=== PATIENT | female | born 1935 | race Caucasian/White ===

== ENCOUNTER 2019-09-01 11:21 | Outpatient (CLI) | payer MEDICARE, SELFPAY ==
--- NOTE | ~2019-09-01 | XR_ITS ---
EXAMINATION: XR toe 3rd LT min 2V INDICATION: Left third toe pain TECHNIQUE: Three views of the left third toe are obtained. COMPARISON: 06/16/2008 FINDINGS: There is no fracture, dislocation, or subluxation. 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 The soft tissues are unremarkable. IMPRESSION: 1. No acute osseous abnormality. Reviewed, dictated and finalized at location A.
[2019-09-01 12:54] LABS: Erythrocyte Sedimentation Rate 8 mm/hr (0-20)
[2019-09-01 18:46] LABS: Rheumatoid Factor < 8.6 IU/ML (<12)
== END 2019-09-01 11:22 | disposition home or self-care (01) ==
PROVIDERS: PCP Internal Medicine; Visit Provider Physician Assistant
DX: M79.675 Pain in left toe(s) (principal)
CPT/HCPCS: 36415; 73660; 85652; 86430

== ENCOUNTER 2019-10-28 10:50 | Emergency (ER) | payer MEDICARE, SELFPAY ==
[2019-10-28 11:04] VITALS: BP 143/91; PULSE 85; RESP 18; TEMP 36.1; O2SAT 100
--- NOTE | 2019-10-28 12:07 | ED.SKABFB ---
HPI - Skin/Abscess/Foreign Bdy General Chief complaint: Skin/Abscess/Foreign Body Stated complaint: pos spider bite Time Seen by Provider: 10/28/19 12:07 Source: patient and RN notes reviewed Mode of arrival: ambulatory Limitations: no limitations History of Present Illness HPI narrative: 84-year-old female who presents to [facility] care with complaints of red rash to the posterior calf region of her right leg for one week. Patient states she thinks she possibly got an insect bite of some kind and has developed this rash. Patient denies any fever, chills,or sweats, negative Anthony's sign noted. Patient states she has applied Benadryl cream, Neosporin and other [id number] ointments with no improvement in rash. MD complaint: rash and insect bite/sting Onset (ago): week(s) (1) Tetanus up to date: yes Location: RLE Severity: mild Severity scale (1-10): 3 Quality: burning and aching Pain Consistency: intermittent Relieving factors: none Exacerbating factors: none Context: other (possible insect bite) Associated symptoms: denies other symptoms and other (rash right calf) Treatments prior to arrival: OTC topical medication Related Data Home Medications Medication Instructions Recorded Confirmed Bacillus coagulans 10 billion cell 1 cell PO DAILY 06/20/19 10/28/19 capsule,delayed release cdxgv-k-japvbllyaybur 150 unit 2 tablet PO .before eating tablet 06/20/19 10/28/19 tablet aspirin 81 mg tablet,delayed 81 mg PO DAILY 06/20/19 10/28/19 release atorvastatin 10 mg tablet 10 mg PO DAILY 06/20/19 10/28/19 fexofenadine 180 mg tablet 180 mg PO DAILY 06/20/19 10/28/19 lisinopril 10 mg tablet 10 mg PO DAILY 06/20/19 10/28/19 lysine 500 mg tablet 500 mg PO DAILY 06/20/19 10/28/19 magnesium 250 mg tablet 250 mg PO DAILY 06/20/19 10/28/19 omeprazole 20 mg capsule,delayed 20 mg PO DAILY 06/20/19 10/28/19 release valacyclovir 500 mg tablet 2,000 mg PO Q12H tablet 06/20/19 10/28/19 Allergies Allergy/AdvReac Type Severity Reaction Status Date / Time Penicillins Allergy Severe RASH Verified 07/17/20 11:01 Sulfa (Sulfonamide Allergy Severe HIVES AND Verified 10/28/19 11:01 Antibiotics) SWELLING adhesive tape Allergy Intermediate skin tears Verified 10/28/19 11:01 Review of Systems Review of Systems: Narrative: CONSTITUTIONAL: Denies fever, chills, or sweats. EYES: Denies visual changes, redness, or discharge. ENT: Denies rhinorrhea, congestion, sore throat, or otalgia. CARDIOVASCULAR: Denies chest pain, palpitations, or edema. RESPIRATORY: Denies cough or dyspnea. GASTROINTESTINAL: Denies abdominal pain, nausea, vomiting, or diarrhea. GENITOURINARY: Denies dysuria or hematuria. SKIN: Positive rash to anterior calf of right leg denies itching states some burning to skin area at times, possible small lesion in rash that could be a bite. MUSCULOSKELETAL: Denies back pain, joint pain, or myalgia. NEUROLOGIC: Denies headache, numbness, or weakness. PSYCHIATRIC: Denies anxiety or depression. All systems reviewed & are unremarkable except as noted in HPI and below PMFSH Past Medical History Medical History (Updated 10/30/19 @ 16:00 by Jillian Tim NP) Cataract (lens) fragments in eye following cataract surgery, bilateral Chronic back pain Hyperlipidemia Hypertension Vaginal prolapse Surgical History Surgical History H/O bilateral oophorectomy H/O right breast biopsy H/O thyroidectomy History of appendectomy History of left knee replacement History of right knee joint replacement Social History Social History Smoking status: Never smoker Second hand tobacco smoke exposure: No Alcohol intake: never Substance use: never Comments At time of signature, agree with nursing past medical, surgical, social history. There is no relevant family history pertinent to the presenting complaint Exam Narra
== END 2019-10-28 12:25 | disposition home or self-care (01) ==
PROVIDERS: Emergency Provider Registered Nurse; PCP Physician Assistant
DX: S80.861A Insect bite (nonvenomous), right lower leg, initial encounter (principal); W57.XXXA Bitten or stung by nonvenomous insect and other nonvenomous arthropods, initial encounter; L25.9 Unspecified contact dermatitis, unspecified cause; Z96.653 Presence of artificial knee joint, bilateral; E78.5 Hyperlipidemia, unspecified; I10 Essential (primary) hypertension
CPT/HCPCS: 99213; G0463

== ENCOUNTER 2020-01-30 13:45 | Outpatient (CLI) | payer MEDICARE, SELFPAY ==
--- NOTE | ~2020-01-30 | CT_ITS ---
EXAMINATION: CT abdomen pelvis w con DATE: 01/30/2020 14:29 INDICATION: Unspecified abdominal pain. TECHNIQUE: Computed tomography (CT) of the abdomen and pelvis was performed with 100 mL Omnipaque 350 intravenous contrast. Automated exposure control and iterative reconstruction technique were employe d. The dose-length product was 775.26 mGy-cm. COMPARISON: CT abdomen and pelvis 05/03/12 FINDINGS: The visualized portions of the lung bases demonstrate mild atelectasis. A calcified right l yaima nodule is consistent with old granulomatous disease. No pleural effusion. Cardiomegaly is noted. No pericardial effusion. The liver, gallbladder, spleen, pancreas, and adrenal glands are normal. The re is cortical thinning of the kidneys. There are no dilated loops of bowel. The appendix is not visu alized. There are no pathologically enlarged lymph nodes. There is no free intraperitoneal fluid. The re is a left inguinal hernia containing fat. There is lumbar levoscoliosis and severe spondylosis. Th ere is severe thoracic spondylosis. IMPRESSION: 1. Left inguinal hernia containing fat. Reviewed, dictated and finalized at location A.
[2020-01-30 14:19] LABS: Estimated Glomerular Filt Rate 47
== END 2020-01-30 13:46 | disposition home or self-care (01) ==
PROVIDERS: PCP Physician Assistant; Visit Provider Physician Assistant
DX: K40.90 Unilateral inguinal hernia, without obstruction or gangrene, not specified as recurrent (principal)
CPT/HCPCS: 74177; Q9967

== ENCOUNTER → 2020-02-14 14:47 | Outpatient (CLI) | payer MEDICARE, SELFPAY ==
--- NOTE | ~2020-02-14 | XR_ITS ---
EXAMINATION: XR thoracic spine 3V DATE: 02/14/2020 15:14 INDICATION: Pain in thoracic spine. TECHNIQUE: 3 views of thoracic spine were obtained. COMPARISON: Thoracic spine radiographs 05/08/2015 FINDINGS: There is kyphosis of thoracic spine. There is 11 degrees levoscoliosis of cervicothoracic s pine and 23 degrees dextroscoliosis of thoracolumbar spine. There is chronic anterior wedging of T7 a nd T9 vertebral bodies. There is decreased disc height at multiple levels, severe at T9-T10 and T11-T 12. IMPRESSION: 1. Severe thoracic spondylosis. 2. Scoliosis and kyphosis. Reviewed, dictated and finalized at location A. 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
--- NOTE | ~2020-02-14 | XR_ITS ---
EXAMINATION: XR lumbar spine min 4V DATE: 02/14/2020 15:14 INDICATION: Low back pain. TECHNIQUE: 5 views of lumbar spine including flexion and extension views were obtained. COMPARISON: Lumbar spine radiographs 05/08/2015, CT abdomen and pelvis 01/30/2020 FINDINGS: There is 21 degrees dextroscoliosis of thoracolumbar spine. There is 2 mm anterolisthesis o f L3 on L4 and L4 on L5. Vertebral body heights are normal. There is severely decreased disc height f rom L1-L2 through L5-S1. There is no abnormal motion with flexion or extension. There is multilevel f acet joint osteoarthritis, severe at some levels. IMPRESSION: 1. Severe lumbar spondylosis. 2. Thoracolumbar dextroscoliosis. Reviewed, dictated and finalized at location A. 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
== END ==
PROVIDERS: PCP Physician Assistant; Visit Provider Nurse Practitioner Family
DX: M47.894 Other spondylosis, thoracic region (principal); M47.896 Other spondylosis, lumbar region
CPT/HCPCS: 72072; 72110

== ENCOUNTER → 2020-06-09 10:29 | Outpatient (CLI) | payer MEDICARE, SELFPAY ==
--- NOTE | ~2020-06-09 | MR_ITS ---
EXAMINATION: MR lumbar spine wo con DATE: 06/09/2020 12:10 INDICATION: Low back pain. TECHNIQUE: Magnetic resonance imaging (MRI) of the lumbar spine was performed without intravenous con trast. Sequences included sagittal T2-weighted FSE, sagittal T2-weighted FS FSE, sagittal T1-weighted FSE, and axial T2-weighted FSE. COMPARISON: Lumbar spine MRI 07/04/2016 FINDINGS: There is 18 degrees levoscoliosis of lumbar spine. There is 3 mm anterolisthesis of L4 on L 5. Vertebral body heights are normal. There is severely decreased disc height from L1-L2 through L4-L 5 and moderately decreased disc height at L5-S1 with endplate remodeling. The distal spinal cord sign al intensity is normal. The conus medullaris is at L1. The following disc levels are specifically dis cussed: L1-L2: The disc is bulging. There is severe right and moderate left facet joint osteoarthritis. There is mild right and moderate left neural foraminal stenosis. There is mild central canal stenosis. L2-L3: The disc is bulging. There is severe bilateral facet joint osteoarthritis. There is mild bilat eral neural foraminal stenosis. There is mild central canal stenosis. L3-L4: The disc is bulging. There is severe bilateral facet joint osteoarthritis. There is mild bilat eral neural foraminal stenosis. There is mild central canal stenosis. L4-L5: The disc is bulging and has an annular fissure. There is severe bilateral facet joint osteoart hritis. There is mild bilateral neural foraminal stenosis. There is mild central canal stenosis. L5-S1: The disc is bulging and has an annular fissure. There is severe bilateral facet joint osteoart hritis. There is mild bilateral neural foraminal stenosis. There is mild central canal stenosis. IMPRESSION: 1. Severe lumbar spondylosis, slightly worsened from 07/04/16. 2. Lumbar levoscoliosis. Reviewed, dictated and finalized at location A. MAN
--- NOTE | ~2020-06-09 | MR_ITS ---
EXAMINATION: MR thoracic spine wo con DATE: 06/09/2020 11:57 INDICATION: Thoracic spine pain. TECHNIQUE: Magnetic resonance imaging (MRI) of the thoracic spine was performed without intravenous c ontrast. Sagittal localizer T1-weighted FSE of the cervical spine was obtained. Thoracic spine sequen ramana included sagittal T2-weighted FSE, sagittal T1-weighted FSE, sagittal T2-weighted FS FSE, and axi al T2-weighted FSE. COMPARISON: Thoracic spine radiographs 02/14/2020 FINDINGS: There is kyphosis of the thoracic spine. Vertebral body heights are normal. There is interb nicole fusion from T7 to T9. There is severely decreased disc height at T9-T10 and T11-T12 and mildly de creased disc height at T10-T11. There is multilevel mild facet joint osteoarthritis. On the right, th ere is mild neural foraminal stenosis at T9-T10. On the left, there is mild neural foraminal stenosis at T1-T2 and T9-T10 and moderate neural foraminal stenosis at T11-T12. At T7-T8, there is a central extrusion with mild central canal stenosis and ventral indentation of the spinal cord. The discs are bulging at T9-T10, T10-T11, and T11-T12 with mild central canal stenosis. The spinal cord signal inte nsity is normal. IMPRESSION: 1. Severe thoracic spondylosis. Reviewed, dictated and finalized at location A. DER TIER
== END ==
PROVIDERS: PCP Physician Assistant; Visit Provider Nurse Practitioner Family
DX: M47.894 Other spondylosis, thoracic region (principal); M47.896 Other spondylosis, lumbar region
CPT/HCPCS: 72146; 72148

== ENCOUNTER 2020-06-28 08:15 | Outpatient (CLI) | payer MEDICARE, SELFPAY ==
[2020-06-28 09:01] LABS: Hematocrit 43.2 % (37.0-47.0); Hemoglobin 14.3 g/dL (12.0-15.0); Mean Corpuscular HGB Conc 33.1 g/dl (32-36); Mean Corpuscular Hemoglobin 31.5 pg (26-34); Mean Corpuscular Volume 95.2 fl (80-100); Mean Platelet Volume 9.5 fl (7.4-10.4); Platelet Count Result 231 k/mm3 (150-375); Red Blood Count 4.54 M/mm3 (4.2-5.4); White Blood Count 6.4 K/mm3 (4.5-10.0)
[2020-06-28 09:07] LABS: Alanine Aminotransferase 21 U/L (4-35); Albumin Level 4.1 g/dL (3.5-5.1); Alkaline Phosphatase 94 U/L (38-126); Anion Gap 6 mmol/L (8-16); Aspartate Amino Transferase 27 U/L (14-36); Bilirubin,Total 0.7 mg/dL (0.2-1.3); Blood Urea Nitrogen 24 mg/dL (7-17); Calcium 9.5 mg/dL (8.4-10.2); Carbon Dioxide 30 mmol/L (22-30); Chloride 106 mmol/L (98-107); Cholesterol 186 mg/dL (0-200); Estimated Glomerular Filt Rate 47; Glucose 100 mg/dL (65-105); HDL Direct 54 mg/dL; Potassium 4.6 mmol/L (3.4-5.0); Sodium 142 mmol/L (137-145); Triglycerides 133 mg/dL (<150)
[2020-06-28 09:18] LABS: LDL Cholesterol Direct 95 mg/dL
[2020-06-28 09:37] LABS: Thyroid Stimulating Hormone 0.968 uIU/mL (0.465-4.680)
[2020-06-28 10:15] LABS: Folic Acid > 20.0 ng/mL (2.76->20); Vitamin B12 > 1000.0 pg/mL (239-931)
== END 2020-06-28 08:16 | disposition home or self-care (01) ==
PROVIDERS: PCP Internal Medicine; Visit Provider Physician Assistant
DX: R53.83 Other fatigue (principal); I10 Essential (primary) hypertension; E78.5 Hyperlipidemia, unspecified
CPT/HCPCS: 36415; 80053; 80061; 82607; 82746; 84443; 85027

== ENCOUNTER 2020-10-16 11:16 | Outpatient (CLI) | payer MEDICARE, SELFPAY ==
--- NOTE | ~2020-10-16 | XR_ITS ---
XR ankle RT min 3V DATE: 10/16/2020 11:42 INDICATION: Right ankle and foot pain TECHNIQUE: 4 views COMPARISON: None FINDINGS: There is plantar and posterior calcaneal enthesopathy. Diffuse osteopenia. No fracture or dislocation of the ankle or disruption of the ankle mortise. No periosteal reaction or bone destruction. IMPRESSION: Calcaneal enthesopathy Reviewed, dictated and finalized at location A. IMPRESSION: Calcaneal enthesopathy
--- NOTE | ~2020-10-16 | XR_ITS ---
XR foot RT min 3V DATE: 10/16/2020 11:42 INDICATION: Right ankle and right foot pain TECHNIQUE: 4 views of right foot COMPARISON: None FINDINGS: Moderate plantar and mild posterior calcaneal enthesopathy. Diffuse osteopenia. An approximately 10 mm benign cystic lesion of the tarsal navicular bone. No fracture, dislocation, periosteal reaction or bone destruction is noted otherwise. IMPRESSION: 10 mm benign cyst of the tarsal navicular bone Diffuse osteopenia Plantar and posterior calcaneal enthesopathy Reviewed, dictated and finalized at location A.
== END 2020-10-16 11:17 | disposition home or self-care (01) ==
PROVIDERS: PCP Internal Medicine; Visit Provider Physician Assistant
DX: M85.871 Other specified disorders of bone density and structure, right ankle and foot (principal); M77.31 Calcaneal spur, right foot
CPT/HCPCS: 73610; 73630

== ENCOUNTER 2020-12-01 10:02 | Emergency (ER) | payer MEDICARE, SELFPAY ==
--- NOTE | 2020-12-01 10:09 | ED.GENADULT ---
HPI - General Adult General Chief complaint: Skin/Abscess/Foreign Body Stated complaint: breast redness Time Seen by Provider: 12/01/20 10:19 Source: patient and RN notes reviewed Mode of arrival: ambulatory Limitations: no limitations History of Present Illness HPI narrative: 85-year-old female presents with concern for redness, warmth, tenderness on her right breast for approximately 2 days. Reports for the past week she was dealing with a yeast rash under the same breast. Reports the rash is resolving however she now has the redness, warmth, tenderness. She denies any nipple discharge, lumps, skin dimpling. She denies intervention for the area. She denies fever, body aches, malaise. MD complaint: Breast redness Related Data Home Medications Medication Instructions Recorded Confirmed aspirin 81 mg tablet,delayed 81 mg PO DAILY 06/20/19 12/01/20 release fexofenadine 180 mg tablet 180 mg PO DAILY 06/20/19 12/01/20 lysine 500 mg tablet 500 mg PO DAILY 06/20/19 12/01/20 magnesium 250 mg tablet 250 mg PO DAILY 06/20/19 12/01/20 valacyclovir 500 mg tablet 2,000 mg PO Q12H tablet 06/20/19 12/01/20 acetaminophen 650 mg PO DAILY PRN 12/01/20 12/01/20 hydrocodone-acetaminophen 1 tablet PO BID PRN 12/01/20 12/01/20 ropinirole 2.5 mg PO QHS 12/01/20 12/01/20 Allergies Allergy/AdvReac Type Severity Reaction Status Date / Time Penicillins Allergy Severe RASH Verified 12/01/20 10:34 Sulfa (Sulfonamide Allergy Severe HIVES AND Verified 12/01/20 10:34 Antibiotics) SWELLING adhesive tape Allergy Intermediate skin tears Verified 12/01/20 10:34 Review of Systems Review of Systems: CONSTITUTIONAL: Denies malaise, chills, sweats, or fever. CARDIOVASCULAR: Denies chest pain, palpitations, or edema. RESPIRATORY: Denies cough or dyspnea. SKIN: Area of redness, warmth, firmness, tenderness to the right breast MUSCULOSKELETAL: Denies myalgia. All systems reviewed & are unremarkable except as noted in HPI and below PMFSH Past Medical History Medical History Cataract (lens) fragments in eye following cataract surgery, bilateral Chronic back pain Hyperlipidemia Hypertension Vaginal prolapse Surgical History Surgical History H/O bilateral oophorectomy H/O right breast biopsy H/O thyroidectomy History of appendectomy History of left knee replacement History of right knee joint replacement Social History Social History Smoking status: Never smoker Second hand tobacco smoke exposure: No Alcohol intake: never Substance use: never Comments At time of signature, agree with nursing past medical, surgical, social and family history. There is no relevant family history pertinent to the presenting complaint Exam Narrative: GENERAL: Well-appearing, well-nourished, and in no acute distress. HEAD: Normocephalic, atraumatic. EYES: PERRLA, conjunctivae clear ENT: Mucous membranes moist. NECK: Supple. No lymphadenopathy CHEST: Clear to auscultation. No respiratory distress. HEART: Regular rate and rhythm. SKIN: Warm, dry. 8 cm x 5 cm area of erythema, induration, warmth, tenderness noted to the right breast slightly involving the nipple at approximately 3:00 in relation to the nipple. No nipple discharge noted, no skin dimpling, no palpable masses NEURO: Alert and oriented x3. PSYCH: Normal mood and affect Course Course Emergency Course: Discussed with patient following up with primary care provider after antibiotic course for reevaluation due to the location of the breast redness and induration. Patient is aware of diagnosis, understands and agrees to treatment plan. Anticipatory guidance given. Patient agrees to follow-up as directed and is aware of reasons to seek care at the emergency department. Portions of this record may have been created with voice rec
[2020-12-01 10:14] VITALS: BP 150/78; PULSE 85; RESP 18; TEMP 36.7; O2SAT 99
== END 2020-12-01 10:54 | disposition home or self-care (01) ==
PROVIDERS: Emergency Provider Nurse Practitioner; PCP Internal Medicine
DX: N61.0 Mastitis without abscess (principal); E78.5 Hyperlipidemia, unspecified; I10 Essential (primary) hypertension; Z96.652 Presence of left artificial knee joint; Z96.651 Presence of right artificial knee joint; Z98.42 Cataract extraction status, left eye; Z98.41 Cataract extraction status, right eye
CPT/HCPCS: 99211; G0463

== ENCOUNTER 2021-01-02 01:59 | Observation (INO) | payer MEDICARE, SELFPAY ==
[2021-01-02] VITALS (20 sets, daily range): BP systolic 123–150; BP diastolic 66–81; PULSE 63–81; RESP 13–18; TEMP 36.4–36.9; O2SAT 93–100; BMI 36.5
--- NOTE | ~2021-01-02 | XR_ITS ---
EXAMINATION: XR ankle LT 2V DATE: 01/02/2021 02:37 INDICATION: Left ankle injury. TECHNIQUE: 3 views of left ankle were obtained. COMPARISON: Left foot radiographs 06/16/2008 FINDINGS: There is a comminuted fracture of distal fibula. The main distal fracture fragment demonstr ates shortening, lateral and posterior angulation, and lateral displacement. There is a fracture of p osterior malleolus with step-off at the articular surface. There is a comminuted predominantly obliqu e fracture of medial malleolus. The main distal fracture fragment demonstrates lateral and posterior displacement and angulation. The talar dome is intact. There is posterior and lateral dislocation of talus with respect to tibial plafond. There are enthesophytes at the posterior and plantar aspects of calcaneal tuberosity. Ankle soft tissue swelling is noted. IMPRESSION: 1. Trimalleolar ankle fracture dislocation. Reviewed, dictated and finalized at location A.
--- NOTE | ~2021-01-02 | XR_ITS ---
EXAMINATION: XR ankle LT 2V DATE: 01/02/2021 04:30 INDICATION: Left ankle fracture status post reduction. TECHNIQUE: 3 views of left ankle were obtained. COMPARISON: Left ankle radiographs at 2:27 AM FINDINGS: There is a comminuted fracture of distal fibular diaphysis. The main distal fracture fragme nt demonstrates one cortical width lateral displacement and 3 mm posterior displacement. There is a c omminuted fracture of medial malleolus. The main distal fracture fragment demonstrates near-anatomic alignment. There is a fracture of posterior malleolus with 2 mm step-off at the articular surface. Th ere are loose bodies in the anterior ankle joint. There are enthesophytes at the posterior and planta r aspects of calcaneal tuberosity. Ankle soft tissue swelling is noted. IMPRESSION: 1. Trimalleolar ankle fracture with improvement in alignment status post reduction. 2. Ankle joint loose bodies. Reviewed, dictated and finalized at location A. IMPRESSION: 1. Trimalleolar ankle fracture with improvement in alignment status post reduct ion. 2. Ankle joint loose bodies.
--- NOTE | ~2021-01-02 | XR_ITS ---
EXAMINATION: XR surgery orthopedic DATE: 01/02/2021 15:57 INDICATION: ORIF left ankle fracture TECHNIQUE: 3 fluoroscopic images of the left ankle were obtained during procedure performed by Dr. Tony valdes. Radiologist was not present for the imaging or procedure. The amount of fluoroscopy time used during this procedure was 1.0 minutes. COMPARISON: Radiographs dated 01/02/2021 FINDINGS: Interval open reduction internal fixation of the trimalleolar fracture of the left ankle. The medial malleolar fractures fixed with a pair of cannulated lag screws. There is a single anterior to posteri ana directed cannulated lag screw fixing the posterior malleolar fracture. There is a retrograde int ramedullary cirilo with distal interlocking screws fixing the distal fibular fracture. Also extending th rough the cirilo are a pair of tightrope type syndesmotic fixation wires with fixation buttons along the tibial and fibular sides of the x-rays margins. There is an additional small unfixed mildly displace d fracture fragment along the anterior margin of the tibial plafond. Alignment is now near-anatomic w ith a congruent ankle mortise. Prominent soft tissue swelling about the ankle particularly over the m edial malleolus. IMPRESSION: 1. Near-anatomic alignment post internal fixation of a trimalleolar fracture at the left ankle as det piyush above. Reviewed, dictated and finalized at location A. IMPRESSION: 1. Near-anatomic alignment post internal fixation of a trimalleolar fracture at the left ankle as detailed above.
[2021-01-02] MEDS: HYDROcodone/acetaminophen (*CRX) 5-325 MG TABLET 1 TAB PO (02:28)
--- NOTE | 2021-01-02 02:36 | ED.LOWEXIN ---
HPI - Extremity Injury (Lower) General Chief Complaint: Extremity Injury, Lower Stated Complaint: fall/ ankle pain/ nausea Time Seen by Provider: 01/02/21 02:22 Source: patient Mode of arrival: ambulatory Limitations: no limitations History of Present Illness HPI Narrative: Patient is an 85-year-old female complaining of left ankle pain after she tripped and fell while going the bathroom prior to arrival. Patient states that she was feeling sleepy and groggy and that is why she fell. Patient denies any head, neck, chest, back, abdomen, pelvis or any other extremity pain/injury. Patient denies any loss of consciousness. Place: home Severity scale (1-10): 10 Related Data Home Medications Medication Instructions Recorded Confirmed aspirin 81 mg tablet,delayed 81 mg PO DAILY 06/20/19 12/01/20 release fexofenadine 180 mg tablet 180 mg PO DAILY 06/20/19 12/01/20 lysine 500 mg tablet 500 mg PO DAILY 06/20/19 12/01/20 magnesium 250 mg tablet 250 mg PO DAILY 06/20/19 12/01/20 valacyclovir 500 mg tablet 2,000 mg PO Q12H tablet 06/20/19 12/01/20 acetaminophen 650 mg PO DAILY PRN 12/01/20 12/01/20 hydrocodone-acetaminophen 1 tablet PO BID PRN 12/01/20 12/01/20 ropinirole 2.5 mg PO QHS 12/01/20 12/01/20 Allergies Allergy/AdvReac Type Severity Reaction Status Date / Time Penicillins Allergy Severe RASH Verified 01/02/21 02:19 Sulfa (Sulfonamide Allergy Severe HIVES AND Verified 01/02/21 02:19 Antibiotics) SWELLING adhesive tape Allergy Intermediate skin tears Verified 01/02/21 02:19 Review of Systems Review of Systems: All systems reviewed & are unremarkable except as noted in HPI and below Constitutional: Constitutional: Denies body ache(s), Denies chills, Denies excessive sweating, Denies fatigue, Denies fever(s), Denies headache(s), Denies lethargy, Denies malaise, Denies weakness and Denies weight loss Eyes: Eyes: Denies blurry vision, Denies change in vision and Denies loss of vision ENT: Denies dizziness, Denies ear discharge, Denies headache(s), Denies lip swelling, Denies epistaxis, Denies nasal congestion, Denies neck pain, Denies throat swelling and Denies tongue swelling Cardiovascular: Cardiovascular: Denies chest pain, Denies chest pain at rest, Denies chest pain with activity, Denies diaphoresis, Denies rapid heart rate, Denies edema, Denies irregular heart rhythm, Denies lightheadedness, Denies palpitations, Denies dyspnea and Denies dyspnea on exertion Respiratory: Respiratory: Denies chest congestion, Denies cough, Denies hemoptysis, Denies dyspnea and Denies dyspnea on exertion Gastrointestinal: Gastrointestinal: Denies abdominal pain, Denies melena, Denies hematochezia, Denies diarrhea, Denies nausea, Denies vomiting and Denies hematemesis Musculoskeletal: Musculoskeletal: Denies neck pain and Denies numbness Neurologic: Denies Abnormal speech present, Denies abnormal gait, Denies confusion, Denies dizziness, Denies headache(s), Denies focal weakness, Denies loss of vision, Denies numbness, Denies Other visual disturbances, Denies Sensory deficit (Neuro) and Denies weakness Psychiatric: Psychiatric: Denies confusion, Denies depression, Denies auditory hallucinations, Denies homicidal ideation and Denies suicidal ideation Endocrine: Endocrine: Denies cold intolerance, Denies excessive sweating, Denies fatigue, Denies heat intolerance and Denies palpitations Hematologic/Lymphatic: Hematologic/Lymphatic: Denies easy bleeding and Denies easy bruising Allergic/Immunologic: Allergic/Immunologic: Denies lip swelling, Denies throat swelling and Denies tongue swelling PMFSH Past Medical History Medical History Cataract (lens) fragments in eye following cataract surgery, bilateral Chronic back pain Hyperlipidemia Hypertension Vaginal prolapse Surgical History Surgical History H/O bilateral oophorectomy
[2021-01-02] MEDS: HYDROmorphone HCL INJ (*CRX) 1 MG/ML SYR 0.5 MG IV PUSH ×2 (03:17→10:42)
[2021-01-02] MEDS: ONDANSETRON INJ 4 MG/2 ML VIAL IV PUSH (03:18)
--- NOTE | 2021-01-02 04:30 | ECG_ITS ---
Measurements Intervals [place] Rate: 59 P: 65 NH: 176 QRS: -42 QRSD: 98 T: -17 QT: 477 QTc: 476 Interpretive Statements SINUS BRADYCARDIA LEFT AXIS DEVIATION LOW QRS VOLTAGE IN PRECORDIAL LEADS VOLTAGE CRITERIA FOR LVH POOR R WAVE PROGRESSION, ANTERIOR LEADS BORDERLINE T WAVE ABNORMALITY- ANT/INF LEADS BASELINE ARTIFACT- V3-V4, V6 BORDERLINE ECG Electronically Signed On 01-02-2021 6:49:44 CDT by Mynor Cota D.O.
[2021-01-02 04:55] LABS: Basophils Absolute Auto 0.1 K/mm3 (0.0-0.1); Eosinophils Absolute Auto 0.2 K/mm3 (0-0.3); Eosinophils Percent Auto 1.6 % (0-4.4); Hematocrit 39.8 % (37.0-47.0); Hemoglobin 13.1 g/dL (12.0-15.0); Immature Granulocyte Absolute 0.05 K/mm3 (0.00-0.031); Immature Granulocyte Percent A 0.5 % (0-0.5); Lymphocytes Percent Auto 13.5 % (18.3-44.2); Mean Corpuscular HGB Conc 32.9 g/dl (32-36); Mean Corpuscular Hemoglobin 32.1 pg (26-34); Mean Corpuscular Volume 97.5 fl (80-100); Mean Platelet Volume 9.2 fl (7.4-10.4); Monocytes Absolute Auto 0.7 K/mm3 (0.1-0.6); Monocytes Percent Auto 7.2 % (2.6-8.5); Neutrophils Absolute Auto 7.3 K/mm3 (1.3-6.7); Neutrophils Percent Auto 76.2 % (45.5-73.1); Platelet Count Result 197 k/mm3 (150-375); Red Blood Count 4.08 M/mm3 (4.2-5.4); Red Cell Distribution Width 13.4 % (11.5-14.5); White Blood Count 9.6 K/mm3 (4.5-10.0)
[2021-01-02 05:04] LABS: Prothrombin Time 12.9 Seconds (11.1-14.7)
[2021-01-02 05:06] LABS: Anion Gap 7 mmol/L (8-16); Blood Urea Nitrogen 22 mg/dL (7-17); Calcium 8.9 mg/dL (8.4-10.2); Carbon Dioxide 26 mmol/L (22-30); Chloride 106 mmol/L (98-107); Estimated CRCL calculation 43 ml/min; Estimated Glomerular Filt Rate 53; Glucose 119 mg/dL (65-110); Potassium 4.4 mmol/L (3.4-5.0); Sodium 139 mmol/L (137-145)
--- NOTE | 2021-01-02 06:19 | PC.NURSE ---
faxed and tubed [facility] to [facility] at 0600. called 3 times to notify someone and no answer.
--- NOTE | 2021-01-02 07:30 | PM.CNOR ---
Assessment and Plan Assessment and plan (1) Closed trimalleolar fracture: Qualifiers: Encounter type: initial encounter Laterality: left Qualified Code(s): S82.852A - Displaced trimalleolar fracture of left lower leg, initial encounter for closed fracture Code(s): S82.853A - Displaced trimalleolar fracture of unspecified lower leg, initial encounter for closed fracture Status: Acute Assessment and Plan: 85-year-old woman lives at home, independent ambulator. Left ankle trimalleolar fracture. Discussed nonoperative and operative treatment options with the patient. Risks and benefits of each as well as alternatives were reviewed. All of the patient's questions were answered. The risks of surgery reviewed including but not limited to: Neurovascular damage, wound complication, infection, blood clot, pulmonary embolus, stroke, myocardial infarction, and anesthetic risks up to and including . Continued pain and possible dysfunction were explained. Specific risks of the procedure including later recurrence of deformity. No guarantees were offered. If hardware used, discussed risk of failure/ breakage and possible need for removal. If complications occur, the patient understands the need for further treatment, possible further surgery. Patient verbalizes understanding and wishes to proceed. PLAN: Open reduction internal fixation left ankle fracture History of Present Illness HPI Consult date: 01/02/21 Requesting physician: Gagan Pathak MD Chief complaint: Trimalleolar fracture Narrative: 85-year-old woman who got up in the middle and night to use the restroom and fell injuring the left ankle. Fracture dislocation of the ankle. Ambulance transfer to the emergency room. Closed reduction performed in patient admitted. Denies numbness or tingling. States that she has had previous ankle sprains. Lives at home with her . Independent ambulator with use of a cane. Review of Systems Review of Systems: All systems reviewed & are unremarkable except as noted in HPI and below Constitutional: Constitutional: Denies body ache(s), Denies chills, Denies excessive sweating, Denies fatigue, Denies fever(s), Denies headache(s), Denies lethargy, Denies malaise, Denies weakness and Denies weight loss Eyes: Eyes: Denies blurry vision, Denies change in vision and Denies loss of vision ENT: Denies dizziness, Denies ear discharge, Denies headache(s), Denies lip swelling, Denies epistaxis, Denies nasal congestion, Denies neck pain, Denies throat swelling and Denies tongue swelling Cardiovascular: Cardiovascular: Denies chest pain, Denies chest pain at rest, Denies chest pain with activity, Denies diaphoresis, Denies rapid heart rate, Denies edema, Denies irregular heart rhythm, Denies lightheadedness, Denies palpitations, Denies dyspnea and Denies dyspnea on exertion Respiratory: Respiratory: Denies chest congestion, Denies cough, Denies hemoptysis, Denies dyspnea and Denies dyspnea on exertion Gastrointestinal: Gastrointestinal: Denies abdominal pain, Denies melena, Denies hematochezia, Denies diarrhea, Denies nausea, Denies vomiting and Denies hematemesis Musculoskeletal: Musculoskeletal: Denies neck pain and Denies numbness Neurologic: Denies Abnormal speech present, Denies abnormal gait, Denies confusion, Denies dizziness, Denies headache(s), Denies focal weakness, Denies loss of vision, Denies numbness, Denies Other visual disturbances, Denies Sensory deficit (Neuro) and Denies weakness Psychiatric: Psychiatric: Denies confusion, Denies depression, Denies auditory hallucinations, Denies homicidal ideation and Denies suicidal ideation Endocrine: Endocrine: Denies cold intolerance, Denies excessive sweating, Denies fatigue, Denies heat intolerance and Denies palpitations Hematologic/Lymphatic: Hematologic/Lymphatic: Denies easy bleeding and Denies easy bruising Allergic/Immunologic: Allergic/Immunologic: Denies
--- NOTE | 2021-01-02 08:08 | ADMGEN ---
This patient, Beryl Houston, was admitted to [address] [place] [address] Room 305-01 at 0700. Patient/family oriented to hospital policies and general routines including ID bracelet, bed and alarms, visiting hours, pain management, procedures, bathroom and other care routines, personal items, smoking policy, room service/diet, and visiting hours. Information on how to activate the Rapid Response Team has been discussed. Patient/Family are encouraged to report perceived risks to care and to ask questions if they do not understand what they are told or what they should do.
--- NOTE | 2021-01-02 12:39 | PM.CNOR ---
History of Present Illness HPI Consult date: 01/02/21 Chief complaint: Trimalleolar fracture [facility] Past Medical History Medical History Cataract (lens) fragments in eye following cataract surgery, bilateral Chronic back pain Hyperlipidemia Hypertension Vaginal prolapse Surgical History Surgical History H/O bilateral oophorectomy H/O right breast biopsy H/O thyroidectomy History of appendectomy History of left knee replacement History of right knee joint replacement Family History Family History (Updated 01/02/21 @ 08:34 by Lyubov Robertson RN) Father Acute myocardial infarction Other Unknown family medical history Social History Social History Smoking status: Never smoker Second hand tobacco smoke exposure: No Alcohol intake: never Substance use: never Spiritual care concerns: No Meds Home Medications and Allergies Home Medications Medication Instructions Recorded Confirmed Type aspirin 81 mg tablet,delayed 81 mg PO DAILY 06/20/19 01/02/21 History release fexofenadine 180 mg tablet 180 mg PO DAILY 06/20/19 01/02/21 History lysine 500 mg tablet 500 mg PO DAILY 06/20/19 01/02/21 History magnesium 250 mg tablet 250 mg PO DAILY 06/20/19 01/02/21 History oxybutynin chloride 15 mg 15 mg PO DAILY #90 tablet 05/13/20 01/02/21 Rx tablet,extended release 24 hr gabapentin 100 mg capsule 200 mg PO QHS #180 cap 06/25/20 01/02/21 Rx lisinopril 10 mg tablet 10 mg PO DAILY #90 tablet 07/02/20 01/02/21 Rx atorvastatin 10 mg tablet See Rx Instructions .ROUTE 10/16/20 01/02/21 Rx .COMPLEX #45 tablet duloxetine 60 mg capsule,delayed 60 mg PO DAILY #90 cap 10/19/20 01/02/21 Rx release omeprazole 20 mg capsule,delayed 20 mg PO DAILY #90 cap 11/13/20 01/02/21 Rx release nabumetone 750 mg tablet 750 mg PO BID #180 tablet 11/28/20 01/02/21 Rx acetaminophen 650 mg PO DAILY PRN 12/01/20 01/02/21 History hydrocodone-acetaminophen 1 tablet PO BID PRN 12/01/20 01/02/21 History ropinirole 2.5 mg PO QHS 12/01/20 01/02/21 History Allergies Allergy/AdvReac Type Severity Reaction Status Date / Time Penicillins Allergy Severe RASH Verified 01/02/21 02:19 Sulfa (Sulfonamide Allergy Severe HIVES AND Verified 01/02/21 02:19 Antibiotics) SWELLING adhesive tape Allergy Intermediate skin tears Verified 01/02/21 02:19 Vital Signs Vital Signs - 24 hr 01/02/21 01:57 01/02/21 03:28 01/02/21 05:12 Temperature 97.5 F L Pulse Rate 65 64 63 Respiratory Rate 17 13 14 Blood Pressure 146/72 H 134/67 128/73 Pulse Oximetry 95 93 97 01/02/21 08:00 01/02/21 10:35 Temperature Pulse Rate Respiratory Rate Blood Pressure Pulse Oximetry 95 94 Results Labs Result Diagrams: 01/02/21 04:46 01/02/21 04:46 Labs: Abnormal lab results 01/02/21 01/02/21 Range/Units 04:46 04:46 RBC 4.08 L (4.2-5.4) M/mm3 Neut % (Auto) 76.2 H (45.5-73.1) % Lymph % (Auto) 13.5 L (18.3-44.2) % [place] # (Auto) 0.7 H (0.1-0.6) K/mm3 Abs Immat Gran (auto) 0.05 H (0.00-0.031) K/mm3 Absolute Neuts (auto) 7.3 H (1.3-6.7) K/mm3 Anion Gap 7 L (8-16) mmol/L BUN 22 H (7-17) mg/dL Estimated GFR 53 L (59 - ) Glucose 119 H (65-110) mg/dL H & H 01/02/21 Range/Units 04:46 Hgb 13.1 (12.0-15.0) g/dL Hct 39.8 (37.0-47.0) % Coagulation 01/02/21 Range/Units 04:46 INR 1.0 All other labs normal.
--- NOTE | 2021-01-02 13:50 | WPDANESEPP ---
Anes - Eval Pre Procedure Procedure: Operation Date: 01/02/21 14:30 Proposed Procedures p Open Reduction Internal Fixation Left Ankle - Alvarado Gutierrez MD Date/Time: 01/02/21 13:50 Pre Op Diagnosis: Trimalleolar fracture Patient Data Age: 85 Gender: F Height: 1.65 m Weight: 99.5 kg Last Vital Signs Temp 36.4 C L 01/02/21 01:57 Pulse 63 01/02/21 05:12 Resp 14 01/02/21 05:12 BP 128/73 01/02/21 05:12 Pulse Ox 94 01/02/21 10:35 Allergies Allergy/AdvReac Type Severity Reaction Status Date / Time Penicillins Allergy Severe RASH Verified 01/02/21 02:19 Sulfa (Sulfonamide Allergy Severe HIVES AND Verified 01/02/21 02:19 Antibiotics) SWELLING adhesive tape Allergy Intermediate skin tears Verified 01/02/21 02:19 Home Medications Medication Instructions Recorded Confirmed Type aspirin 81 mg tablet,delayed 81 mg PO DAILY 06/20/19 01/02/21 History release fexofenadine 180 mg tablet 180 mg PO DAILY 06/20/19 01/02/21 History lysine 500 mg tablet 500 mg PO DAILY 06/20/19 01/02/21 History magnesium 250 mg tablet 250 mg PO DAILY 06/20/19 01/02/21 History oxybutynin chloride 15 mg 15 mg PO DAILY #90 tablet 05/13/20 01/02/21 Rx tablet,extended release 24 hr gabapentin 100 mg capsule 200 mg PO QHS #180 cap 06/25/20 01/02/21 Rx lisinopril 10 mg tablet 10 mg PO DAILY #90 tablet 07/02/20 01/02/21 Rx atorvastatin 10 mg tablet See Rx Instructions .ROUTE 10/16/20 01/02/21 Rx .COMPLEX #45 tablet duloxetine 60 mg capsule,delayed 60 mg PO DAILY #90 cap 10/19/20 01/02/21 Rx release omeprazole 20 mg capsule,delayed 20 mg PO DAILY #90 cap 11/13/20 01/02/21 Rx release nabumetone 750 mg tablet 750 mg PO BID #180 tablet 11/28/20 01/02/21 Rx acetaminophen 650 mg PO DAILY PRN 12/01/20 01/02/21 History hydrocodone-acetaminophen 1 tablet PO BID PRN 12/01/20 01/02/21 History ropinirole 2.5 mg PO QHS 12/01/20 01/02/21 History Laboratory Tests 01/02/21 01/02/21 01/02/21 04:46 04:46 04:46 WBC 9.6 K/mm3 K/mm3 (4.5-10.0) RBC 4.08 M/mm3 L M/mm3 (4.2-5.4) Hgb 13.1 g/dL g/dL (12.0-15.0) Hct 39.8 % % (37.0-47.0) MCV 97.5 fl fl (80-100) MCH 32.1 pg pg (26-34) MCHC 32.9 g/dl g/dl (32-36) RDW 13.4 % % (11.5-14.5) Plt Count 197 k/mm3 k/mm3 (150-375) MPV 9.2 fl fl (7.4-10.4) Immature Gran % (Auto) 0.5 % % (0-0.5) Neut % (Auto) 76.2 % H % (45.5-73.1) Lymph % (Auto) 13.5 % L % (18.3-44.2) [place] % (Auto) 7.2 % % (2.6-8.5) Eos % (Auto) 1.6 % % (0-4.4) Baso % (Auto) 1.0 % % (0.2-1.2) Lymph # (Auto) 1.30 K/mm3 K/mm3 (0.9-3.2) [place] # (Auto) 0.7 K/mm3 H K/mm3 (0.1-0.6) Eos # (Auto) 0.2 K/mm3 K/mm3 (0-0.3) Baso # (Auto) 0.1 K/mm3 K/mm3 (0.0-0.1) Abs Immat Gran (auto) 0.05 K/mm3 H K/mm3 (0.00-0.031) Absolute Neuts (auto) 7.3 K/mm3 H K/mm3 (1.3-6.7) Absolute Nucleated RBC 0.0 K/mm3 K/mm3 (0.0-0.012) Nucleated RBC % 0.0 % % (0.0-0.2) PT 12.9 Seconds Seconds (11.1-14.7) INR 1.0 APTT 24.0 SECONDS SECONDS (22.3-36.8) Sodium 139 mmol/L mmol/L (137-145) Potassium 4.4 mmol/L mmol/L (3.4-5.0) Chloride 106 mmol/L mmol/L (98-107) Carbon Dioxide 26 mmol/L mmol/L (22-30) Anion Gap 7 mmol/L L mmol/L (8-16) BUN 22 mg/dL H mg/dL (7-17) Creatinine 1.00 mg/dL mg/dL (0.7-1.0) Estim Creat Clear Calc 43 ml/min ml/min Estimated GFR 53 L (59 - ) Glucose 119 mg/dL H mg/dL (65-110) Calcium 8.9 mg/dL mg/dL (8.4-10.2) Patient hx anesthesia problems: none Family hx anesthesia problems: none [facility] Past Medical History Medical History Cataract (l
--- NOTE | 2021-01-02 13:54 | WPDANESEPPF ---
Anes - Initial Pre Proc Eval Procedure: Operation Date: 01/02/21 14:30 Proposed Procedures p Open Reduction Internal Fixation Left Ankle - Alvarado Xochitl Gutierrez MD Date/Time: 01/02/21 13:54 Surgeon: Hiwot Viramontes DO Pre Op Diagnosis: Trimalleolar fracture Patient Data Age: 85 Gender: F Height: 1.65 m Weight: 99.5 kg Last Vital Signs Temp 36.4 C L 01/02/21 01:57 Pulse 63 01/02/21 05:12 Resp 14 01/02/21 05:12 BP 128/73 01/02/21 05:12 Pulse Ox 94 01/02/21 10:35 Allergies Allergy/AdvReac Type Severity Reaction Status Date / Time Penicillins Allergy Severe RASH Verified 01/02/21 02:19 Sulfa (Sulfonamide Allergy Severe HIVES AND Verified 01/02/21 02:19 Antibiotics) SWELLING adhesive tape Allergy Intermediate skin tears Verified 01/02/21 02:19 Home Medications Medication Instructions Recorded Confirmed Type aspirin 81 mg tablet,delayed 81 mg PO DAILY 06/20/19 01/02/21 History release fexofenadine 180 mg tablet 180 mg PO DAILY 06/20/19 01/02/21 History lysine 500 mg tablet 500 mg PO DAILY 06/20/19 01/02/21 History magnesium 250 mg tablet 250 mg PO DAILY 06/20/19 01/02/21 History oxybutynin chloride 15 mg 15 mg PO DAILY #90 tablet 05/13/20 01/02/21 Rx tablet,extended release 24 hr gabapentin 100 mg capsule 200 mg PO QHS #180 cap 06/25/20 01/02/21 Rx lisinopril 10 mg tablet 10 mg PO DAILY #90 tablet 07/02/20 01/02/21 Rx atorvastatin 10 mg tablet See Rx Instructions .ROUTE 10/16/20 01/02/21 Rx .COMPLEX #45 tablet duloxetine 60 mg capsule,delayed 60 mg PO DAILY #90 cap 10/19/20 01/02/21 Rx release omeprazole 20 mg capsule,delayed 20 mg PO DAILY #90 cap 11/13/20 01/02/21 Rx release nabumetone 750 mg tablet 750 mg PO BID #180 tablet 11/28/20 01/02/21 Rx acetaminophen 650 mg PO DAILY PRN 12/01/20 01/02/21 History hydrocodone-acetaminophen 1 tablet PO BID PRN 12/01/20 01/02/21 History ropinirole 2.5 mg PO QHS 12/01/20 01/02/21 History Laboratory Tests 01/02/21 01/02/21 01/02/21 04:46 04:46 04:46 WBC 9.6 K/mm3 K/mm3 (4.5-10.0) RBC 4.08 M/mm3 L M/mm3 (4.2-5.4) Hgb 13.1 g/dL g/dL (12.0-15.0) Hct 39.8 % % (37.0-47.0) MCV 97.5 fl fl (80-100) MCH 32.1 pg pg (26-34) MCHC 32.9 g/dl g/dl (32-36) RDW 13.4 % % (11.5-14.5) Plt Count 197 k/mm3 k/mm3 (150-375) MPV 9.2 fl fl (7.4-10.4) Immature Gran % (Auto) 0.5 % % (0-0.5) Neut % (Auto) 76.2 % H % (45.5-73.1) Lymph % (Auto) 13.5 % L % (18.3-44.2) [place] % (Auto) 7.2 % % (2.6-8.5) Eos % (Auto) 1.6 % % (0-4.4) Baso % (Auto) 1.0 % % (0.2-1.2) Lymph # (Auto) 1.30 K/mm3 K/mm3 (0.9-3.2) [place] # (Auto) 0.7 K/mm3 H K/mm3 (0.1-0.6) Eos # (Auto) 0.2 K/mm3 K/mm3 (0-0.3) Baso # (Auto) 0.1 K/mm3 K/mm3 (0.0-0.1) Abs Immat Gran (auto) 0.05 K/mm3 H K/mm3 (0.00-0.031) Absolute Neuts (auto) 7.3 K/mm3 H K/mm3 (1.3-6.7) Absolute Nucleated RBC 0.0 K/mm3 K/mm3 (0.0-0.012) Nucleated RBC % 0.0 % % (0.0-0.2) PT 12.9 Seconds Seconds (11.1-14.7) INR 1.0 APTT 24.0 SECONDS SECONDS (22.3-36.8) Sodium 139 mmol/L mmol/L (137-145) Potassium 4.4 mmol/L mmol/L (3.4-5.0) Chloride 106 mmol/L mmol/L (98-107) Carbon Dioxide 26 mmol/L mmol/L (22-30) Anion Gap 7 mmol/L L mmol/L (8-16) BUN 22 mg/dL H mg/dL (7-17) Creatinine 1.00 mg/dL mg/dL (0.7-1.0) Estim Creat Clear Calc 43 ml/min ml/min Estimated GFR 53 L (59 - ) Glucose 119 mg/dL H mg/dL (65-110) Calcium 8.9 mg/dL mg/dL (8.4-10.2) Patient hx anesthesia problems: none Family hx anesthesia problems: none [facility] Past Medical History Medical History (Reviewed 01/02/21 @ 13:55 by
[2021-01-02] MEDS: LACTATED RINGERS 1,000 ML 30 ML IV CONT ×2 (14:06→16:00)
--- NOTE | 2021-01-02 14:17 | WPDHPUPDATE1 ---
History and Physical Update Update Date/Time: 01/02/21 14:17 History and Physical has been reviewed, including an updated exam of the patient. There are NO changes in the patient's condition. Risks, benefits, and alternatives have been discussed and questions answered. Patient agrees to proceed with procedure.
[2021-01-02] MEDS: ceFAZolin 2 GM/D5W 50 ML 2 GM/50 ML BAG IVPB (14:25)
[2021-01-02] MEDS: BUPIVACAINE/EPINEPHRINE 0.25% 50 ML VIAL 30 ML INFILTRATE (15:04)
--- NOTE | 2021-01-02 15:04 | PM.IMHP ---
H&P: HPI History of Present Illness Date/Time: 01/02/21 15:04 Chief Complaint: Fall Narrative: Pleasant 85 year old lady fell in her bathroom last night ? accidental fall, sustained left ankle Fracture, Fracture dislocation of the ankle. Pt had closed reduction in ED, pt seen by orthopedics today pt will go for Open reduction internal fixation left ankle fracture. Pt has history of HTN and HLD usually in good healthy. NO other compliants of chest pain, SOB or other injuries. Review of Systems Review of Systems: All systems reviewed & are unremarkable except as noted in HPI and below PMFSH Past Medical History Medical History (Updated 01/02/21 @ 15:10 by Sabi Cheng MD) Cataract (lens) fragments in eye following cataract surgery, bilateral Chronic back pain Hyperlipidemia Hypertension Vaginal prolapse Surgical History Surgical History H/O bilateral oophorectomy H/O right breast biopsy H/O thyroidectomy History of appendectomy History of left knee replacement History of right knee joint replacement Family History Family History Father Acute myocardial infarction Other Unknown family medical history Social History Social History Smoking status: Never smoker Second hand tobacco smoke exposure: No Alcohol intake: never Substance use: never Spiritual care concerns: No Meds Home Medications and Allergies Home Medications Medication Instructions Recorded Confirmed Type aspirin 81 mg tablet,delayed 81 mg PO DAILY 06/20/19 01/02/21 History release fexofenadine 180 mg tablet 180 mg PO DAILY 06/20/19 01/02/21 History lysine 500 mg tablet 500 mg PO DAILY 06/20/19 01/02/21 History magnesium 250 mg tablet 250 mg PO DAILY 06/20/19 01/02/21 History oxybutynin chloride 15 mg 15 mg PO DAILY #90 tablet 05/13/20 01/02/21 Rx tablet,extended release 24 hr gabapentin 100 mg capsule 200 mg PO QHS #180 cap 06/25/20 01/02/21 Rx lisinopril 10 mg tablet 10 mg PO DAILY #90 tablet 07/02/20 01/02/21 Rx atorvastatin 10 mg tablet See Rx Instructions .ROUTE 10/16/20 01/02/21 Rx .COMPLEX #45 tablet duloxetine 60 mg capsule,delayed 60 mg PO DAILY #90 cap 10/19/20 01/02/21 Rx release omeprazole 20 mg capsule,delayed 20 mg PO DAILY #90 cap 11/13/20 01/02/21 Rx release nabumetone 750 mg tablet 750 mg PO BID #180 tablet 11/28/20 01/02/21 Rx acetaminophen 650 mg PO DAILY PRN 12/01/20 01/02/21 History hydrocodone-acetaminophen 1 tablet PO BID PRN 12/01/20 01/02/21 History ropinirole 2.5 mg PO QHS 12/01/20 01/02/21 History Allergies Allergy/AdvReac Type Severity Reaction Status Date / Time Penicillins Allergy Severe RASH Verified 01/02/21 02:19 Sulfa (Sulfonamide Allergy Severe HIVES AND Verified 01/02/21 02:19 Antibiotics) SWELLING adhesive tape Allergy Intermediate skin tears Verified 01/02/21 02:19 Vital Signs Vital Signs - 24 hr 01/02/21 01:57 01/02/21 03:28 01/02/21 05:12 Temperature 36.4 C L Pulse Rate 65 64 63 Respiratory Rate 17 13 14 Blood Pressure 146/72 H 134/67 128/73 Pulse Oximetry 95 93 97 01/02/21 08:00 01/02/21 10:35 01/02/21 13:59 Temperature 36.4 C L Pulse Rate 68 Respiratory Rate 16 Blood Pressure 149/66 H Pulse Oximetry 95 94 98 Exam Const: General: well developed Nutritional Appearance: well nourished HENMT: Head: normocephalic Eyes: General: appearance normal, both eyes and all related structures Pupils: Equal, round and reactive pupils present Neck: Neck: supple Chest: Chest palpation & inspection: normal inspection of the chest Resp: Effort & Inspection: normal respiratory effort Auscultation: clear to auscultation bilaterally Cardio: Jugular venous distension: no JVD Rhythm: regular rhythm Heart sounds: S1 normal heart sound present and S2 normal heart soun
--- NOTE | 2021-01-02 16:27 | P.OP_ITS ---
Procedure Note - Detailed Date of Procedure 01/02/21 Pre-op Diagnosis Trimalleolar fracture , dislocation with syndesmosis disruption Post-op Diagnosis same Procedure Performed open reduction internal fixation left ankle trimalleolar fracture including posterior malleolus fixation, open reduction internal fixation left distal tibia fibular syndesmosis disruption Surgeon Alvarado Gutierrez MD [employer] 1st home health assistant Anesthesia general Indications 85-year-old woman fell and sustained a left ankle fracture dislocation. Initially treated in the emergency room by emergency room staff. Now presents to the operating room for operative treatment. Description of Procedure What was done: Patient identified in the preoperative holding. Informed consent given. Operative extremity marked. Patient received intravenous antibiotics. Patient brought to the operating room where underwent general anesthetic by anesthesia team. Positioned supine on operating room table. Time-out performed confirming the patient, site of the surgery and the plan. left foot and ankle prepped and draped usual sterile surgical fashion using a ChloraPrep skin solution. Image intensification was brought in and reduction 2 of the ankle mortise was verified. Fibula was addressed 1st. Longitudinal incision made with 15 blade knife over the distal fibula. Hemostasis controlled electrocautery. Using fluoroscopy to guide placement a guide pin was placed in the distal fibula into the intramedullary canal across the fracture site. Intramedullary reaming was then performed. Guide pin was removed and the intramedullary nail was placed. Depth was verified with image intensification and the proximal locking device was deployed. Distal fixation with 2.7 mm screws through the distal locking guide performed. Longitudinal incision made with 15 blade knife over the medial malleolus. Hemostasis controlled electrocautery. Medial malleolus fracture reduced and provisionally pinned. Image intensification confirmed alignment. 4.0 mm cannulated screw x2 placed from distal to proximal at the medial malleolus. Good fixation noted. Syndesmosis fixation then achieved. Longitudinal incision over the posterolateral aspect of the fibula. Hemostasis controlled electrocautery. Drill placed through the fibula into the tibia and verified with image intensification. Arthrex tight rope fixation system placed with good tensioning with the ankle in neutral dorsiflexion. A 2nd tight rope placed in similar fashion with a drill from the fibula into the tibia verified by image intensification. Tight rope placed and tightened with ankle mortise in neutral dorsiflexion with good tensioning noted. Image intensification then used to confirm reduction of the posterior malleolus. Guide pin placed from anterior to posterior at the distal tibia under fluoroscopic guidance. This was then drilled and a 4.0 mm partially threaded cannulated screw placed over this with good compression noted. Wounds then thoroughly irrigated antibiotic solution and closed with 4 0 nylon interrupted suture. Sterile dressing applied. The patient was then woken from anesthesia, extubated and taken to the recovery room in stable condition. All sponge, needle, in strument counts were correct at the end of the case. Implants Arthrex fibular lock 3.8 mm distal fibular nail with 2.7 mm locking screws, Arthrex syndesmosis tight rope x2, 4.0 mm cannulated screw x3 Estimated Blood Loss 10 Tourniquet Time 0 Drains No Packing No Pathology none sent Complications None Condition stable Disposition PACU
[2021-01-02] MEDS: fentaNYL CITRATE INJ (*CRX) 100 MCG/2 ML VIAL 25 MCG IV PUSH ×6 (16:36→17:12)
[2021-01-02] MEDS: DOCUSATE SODIUM 100 MG CAPSULE PO (18:34)
[2021-01-02] MEDS: GABAPENTIN 100 MG CAPSULE 200 MG PO (20:14)
[2021-01-02] MEDS: KCL 20 MEQ/D5/0.45% SOD CHL 1,000 ML 80 ML IV CONT (20:24)
[2021-01-02] MEDS: ACETAMINOPHEN 325 MG TABLET 650 MG PO (22:33)
[2021-01-03] VITALS (7 sets, daily range): BP systolic 95–138; BP diastolic 37–74; PULSE 62–75; RESP 12–18; TEMP 36.4–37.1; O2SAT 93–95
[2021-01-03] MEDS: HYDROcodone/acetaminophen (*CRX) 5-325 MG TABLET 1 TAB PO ×4 (01:13→20:39)
[2021-01-03 07:05] LABS: Basophils Absolute Auto 0.1 K/mm3 (0.0-0.1); Basophils Percent Auto 0.7 % (0.2-1.2); Eosinophils Absolute Auto 0.1 K/mm3 (0-0.3); Eosinophils Percent Auto 0.5 % (0-4.4); Hematocrit 38.1 % (37.0-47.0); Hemoglobin 12.2 g/dL (12.0-15.0); Immature Granulocyte Absolute 0.02 K/mm3 (0.00-0.031); Immature Granulocyte Percent A 0.2 % (0-0.5); Lymphocytes Absolute Auto 1.37 K/mm3 (0.9-3.2); Lymphocytes Percent Auto 14.2 % (18.3-44.2); Mean Corpuscular Hemoglobin 31.9 pg (26-34); Mean Corpuscular Volume 99.7 fl (80-100); Mean Platelet Volume 9.5 fl (7.4-10.4); Monocytes Absolute Auto 0.8 K/mm3 (0.1-0.6); Neutrophils Absolute Auto 7.4 K/mm3 (1.3-6.7); Neutrophils Percent Auto 76.4 % (45.5-73.1); Platelet Count Result 194 k/mm3 (150-375); Red Blood Count 3.82 M/mm3 (4.2-5.4); Red Cell Distribution Width 13.3 % (11.5-14.5); White Blood Count 9.6 K/mm3 (4.5-10.0)
--- NOTE | 2021-01-03 07:24 | WPDANESPN ---
Anes - Prog Note Post-Op Date/Time: 01/03/21 07:24 Cardiovascular status: normal Respiratory status: normal Airway patency: baseline Mental status: baseline Post-Op hydration status: normal Vital Signs: Last Vital Signs Temp 97.5 F L 01/03/21 03:10 Pulse 62 01/03/21 03:10 Resp 18 01/03/21 03:10 BP 95/37 L 01/03/21 03:10 Pulse Ox 95 01/03/21 03:10 Pain Score (VAS): 04/22 I/O: Intake & Output 01/02/21 01/02/21 01/03/21 15:59 23:59 07:59 Intake Total 50 340 50 Output Total 250 Balance 50 340 -200 Laboratory Tests 01/03/21 06:48 01/03/21 01/03/21 06:48 06:48 WBC 9.6 RBC 3.82 L Hgb 12.2 Hct 38.1 MCV 99.7 MCH 31.9 MCHC 32.0 RDW 13.3 Plt Count 194 MPV 9.5 Immature Gran % (Auto) 0.2 Neut % (Auto) 76.4 H Lymph % (Auto) 14.2 L [place] % (Auto) 8.0 Eos % (Auto) 0.5 Baso % (Auto) 0.7 Lymph # (Auto) 1.37 [place] # (Auto) 0.8 H Eos # (Auto) 0.1 Baso # (Auto) 0.1 Abs Immat Gran (auto) 0.02 Absolute Neuts (auto) 7.4 H Absolute Nucleated RBC 0.0 Nucleated RBC % 0.0 Sodium Pending Potassium Pending Chloride Pending Carbon Dioxide Pending Anion Gap Pending BUN Pending Creatinine Pending Estim Creat Clear Calc Pending Estimated GFR Pending Glucose Pending Calcium Pending Post-procedural complaints: none Patient Feedback: Patient satisfied with anesthetic care.
[2021-01-03 07:28] LABS: Anion Gap 6 mmol/L (8-16); Blood Urea Nitrogen 18 mg/dL (7-17); Calcium 8.4 mg/dL (8.4-10.2); Carbon Dioxide 26 mmol/L (22-30); Chloride 105 mmol/L (98-107); Estimated CRCL calculation 48 ml/min; Estimated Glomerular Filt Rate 60; Glucose 103 mg/dL (65-110); Potassium 4.5 mmol/L (3.4-5.0); Sodium 137 mmol/L (137-145)
[2021-01-03] MEDS: DULoxetine HCL 60 MG CAPSULE.DR PO (09:05)
[2021-01-03] MEDS: ATORVASTATIN 10 MG TABLET BY MOUTH (09:05)
[2021-01-03] MEDS: LORATADINE 10 MG TABLET PO (09:06)
[2021-01-03] MEDS: MAGNESIUM OXIDE 200 MG TABLET PO (09:06)
[2021-01-03] MEDS: PANTOPRAZOLE 40 MG TABLET PO (09:06)
[2021-01-03] MEDS: lisinopriL 10 MG TABLET PO (09:06)
[2021-01-03] MEDS: DOCUSATE SODIUM 100 MG CAPSULE PO ×2 (09:07→18:43)
[2021-01-03] MEDS: ASPIRIN 325 MG ENTERIC TABLET 650 MG PO (09:07)
--- NOTE | 2021-01-03 09:28 | PM.PNORT ---
Progress Note: A&P Assessment and Plan (1) Closed trimalleolar fracture: Qualifiers: Encounter type: initial encounter Laterality: left Qualified Code(s): S82.852A - Displaced trimalleolar fracture of left lower leg, initial encounter for closed fracture Code(s): S82.853A - Displaced trimalleolar fracture of unspecified lower leg, initial encounter for closed fracture Status: Acute Assessment and Plan: POD #1: Open reduction internal fixation left ankle trimalleolar fracture including posterior malleolus fixation, open reduction internal fixation left distal tibia fibular syndesmosis disruption PT/OT. NWB LLE. RN instructed to obtain walker for transfer assistance. IV leaking, new IV to be place, RN aware. Pain control. Ice over cast. Elevate on pillows LLE. Monitor NV status. DVT prophylaxis. Bowel Regimen. Dispo: Acute Rehab vs SNF due to NWB of the LLE and Fall Risks Subjective Subjective Date/Time Seen: 01/03/21 09:28 Post Op day: 1 Interval history: POD #1: Open reduction internal fixation left ankle trimalleolar fracture including posterior malleolus fixation, open reduction internal fixation left distal tibia fibular syndesmosis disruption Pain well controlled. Difficulty with leaking IV. Difficulty with NWB with transfers to [facility]. No assistive device at bedside. Review of Systems Constitutional: Constitutional: Reports no additional constitutional complaints, Denies fatigue and Denies fever(s) Cardiovascular: Cardiovascular: Reports no additional cardiovascular complaints Respiratory: Respiratory: Reports no additional respiratory complaints Gastrointestinal: Gastrointestinal: Denies diarrhea, Denies nausea and Denies vomiting Genitourinary: Genitourinary: Reports no additional female genitourinary complaints Musculoskeletal: Musculoskeletal: Reports as per HPI Exam Const: General: comfortable and no acute distress Resp: Effort & Inspection: normal respiratory effort Cardio: Rate: regular rate Rhythm: regular rhythm GI: Inspection: non-distended GI Palp: Yes Soft to palpation, No Tenderness to palpation present (GI) and No Guarding due to palpation present (GI) : External Female Exam: normal external appearance Skin: Other: Unable to assess LLE skin Neuro: Cognition (Neuro): normal cognition Extrem: Left lower extremity: knee (No effusion), lower leg (Cast in place ), ankle (Cast in place. ) and foot (Unable to palpate pedal pulses. Moves toes. Sensation intact. ) Details: normal capillary refill Psych: Mental Status: mental status grossly normal Thought content: Yes Normal thought content present Objective Data Vital Signs Vital Signs: Vital Signs - 24 hr 01/02/21 10:35 01/02/21 13:59 01/02/21 16:00 Temperature 36.4 C L 36.9 C Pulse Rate 68 78 Respiratory Rate 16 16 Blood Pressure 149/66 H 137/73 Pulse Oximetry 94 98 100 01/02/21 16:05 01/02/21 16:15 01/02/21 16:30 Temperature Pulse Rate 81 76 71 Respiratory Rate 16 14 14 Blood Pressure 131/79 138/74 128/78 Pulse Oximetry 100 100 97 01/02/21 16:40 01/02/21 16:45 01/02/21 16:50 Temperature Pulse Rate 74 70 71 Respiratory Rate 14 14 16 Blood Pressure 141/73 H 144/76 H 144/81 H Pulse Oximetry 95 97 97 01/02/21 17:00 01/02/21 17:15 01/02/21 17:30 Temperature 36.6 C Pulse Rate 65 75 70 Respiratory Rate 15 14 16 Blood Pressure 148/73 H 123/74 133/78 Pulse Oximetry 97 97 96 01/02/21 17:45 01/02/21 18:15 01/02/21 19:15 Temperature 36.6 C 36.6 C 36.8 C Pulse Rate 64 73 65 Respiratory Rate 16 16 16 Blood Pressure 133/80 150/79 H 134/75 Pulse Oximetry 97 95 96 01/02/21 22:16 01/03/21 03:10 01/03/21 08:52 Temperature 36.8 C 36.4 C L 37.0 C Pulse Rate 67 62 75 Respiratory Rate 18 18 14 Blood Pressure 132/68 95/37 L 138/74 Pulse Oximetry 100 95 95 Intake/Output Intake/Output: Intake & Output 12/31/20 01/01/21 01/02/21 01/03/21 23:59 23:59 23
--- NOTE | 2021-01-03 11:47 | PM.IMPN ---
Progress Note: A&P Assessment and Plan (1) Closed trimalleolar fracture: Qualifiers: Encounter type: initial encounter Laterality: left Qualified Code(s): S82.852A - Displaced trimalleolar fracture of left lower leg, initial encounter for closed fracture Code(s): S82.853A - Displaced trimalleolar fracture of unspecified lower leg, initial encounter for closed fracture Status: Acute Assessment and Plan: Left ankle pain after a fall. No other areas of concern. No LOC or head trauma. Ankle xray showing left trimalleolar ankle fracture dislocation. She underwent ORIF left ankle trimalleolar fracture on 01/02. She appears to have tolerated the procedure well. Her pain reasonably well controlled. PT/OT ordered. Appreciate ortho input (2) Hypertension: Qualifiers: Hypertension type: essential hypertension Qualified Code(s): I10 - Essential (primary) hypertension Code(s): I10 - Essential (primary) hypertension Status: Chronic Assessment and Plan: Patient's blood pressure was reviewed on 01/03 Blood pressure remains well controlled except 95/37 early this morning. Measurement error? Will continue current medications with Lisinopril for now. Stop IV fluids when eating normally. (3) Hyperlipidemia: Qualifiers: Hyperlipidemia type: unspecified Qualified Code(s): E78.5 - Hyperlipidemia, unspecified Code(s): E78.5 - Hyperlipidemia, unspecified Status: Chronic Assessment and Plan: Chronic and stable. LFTs normal in June. Continue Lipitor. (4) Restless leg syndrome: Code(s): G25.81 - Restless legs syndrome Status: Acute Assessment and Plan: Chronic and stable. Continue Roperinole. (5) DVT prophylaxis: Code(s): Z29.9 - Encounter for prophylactic measures, unspecified Status: Acute Assessment and Plan: DVT prophylaxis per ortho. Subjective Date/time seen: 01/03/21 11:47 Interval history: 85yo female with RLS, HTN and HLD here for ankle pain after a fall and found to have a left ankle fracture s/p ORIF on 01/02/21. Assuming care. Chart reviewed. Pain well controlled. No CP or SOB. Eating okay. Exam Narrative: AF 98.6 138/74 75 14 95% ra Gen - NARD Chest - CTA bilaterally, nml RR CV - RRR S1/S2 Abd - Soft, NT/ND, Positive BS Ext - No right pedal edema. Left LE in cast and is not tight Neuro - able to wiggle toes and normal sensatin to the left toes Psych - Nml mood and affect Skin - Warm and dry Objective Data Vital Signs Vital Signs: Vital Signs - 24 hr 01/02/21 13:59 01/02/21 16:00 01/02/21 16:05 Temperature 97.5 F L 98.4 F Pulse Rate 68 78 81 Respiratory Rate 16 16 16 Blood Pressure 149/66 H 137/73 131/79 Pulse Oximetry 98 100 100 01/02/21 16:15 01/02/21 16:30 01/02/21 16:40 Temperature Pulse Rate 76 71 74 Respiratory Rate 14 14 14 Blood Pressure 138/74 128/78 141/73 H Pulse Oximetry 100 97 95 01/02/21 16:45 01/02/21 16:50 01/02/21 17:00 Temperature Pulse Rate 70 71 65 Respiratory Rate 14 16 15 Blood Pressure 144/76 H 144/81 H 148/73 H Pulse Oximetry 97 97 97 01/02/21 17:15 01/02/21 17:30 01/02/21 17:45 Temperature 97.8 F 97.9 F Pulse Rate 75 70 64 Respiratory Rate 14 16 16 Blood Pressure 123/74 133/78 133/80 Pulse Oximetry 97 96 97 01/02/21 18:15 01/02/21 19:15 01/02/21 22:16 Temperature 97.9 F 98.2 F 98.2 F Pulse Rate 73 65 67 Respiratory Rate 16 16 18 Blood Pressure 150/79 H 134/75 132/68 Pulse Oximetry 95 96 100 01/03/21 03:10 01/03/21 08:52 Temperature 97.5 F L 98.6 F Pulse Rate 62 75 Respiratory Rate 18 14 Blood Pressure 95/37 L 138/74 Pulse Oximetry 95 95 Intake/Output Intake/Output: Intake & Output 12/31/20 01/01/21 01/02/21 01/03/21 23:59 23:59 23:59 23:59 Intake Total 390 650 Output Total 250 Balance 390 400 Meds/Results Medications: Active Medications Generic Name Dose Route
[2021-01-03] MEDS: GABAPENTIN 100 MG CAPSULE 200 MG PO (20:39)
[2021-01-03] MEDS: rOPINIRole HCL 1 MG TABLET 2 MG PO (20:39)
[2021-01-04 06:34] VITALS: BP 156/68; PULSE 69; RESP 18; TEMP 35.9; O2SAT 93
[2021-01-04] MEDS: LORATADINE 10 MG TABLET PO (09:32)
[2021-01-04] MEDS: ASPIRIN 325 MG ENTERIC TABLET 650 MG PO (09:32)
[2021-01-04] MEDS: MAGNESIUM OXIDE 200 MG TABLET PO (09:32)
[2021-01-04] MEDS: lisinopriL 10 MG TABLET PO (09:32)
[2021-01-04] MEDS: PANTOPRAZOLE 40 MG TABLET PO (09:33)
[2021-01-04] MEDS: DOCUSATE SODIUM 100 MG CAPSULE PO (09:33)
[2021-01-04] MEDS: DULoxetine HCL 60 MG CAPSULE.DR PO (09:33)
--- NOTE | 2021-01-04 09:51 | PM.PNORT ---
Progress Note: A&P Assessment and Plan (1) Closed trimalleolar fracture: Qualifiers: Encounter type: initial encounter Laterality: left Qualified Code(s): S82.852A - Displaced trimalleolar fracture of left lower leg, initial encounter for closed fracture Code(s): S82.853A - Displaced trimalleolar fracture of unspecified lower leg, initial encounter for closed fracture Status: Acute Assessment and Plan: POD #2: Open reduction internal fixation left ankle trimalleolar fracture including posterior malleolus fixation, open reduction internal fixation left distal tibia fibular syndesmosis disruption PT/OT. NWB LLE. Walker at bedside. Improvement in transfers/mobility. Pain control. Ice over cast. Elevate on pillows LLE. Offload heel. Monitor NV status. DVT prophylaxis. Bowel Regimen. Dispo: Acute Rehab vs SNF due to NWB of the LLE and Fall Risks Subjective Subjective Date/Time Seen: 01/04/21 09:51 Post Op day: 2 Interval history: POD #2: Open reduction internal fixation left ankle trimalleolar fracture including posterior malleolus fixation, open reduction internal fixation left distal tibia fibular syndesmosis disruption Pain well controlled. Improvement in mobility. OOB to chair this AM. Tolerating NWB of the LLE now with walker. Review of Systems Constitutional: Constitutional: Reports no additional constitutional complaints, Denies fatigue and Denies fever(s) Cardiovascular: Cardiovascular: Reports no additional cardiovascular complaints Respiratory: Respiratory: Reports no additional respiratory complaints Gastrointestinal: Gastrointestinal: Denies diarrhea, Denies nausea and Denies vomiting Genitourinary: Genitourinary: Reports no additional female genitourinary complaints Musculoskeletal: Musculoskeletal: Reports as per HPI Exam Const: General: comfortable and no acute distress Resp: Effort & Inspection: normal respiratory effort Cardio: Rate: regular rate Rhythm: regular rhythm GI: Inspection: non-distended GI Palp: Yes Soft to palpation, No Tenderness to palpation present (GI) and No Guarding due to palpation present (GI) : External Female Exam: normal external appearance Skin: Other: Unable to assess LLE skin Neuro: Cognition (Neuro): normal cognition Extrem: Left lower extremity: knee (No effusion), lower leg (Cast in place ), ankle (Cast in place. ) and foot (Unable to palpate pedal pulses. Moves toes. Sensation intact. ) Details: normal capillary refill Psych: Mental Status: mental status grossly normal Thought content: Yes Normal thought content present Objective Data Vital Signs Vital Signs: Vital Signs - 24 hr 01/03/21 12:03 01/03/21 16:28 01/03/21 19:10 Temperature 36.6 C 36.7 C 37.1 C Pulse Rate 67 69 74 Respiratory Rate 12 14 18 Blood Pressure 119/63 125/69 117/59 L Pulse Oximetry 93 94 94 01/03/21 20:00 01/04/21 06:34 Temperature 35.9 C L Pulse Rate 69 Respiratory Rate 14 18 Blood Pressure 156/68 H Pulse Oximetry 94 93 Intake/Output Intake/Output: Intake & Output 01/01/21 01/02/21 01/03/21 01/04/21 23:59 23:59 23:59 23:59 Intake Total 390 2040 790 Output Total 250 600 Balance 390 1790 190 Meds/Results Medications: Active Medications Generic Name Dose Route Start Last Admin Trade Name Freq PRN Reason Stop Dose Admin Acetaminophen 650 mg 01/02/21 17:25 01/02/21 22:33 Acetaminophen 325 Mg Tablet PO 650 mg Q6H PRN Administration Pain 1-3 Hydrocodone Bitart/Acetaminophen 1 tab 01/02/21 17:25 01/03/21 20:39 Hydrocodone/Acetaminophen (*Crx) 5-325 Mg Tablet PO 1 tab Q3H PRN Administration Pain 4-6 Aspirin 650 mg 01/03/21 09:00 01/04/21 09:32 Aspirin 325 Mg Enteric Tablet PO 650 mg DAILY CITLALI Administration Atorvastatin Calcium 10 mg 01/03/21 09:00 01/03/21 09:05 Atorvastatin 10 Mg Tablet BY MOUTH 10 mg Q48H CITLALI Administration Docusate Sodium 100 mg
--- NOTE | 2021-01-04 12:39 | PM.IMPN ---
Progress Note: A&P Assessment and Plan (1) Closed trimalleolar fracture: Qualifiers: Encounter type: initial encounter Laterality: left Qualified Code(s): S82.852A - Displaced trimalleolar fracture of left lower leg, initial encounter for closed fracture Code(s): S82.853A - Displaced trimalleolar fracture of unspecified lower leg, initial encounter for closed fracture Status: Acute Assessment and Plan: Left ankle pain after a fall. No other areas of concern. No LOC or head trauma. Ankle xray showing left trimalleolar ankle fracture dislocation. She underwent ORIF left ankle trimalleolar fracture on 01/02. She appears to have tolerated the procedure well. Her pain reasonably well controlled. Continue PT/OT. Appreciate ortho input. Placement being arranged (2) Hypertension: Qualifiers: Hypertension type: essential hypertension Qualified Code(s): I10 - Essential (primary) hypertension Code(s): I10 - Essential (primary) hypertension Status: Chronic Assessment and Plan: Patient's blood pressure was reviewed on 01/04 Blood pressure remains well controlled. Will continue current medications with Lisinopril for now. (3) Hyperlipidemia: Qualifiers: Hyperlipidemia type: unspecified Qualified Code(s): E78.5 - Hyperlipidemia, unspecified Code(s): E78.5 - Hyperlipidemia, unspecified Status: Chronic Assessment and Plan: Chronic and stable. LFTs normal in June. Continue Lipitor. (4) Restless leg syndrome: Code(s): G25.81 - Restless legs syndrome Status: Acute Assessment and Plan: Chronic and stable. Continue Roperinole. (5) DVT prophylaxis: Code(s): Z29.9 - Encounter for prophylactic measures, unspecified Status: Acute Assessment and Plan: DVT prophylaxis per ortho. Subjective Date/time seen: 01/04/21 12:39 Interval history: 85yo female with RLS, HTN and HLD here for ankle pain after a fall and found to have a left ankle fracture s/p ORIF on 01/02/21. Pain controlled. No CP or SOB. Eating well. No n/v. Slept well - RLS issue was controlled last night. Exam Narrative: AF 96.7 156/68 69 18 93% ra Gen - NARD sittin gup in chair Chest - CTA bilaterally, nml RR CV - RRR S1/S2 Abd - Soft, NT/ND, Positive BS Ext - No right pedal edema. Left LE in cast and tighter but still with room Neuro - able to wiggle toes and normal sensation to the left toes Psych - Nml mood and affect Skin - Warm and dry Objective Data Vital Signs Vital Signs: Vital Signs - 24 hr 01/03/21 16:28 01/03/21 19:10 01/03/21 20:00 Temperature 98.1 F 98.8 F Pulse Rate 69 74 Respiratory Rate 14 18 14 Blood Pressure 125/69 117/59 L Pulse Oximetry 94 94 94 01/04/21 06:34 Temperature 96.7 F L Pulse Rate 69 Respiratory Rate 18 Blood Pressure 156/68 H Pulse Oximetry 93 Intake/Output Intake/Output: Intake & Output 01/01/21 01/02/21 01/03/21 01/04/21 23:59 23:59 23:59 23:59 Intake Total 390 2040 1030 Output Total 250 600 Balance 390 1790 430 Meds/Results Medications: Active Medications Generic Name Dose Route Start Last Admin Trade Name Freq PRN Reason Stop Dose Admin Acetaminophen 650 mg 01/02/21 17:25 01/02/21 22:33 Acetaminophen 325 Mg Tablet PO 650 mg Q6H PRN Administration Pain 1-3 Hydrocodone Bitart/Acetaminophen 1 tab 01/02/21 17:25 01/03/21 20:39 Hydrocodone/Acetaminophen (*Crx) 5-325 Mg Tablet PO 1 tab Q3H PRN Administration Pain 4-6 Aspirin 650 mg 01/03/21 09:00 01/04/21 09:32 Aspirin 325 Mg Enteric Tablet PO 650 mg DAILY CITLALI Administration Atorvastatin Calcium 10 mg 01/03/21 09:00 01/03/21 09:05 Atorvastatin 10 Mg Tablet BY MOUTH 10 mg Q48H CITLALI Administration Docusate Sodium 100 mg 01/02/21 17:25 01/04/21 09:33 Docusate Sodium 100 Mg Capsule PO 100 mg BID CITLALI Administration Duloxetine HCl
--- NOTE | 2021-01-04 13:07 | PM.DS ---
DS: Admitting Diagnosis Discharge Date 01/04/21 Admitting Diagnosis Ankle pain after a fall DS: Discharge Diagnosis Discharge Diagnosis (1) Closed trimalleolar fracture: Qualifiers: Encounter type: initial encounter Laterality: left Qualified Code(s): S82.852A - Displaced trimalleolar fracture of left lower leg, initial encounter for closed fracture Code(s): S82.853A - Displaced trimalleolar fracture of unspecified lower leg, initial encounter for closed fracture Status: Acute Assessment and Plan: Left ankle pain after a fall. No other areas of concern. No LOC or head trauma. Ankle xray showing left trimalleolar ankle fracture dislocation. She underwent ORIF left ankle trimalleolar fracture on 01/02. She tolerated the procedure well. Her pain remained well controlled. She was evaluated by PT/OT. Appreciate ortho input. (2) Hypertension: Qualifiers: Hypertension type: essential hypertension Qualified Code(s): I10 - Essential (primary) hypertension Code(s): I10 - Essential (primary) hypertension Status: Chronic Assessment and Plan: Patient's blood pressure was monitored closely and it remained well controlled. We continued current home medications with Lisinopril. (3) Hyperlipidemia: Qualifiers: Hyperlipidemia type: unspecified Qualified Code(s): E78.5 - Hyperlipidemia, unspecified Code(s): E78.5 - Hyperlipidemia, unspecified Status: Chronic Assessment and Plan: Chronic and stable. LFTs normal in June. We continued Lipitor. (4) Restless leg syndrome: Code(s): G25.81 - Restless legs syndrome Status: Acute Assessment and Plan: Chronic and stable. We continued Roperinole. DS: Summary Hospital Course Reason for hospitalization: 85yo female with RLS, HTN and HLD here for ankle pain after a fall and found to have a left ankle fracture s/p ORIF on 01/02/21. Please see H&P for details Hospital Course: Please see above for details of hospital course Status at Discharge Cognitive/behavioral status at discharge: stable Time Spent with Patient Time attestation: Total time spent providing and/or coordinating discharge services: 35 minutes Time spent: Greater than 30 minutes Exam Narrative: AF 96.7 156/68 69 18 93% ra Gen - NARD sittin gup in chair Chest - CTA bilaterally, nml RR CV - RRR S1/S2 Abd - Soft, NT/ND, Positive BS Ext - No right pedal edema. Left LE in cast and tighter but still with room Neuro - able to wiggle toes and normal sensation to the left toes Psych - Nml mood and affect Skin - Warm and dry Discharge Plan Discharge Attending physician on discharge: Pablo Muir Consulting providers: Alvarado Gutierrez Discharging Clinician: Pablo Muir Anticipated Discharge Date/Time: 01/04/21 13:10 Patient Disposition: SNF Activity: no shower, no driving and follow weight bearing status Diet: regular Wound Care Instructions: follow printed instructions Discharge Instructions: Orthopedic Recommendations Dr. Alvarado Gutierrez [phone] No weight bearing of the left lower extremity. Keep Cast Clean/Dry. Elevate on pillows. Offload heel. Ice through cast. Pain meds as needed. Stool softener with narcotics. Follow up appt indicated below. Contact our office at [phone] for question or concerns. Stand Alone Forms: General Discharge Information Follow-up/Referrals: Alvarado Gutierrez MD [Physician] - 3 Weeks Quang Fox DO [Primary Care Provider] - Call for Appointment Discharge Medications: New hydrocodone-acetaminophen 5-325 mg Tablet 1 tablet PO Q4-6H PRN (Reason: pain) Qty: 56 RF: 0 aspirin 325 mg Tablet,Delayed Release (Dr/Ec) 650 mg PO DAILY 28 Days Qty: 56 RF: 0 docusate sodium 100 mg Capsule 100 mg PO BID 30 Days Qty: 60 RF: 0 Continued acetaminophen 650 mg Tablet 650 mg PO GRETCHEN
[2021-01-04] MEDS: HYDROcodone/acetaminophen (*CRX) 5-325 MG TABLET 1 TAB PO (14:23)
[2021-01-04 14:38] VITALS: BP 147/71; PULSE 61; RESP 14; TEMP 36.8; O2SAT 94
[2021-01-04 15:13] LABS: EDCOVIDSCREEN Negative (Negative)
== END 2021-01-04 15:40 ==
LOC: ANHED 04:35 → ANH3MEDSUR 07:31
PROVIDERS: Orthopaedic Surgery; Admitting Provider Internal Medicine; Emergency Provider Emergency Medicine; PCP Internal Medicine; Visit Provider Internal Medicine
PROC: (CPT 27823; principal; 2021-01-02 14:30)
DX: S82.852A Displaced trimalleolar fracture of left lower leg, initial encounter for closed fracture (principal); S93.432A Sprain of tibiofibular ligament of left ankle, initial encounter; W18.30XA Fall on same level, unspecified, initial encounter; E78.5 Hyperlipidemia, unspecified; I10 Essential (primary) hypertension; G25.81 Restless legs syndrome; Z96.653 Presence of artificial knee joint, bilateral; Z20.822 Contact with and (suspected) exposure to COVID-19
CPT/HCPCS: 27823; 27829; 27818; 36415; 73600; 80048; 85025; 85610; 85730; 87426; 93005; 96374; 96375; 96376; 97110; 97116; 97161; 97165; 97530; 97535; 99285; A9270; C1713; C1769; C9803; G0378; J0690; J1170; J2405; J3010; J3480; J7120

== ENCOUNTER 2021-07-12 10:45 | Outpatient (CLI) | payer MEDICARE, SELFPAY ==
[2021-07-12 11:21] LABS: Add Urine Microscopic? YES; Appearance Urine Cloudy (Clear); Bilirubin Urine Negative (Negative); Blood Urine Negative (Negative); Color Urine Yellow (Yellow); Glucose Urine UA Negative (Negative); Ketones Urine Negative (Negative); Leukocyte Esterase Ur 3+ LEU/UL (NEGATIVE); Mucus Urine Rare /lpf; Nitrate Urine Positive (Negative); Protein Urine Negative (Negative); Specific Grav Ur 1.008 (1.001-1.035); Squamous Epithelial Cell Urine Rare /hpf (Few); Urobilinogen Urine Negative mg/dL (<2.0); WBC Urine >75 /hpf (0-3)
== END 2021-07-12 10:46 | disposition home or self-care (01) ==
LOC: ANHLAB 10:48
PROVIDERS: PCP Physician Assistant; Visit Provider Physician Assistant
DX: R30.0 Dysuria (principal)
CPT/HCPCS: 81001; 87077; 87086; 87186

== ENCOUNTER 2021-07-25 10:27 | Outpatient (CLI) | payer MEDICARE, SELFPAY ==
[2021-07-25 11:44] LABS: Appearance Urine Clear (Clear); Bilirubin Urine Negative (Negative); Blood Urine Negative (Negative); Glucose Urine UA Negative (Negative); Ketones Urine Negative (Negative); Leukocyte Esterase Ur 2+ LEU/UL (NEGATIVE); Nitrate Urine Negative (Negative); Protein Urine Negative (Negative); Urobilinogen Urine 0.2 mg/dL (<2.0)
[2021-07-25 11:47] LABS: Add Urine Microscopic? YES; Color Urine Light Yellow (Yellow)
[2021-07-25 11:51] LABS: Bacteria Urine Trace /hpf; WBC Urine 31-50 /hpf (0-3)
== END 2021-07-25 10:28 | disposition home or self-care (01) ==
LOC: ANHLAB 10:31
PROVIDERS: PCP Physician Assistant; Visit Provider Physician Assistant
DX: R30.0 Dysuria (principal)
CPT/HCPCS: 77080; 81001; 87077; 87086; 87186

== ENCOUNTER 2021-07-25 13:30 | Outpatient (CLI) | payer MEDICARE, SELFPAY ==
--- NOTE | ~2021-07-25 | DEXA_ITS ---
Bone Density Report Name: HELEN ANTONIO Age: 86 Sex: Female Ethnicity: White Date of : 1935 Indication: postmenopausal; screening for osteoporosis; height loss; prior fracture; hysterectomy; Referring Provider: JONI KIMBALL Study: Bone densitometry was performed. Exam Date: July 25, 2021 Accession number: [id number] Bone Density: Region BMD T-score Z-score Classification AP Spine(L1, L3, L4) 0.849 -1.9 1.0 Osteopenia Femoral Neck (Left) 0.572 -2.5 0.0 Osteoporosis Total Hip (Left) 0.734 -1.7 0.6 Osteopenia Femoral Neck (Right) 0.582 -2.4 0.1 Osteopenia Total Hip (Right) 0.692 -2.0 0.3 Osteopenia Total Hip Mean 0.713 -1.9 0.5 Osteopenia World Health Organization criteria for BMD impression classify patients as: Normal (T-score at or above -1.0), Osteopenia (T-score between -1.0 and -2.5), or Osteoporosis (T-score at or below -2.5). 10-year Fracture Risk: FRAX not reported because: Some T-score for Spine Total or Hip Total or Femoral Neck at or below -2.5 Clinical Information Provided by Patient: Has had a low trauma fracture Has used the following medications: Vitamin D, Calcium Has the following medical conditions: Hysterectomy Patient maximum height was 66 Menopause Age: 41 No regular weight bearing exercise Drinks caffeinated beverages Onset of menses at age 13 Number of children 2 Impression: The patient has established osteoporosis, based on the Left Femoral Neck T-score and the existence of a prior fracture. The patient has risk factors, including: previous fracture. Discussion: HIGH RISK OF FRACTURE. BONE DENSITY IS UNDESIRABLY LOW AT ONE OR MORE SKELETAL SITES, CONSISTENT WITH POSTMENOPAUSAL OSTEOPOROSIS. This patient's lowest T-score, in a patient who has previously fractured, meets the World Health Organization's (WHO) criteria for severe osteoporosis. In untreated patients, the risk of osteoporotic fracture increases approximately two-fold for each 1.0 SD decrease in T-score. Low bone density is not the only risk factor for fracture; also consider factors such as patient's age, frailty or poor health, risk of falling, risk of injury, previous osteoporotic fracture, family history of osteoporosis, cigarette smoking, low body weight, etc. Not everyone with low bone mineral density has osteoporosis; osteomalacia and other metabolic bone disorders should also be considered. Patients who have osteoporosis should be evaluated for specific diseases and conditions (secondary causes) that may cause or contribute to bone loss. The [place] [employer]ocrin[employer] (AACE) and National Osteoporosis Foundation (NOF) recommend pharmacologic intervention for all postmenopausal women whose T-score is in this range. The patient should follow a healthful lifestyle (good nu
== END 2021-07-25 13:31 | disposition home or self-care (01) ==
LOC: ANHIMG 13:32
PROVIDERS: PCP Physician Assistant; Visit Provider Physician Assistant
DX: Z78.0 Asymptomatic menopausal state (principal); M85.88 Other specified disorders of bone density and structure, other site; M81.0 Age-related osteoporosis without current pathological fracture; M85.852 Other specified disorders of bone density and structure, left thigh; M85.851 Other specified disorders of bone density and structure, right thigh
CPT/HCPCS: 77080

== ENCOUNTER 2022-01-02 07:16 | Outpatient (CLI) | payer MEDICARE, SELFPAY ==
[2022-01-02 07:31] LABS: Hematocrit 48.4 % (37.0-47.0); Hemoglobin 15.5 g/dL (12.0-15.0); Mean Corpuscular Hemoglobin 30.8 pg (26-34); Mean Platelet Volume 9.3 fl (7.4-10.4); Platelet Count Result 201 k/mm3 (150-375); Red Blood Count 5.04 M/mm3 (4.2-5.4); Red Cell Distribution Width 13.9 % (11.5-14.5)
[2022-01-02 07:44] LABS: Alanine Aminotransferase 26 U/L (6-35); Alkaline Phosphatase 87 U/L (38-126); Anion Gap 7 mmol/L (8-16); Aspartate Amino Transferase 25 U/L (14-36); Blood Urea Nitrogen 24 mg/dL (7-17); Calcium 8.9 mg/dL (8.4-10.2); Carbon Dioxide 25 mmol/L (22-30); Chloride 106 mmol/L (98-107); Cholesterol 169 mg/dL (0-200); Estimated Glomerular Filt Rate 60; Glucose 102 mg/dL (65-110); HDL Direct 54 mg/dL; Potassium 4.4 mmol/L (3.4-5.0); Sodium 138 mmol/L (137-145); Triglycerides 130 mg/dL (<150)
[2022-01-02 07:58] LABS: LDL Cholesterol Direct 86 mg/dL
[2022-01-02 08:17] LABS: Thyroid Stimulating Hormone 0.062 uIU/mL (0.465-4.680)
[2022-01-02 09:15] LABS: Folic Acid > 20.0 ng/mL (2.76->20); Vitamin B12 > 1000.0 pg/mL (239-931)
== END 2022-01-02 07:17 | disposition home or self-care (01) ==
LOC: ANHLAB 07:19
PROVIDERS: PCP Physician Assistant; Visit Provider Physician Assistant
DX: R53.83 Other fatigue (principal); E78.5 Hyperlipidemia, unspecified
CPT/HCPCS: 36415; 80053; 80061; 82607; 82746; 84443; 85027

== ENCOUNTER 2022-05-15 06:50 | Outpatient (CLI) | payer MEDICARE, SELFPAY ==
[2022-05-15 08:31] LABS: Free T4 Free Thyroxine 0.91 ng/mL (0.78-2.19)
[2022-05-15 08:40] LABS: Thyroid Stimulating Hormone 0.967 uIU/mL (0.465-4.680)
[2022-05-19 17:45] LABS: Triiodothyronine T3 Free 2.9 pg/mL (2.3-4.2)
[2022-05-20 16:00] LABS: Thyroid Stimulating Immunoglob <89 % baseline (<140)
== END 2022-05-15 06:51 | disposition home or self-care (01) ==
LOC: ANHLAB 06:52
PROVIDERS: PCP Physician Assistant; Visit Provider Internal Medicine Endocrinology, Diabetes & Metabolism
DX: E04.9 Nontoxic goiter, unspecified (principal); C73 Malignant neoplasm of thyroid gland
CPT/HCPCS: 36415; 84439; 84443; 84445; 84481

== ENCOUNTER 2022-06-19 10:27 | Outpatient (CLI) | payer MEDICARE, SELFPAY ==
--- NOTE | ~2022-06-19 | US_ITS ---
EXAMINATION: US thyroid DATE: 06/19/2022 11:24 INDICATION: Acquired absence of left thyroid lobe. TECHNIQUE: Multiple ultrasound images of the thyroid were obtained. COMPARISON: None. FINDINGS: The right thyroid lobe measures 4.9 x 2.8 x 3.7 cm. The left thyroid lobe is absent. In the right thy roid lobe, there is a 2.6 cm predominantly solid, isoechoic, wider than tall nodule with ill-defined margin without echogenic foci (TI-RADS TR3). In the right thyroid lobe, there is a 2.6 cm predominant ly solid, isoechoic, wider than tall nodule with ill-defined margin without echogenic foci (TR3). The thyroid demonstrates heterogeneous echogenicity and increased vascularity. IMPRESSION: 1. 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 2. Thyroid nodules. Given the patient's age and surgical history, biopsy may not be needed. Reviewed, dictated and finalized at location A. NE ADVERTISING DIRECTOR IMPRESSION: 1. 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 2. Thyroid nodules. Given the patient's age and surgical history, biopsy may no t be needed.
== END 2022-06-19 10:28 | disposition home or self-care (01) ==
PROVIDERS: PCP Physician Assistant; Visit Provider Internal Medicine Endocrinology, Diabetes & Metabolism
DX: Z90.09 Acquired absence of other part of head and neck (principal); Z85.850 Personal history of malignant neoplasm of thyroid; E04.2 Nontoxic multinodular goiter
CPT/HCPCS: 76536

== ENCOUNTER → 2022-10-01 14:38 | Outpatient (CLI) | payer MEDICARE, SELFPAY ==
--- NOTE | ~2022-10-01 | XR_ITS ---
XR lumbar spine 2-3V 10/01/2022 15:04 Indication: Lumbar spondylosis. Low back pain. Procedure: 3 views lumbar spine Comparison: 02/24/2020 Findings: There is disc narrowing at all lumbar levels. There is dextroscoliosis of the thoracolumbar spine centered at T12. There is multilevel facet hypertrophy. No significant spondylolisthesis. No a cute fracture or traumatic malalignment. Impression: 1: Severe lumbar spondylosis with dextroscoliosis centered at the thoracolumbar junction. Reviewed, dictated and finalized at location L. Impression: 1: Severe lumbar spondylosis with dextroscoliosis centered at the thoracolumbar junction.
--- NOTE | ~2022-10-01 | XR_ITS ---
EXAM: XR thoracic spine 2V DATE: 10/01/2022 15:04 HISTORY: Pain in thoracic spine no injury . COMPARISON: None available. FINDINGS: Severe osteopenia. The upper thoracic spine is not included in the [id number] in the lat eral view. Moderate thoracolumbar scoliosis Exaggerated kyphosis Vertebral body alignment intact. Sta ble mild anterior wedge deformity of a mid/lower thoracic vertebral body, possibly T9. Moderate multi level disc space narrowing and marginal osteophytosis. No traumatic malalignment or fracture. Senesce nt changes in the lungs. Aortic unfolding, atherosclerosis, and ectasia. IMPRESSION: Severe osteopenia. Scoliosis and kyphosis. Stable mild wedge compression fracture at T9. Moderate multilevel degenerative disc disease. Reviewed, dictated and finalized at location [facility]. IMPRESSION: Severe osteopenia. Scoliosis and kyphosis. Stable mild wedge compre ssion fracture at T9. Moderate multilevel degenerative disc disease.
== END ==
PROVIDERS: PCP Physician Assistant; Visit Provider Nurse Practitioner Family
DX: M47.816 Spondylosis without myelopathy or radiculopathy, lumbar region (principal); M85.88 Other specified disorders of bone density and structure, other site; M41.9 Scoliosis, unspecified; M51.34 Other intervertebral disc degeneration, thoracic region; S22.070A Wedge compression fracture of T9-T10 vertebra, initial encounter for closed fracture; X58.XXXA Exposure to other specified factors, initial encounter
CPT/HCPCS: 72070; 72100

== ENCOUNTER → 2022-12-19 11:10 | Outpatient (CLI) | payer MEDICARE, SELFPAY ==
--- NOTE | ~2022-12-19 | MR_ITS ---
MRI of the cervical spine Clinical History: Radiculopathy Technique: Axial T2-weighted and gradient images, and sagittal T1-weighted, T2-weighted, and STIR nahed ges were acquired. Findings: There is no fracture or subluxation of the cervical spine. Vertebral bodies maintain normal height and alignment. There are reactive marrow signal changes due to degenerative disc disease. At C2-C3, there is no disc bulge or herniation. No spinal canal stenosis, cord compression, or neural foraminal narrowing. At C3-C4, there is minimal disc bulge. There is left-sided facet arthropathy. No central canal stenos is, cord compression, or definite neural foraminal narrowing. At C4-C5, there is advanced degenerative disc narrowing. There is minimal disc bulge. No central oswald l stenosis or cord compression. There is left neural foraminal narrowing. Right neural foramen preser taylor. At C5-C6, there is advanced degenerative disc narrowing, with minimal disc bulge. Possible minimal ca nal stenosis without germaine cord compression. There is bilateral neural foraminal narrowing. There is bilateral facet arthropathy. At C6-C7, there is moderate degenerative disc narrowing. There is minimal disc bulge. No central oswald l stenosis or cord compression. Probable minimal left neural foraminal narrowing. No abnormal signal seen in the spinal cord. Paravertebral soft tissues are unremarkable. Impression: Mild degenerative spondylosis, as above. Reviewed, dictated and finalized at [facility]. Impression: Mild degenerative spondylosis, as above.
== END ==
PROVIDERS: PCP Physician Assistant; Visit Provider Nurse Practitioner Family
DX: M47.22 Other spondylosis with radiculopathy, cervical region (principal)
CPT/HCPCS: 72141

== ENCOUNTER 2023-01-09 08:31 | Outpatient (CLI) | payer MEDICARE, SELFPAY ==
[2023-01-09 09:23] LABS: Basophils Absolute Auto 0.1 K/mm3 (0.0-0.1); Basophils Percent Auto 1.2 % (0.2-1.2); Eosinophils Absolute Auto 0.3 K/mm3 (0-0.3); Eosinophils Percent Auto 4.5 % (0-4.4); Hematocrit 48.4 % (37.0-47.0); Hemoglobin 15.6 g/dL (12.0-15.0); Immature Granulocyte Absolute 0.02 K/mm3 (0.00-0.031); Immature Granulocyte Percent A 0.3 % (0-0.5); Lymphocytes Absolute Auto 1.76 K/mm3 (0.9-3.2); Lymphocytes Percent Auto 25.4 % (18.3-44.2); Mean Corpuscular HGB Conc 32.2 g/dl (32-36); Mean Corpuscular Hemoglobin 30.6 pg (26-34); Mean Corpuscular Volume 95.1 fl (80-100); Mean Platelet Volume 9.3 fl (7.4-10.4); Monocytes Absolute Auto 0.5 K/mm3 (0.1-0.6); Monocytes Percent Auto 7.8 % (2.6-8.5); Neutrophils Absolute Auto 4.2 K/mm3 (1.3-6.7); Neutrophils Percent Auto 60.8 % (45.5-73.1); Platelet Count Result 241 k/mm3 (150-375); Red Blood Count 5.09 M/mm3 (4.2-5.4); White Blood Count 6.9 K/mm3 (4.5-10.0)
[2023-01-09 09:39] LABS: Alanine Aminotransferase 26 U/L (6-35); Albumin Level 4.4 g/dL (3.5-5.1); Alkaline Phosphatase 141 U/L (38-126); Anion Gap 6 mmol/L (8-16); Aspartate Amino Transferase 28 U/L (14-36); Blood Urea Nitrogen 29 mg/dL (7-17); Calcium 9.5 mg/dL (8.4-10.2); Carbon Dioxide 27 mmol/L (22-30); Chloride 105 mmol/L (98-107); Cholesterol 184 mg/dL (0-200); Estimated Glomerular Filt Rate 53; Glucose 99 mg/dL (65-110); HDL Direct 63 mg/dL; Sodium 138 mmol/L (137-145); Triglycerides 100 mg/dL (<150)
[2023-01-09 09:49] LABS: LDL Cholesterol Direct 90 mg/dL
[2023-01-09 10:02] LABS: Free T4 Free Thyroxine 0.91 ng/mL (0.78-2.19)
[2023-01-09 10:08] LABS: Thyroid Stimulating Hormone 0.618 uIU/mL (0.465-4.680)
[2023-01-09 10:45] LABS: Folic Acid > 20.0 ng/mL (2.76->20); Vitamin B12 > 1000.0 pg/mL (239-931)
[2023-01-17 08:00] LABS: Triiodothyronine T3 Free 3.1 pg/mL (2.3-4.2)
== END 2023-01-09 08:32 | disposition home or self-care (01) ==
PROVIDERS: Internal Medicine Endocrinology, Diabetes & Metabolism; PCP Physician Assistant; Visit Provider Physician Assistant
DX: R53.83 Other fatigue (principal); E78.5 Hyperlipidemia, unspecified; C73 Malignant neoplasm of thyroid gland; E04.1 Nontoxic single thyroid nodule; E04.9 Nontoxic goiter, unspecified; Z85.850 Personal history of malignant neoplasm of thyroid; Z90.09 Acquired absence of other part of head and neck; E07.9 Disorder of thyroid, unspecified
CPT/HCPCS: 36415; 80053; 80061; 82607; 82746; 84439; 84443; 84481; 85025

== ENCOUNTER 2023-06-30 14:41 | Emergency (ER) | payer MEDICARE, SELFPAY ==
[2023-06-30 14:53] VITALS: BP 127/72; PULSE 102; RESP 18; TEMP 37.2; O2SAT 96
[2023-06-30 14:55] VITALS: BP 127/72; PULSE 102; RESP 18; TEMP 37.2; O2SAT 96
--- NOTE | 2023-06-30 14:58 | ED.URI ---
HPI - URI/Sore Throat General Chief Complaint: Upper Respiratory Infection Stated Complaint: Sinus Problems Time Seen by Provider: 06/30/23 15:03 Source: patient and RN notes reviewed Mode of arrival: ambulatory Limitations: no limitations History of Present Illness HPI Narrative: 87-year-old female presents concern for 4 day history of runny nose, stuffy nose. She reports she takes her allergy medicine but denies any other [id number] medications for her symptoms. She denies fever, aches, chills, sweats. Reports her has similar symptoms. MD elicited complaint: rhinorrhea and nasal congestion Related Data Home Medications Medication Instructions Recorded Confirmed aspirin 81 mg tablet,delayed 81 mg PO DAILY 06/20/19 02/03/23 release (Adult Low Dose Aspirin) fexofenadine 180 mg tablet 180 mg PO DAILY 06/20/19 02/03/23 lysine 500 mg tablet (L-Lysine) 500 mg PO DAILY 06/20/19 02/03/23 magnesium 250 mg tablet 250 mg PO DAILY 06/20/19 02/03/23 acetaminophen 650 mg tablet 650 mg PO DAILY PRN Pain 12/01/20 02/03/23 tizanidine 2 mg capsule 2 mg PO TID PRN 01/05/23 02/03/23 Allergies Allergy/AdvReac Type Severity Reaction Status Date / Time Penicillins Allergy Severe RASH Verified 02/03/23 13:34 Sulfa (Sulfonamide Allergy Severe HIVES AND Verified 02/03/23 13:34 Antibiotics) SWELLING adhesive tape Allergy Intermediate skin tears Verified 02/03/23 13:34 Review of Systems Review of Systems: CONSTITUTIONAL: Denies malaise, chills, sweats, or fever. EYES: Denies visual changes, redness, or discharge. ENT: Reports rhinorrhea, congestion. Denies sinus pain, otalgia and sore throat. CARDIOVASCULAR: Denies chest pain, palpitations, or edema. RESPIRATORY: Denies cough. Denies dyspnea. GASTROINTESTINAL: Denies abdominal pain, nausea, vomiting, diarrhea SKIN: Denies rash or itching. MUSCULOSKELETAL: Denies myalgia. NEUROLOGIC: Denies headache. All systems reviewed & are unremarkable except as noted in HPI and below PMFSH Past Medical History Medical History (Updated 06/30/23 @ 15:09 by Rossy Mckeon NP) Abnormal gait due to muscle weakness Ankle pain, left Ankylosis of subtalar joint Cataract (lens) fragments in eye following cataract surgery, bilateral Chronic back pain Encounter for postoperative care Hyperlipidemia Hypertension Restless leg syndrome Traumatic arthritis of left ankle Vaginal prolapse Surgical History Surgical History H/O bilateral oophorectomy H/O right breast biopsy H/O thyroidectomy History of ankle surgery Left ORIF ankle fracture DOS: 01/02/[address] Gutierrez History of appendectomy History of left knee replacement History of right knee joint replacement Family History Family History Father Acute myocardial infarction Other Unknown family medical history Social History Social History Smoking status: Never smoker Second hand tobacco smoke exposure: No Alcohol intake: never Substance use: never Lack of Transportation: No Lack of Food: Never True Current Housing: I Have Housing Concerned About Future Housing: No Difficulty Paying Gas/Electric Bills: No Difficulty Paying for Meds: No Currently Unemployed: No Education: Bachelor's Degree Difficulty w/ Childcare or Family Care: No Spiritual care concerns: No Comments At time of signature, agree with nursing past medical, surgical, social and family history. There is no relevant family history pertinent to the presenting complaint Exam Narrative: GENERAL: Well-appearing, well-nourished, and in no acute distress. HEAD: Normocephalic EYES: PERRLA, conjunctivae clear ENT: Nares clear, turbinates edematous and erythematous, clear discharge. Mucous membranes moist. TM pearly moreno with dull light reflex bilaterally; no tragal te
== END 2023-06-30 15:20 | disposition home or self-care (01) ==
PROVIDERS: Emergency Provider Nurse Practitioner; PCP Physician Assistant
DX: J06.9 Acute upper respiratory infection, unspecified (principal); E78.5 Hyperlipidemia, unspecified; I10 Essential (primary) hypertension; G25.81 Restless legs syndrome; Z96.653 Presence of artificial knee joint, bilateral; Z79.82 Long term (current) use of aspirin
CPT/HCPCS: 99213; G0463

== ENCOUNTER 2023-08-12 14:16 | Outpatient (CLI) | payer MEDICARE, SELFPAY ==
--- NOTE | ~2023-08-12 | XR_ITS ---
XR femur RT min 2V DATE: 08/12/2023 14:52 INDICATION: Right leg pain TECHNIQUE: AP and lateral views COMPARISON: None FINDINGS: Status post right total knee arthroplasty with patellar resurfacing. No fracture or dislocation, periosteal reaction or bone destruction of the right femur. IMPRESSION: Status post right total knee arthroplasty Reviewed, dictated and finalized at location [facility].
--- NOTE | ~2023-08-12 | XR_ITS ---
XR tibia fibula RT 2V DATE: 08/12/2023 14:53 INDICATION: Right leg pain TECHNIQUE: AP and lateral views COMPARISON: None FINDINGS: Status post right total knee arthroplasty with patellar resurfacing. No fracture, dislocation, periosteal reaction or bone destruction. IMPRESSION: Status post right total knee arthroplasty Reviewed, dictated and finalized at location [facility].
== END 2023-08-12 14:17 | disposition home or self-care (01) ==
LOC: ANHIMG 14:20
PROVIDERS: PCP Physician Assistant; Visit Provider Physician Assistant
DX: M79.604 Pain in right leg (principal)
CPT/HCPCS: 73552; 73590

== ENCOUNTER 2024-02-18 11:27 | Outpatient (CLI) | payer MEDICARE, SELFPAY ==
[2024-02-18 12:01] LABS: Alanine Aminotransferase 22 U/L (6-35); Albumin Level 4.5 g/dL (3.5-5.1); Alkaline Phosphatase 142 U/L (38-126); Anion Gap 8 mmol/L (4-12); Aspartate Amino Transferase 25 U/L (14-36); Bilirubin,Total 0.4 mg/dL (0.2-1.3); Blood Urea Nitrogen 27 mg/dL (7-17); Calcium 9.8 mg/dL (8.4-10.2); Carbon Dioxide 28 mmol/L (22-30); Chloride 104 mmol/L (98-107); Cholesterol 181 mg/dL (0-200); Estimated Glomerular Filt Rate 59; Glucose 98 mg/dL (65-110); HDL Direct 64 mg/dL; Potassium 4.6 mmol/L (3.4-5.0); Sodium 140 mmol/L (137-145); Triglycerides 198 mg/dL (<150)
[2024-02-18 12:12] LABS: LDL Cholesterol Direct 83 mg/dL
[2024-02-18 12:22] LABS: Free T4 Free Thyroxine 1.17 ng/mL (0.78-2.19)
== END 2024-02-18 11:28 | disposition home or self-care (01) ==
LOC: ANHLAB 11:31
PROVIDERS: PCP Nurse Practitioner; Visit Provider Nurse Practitioner
DX: E78.5 Hyperlipidemia, unspecified (principal); E07.9 Disorder of thyroid, unspecified
CPT/HCPCS: 36415; 80053; 80061; 84439; 84443

== ENCOUNTER 2024-03-25 16:48 | Emergency (ER) | payer MEDICARE, SELFPAY ==
--- NOTE | 2024-03-25 17:02 | ED_ITS ---
HPI - Extremity Injury (Lower) General Chief Complaint: Upper Respiratory Infection Stated Complaint: LT Foot Toe injury Time Seen by Provider: 03/25/24 17:02 Source: patient Mode of arrival: ambulatory Limitations: no limitations History of Present Illness HPI Narrative: Jessie is a an 88-year-old female patient presenting to the clinic today with complaints of left 3rd toe pain. She reports she recently had a callus removed by the behavioral services tech. No redness or swelling. Area of callus removal is not painful however she is having pain in the joint of the left 3rd toe. States the pain is to the top of the toe when ambulating. Denies any pain to touch flex or extend the toe. No known injury to the toe Related Data Home Medications ?Medication ?Instructions ?Recorded ?Confirmed ?Last Taken ?Type aspirin 81 mg tablet,delayed 81 mg PO DAILY 06/20/19 03/15/24 01/01/21 17:00 History release (Adult Low Dose Aspirin) fexofenadine 180 mg tablet 180 mg PO DAILY 06/20/19 03/15/24 01/01/21 12:00 History lysine 500 mg tablet (L-Lysine) 500 mg PO DAILY 06/20/19 03/15/24 01/01/21 12:00 History magnesium 250 mg tablet 250 mg PO DAILY 06/20/19 03/15/24 01/01/21 18:00 History acetaminophen 650 mg tablet 650 mg PO DAILY PRN Pain 12/01/20 03/15/24 01/01/21 12:00 History tizanidine 2 mg capsule 2 mg PO TID PRN 01/05/23 03/15/24 Unknown History Allergies Allergy/AdvReac Type Severity Reaction Status Date / Time Penicillins Allergy Severe RASH Verified 03/25/24 17:07 Sulfa (Sulfonamide Allergy Severe HIVES AND Verified 03/25/24 17:07 Antibiotics) SWELLING adhesive tape Allergy Intermediate skin tears Verified 03/25/24 17:07 Review of Systems Review of Systems: Pertinent positives per HPI. Patient denies any fever, chills, rash, headache, visual changes, dizziness, cough, shortness of breath, chest pain, palpitations, nausea, vomiting, diarrhea, constipation, abdominal pain, or any urinary issues. 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 Gutierrez History of right knee joint replacement History of left knee replacement H/O thyroidectomy H/O right breast biopsy History of appendectomy H/O bilateral oophorectomy Family History Family History Father Acute myocardial infarction Heart disease Mother Sibling Cerebrovascular accident Other Unknown family medical history Social History Social History Smoking status: Never smoker Second hand tobacco smoke exposure: No Alcohol intake: never Substance use: never Substance use type: does not use Do You Feel Safe in your Home?: Yes Lack of Transportation: No Lack of Food: Never True Current Housing: I Have Housing Concerned About Future Housing: No Difficulty Paying Gas/Electric Bills: No Difficulty Paying for Meds: No Currently Unemployed: No Education: Bachelor's Degree Difficulty w/ Childcare or Family Care: No Living arrangements: with family 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 There is no relevant family history pertinent to the patient complaint. Exam Narrative: General: Well-developed, well nourished, in no apparent distress Head: Normocephalic, atraumatic. Cardio: Regular rate and rhythm, s1 and s2 normal, no murmur appreciated. Resp: Clear to auscultation bilaterally, no rhonchi, rales, wheezing or rubs. Musculoskeletal: No deformity, nontender to palpation, reports pain to the top of the toe when ambulating/bearing weight, grossly normal range of motion, muscle strength strong and equal, peripheral pulse strong, no edema, no cyanosis, normal gait and station Course Course Emergency Course: Portions of this record may have been created with voice recognition software. Level of Care: Express Care Visit Vital Signs Vital signs: Vital signs reviewed MDM - Extremity Injury (Lower) MDM Narrative Medical decision making narrative: At the time of visit patient is resting comfortably on the exam table. Patient appears to be nontoxic. Plan: Unfortunately we do not have x-ray available in the clinic today. I suspect patient has acute toe pain possibly likely due to arthritis. No known injury to the toe. Will place on Medrol Dosepak and have her follow-up with her behavioral services tech on Thursday for imaging if the Medrol Dosepak is not helping with the pain. Supportive measures were discussed with the patient and they voiced understanding discharge instructions and agrees to treatment plan. Return precautions reviewed Differential Diagnosis Differential diagnosis: Likely fracture of toe and other (Toe sprain, toe arthralgia, tendinitis) Discharge Plan Discharge Clinical Impression: Pain in toe Qualifiers: Laterality: left Qualified Code(s): M79.675 - Pain in left toe(s) Patient Disposition: Home, Self-Care Condition: Stable Instructions: Antibiotic Form Additional Instructions: Take Medrol Dosepak as prescribed Rest, ice, and elevate May continue current medications Follow-up with podiatry on Thursday if symptoms persist Patient Language: Uzbek Prescriptions: New methylprednisolone [Medrol (Reddy)] 4 mg tablets,dose pack See Rx Instructions PO .COMPLEX Qty: 21 0RF Rx Instructions: orally per package directions No Action pseudoephedrine HCl [12 Hour Decongestant] 120 mg tablet extended release 120 mg PO Q12H PRN (Reason: nasal congestion) Qty: 12 0RF ipratropium bromide 21 mcg (0.03 %) spray,non-aerosol 2 spray NASAL TID PRN (Reason: nasal drainage) Qty: 30 0RF Rx Instructions: administer into each nostril acetaminophen 650 mg Tablet 650 mg PO DAILY PRN (Reason: Pain) aspirin [Adult Low Dose Aspirin] 81 mg tablet,delayed release (DR/EC) 81 mg PO DAILY fexofenadine 180 mg tablet 180 mg PO DAILY lysine [L-Lysine] 500 mg tablet 500 mg PO DAILY magnesium 250 mg tablet 250 mg PO DAILY tizanidine 2 mg capsule 2 mg PO TID PRN oxybutynin chloride 15 mg tablet extended release 24hr 15 mg PO DAILY Qty: 90 1RF omeprazole 20 mg capsule,delayed release(DR/EC) 20 mg PO DAILY Qty: 90 3RF hydrocodone-acetaminophen 5-325 mg tablet 1 tablet PO BID PRN (Reason: pain) Qty: 30 0RF Rx Instructions: MUST LAST 30 DAYS!!! NO EXCEPTIONS duloxetine 60 mg capsule,delayed release(DR/EC) 60 mg PO DAILY Qty: 90 1RF gabapentin 100 mg capsule 200 mg PO BID Qty: 360 1RF lisinopril 10 mg tablet 10 mg PO DAILY Qty: 90 1RF pramipexole 0.5 mg tablet 0.5 mg PO QHS Qty: 30 5RF atorvastatin 10 mg tablet See Rx Instructions .ROUTE .COMPLEX Qty: 45 1RF Dose Instruction: TAKE 1 TABLET BY MOUTH EVERY OTHER DAY DIRECTED Rx Instructions: TAKE 1 TABLET BY MOUTH EVERY OTHER DAY DIRECTED valacyclovir 1 gram tablet 2,000 mg PO Q12H Qty: 4 1RF Follow-up/Referrals: Zeus Harden APRN [Primary Care Provider] - Time of Disposition: 17:12 Quality NIHSS Nursing Documentation ED NIHSS nursing documentation: reviewed/agree
[2024-03-25 17:05] VITALS: BP 134/78; PULSE 79; RESP 18; TEMP 36.6; O2SAT 98
--- OUTSIDE RECORDS SUMMARY | 2024-03-29 08:21 | XMS_ITS | Patient Health Summary ---
Author Organization [facility] Address [address] [place] [address] Care Team Providers Care Humanities Department Chair Name Role Phone Richmond Carrion MD Primary Care Provider [phone] Note from [facility],non-owned Affiliates and Associated Physician Practices is amultiple site organization consisting of ambulatory clinics and hospital sitesin [place], [place], [place] and [place]. This disclosure is being madepursuant to the Care Everywhere program and may not contain all information available regarding this patient. Last updated 18.[facility] Allergies * Penicillins(Rash) -Medium Criticality * Sulfa Drugs(Urticaria) -Medium Criticality Medications * Be aware that medications may not be up to date on this document. Alwaysverify current medications with the patient. * atorvastatin (LIPITOR) 10 MG tablet Take 10 mg by mouth at bedtime * DULOXETINE HCL PO * HYDROcodone-acetaminophen (NORCO) 7.5-325 MG tablet Take 1 Tab by mouth every 4 hours as needed for Pain * lisinopril (PRINIVIL; ZESTRIL) 10 MG tablet Take 10 mg by mouth once daily * omeprazole (PRILOSEC) 20 MG capsule Take 20 mg by mouth daily before breakfast * rOPINIRole (REQUIP) 0.25 MG tablet Take 0.25 mg by mouth 3 times daily Social History Tobacco Use Types Packs/Day Years Used Date Smoking Tobacco: Never Smokeless Tobacco: Never Alcohol Use Standard Drinks/Week Comments No 0 (1 standard drink = 0.6 oz pur e alcohol) Sex and Gender Information Value Date Recorded Sex Assigned at Not on file Gender Identity Not on file Sexual Orientation Not on file Last Filed Vital Signs Vital Sign Reading Time Taken Comments Blood Pressure 128/86 07/08/2016 4:57 PM CDT Pulse 79 07/08/2016 4:57 PM CDT Temperature 36.8 ??C (98.2 ??F) 07/08/2016 4:57 PM CD T Respiratory Rate 16 07/08/2016 4:57 PM CDT Oxygen Saturation 98% 07/08/2016 4:57 PM CDT Inhaled Oxygen Concentration - - Weight 74.8 kg (165 lb) 07/08/2016 4:57 PM CDT Height 165.1 cm (5' 5 ) 07/08/2016 4:57 PM CDT Body Mass Index 27.46 07/08/2016 4:57 PM CDT Procedures * CULTURE URINE(Performed 07/08/2016) Performed for Acute cystitis without hematuria * URINALYSIS AUTO - POINT OF CARE (AMB) STL(Performed 07/08/2016) Performed for Acute cystitis without hematuria Results * (ABNORMAL) CULTURE URINE (07/08/2016 5:52 PM CDT) Urine Culture Routine Final report(A) [facility] INSURANCE BILL Result 1 Klebsiella pneumoniae(A) [facility] INSURANCE BILL Comment:Greater than 100,000 colony forming units per mL Antimicrobial Susceptibility [facility] INSURANCE BILL Comment: ? S = Susceptible; I = Intermediate; R = Resistant ? P = Positive; N = Negative ?MICS are expressed in micrograms per mL ?? Antibiotic ? RSLT#1 ?RSLT#2 ?RSLT#3 ?RSLT#4 Amoxicillin/Clavulanic Acid ?S Ampicillin ? R Cefepime ? S Ceftriaxone ?S Cefuroxime ? S Cephalothin ?S Ciprofloxacin ?S Ertapenem ?S Gentamicin ? S Levofloxacin ? S Nitrofurantoin ? S Piperacillin ? S Tetracycline ? S Tobramycin ? S Trimethoprim/Sulfa ? S Urine URINE SPECIMEN OBTAINED BY CLEAN CATCH PROCEDURE / Unknown 07/08/2016 5:52 PM CDT 07/09/2016 Narrative Resulting Agency Comment [facility] [address] ??[facility] [id number] Kristin Garcia APRN-MEDICAL DOCTOR LAB - MICROBIO LOGY ORDERABLES [facility] INSURANCE BILL [address] [place] [address] * (ABNORMAL) URINALYSIS AUTO - POINT OF CARE (AMB) STL (07/08/2016) Clarity UA POCT clear Color UA POCT light yellow Leukocyte UA 70+ Negative Nitrite UA POCT Negative Negative Urobilinogen UA 0.2 0.1 - 1.0 Protein UA POCT 15+ Negative pH UA 7.0 5.0 - 8.0 pH units Blood UA Negative Negative Specific [place] UA POCT 1.005 1.002 - 1.030 Ketone UA Negative Negative Bilirubin UA POCT Negative Negative Glucose UA Negative Negative Expiration Date 11/09/2017 Lot # [id number] Verified Yes Yes URINE / Unknown 07/08/2016 Kristin Garcia APRN-MEDICAL DOCTOR LAB - POINT OF CARE ORDERABLES Care Teams Humanities Department Chair Relationship Specialty Start Date End Date Richmond Carrion MD [address] [place] [address] [address] [place], [place] [id number] PCP - General Family Medicine 07/08/16
--- OUTSIDE RECORDS SUMMARY | 2024-03-29 08:21 | XMS_ITS | Encounter Summary ---
Author Organization [facility] Address [address] [place] [address] Care Team Providers Care Straightedge Man Name Role Phone Richmond Carrion MD Primary Care Provider [phone] Reason for Visit * Reason Onset Date Comments Follow-up 07/09/2016 Encounter Details Date Type Department Care Team (Late st Contact Info) Description 07/09/2016 Telephone [facility] [address] [phone] Jackie Harden Follow-up Social History Tobacco Use Types Packs/Day Years Used Date Smoking Tobacco: Never Smokeless Tobacco: Never Alcohol Use Standard Drinks/Week Comments No 0 (1 standard drink = 0.6 oz pur e alcohol) Sex and Gender Information Value Date Recorded Sex Assigned at Not on file Gender Identity Not on file Sexual Orientation Not on file documented as of this encounter Plan of Treatment Not on file documented as of this encounter Visit Diagnoses Not on filedocumented in this encounter Care Teams Straightedge Man Relationship Specialty Start Date End Date Richmond Carrion MD [address] [place] [address] [place] [id number] PCP - General Family Medicine 07/08/16 documented as of this encounter
--- OUTSIDE RECORDS SUMMARY | 2024-03-29 08:21 | XMS_ITS | Encounter Summary ---
Author Organization [facility] Address [address] [place] [address] Care Team Providers Care Shade Matcher Name Role Phone Richmond Carrion MD Primary Care Provider Reason for Visit * Reason Comments Bladder infection Encounter Details Date Type Department Care Team (Late st Contact Info) Description 07/08/2016 5:00 PM CDT Office Visit [facility] AT [address] [phone] Provider, [facility] Acute cystitis without hematuria (Primary Dx) Social History Tobacco Use Types Packs/Day Years Used Date Smoking Tobacco: Never Smokeless Tobacco: Never Alcohol Use Standard Drinks/Week Comments No 0 (1 standard drink = 0.6 oz pur e alcohol) Sex and Gender Information Value Date Recorded Sex Assigned at Not on file Gender Identity Not on file Sexual Orientation Not on file documented as of this encounter Last Filed Vital Signs Vital Sign Reading [...] Mass Index 27.46 07/08/2016 4:57 PM CDT documented in this encounter Patient Instructions * Patient Instructions* Kristin Garcia, [employer]-UNEMPLOYMENT CLAIMS ADJUDICATOR - 07/08/2016 5:46 PM CDT -Drink as much water as possible to help flush bacteria from your bladder. -Discussed potential adverse effects of medications. -Finish all of the medication prescribed to you. -May take OTC probiotic as directed per package instructions or eat active yogurt daily while on antibiotics and for 1-2 weeks after. This will help replace the good bacteria in your intestines. -Follow up with Dr. Carrion or return to clinic for any other concerns or questions. -Go to ER immediately with high fever, back or flank pain, or any worsening of current symptoms. Urinary Traction Infection in Older Adults MINE PRODUCTION ENGINEER: A urinary tract infection (UTI) is caused by bacteria that get inside your urinary tract. Your urinary tract includes your kidneys, ureters, bladder, and urethra. Urine is made in your kidneys, and it flows from the ureters to the bladder. Urine leaves the bladder through the urethra. A UTI is morecommon in your lower urinary tract, which includes your bladder and urethra. Common signs and symptoms include the following: ?? Fever and chills ?? Pain or burning when you urinate ?? Urine that smells bad or looks cloudy, or blood in your urine ?? Urinating more often or waking from sleep to urinate ?? Sudden, strong need to urinate ?? Pain or pressure in your lower abdomen ?? Leaking urine ?? Confusion or agitation ?? Fatigue, shakiness, and weakness Seek care immediately if: ?? You are urinating very little or not at all. ?? You are vomiting. ?? You have a high fever with shaking chills. ?? You have side or back pain that gets worse. Contact your healthcare provider if: ?? You have a fever. ?? You are a woman and you have increased white or yellow discharge from your vagina. ?? You do not feel better after 2 days of taking antibiotics. ?? You have questions or concerns about your condition or care. Treatment: Medicines treat the bacterial infection or decrease pain and burning when you urinate. You may also need medicines to decrease the urge to urinate often. Your healthcare provider may recommend cranberry juice or cranberry supplements to help decrease your symptoms. Self-care: ?? Urinate when you feel the urge. Do not hold your urine because bacteria can grow in the bladder if urine stays in the bladder too long. It may be helpful to urinate at least every 3 to 4 hours. ?? Drink liquids as directed. Liquids can help flush bacteria from your urinary tract. Ask how muchliquid to drink each day and which liquids are best for you. You may need to drink more liquids than usual to help flush out the bacteria. Do not drink alcohol, caffeine, and citrus juices. These canirritate your bladder and increase your symptoms. ?? Apply heat on your abdomen for 20 to 30 minutes every 2 hours for as many days as directed. Heathelps decrease discomfort and pressure in your bladder. Prevent a UTI: ?? Women should wipe front to back after urinating or having a bowel movement. This may prevent germs from getting into the urinary tract. ?? Urinate after you have sex to flush away bacteria that can enter your urinary tract during sex. ?? Wear cotton underwear and clothes that fit loose. Tight pants and nylon underwear can trap moisture and cause bacteria to grow. Follow up with your healthcare provider as directed: Write down your questions so you remember to ask them during your visits. ?? 2016 [employer]. Information is for End User's use only and may not be sold, redistributed or otherwise used for commercial purposes. All illustrations and images included in CareNotes?? are the copyrighted property of [employer] or [employer]. The above information is an educational psychologist only. It is not intended as medical advice for individual conditions or treatments. Talk to your doctor, nurse or pharmacist before following any medical regimen to see if it is safe and effective for you. documented in this encounter Progress Notes * Haile Corrales APRN-CNP - 07/11/2016 6:17 PM CDT Spoke to patient. States she is having some improvement. Instructed to continue antibiotic and return to clinic or PCP if no improvement. * Kristin Garcia APRN-CNP - 07/08/2016 5:33 PM CDT Subjective: Beryl Houston is a 80 y.o. female who complains of dysuria, back pain, urgency, suprapubic pain for 3 days. Patient denies headache, stomachache, vaginal discharge. Patient does have a history of recurrent UTI. Patient does not have a history of pyelonephritis. Patient states her symptoms are typical of her UTIs. OTC- None Patients PCP is Richmond Carrion MD Past Medical History Diagnosis Date ??? Anxiety ??? Hypercholesteremia ??? Hypertension ??? Spinal stenosis No family history on file. Current Outpatient Prescriptions Medication Sig Dispense Refill ??? atorvastatin (LIPITOR) 10 MG tablet Take 10 mg by mouth at bedtime ??? DULOXETINE HCL PO ??? HYDROcodone-acetaminophen (NORCO) 7.5-325 MG tablet Take 1 Tab by mouth every 4 hours as neededfor Pain ??? lisinopril (PRINIVIL; ZESTRIL) 10 MG tablet Take 10 mg by mouth once daily ??? omeprazole (PRILOSEC) 20 MG capsule Take 20 mg by mouth daily before breakfast ??? rOPINIRole (REQUIP) 0.25 MG tablet Take 0.25 mg by mouth 3 times daily ??? nitrofurantoin monohyd macro crystals (MACROBID) 100 MG capsule Take 1 Cap by mouth 2 times daily with morning and evening meal for 7 days Reasons: Urinary Tract Infection 14 Cap 0 No current facility-administered medications for this visit. Allergies Allergen Reactions ??? Pcn [Penicillins] Rash ??? Sulfa Drugs Urticaria History Social History ??? Marital status: ??? Social History Main Topics ??? Smoking status: Never Smoker ??? Smokeless tobacco: Never Used ??? Alcohol use: No Review of Systems Constitutional: Negative Respiratory: Negative Genitourinary:Positive for frequency and dysuria The rest of the review of systems was negative. Objective: BP 128/86 (BP SITE: LEFT ARM, BP POSITION: SITTING, BP CUFF SIZE: Adult) Pulse 79 Temp 98.2 ??F (Oral) Resp 16 Ht 1.651 m (5' 5 ) Wt 74.8 kg (165 lb) SpO2 98% BMI 27.46 kg/m2 Exam: General appearance: alert, cooperative, no distress, oriented to person, place, and time, well appearing Head: normocephalic, without trauma Back: CVA tenderness Abdomen: soft without mass, non-tender, with normal bowel sounds Lungs:CTA; good aeration Cardiovascular:RRR. No murmurs, gallops, or rubs Assessment: Encounter Diagnosis Name Primary? Acute cystitis without hematuria Yes Plan: -Drink as much water as possible to help flush bacteria from your bladder. -May take OTC AZO as directed per package instructions- Be aware this will turn your urine orange. -Discussed potential adverse effects of medications. -Finish all of the medication prescribed to you. -May take OTC probiotic as directed per package instructions or eat active yogurt daily while on antibiotics and for 1-2 weeks after. This will help replace the good bacteria in your intestines. -Use alternate method of control while taking antibiotics and for one week after finishing antibiotics. -Follow up with Dr. Carrion or return to clinic if symptoms worsen or do not completely resolve. -Urine Culture sent for C&S. -Go to ER immediately with high fever, back or flank pain, or any worsening of current symptoms. Orders Placed This Encounter ??? CULTURE URINE ??? URINALYSIS AUTO - POINT OF CARE (AMB) STL ??? nitrofurantoin monohyd macro crystals (MACROBID) 100 MG capsule Sig: Take 1 Cap by mouth 2 times daily with morning and evening meal for 7 days Reasons: Urinary Tract Infection Dispense: 14 Cap Refill: 0 Recent Results (from the past 24 hour(s)) URINALYSIS AUTO - POINT OF CARE (AMB) STL Collection Time: 07/08/16 12:00 AM Result Value Ref Range Clarity UA clear Color UA light yellow Leukocyte UA 70+ Negative Nitrite UA Negative Negative Urobilinogen UA 0.2 0.1 - 1.0 Protein UA 15+ Negative pH UA 7.0 5.0 - 8.0 pH units Blood UA Negative Negative Specific Shirley UA 1.005 1.002 - 1.030 Ketone UA Negative Negative Bili UA Negative Negative Glucose UA Negative Negative Expiration Date 11/09/2017 Lot Number [id number] QC VERIFIED Yes Yes Kristin Garcia APRN, [employer]-BC documented in this encounter Plan of Treatment Not on file documented as of this encounter Procedures Procedure Name Priority Date/Time Associated Diagnosis Comments CULTURE URINE Routine 07/08/2016 5:52 PM CDT Acute cystitis without hematuria URINALYSIS AUTO - POINT OF CARE (AMB) STL Routine 07/08/2016 Acute cystitis without hematuria documented in this encounter Results * (ABNORMAL) CULTURE URINE (07/08/2016 5:52 [...] CDT 07/09/2016 Narrative Resulting Agency Comment [facility] [address] ??[facility] [phone] Kristin Garcia APRN-UNEMPLOYMENT CLAIMS ADJUDICATOR LAB - MICROBIO LOGY ORDERABLES [facility] INSURANCE BILL [address] [place] [address] * (ABNORMAL) URINALYSIS AUTO - POINT OF CARE (AMB) STL (07/08/2016) Clarity UA POCT clear Color UA POCT light yellow Leukocyte UA 70+ Negative Nitrite UA POCT Negative Negative Urobilinogen UA 0.2 0.1 - 1.0 Protein UA POCT 15+ Negative pH UA 7.0 5.0 - 8.0 pH units Blood UA Negative Negative Specific Shirley UA POCT 1.005 1.002 - 1.030 Ketone UA Negative Negative Bilirubin UA POCT Negative Negative Glucose UA Negative Negative Expiration Date 11/09/2017 Lot # [id number] QC Verified Yes Yes URINE / Unknown 07/08/2016 Kristin FRANKSUNEMPLOYMENT CLAIMS ADJUDICATOR LAB - POINT OF CARE ORDERABLES documented in this encounter Visit Diagnoses Diagnosis Acute cystitis without hematuria- Primary Acute cystitis documented in this encounter Care Teams Shade Matcher Relationship Specialty Start Date End Date Richmond Carrion MD [address] [place] [address] [place] [address] PCP - General Family Medicine 07/08/16 documented as of this encounter
--- OUTSIDE RECORDS SUMMARY | 2024-03-29 08:21 | XMS_ITS | Referral Summary ---
Author Organization [facility] Address [address] [place] [address] Care Team Providers Care Spinning Frame Tender Name Role Phone Richmond Carrion MD Primary Care Provider Source Comments [facility],non-owned Affiliates and Associated Physician Practices is amultiple site organization consisting of ambulatory clinics and hospital sitesin [place], [place], [place] and [place]. This disclosure is being madepursuant to the Care Everywhere program and may not contain all information available regarding this patient. Last updated 18.[facility] Allergies Active Allergy Reactions Criticality Noted Date Comments Penicillins Rash Medium 07/08/2016 Sulfa Drugs Urticaria Medium 07/08/2016 Medications * Be aware that medications may not be up to date on this document. Alwaysverify current medications with the patient. Medication Sig Dispensed Refills Start Date End Date Status atorvastatin (LIPITOR) 10 MG tablet Take 10 mg by mouth at bedtime Active DULOXETINE HCL PO Active HYDROcodone-acetamino phen (NORCO) 7.5-325 MG tablet Take 1 Tab by mouth every 4 hours as needed for Pain Active lisinopril (PRINIVIL; ZESTRIL) 10 MG tablet Take 10 mg by mouth once daily Active omeprazole (PRILOSEC) 20 MG capsule Take 20 mg by mouth daily before breakfast Active rOPINIRole (REQUIP) 0.25 MG tablet Take 0.25 mg by mouth 3 times daily Active Social History Tobacco Use Types Packs/Day Years [...] Mass Index 27.46 07/08/2016 4:57 PM CDT Plan of Treatment Not on file Care Teams Spinning Frame Tender Relationship Specialty Start Date End Date Richmond Carrion MD [address] [place] [address] [place] [id number] PCP - General Family Medicine 07/08/16
--- OUTSIDE RECORDS SUMMARY | 2024-03-29 08:21 | XMS_ITS | Clinical Summary ---
Author Organization [facility] Address [address] [place] [address] Care Team Providers Care Nursing Information Systems Coordinator Name Role Phone Richmond Carrion MD Primary Care Provider [phone] Source Comments [facility],non-owned Affiliates and Associated Physician Practices is amultiple site organization consisting of ambulatory clinics and hospital sitesin [place], [place]. This disclosure is being madepursuant to the Care Everywhere program and may not contain all information available regarding this patient. Last updated 18.[facility] Allergies Active Allergy Reactions Criticality Noted Date [...] 07/08/2016 4:57 PM CDT Plan of Treatment Health Maintenance Due Date Last Done Comments BONE DENSITY TESTING 1936 MEDICARE AWV ? 12 MONTHS 1935 DTAP/TDAP/TD VACCINES (1 - Tdap) 07/19/1955 ZOSTER VACCINE (1 of 2) 1986 PNEUMOCOCCAL VACCINE 65+ (1 of 1 - PCV) 2001 Respiratory Syncytial Virus (RSV) Vaccine Pt: or over 60 yrs (1 - 1-dose 75+ series) 07/19/2011 DEPRESSION SCREENING 04/13/2023 COVID-19 VACCINE ( - 2023-2 5 season) 2023 INFLUENZA VACCINE (#1) 2023 HEPATITIS B VACCINE Aged Out No longe r eligible based on patient's age to complete this topic HIB VACCINE Aged Out No longer eligi ble based on patient's age to complete this topic HPV VACCINE Aged Out No longer eligi ble based on patient's age to complete this topic MENINGOCOCCAL VACCINE Aged Out No geremias tammie eligible based on patient's age to complete this topic Care Teams Nursing Information Systems Coordinator Relationship Specialty Start Date End Date Richmond Carrion MD [address] [place] [address] [place] [address] PCP - General Family Medicine 07/08/16
--- OUTSIDE RECORDS SUMMARY | 2024-03-29 08:22 | XMS_ITS | Encounter Summary ---
Author Organization [facility] Address [address] [place] [id number] Care Team Providers Care Banking And Finance Instructor Name Role Phone Richmond Carrion MD Primary Care Provider [phone] Encounter Details Date Type Department Care Team (Latest Contact Info) Description 06/05/2017 3:25 PM BEHAVIORAL SPECIALIST Hospital Encounter [facility] Orthopedics and Sports Medicine [address] [place] [phone] Discharge Disposition: Discharge to home or self care Social History Tobacco Use Types Packs/Day Years Used Date Smoking Tobacco: Never Smokeless Tobacco: Never Alcohol Use Standard Drinks/Week Comments No 0 (1 standard drink = 0.6 oz pur e alcohol) Comments Unknown Sex and Gender Information Value Date Recorded Sex Assigned at Not on file Legal Sex Female 9:34 AM BEHAVIORAL SPECIALIST Gender Identity Not on file Sexual Orientation Not on file documented as of this encounter Medications at Time of Discharge atorvastatin (LIPITOR) 10 mg tablet Take 10 mg by mouth. DULoxetine DR (CYMBALTA) 60 mg capsule 0 09/26/2016 lisinopril (PRINIVIL,ZESTRIL ) 10 mg tablet TK 1 T PO QD 0 08/11/2016 PREMARIN vaginal cream APPLY 0.5 GRAMS VAGINALLY QOD 3 09/05/2016 valACYclovir (VALTREX) 1 gram tablet TK 2 TS PO BID FOR 1 DAY 5 10/02/2016 ciprofloxacin (CIPRO) 500 mg tablet 3 09/05/2016 2 HYDROcodone-aceta minophen (NORCO) 5-325 mg per tabletIndications :Pain Take 1 tablets every 4-6 hours as needed for pain 40 tablet 12/25/2016 2 HYDROcodone-aceta minophen (NORCO) 5-325 mg per tabletIndications :Pain Take 1-2 tablets every 4 hours as needed for pain 43 tablet 02/10/2017 2 nitrofurantoin monohydrate (MACROBID) 100 mg capsule 0 08/11/2016 2 omeprazole (PriLOSEC) 20 mg capsule Take 20 mg by mouth. 2 rOPINIRole (REQUIP) 0.5 mg tablet 2 05/18/2017 9 documented as of this encounter Discharge Disposition Disposition Code Departure Means Destination Discharge to home or self care documented in this encounter Plan of Treatment Not on file documented as of this encounter Procedures Procedure Name Priority Date/Time Associated Diagnosis Comments XR KNEE RIGHT 1 OR 2 VIEWS Schedule Routine, Read Routine (OP Routine) 06/05/2017 3:35 PM BEHAVIORAL SPECIALIST Aftercare following explantation of joint prosthesis documented in this encounter Results * XR Knee Right 1 or 2 Views (06/05/2017 3:35 PM BEHAVIORAL SPECIALIST) Anatomical Region Laterality Modality Lower Extremities, Knee Right Radiogra phic Imaging Narrative 06/05/2017 3:47 PM BEHAVIORAL SPECIALIST Four views 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
--- OUTSIDE RECORDS SUMMARY | 2024-03-29 08:22 | XMS_ITS | Encounter Summary ---
Author Organization [facility] Address Leon[address] [place] [address] Phone Care Team Providers Care Scrummaster Name Role Phone Richmond Carrion MD Primary Care Provider [phone] Reason for Visit * Reason Comments Hearing Loss Encounter Details Date Type Department Care Team (Latest Contact Info) Description 10/17/2021 11:00 AM CDT Office Visit [facility] Otolaryngology [address] [place] [phone] Chandler Simpson MD [address] [place] [phone] Mixed conductive and sensorineural hearing loss of right ear with restricted hearing of left ear (Primary Dx) Social History Tobacco Use Types Packs/Day Years Used Date Smoking Tobacco: Never Smokeless Tobacco: Never Alcohol Use Standard Drinks/Week Comments No 0 (1 standard drink = 0.6 oz pur e alcohol) Comments Unknown Sex and Gender Information Value Date Recorded Sex Assigned at Not on file Legal Sex Female 9:34 AM 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 female was seen in the office today. Primary care provider is Richmond Carrion MD . Chief Complaint: Chief Complaint Patient presents with ??? Hearing Loss HPI: She comes to clinic today for evaluation of bilateral hearing loss. She has had hearing loss for a very long time. She wears hearing aids. She feels like she does reasonably well although does have continued difficulty understanding speech. She would like to know more about cochlear implants. She knows a little bit about them but is apprehensive. I have reviewed past medical, surgical, family history as well as allergies and medications. Review of Systems Review of Systems Constitutional: Negative for chills, fever and unexpected weight change. HENT: Negative for drooling and facial swelling. Eyes: Negative for pain and discharge. Respiratory: Negative for wheezing and stridor. Cardiovascular: Negative for leg swelling. Gastrointestinal: Negative for diarrhea and vomiting. Endocrine: Negative for polydipsia. Genitourinary: Negative for flank pain. Musculoskeletal: Negative for myalgias. Skin: Negative for color change. Allergic/Immunologic: Negative for immunocompromised state. Neurological: Negative for tremors and seizures. Psychiatric/Behavioral: Negative for hallucinations and self-injury. Vital Signs: Resp 18 Ht 162.6 cm (5' 4 ) Wt 81.6 kg (180 lb) BMI 30.90 kg/m?? PHYSICAL EXAMINATION: GENERAL: Normal NEURO/PSYCH: Affect is normal. Alert and oriented. Extraocular muscles are intact. Cranial Nerves: Cranial nerves II-VII and IX-XII are intact and symmetric. HEAD/FACE: Normocephalic; atraumatic. No facial skin lesions. Facial strength is 5/5 and the face is symmetric. EARS : External ears have no skin lesions. Auricles are regularly set on the head. Hearing is grossly intact. Right: Normal canal. Tympanic membrane intact and mobile. Left: Normal canal. Tympanic membrane intact and mobile. NOSE: External nose has no skin lesions. Nasal dorsum is essentialy midline. Nasal septum is nonobstructive. Inferior and middle turbinates are normal size. No mucosal lesions or polyps are seen on either side. ORAL CAVITY/ OROPHARYNX: Skin of the lips is without lesions. Normal oral vestibule. Oral mucosa ismoist without lesions. Tongue and floor of mouth are without lesions or masses. Palate has no lesions and elevates symmetrically. Tonsils are normal. Oropharynx is clear without erythema or exudate. NECK: Trachea is midline. Thyroid is normal in size with no apparent nodules. Larynx: Base of tongue is symmetric without masses. Epiglottis is normal without edema or mass lesions. Hypopharynx is clear of masses including the pyriform sinuses. The false and true vocal cords are clear of masses. True vocal cords are mobile bilaterally. No paralysis. Salivary Glands: The submandibular glands are non-tender without masses. The parotid glands are non-tender without edema or masses. There is clear saliva flow from Stensen's and Cache's ducts bilaterally. LYMPHATIC: No cervical lymphadenopathy. MUSCULOSKELATAL: Ambulates without difficulty. Neck full range of motion. RESPIRATORY: Breathing comfortably without audible wheeze, stertor or stridor. PROCEDURE: She had an audiogram tympanogram done today and I reviewed that with her and her . She has a severe to profound right-sided mixed loss along with a severe left-sided sensorineural hearing loss. Discrimination scores are poor in the right and fair in the left. Tympanometry is normal. ASSESSMENT & PLAN: Mixed conductive and sensorineural hearing loss of right ear with restricted hearing of left ear She has very significant bilateral hearing loss. She is doing reasonably well with hearing aids. I think she is an excellent candidate for a cochlear implant and we talked quite a bit about that. Sheis really not sure she wants to pursue that. I offered a referral and she said she would like to think about it. She had no further questions. I will see her as needed. Chandler Simpson MD documented in this encounter Miscellaneous Notes * Assessment & Plan Note - Chandler Simpson MD - 10/19/2021 11:21 AM CDT Associated Problem(s): Mixed conductive and sensorineural hearing loss of right ear with restrictedhearing of left ear She has very significant bilateral hearing loss. She is doing reasonably well with hearing aids. I think she is an excellent candidate for a cochlear implant and we talked quite a bit about that. Sheis really not sure she wants to pursue that. I offered a referral and she said she would like to think about it. She had no further questions. I will see her as needed. documented in this encounter Plan of Treatment Not on file documented as of this encounter Visit Diagnoses Diagnosis Mixed conductive and sensorineural hearing loss of right ear with restricted hearing of left ear- Primary documented in this encounter Discontinued Medications Medication Sig Discontinue Reason Start Date End Da te ciprofloxacin (CIPRO) 500 mg tablet Therapy completed 09/05/2016 10/17/2021 dicyclomine (BENTYL) 20 mg tablet Therapy completed 05/21/2018 10/17/2021 HYDROcodone-acetaminophe n (NORCO) 5-325 mg per tabletIndications:Pain Take 1-2 tablets every 4 hours as needed for pain Therapy completed 02/10/2017 10/17/2021 nitrofurantoin monohydrate (MACROBID) 100 mg capsule Therapy completed 08/11/2016 10/17/2021 omeprazole (PriLOSEC) 20 mg capsule Take 20 mg by mouth. Therapy completed HYDROcodone-acetaminophe n (NORCO) 5-325 mg per tabletIndications:Pain Take 1 tablets every 4-6 hours as needed for pain Therapy completed 12/25/2016 10/17/2021 documented as of this encounter Historical Medications * This list may reflect changes made after this encounter. potassium gluconate 600 mg (99 mg) tablet Take by mouth magnesium oxide (MAG-OX) 250 mg (150.8 mg elemental) tabletIndications :hypomagnesemia 250 mg daily vit C,Q-Va-diyof-lute in-zeaxan (PreserVision AREDS-2) 250-90-40-1 mg capsule Take by mouth lysine 500 mg tablet Take 500 mg by mouth daily gabapentin (NEURONTIN) 100 mg capsule Take 200 mg by mouth 2 (two) times a day 09/02/2021 fexofenadine (DEJUAN) 180 mg tablet Take 180 mg by mouth daily biotin 10,000 mcg capsule Take 1 capsule by mouth daily aspirin 81 mg enteric coated tablet Take 1 tablet by mouth daily added in this encounter Care Teams Scrummaster Relationship Specialty Start Date End Date Richmond Carrion MD [address] [place] [address] [place] [address] PCP - General Family Practice 09/26/16 10/20/21 documented as of this encounter
--- OUTSIDE RECORDS SUMMARY | 2024-03-29 08:22 | XMS_ITS | Encounter Summary ---
Author Organization [facility] Address [address] [facility] [address] [place] [id number] Care Team Providers Care Commercial Glazier Name Role Phone Richmond Carrion MD Primary Care Provider [phone] Reason for Visit * Diagnostic Imaging (Routine) - Closed Specialty Diagnoses / Procedures Referred By Contac t Referred To Contact Diagnoses Orthopedic aftercare Procedures XR Knee Right 1 or 2 Views Jaret Abdalla MD Phone: tel: fax: [facility] Referral ID Status Reason Start Date Expiration Date Visits Re quested Visits Authorized [id number] Closed 06/09/2018 12/19/2019 1 1 Encounter Details Date Type Department Care Team (Latest Contact Info) Description 06/09/2018 11:31 AM RETAIL ADVERTISING SALES MANAGER - 06/09/2018 11:59 PM RETAIL ADVERTISING SALES MANAGER Hospital Encounter [facility] Orthopedics and Sports Medicine [address] [place] [phone] Discharge Disposition: Discharge to home or self care Social History Tobacco Use Types Packs/Day Years Used Date Smoking Tobacco: Never Smokeless Tobacco: Never Alcohol Use Standard Drinks/Week Comments No 0 (1 standard drink = 0.6 oz pur e alcohol) Comments Unknown Sex and Gender Information Value Date Recorded Sex Assigned at Not on file Legal Sex Female 9:34 AM RETAIL ADVERTISING SALES MANAGER Gender Identity Not on file Sexual Orientation Not on file documented as of this encounter Medications at Time of Discharge atorvastatin (LIPITOR) 10 mg tablet Take 10 mg by mouth. DULoxetine (CYMBALTA) 60 mg capsule 0 09/26/2016 lisinopril (PRINIVIL,ZESTRIL ) 10 mg tablet TK 1 T PO QD 0 08/11/2016 PREMARIN vaginal cream APPLY 0.5 GRAMS VAGINALLY QOD 3 09/05/2016 rOPINIRole (REQUIP) 1 mg tablet TK 1 T PO HS 1 05/04/2018 valACYclovir (VALTREX) 1 gram tablet TK 2 TS PO BID FOR 1 DAY 5 10/02/2016 ciprofloxacin (CIPRO) 500 mg tablet 3 09/05/2016 2 dicyclomine (BENTYL) 20 mg tablet 0 05/21/2018 2 HYDROcodone-aceta minophen (NORCO) 5-325 mg per [...] capsule Take 20 mg by mouth. 2 documented as of this encounter Discharge Disposition Disposition Code Departure Means Destination Discharge to home or self care documented in this encounter Plan of Treatment Not on file documented as of this encounter Procedures Procedure Name Priority Date/Time Associated Diagnosis Comments XR KNEE RIGHT 1 OR 2 VIEWS Schedule Routine, Read Routine (OP Routine) 06/09/2018 11:40 AM RETAIL ADVERTISING SALES MANAGER Orthopedic aftercare documented in this encounter Results * XR Knee Right 1 or 2 Views (06/09/2018 11:40 AM RETAIL ADVERTISING SALES MANAGER) Anatomical Region Laterality Modality Lower Extremities, Knee Right [facility] Narrative 06/09/2018 2:36 PM RETAIL ADVERTISING SALES MANAGER Four views right knee shows attune fixed bearing total knee arthroplasty in appropriate position no signs of loosening no fracture us Jaret Abdalla MD IMG XR PROCEDURES Final Resu lt documented in this encounter Visit Diagnoses Not on filedocumented in this encounter Care Teams Commercial Glazier Relationship Specialty Start Date End Date Richmond Carrion MD [address] [place] [address] [place] [address] PCP - General Family Practice 09/26/16 10/20/21 documented as of this encounter
--- OUTSIDE RECORDS SUMMARY | 2024-03-29 08:22 | XMS_ITS | Encounter Summary ---
Author Organization [facility] Address [address] [facility] [address] [place] [address] Care Team Providers Care Men'S Designer Name Role Phone Richmond Carrion MD Primary Care Provider [phone] Encounter Details Date Type Department Care Team (Latest Contact Info) Description 06/05/2017 3:25 PM DOCUMENT RESTORER - 06/05/2017 11:59 PM DOCUMENT RESTORER Hospital Encounter [facility] Orthopedics and Sports Medicine [address] [place] [phone] Discharge Disposition: Discharge to home or self care Social History Tobacco Use Types Packs/Day Years Used Date Smoking Tobacco: Never Smokeless Tobacco: Never Alcohol Use Standard Drinks/Week Comments No 0 (1 standard drink = 0.6 oz pur e alcohol) Comments Unknown Sex and Gender Information Value Date Recorded Sex Assigned at Not on file Legal Sex Female 9:34 AM DOCUMENT RESTORER Gender Identity Not on file Sexual Orientation [...] Name Priority Date/Time Associated Diagnosis Comments XR PELVIS 1 OR 2 VIEWS Schedule Routine, Read Routine (OP Routine) 06/05/2017 3:34 PM DOCUMENT RESTORER Aftercare following explantation of joint prosthesis documented in this encounter Results * XR Pelvis 1 or 2 Views (06/05/2017 3:34 PM DOCUMENT RESTORER) Anatomical Region Laterality Modality Body, Pelvis N/A Radiographic Lili ging Narrative 06/05/2017 3:47 PM DOCUMENT RESTORER AP pelvis shows mild degenerative changes bilateral hips no fracture subluxation or dislocation Jaret Abdalla MD IMG XR PROCEDURES Final Resu lt documented in this encounter Visit Diagnoses Not on filedocumented in this encounter Care Teams Men'S Designer Relationship Specialty Start Date End Date Richmond Carrion MD [address] [place] [address] [place] [address] PCP - General Family Practice 09/26/16 10/20/21 documented as of this encounter
--- OUTSIDE RECORDS SUMMARY | 2024-03-29 08:22 | XMS_ITS | Clinical Summary ---
Author Organization [facility] Address [address] [place] [address] Care Team Providers Care Profile Shaper Operator Name Role Phone Ta Puente Primary Care Provider Allergies Active Allergy Reactions Criticality Noted Date Comments Adhesive Tape-Silicones Etodolac Other (See comments) Reaction: UNKNOWN Penicillins Other (See comments),Rash Medium 07/08/2016 Reaction: UNKNOWN CHILDHOOD, , Prochlorperazine Unknown Sulfa (Sulfonamide Antibiotics) Sulfabenzamide Hives Medium Reaction: HIVES Sulfasalazine Urticaria Medium 07/08/2016 Medications atorvastatin (LIPITOR) 10 mg tablet Take 10 mg by mouth. Active DULoxetine DR (CYMBALTA) 60 mg capsule 0 7 Active PREMARIN vaginal cream APPLY 0.5 GRAMS VAGINALLY QOD 3 7 Active lisinopril (PRINIVIL,ZESTR [place]) 10 mg tablet TK 1 T PO QD 0 7 Active valACYclovir (VALTREX) 1 gram tablet TK 2 TS PO BID FOR 1 DAY 5 7 Active rOPINIRole (REQUIP) 1 mg tablet TK 1 T PO HS 1 9 Active aspirin 81 mg enteric coated tablet Take 1 tablet by mouth daily Active biotin 10,000 mcg capsule Take 1 capsule by mouth daily Active fexofenadine (DEJUAN) 180 mg tablet Take 180 mg by mouth daily Active gabapentin (NEURONTIN) 100 mg capsule Take 200 mg by mouth 2 (two) times a day 2 Active lysine 500 mg tablet Take 500 mg by mouth daily Active vit C,I-Zl-rngys-jenna tein-zeaxan (PreserVision AREDS-2) 250-90-40-1 mg capsule Take by mouth Active magnesium oxide (MAG-OX) 250 mg (150.8 mg elemental) tabletIndicatio ns:hypomagnesem ia 250 mg daily Active potassium gluconate 600 mg (99 mg) tablet Take by mouth Active Active Problems Problem Noted Date Diagnosed Date Mixed conductive and sensori neural hearing loss of right ear with restricted hearing of left ear 10/19/2021 Assessment & Plan (10/19/2021 11:22 AM CDT): She has very significant bilateral hearing loss. She is doing reasonably well with hearing aids. I think she is an excellent candidate for a cochlear implant and we talked quite a bit about that. She is really not sure she wants to pursue that. I offered a referral and she said she would like to think about it. She had no further questions. I will see her as needed. 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 Surgical History Surgery Date Site/Laterality Comments APPENDECTOMY BREAST BIOPSY THYROID LOBECTOMY Left NEUROMA SURGERY Left left foot KNEE ARTHROSCOPY Right ENDOVENOUS ABLATION SAPHENOU S VEIN W/ LASER Left JOINT REPLACEMENT 04/13/2007 - 04/12/2008 Left VAGINAL PROLAPSE REPAIR ANKLE FRACTURE SURGERY OOPHERECTOMY Medical History Medical History Date Comments Hypertension History of blood clots Poor circulation GERD (gastroesophageal reflux disease) Osteoarthritis Cataracts, bilateral HL (hearing loss) Family History Medical History Relation Name Comments Cancer Father Heart disease Father Hypertension Father Stroke Mother Relation Name Status Comments Father Mother Social History Tobacco Use Types Packs/Day Years Used Date Smoking Tobacco: Never Smokeless Tobacco: Never Alcohol Use Standard Drinks/Week Comments No 0 (1 standard drink = 0.6 oz pur e alcohol) Personal Safety Answer Date Recorded Getting School Help Needed Not on file 06/26 Comments Unknown Sex and Gender Information Value Date Recorded Sex Assigned at Not on file Legal Sex Female 9:34 AM BREEDING MANAGER Gender Identity Not on file Sexual Orientation Not on file Obstetrics History Last Filed Vital Signs Vital Sign Reading Time Taken Comments Blood Pressure 152/90 06/09/2018 11:53 AM BREEDING MANAGER Pulse 77 06/09/2018 11:53 AM BREEDING MANAGER Temperature - - Respiratory Rate 18 10/17/2021 10:53 AM CDT Oxygen Saturation - - Inhaled Oxygen Concentration - - Weight 81.6 kg (180 lb) 10/17/2021 10:53 AM CDT Height 162.6 cm (5' 4 ) 10/17/2021 10:53 AM CDT Body Mass Index 30.9 10/17/2021 10:53 AM CDT Plan of Treatment Health Maintenance Due Date Last Done Comments Depression Screening 1935 Fall Risk Assessment 1935 Well Visit 65+ 2001 DTaP/Tdap/Td Vaccine (1 - Tdap) 06/09/2008 9, 02/11/1994 Covid-19 Vaccine (2023-2 5 season) 2023 08/12/2021, 03/13/2021, 06/22/2020, Additional history exists Influenza Vaccine (#1) 2023 , 12/15/2019, 01/21/2019, Additional history exists Zoster Vaccine Completed 04/29/2019, 02/28/2019 Pneumococcal vaccine 65+ Completed 12/16/2019, 06/12 Insurance MEDICARE [facility] MEDICARE [facility] Care Teams Profile Shaper Operator Relationship Specialty Start Date End Date Ta Puente PA [address] [facility] [address] [place] [address] PCP - General Physician Odd Bundle Worker 10/30/21
--- OUTSIDE RECORDS SUMMARY | 2024-03-29 08:22 | XMS_ITS | Encounter Summary ---
Author Organization [facility] Medical [facility] Address [address] [facility] [address] [place] [address] Care Team Providers Care Automation Analyst Name Role Phone Richmond Carrion MD Primary Care Provider [phone] Reason for Referral * Diagnostic Imaging (Routine) - Closed Specialty Diagnoses / Procedures Referred By Contac t Referred To Contact Diagnoses Orthopedic aftercare Procedures XR Knee Right 1 or 2 Views Jaret Abdalla MD Phone: tel: fax: [facility] Referral ID Status Reason Start Date Expiration Date Visits Re quested Visits Authorized [id number] Closed 06/09/2018 12/19/2019 1 1 RVISOR CUSTOMER COMPLAINT SERVICE * Diagnostic Imaging (Routine) - Closed Specialty Diagnoses / Procedures Referred By Contac t Referred To Contact Diagnoses Orthopedic aftercare Procedures XR Knee Left 1 or 2 Views Jaret Abdalla MD Phone: tel: fax: [facility] Referral ID Status Reason Start Date Expiration Date Visits Re quested Visits Authorized [id number] Closed 06/09/2018 12/19/2019 1 1 RVISOR CUSTOMER COMPLAINT SERVICE Reason for Visit * Reason Comments Follow-up Pain Encounter Details Date Type Department Care Team (Latest Contact Info) Description 06/09/2018 11:00 AM SUPERVISOR CUSTOMER COMPLAINT SERVICE Office Visit [facility] Orthopedics and Sports Medicine [address] [place] [phone] Jaret Abdalla MD [address] [place] [address] [address] [address] Repeated falls (Primary Dx); Orthopedic aftercare; Aftercare following explantation of joint prosthesis; Aftercare following right knee joint replacement surgery; Aftercare following surgery of the musculoskeletal system Social History Tobacco Use Types Packs/Day Years Used Date Smoking Tobacco: Never Smokeless Tobacco: Never Alcohol Use Standard Drinks/Week Comments No 0 (1 standard drink = 0.6 oz pur e alcohol) Comments Unknown Sex and Gender Information Value Date Recorded Sex Assigned at Not on file Legal Sex Female 9:34 AM SUPERVISOR CUSTOMER COMPLAINT SERVICE Gender Identity Not on file Sexual Orientation Not on file documented as of this encounter Last Filed Vital Signs Vital Sign Reading Time Taken Comments Blood Pressure 152/90 06/09/2018 11:53 AM SUPERVISOR CUSTOMER COMPLAINT SERVICE Pulse 77 06/09/2018 11:53 AM SUPERVISOR CUSTOMER COMPLAINT SERVICE Temperature - - Respiratory Rate - - Oxygen Saturation - - Inhaled Oxygen Concentration - - Weight 78 kg (172 lb) 06/09/2018 11:53 AM SUPERVISOR CUSTOMER COMPLAINT SERVICE Height 162.6 cm (5' 4 ) 06/09/2018 11:53 AM SUPERVISOR CUSTOMER COMPLAINT SERVICE Body Mass Index 29.52 06/09/2018 11:53 AM SUPERVISOR CUSTOMER COMPLAINT SERVICE documented in this encounter Progress Notes * Jaret Abdalla MD - 06/09/2018 11:00 AM CST Images from the original note were not included. FOLLOW UP VISIT Subjective CHIEF COMPLAINT She had concerns including Follow-up of the Right Knee and Pain of the Left Knee. HISTORY OF PRESENT ILLNESS Patient is status post right total knee arthroplasty however she recently had fall falling on her knees. Is concerned about both her knees she has no pain but has history total knee arthroplasty liketo be evaluated. She is here basically for a checkup. 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 She is present with her . All Purpose Clerk completed by using M*Modal Fluency Direct speaking software, therefore, transcriptionvariances may occur. MEDICATIONS She has a current medication list which includes the following prescription(s): atorvastatin, ciprofloxacin, dicyclomine, duloxetine dr, hydrocodone- acetaminophen, hydrocodone-acetaminophen, lisinopril, nitrofurantoin monohydrate, omeprazole, premarin, ropinirole, and valacyclovir. REVIEW OF SYSTEMS Review of Systems Constitutional: Negative for activity change, appetite change, chills and fever. HENT: Negative for congestion, dental problem, ear pain, hearing loss and voice change. Eyes: Negative for pain and visual disturbance. Respiratory: Negative for apnea, cough, chest tightness and shortness of breath. Cardiovascular: Negative for chest pain, palpitations and leg swelling. Gastrointestinal: Positive for diarrhea. Negative for blood in stool, constipation, nausea and vomiting. Endocrine: Negative for cold intolerance and heat intolerance. Genitourinary: Negative for difficulty urinating and hematuria. Skin: Negative for color change, rash and wound. Allergic/Immunologic: Negative for environmental allergies. Neurological: Negative for dizziness, syncope, numbness and headaches. Hematological: Negative for adenopathy. Does not bruise/bleed easily. Psychiatric/Behavioral: Negative for confusion. The patient is not nervous/anxious and is not hyperactive. Objective PHYSICAL EXAM BP 152/90 Pulse 77 Ht 162.6 cm (5' 4 ) Wt 78 kg (172 lb) BMI 29.52 kg/m?? Right knee The patient has normal inspection, palpation, range of motion, strength, and stabilty of the right knee. Inspection Surgical scar/wound: present. The surgical scar/wound is healed. Left knee The patient has normal inspection, palpation, range of motion, strength, and stabiltiy of the left knee. Inspection Surgical scar/wound: present. The surgical scar/wound is healed. REVIEW OF X-RAYS/STUDIES/LABS XR Knee Left 1 or 2 Views Four views left knee shows a Sigma total knee arthroplasty in appropriate position no signs of loosening no fracture XR Knee Right 1 or 2 Views Four views right knee shows attune fixed bearing total knee arthroplasty in appropriate position nosigns of loosening no fracture Assessment/Plan Beryl was seen today for follow-up and pain. Diagnoses and all orders for this visit: Repeated falls Orthopedic aftercare - XR Knee Left 1 or 2 Views - XR Knee Right 1 or 2 Views Aftercare following explantation of joint prosthesis Aftercare following right knee joint replacement surgery Aftercare following surgery of the musculoskeletal system Procedures PLAN Discussed physical therapy with the patient she does not want her doing physical therapy. I recommend her use a cane or walker to help prevent falls. She understands agrees with plan is planned on being extra careful. Will have her follow up in 2 years with repeat x-rays or if she has another fall her knees have her come into the make sure she has no periprosthetic fracture. MARIA G Conway MD RVISOR CUSTOMER COMPLAINT SERVICE documented in this encounter Plan of Treatment Not on file documented as of this encounter Procedures Procedure Name Priority Date/Time Associated Diagnosis Comments XR KNEE LEFT 1 OR 2 VIEWS Schedule Routine, Read Routine (OP Routine) 06/09/2018 11:40 AM SUPERVISOR CUSTOMER COMPLAINT SERVICE Orthopedic aftercare XR KNEE RIGHT 1 OR 2 VIEWS Schedule Routine, Read Routine (OP Routine) 06/09/2018 11:40 AM SUPERVISOR CUSTOMER COMPLAINT SERVICE Orthopedic aftercare documented in this encounter Results * XR Knee Left 1 or 2 Views (06/09/2018 11:40 AM SUPERVISOR CUSTOMER COMPLAINT SERVICE) Anatomical Region Laterality Modality Lower Extremities, Knee Left Radiogra phic Imaging Narrative 06/09/2018 2:36 PM SUPERVISOR CUSTOMER COMPLAINT SERVICE Four views left knee shows a Sigma total knee arthroplasty in appropriate position no signs of loosening no fracture Jaret Abdalla MD G XR PROCEDURES Final Resu lt * XR Knee Right 1 or 2 Views (06/09/2018 11:40 AM SUPERVISOR CUSTOMER COMPLAINT SERVICE) Anatomical Region Laterality Modality Lower Extremities, Knee Right Radiogra phic Imaging Narrative 06/09/2018 2:36 PM SUPERVISOR CUSTOMER COMPLAINT SERVICE Four views right knee shows attune fixed bearing total knee arthroplasty in appropriate position no signs of loosening no fracture Jaret Abdalla MD IMG XR PROCEDURES Final Resu lt documented in this encounter Visit Diagnoses Diagnosis Repeated falls- Primary Orthopedic aftercare Unspecified orthopedic aftercare Aftercare following explantation of joint prosthesis Aftercare following right knee joint replacement surgery Aftercare following surgery of the musculoskeletal system Aftercare following surgery of the musculoskeletal system, NEC documented in this encounter Discontinued Medications Medication Sig Discontinue Reason Start Date End Da te rOPINIRole (REQUIP) 0.5 mg tablet 05/18/2017 06/09/2018 documented as of this encounter Historical Medications * This list may reflect changes made after this encounter. rOPINIRole (REQUIP) 1 mg tablet TK 1 T PO HS 1 05/04/2018 dicyclomine (BENTYL) 20 mg tablet 0 05/21/2018 10/17/2021 added in this encounter Care Teams Automation Analyst Relationship Specialty Start Date End Date Richmond Carrion MD [address] [place] [address] [place] [address] PCP - General Family Practice 09/26/16 10/20/21 documented as of this encounter
--- OUTSIDE RECORDS SUMMARY | 2024-03-29 08:22 | XMS_ITS | Encounter Summary ---
Author Organization [facility] Address [address] [facility] [address] [place] [address] Care Team Providers Care Obstetrics Gynecology Physician Name Role Phone Richmond Carrion MD Primary Care Provider [phone] Reason for Visit * Reason Comments Post-op Encounter Details Date Type Department Care Team (Latest Contact Info) Description 01/08/2017 11:00 AM CDT Office Visit [facility] Orthopedics and Sports Medicine [address] [place] [phone] Wilder Koch II, PA [address] [place] [address] [facility] [address] [place] [address] Aftercare following right knee joint replacement surgery (Primary Dx); Aftercare following surgery of the musculoskeletal system; Status post total right knee replacement Social History Tobacco Use Types Packs/Day Years Used Date Smoking Tobacco: Never Smokeless Tobacco: Never Alcohol Use Standard Drinks/Week Comments No 0 (1 standard drink = 0.6 oz pur e alcohol) Comments Unknown Sex and Gender Information Value Date Recorded Sex Assigned at Not on file Legal Sex Female 9:34 AM SIGN CARPENTER Gender Identity Not on file Sexual Orientation Not on file documented as of this encounter Last Filed Vital Signs Vital Sign Reading Time Taken Comments Blood Pressure 135/77 01/08/2017 10:58 AM CDT Pulse 101 01/08/2017 10:58 AM CDT Temperature - - Respiratory Rate - - Oxygen Saturation - - Inhaled Oxygen Concentration - - Weight 73.9 kg (163 lb) 01/08/2017 10:58 AM CDT Height 162.6 cm (5' 4 ) 01/08/2017 10:58 AM CDT Body Mass Index 27.98 01/08/2017 10:58 AM CDT documented in this encounter Ordered Prescriptions Prescription Sig Dispense Quantity Refills Last Filled Start Date End Date HYDROcodone-acetam inophen (NORCO) 5-325 mg per tabletIndications: Pain Take 1-2 tablets every 4 hours as needed for pain 43 tablet 01/08/2017 7 documented in this encounter Progress Notes * Wilder Koch PA - 01/08/2017 11:00 AM CDT Images from the original note were not included. FOLLOW UP VISIT Subjective CHIEF COMPLAINT She had concerns including Post-op of the Right Knee. HISTORY OF PRESENT ILLNESS Mrs. Houston returns to the office today for postoperative examination her right knee. She is status post right total knee arthroplasty on 11/18/[address] Abdalla. Mrs. Houston has been receiving physical therapy at [facility] in [facility] and currently ambulates unassisted with full weight-bearing on the right leg. She has a pain severity level of 2/10 and requires an occasional hydrocodone/acetaminophen for pain control. Mrs. Houston has begun to increase her activities as tolerated. Pain Assessment Pain Assessment: 0-10 Pain Score: 2 Pain Location: Knee Pain Orientation: Right Pain Descriptors: Aching Pain Frequency: Intermittent MEDICATIONS She has a current medication list which includes the following prescription(s): atorvastatin, ciprofloxacin, duloxetine dr, hydrocodone-acetaminophen, hydrocodone-acetaminophen, lisinopril, nitrofurantoin monohydrate, omeprazole, premarin, ropinirole, [...] chest pain, palpitations and leg swelling. Gastrointestinal: Negative for blood in stool, constipation, diarrhea, nausea and vomiting. Endocrine: Negative for cold [...] is not hyperactive. Objective PHYSICAL EXAM BP 135/77 (BP Location: Right arm, Patient Position: Sitting) Pulse 101 Ht 162.6 cm (5' 4 ) Wt 73.9 kg (163 lb) BMI 27.98 kg/m?? Right knee Inspection Erythema: absent Swelling: mild Surgical scar/wound: present. The surgical scar/wound is healed, no evidence of infection and well approximated. There is no drainage present. Skin temperature: normal Alignment: neutral Gait: antalgic Palpation Tenderness: present. Right knee tenderness location: Joselyn-incisional, anterior. Patellar tracking: normal Range of motion The patient has reduced range of motion of the right knee. The patient has pain with range of motion of the right knee. Active extension: 5 Active flexion: 111-115 Stability The patient has normal AP and ML stability of the right knee. Strength Knee extension: 4/5 Knee flexion: 4/5 Hip abductor: not tested Neurovascular Dorsalis pedis pulse: 1+ Posterior tibial pulse: 1+ D. Peroneal: normal S. Peroneal: normal Saphenous: normal Sural: normal Tibial: normal Comments: Negative bilateral Homans sign and calf squeeze. REVIEW OF X-RAYS/STUDIES/LABS Assessment/Plan Beryl was seen today for post-op. Diagnoses and all orders for this visit: Aftercare following right knee joint replacement surgery - Ambulatory referral order to Physical Therapy -PT Evaluate and Treat; Future Aftercare following surgery of the musculoskeletal system Status post total right knee replacement Other orders - HYDROcodone-acetaminophen (NORCO) 5-325 mg per tablet; Take 1-2 tablets every 4 hours as needed for pain PLAN Mrs. Houston is encouraged to increase her activity level as tolerated and focus on obtaining full extension of the right knee. Mrs. Houston has elected to begin a physical therapy program at [facility] in [place]. She has been referred for physical therapy once a week for the next 6 weeksand will return to the office in 4-6 weeks for reexamination. Beryl is encouraged to call the office anytime she has any problems or concerns during the interim. Mrs. Houston was given a prescription for hydrocodone/acetaminophen 5/325 mg quantity # 43 for pain control. MARIA G Ahn PA Cosigned by Jaret Abdalla MD at 01/13/2017 1:35 PM CDT documented in this encounter Plan of Treatment Not on file documented as of this encounter Visit Diagnoses Diagnosis Aftercare following right knee joint replacement surgery- Primary Aftercare following surgery of the musculoskeletal system Aftercare following surgery of the musculoskeletal system, NEC Status post total right knee replacement documented in this encounter Discontinued Medications Medication Sig Discontinue Reason Start Date End Da te ondansetron (ZOFRAN) 4 mg tablet Take 1 tablet (4 mg total) by mouth every 8 (eight) hours as needed for nausea or vomiting. Therapy completed 12/25/2016 01/08/2017 ondansetron (ZOFRAN) 4 mg tablet Every 4-6 hours as needed Therapy completed 11/18/2016 01/08/2017 senna-docusate (PERICOLACE) 8.6-50 mg 1-2 times daily as needed for constipation Therapy completed 11/18/2016 01/08/2017 HYDROcodone-acetamino phen (NORCO) 5-325 mg per tabletIndications:Fernando n Take 1-2 tablets every 4 hours as needed for pain Reorder 12/02/2016 01/08/2017 documented as of this encounter Care Teams Obstetrics Gynecology Physician Relationship Specialty Start Date End Date Richmond Carrion MD [address] [place] [address] [place] [address] PCP - General Family Practice 09/26/16 10/20/21 documented as of this encounter
--- OUTSIDE RECORDS SUMMARY | 2024-03-29 08:22 | XMS_ITS | Encounter Summary ---
Author Organization [facility] Address [address] [facility] [address] [place] [address] Care Team Providers Care Remote Computer Terminal Operator Name Role Phone Richmond Carrion MD Primary Care Provider [phone] Reason for Visit * Reason Comments Post-op Encounter Details Date Type Department Care Team (Late st Contact Info) Description 02/10/2017 1:15 PM CDT Office Visit [facility] Orthopedics and Sports Medicine [address] [place] [phone] Wilder Koch II, PA [address] [place] [address] [facility] [address] [place] [address] Aftercare following right knee joint replacement surgery (Primary Dx) Social History Tobacco Use Types Packs/Day Years Used Date Smoking Tobacco: Never Smokeless Tobacco: Never Alcohol Use Standard Drinks/Week Comments No 0 (1 standard drink = 0.6 oz pur e alcohol) Comments Unknown Sex and Gender Information Value Date Recorded Sex Assigned at Not on file Legal Sex Female 9:34 AM RETAIL SELLING FLOOR LEADER Gender Identity Not on file Sexual Orientation Not on file documented as of this encounter Last Filed Vital Signs Vital Sign Reading Time Taken Comments Blood Pressure 144/84 02/10/2017 1:11 PM CDT Pulse 92 02/10/2017 1:11 PM CDT Temperature - - Respiratory Rate - - Oxygen Saturation - - Inhaled Oxygen Concentration - - Weight 74.8 kg (165 lb) 02/10/2017 1:11 PM CDT Height 162.6 cm (5' 4 ) 02/10/2017 1:11 PM CDT Body Mass Index 28.32 02/10/2017 1:11 PM CDT documented in this encounter Ordered Prescriptions Prescription Sig Dispense Quantity Refills Last Filled Start Date End Date HYDROcodone-acetam inophen (NORCO) 5-325 mg per tabletIndications: Pain Take 1-2 tablets every 4 hours as needed for pain 43 tablet 02/10/2017 2 documented in this encounter Progress Notes * Wilder Koch PA - 02/10/2017 1:15 PM CDT Images from the original note were not included. FOLLOW UP VISIT Subjective CHIEF COMPLAINT She had concerns including Post-op of the Right Knee. HISTORY OF PRESENT ILLNESS Mrs. Houston returns to the office today for postoperative examination her right knee. She is status post right total knee arthroplasty on 11/18/[address] Abdalla. Mrs. Houston has been receiving physical therapy at [facility] in [place] and currently ambulates unassisted with full weight-bearing on the right leg. Mrs. Houston has minimal discomfort and controls her pain with rare use of of hydrocodone/acetaminophen. She predominantly takes OTC analgesics for pain control. Pain Assessment Pain Assessment: No/denies pain MEDICATIONS She has a current medication list [...] is not hyperactive. Objective PHYSICAL EXAM BP 144/84 (BP Location: Right arm, Patient Position: Sitting) Pulse 92 Ht 162.6 cm (5' 4 ) Wt74.8 kg (165 lb) BMI 28.32 kg/m?? Right knee Inspection Erythema: absent Swelling: [...] right knee. Active extension: 5 Active flexion: 116-120 Stability The patient has normal AP and ML stability of the right knee. Strength Knee extension: 4/5 Knee flexion: 4/5 Hip abductor: not tested ADF: not tested APF: not tested EHL: not tested Neurovascular Dorsalis pedis pulse: 1+ Posterior tibial pulse: 1+ D. Peroneal: normal S. Peroneal: normal Saphenous: normal Sural: normal Tibial: normal Comments: Negative bilateral Homans sign and calf squeeze. REVIEW OF X-RAYS/STUDIES/LABS Assessment/Plan Beryl was seen today for post-op. Diagnoses and all orders for this visit: Aftercare following right knee joint replacement surgery Other orders - Cancel: HYDROcodone-acetaminophen (NORCO) 5-325 mg per tablet; Take 1 tablets every 4-6 hours as needed for pain - HYDROcodone-acetaminophen (NORCO) 5-325 mg per tablet; Take 1-2 tablets every 4 hours as needed for pain PLAN Mrs. Houston will continue with her current physical therapy program at [facility] In [place] twice a week for 6 weeks and is encouraged to resume her normal activities as tolerated. Mrs. Houston will return to the office in 3 months for reexamination and is encouraged to call the office anytime she has any problems or concerns during the interim. MARIA G Ahn PA Cosigned by Jaret Abdalla MD at 02/18/2017 10:05 AM RETAIL SELLING FLOOR LEADER [place] SELLING FLOOR LEADER [place] SELLING FLOOR LEADER documented in this encounter Plan of Treatment Not on file documented as of this encounter Visit Diagnoses Diagnosis Aftercare following right knee joint replacement surgery- Primary documented in this encounter Discontinued Medications Medication Sig Discontinue Reason Start Date End Da te HYDROcodone-acetaminophe n (NORCO) 5-325 mg per tabletIndications:Pain Take 1-2 tablets every 4 hours as needed for pain Reorder 01/08/2017 02/10/2017 documented as of this encounter Care Teams Remote Computer Terminal Operator Relationship Specialty Start Date End Date Richmond Carrion MD [address] [place] [address] [place] [address] PCP - General Family Practice 09/26/16 10/20/21 documented as of this encounter
--- OUTSIDE RECORDS SUMMARY | 2024-03-29 08:22 | XMS_ITS | Encounter Summary ---
Author Organization [facility] Address [address] [facility] [address] [place] [address] Care Team Providers Care Wire Chief Name Role Phone Richmond Carrion MD Primary Care Provider [phone] Reason for Visit * Diagnostic Imaging (Routine) - Closed Specialty Diagnoses / Procedures Referred By Contac t Referred To Contact Diagnoses Orthopedic aftercare Procedures XR Knee Left 1 or 2 Views Jaret Abdalla MD Phone: tel: fax: [facility] Referral ID Status Reason Start Date Expiration Date Visits Re quested Visits Authorized [id number] Closed 06/09/2018 12/19/2019 1 1 Encounter Details Date Type Department Care Team (Latest Contact Info) Description 06/09/2018 11:31 AM PADDING MACHINE OPERATOR - 06/09/2018 11:59 PM PADDING MACHINE OPERATOR Hospital Encounter [facility] Orthopedics and Sports Medicine [address] [place] [phone] Discharge Disposition: Discharge to home or self care Social History Tobacco Use Types Packs/Day Years Used Date Smoking Tobacco: Never Smokeless Tobacco: Never Alcohol Use Standard Drinks/Week Comments No 0 (1 standard drink = 0.6 oz pur e alcohol) Comments Unknown Sex and Gender Information Value Date Recorded Sex Assigned at Not on file Legal Sex Female 9:34 AM PADDING MACHINE OPERATOR Gender Identity Not on file Sexual Orientation [...] Read Routine (OP Routine) 06/09/2018 11:40 AM PADDING MACHINE OPERATOR Orthopedic aftercare documented in this encounter Results * XR Knee Left 1 or 2 Views (06/09/2018 11:40 AM PADDING MACHINE OPERATOR) Anatomical Region Laterality Modality Lower Extremities, Knee [facility] Narrative 06/09/2018 2:36 PM PADDING MACHINE OPERATOR Four views left knee shows a Sigma total knee arthroplasty in appropriate position no signs of loosening no fracture us Jaret Abdalla MD IMG XR PROCEDURES Final Resu lt documented in this encounter Visit Diagnoses Not on filedocumented in this encounter Care Teams Wire Chief Relationship Specialty Start Date End Date Richmond Carrion MD [address] [place] [address] [place] [address] PCP - General Family Practice 09/26/16 10/20/21 documented as of this encounter
--- OUTSIDE RECORDS SUMMARY | 2024-03-29 08:22 | XMS_ITS | Encounter Summary ---
Author Organization [facility] Address [address] [facility] [address] [place] [address] Care Team Providers Care Antisqueak Applier Name Role Phone Richmond Carrion MD Primary Care Provider [phone] Reason for Visit * Reason Comments Follow-up Encounter Details Date Type Department Care Team (Late st Contact Info) Description 06/05/2017 2:30 PM CARDIAC CATH TECH Office Visit [facility] Orthopedics and Sports Medicine [address] [place] [phone] Jaret Abdalla MD [address] [place] [address] [address] [address] Aftercare following explantation of joint prosthesis (Primary Dx) Social History Tobacco Use Types Packs/Day Years Used Date Smoking Tobacco: Never Smokeless Tobacco: Never Alcohol Use Standard Drinks/Week Comments No 0 (1 standard drink = 0.6 oz pur e alcohol) Comments Unknown Sex and Gender Information Value Date Recorded Sex Assigned at Not on file Legal Sex Female 9:34 AM CARDIAC CATH TECH Gender Identity Not on file Sexual Orientation Not on file documented as of this encounter Last Filed Vital Signs Vital Sign Reading Time Taken Comments Blood Pressure 131/79 06/05/2017 2:59 PM CARDIAC CATH TECH Pulse 91 06/05/2017 2:59 PM CARDIAC CATH TECH Temperature - - Respiratory Rate - - Oxygen Saturation - - Inhaled Oxygen Concentration - - Weight 74.8 kg (165 lb) 06/05/2017 2:59 PM CARDIAC CATH TECH Height 162.6 cm (5' 4 ) 06/05/2017 2:59 PM CARDIAC CATH TECH Body Mass Index 28.32 06/05/2017 2:59 PM CARDIAC CATH TECH documented in this encounter Progress Notes * Jaret Abdalla MD - 06/05/2017 2:30 PM CST FOLLOW UP VISIT Subjective CHIEF COMPLAINT She had concerns including Follow-up of the Right Knee. HISTORY OF PRESENT ILLNESS Patient is status post right total knee arthroplasty patient did well 6 months out complains of herknee internally rotated otherwise no pain good [id number] no instability Pain Assessment Pain Assessment: No/denies pain MEDICATIONS [...] is not hyperactive. Objective PHYSICAL EXAM BP 131/79 Pulse 91 Ht 162.6 cm (5' 4 ) Wt 74.8 kg (165 lb) BMI 28.32 kg/m?? Ortho Exam Lacking 10?? extension neurovascular intact well-healed scar mild swelling over right knee versus left REVIEW OF X-RAYS/STUDIES/LABS XR Knee Right 1 or 2 Views Four views right knee shows cemented attune total knee arthroplasty in appropriate position no signs of loosening no fractures XR Knee Left 1 or 2 Views Two views left knee shows cemented diffuse Sigma total knee arthroplasty in appropriate position nosigns of loosening appropriate cement mantle mantle no fractures XR Pelvis 1 or 2 Views AP pelvis shows mild degenerative changes bilateral hips no fracture subluxation or dislocation Assessment/Plan Beryl was seen today for follow-up. Diagnoses and all orders for this visit: Aftercare following explantation of joint prosthesis - XR Knee Right 1 or 2 Views - Cancel: XR Pelvis 1 or 2 Views - XR Knee Left 1 or 2 Views - XR Pelvis 1 or 2 Views Procedures PLAN Continue with HEP F/u in 1 year with repeat XR of bilateral knees. Jaret Abdalla MD IAC CATH TECH documented in this encounter Plan of Treatment Not on file documented as of this encounter Procedures Procedure Name Priority Date/Time Associated Diagnosis Comments XR KNEE RIGHT 1 OR 2 VIEWS Schedule Routine, Read Routine (OP Routine) 06/05/2017 3:35 PM CARDIAC CATH TECH Aftercare following explantation of joint prosthesis XR KNEE LEFT 1 OR 2 VIEWS Schedule Routine, Read Routine (OP Routine) 06/05/2017 3:35 PM CARDIAC CATH TECH Aftercare following explantation of joint prosthesis XR PELVIS 1 OR 2 VIEWS Schedule Routine, Read Routine (OP Routine) 06/05/2017 3:34 PM CARDIAC CATH TECH Aftercare following explantation of joint prosthesis documented in this encounter Results * XR Knee Right 1 or 2 Views (06/05/2017 3:35 PM CARDIAC CATH TECH) Anatomical Region Laterality Modality Lower Extremities, Knee Right Radiogra phic Imaging Narrative 06/05/2017 3:47 PM CARDIAC CATH TECH Four views right knee shows cemented attune total knee arthroplasty in appropriate position no signs of loosening no fractures us Jaret Abdalla MD IMG XR PROCEDURES Final Resu lt * XR Knee Left 1 or 2 Views (06/05/2017 3:35 PM CARDIAC CATH TECH) Anatomical Region Laterality Modality Lower Extremities, Knee Left Radiogra phic Imaging Narrative 06/05/2017 3:47 PM CARDIAC CATH TECH Two views left knee shows cemented diffuse Sigma total knee arthroplasty in appropriate position no signs of loosening appropriate cement mantle mantle no fractures Jaret Abdalla MD IMG XR PROCEDURES Final Resu lt * XR Pelvis 1 or 2 Views (06/05/2017 3:34 PM CARDIAC CATH TECH) Anatomical Region Laterality Modality Body, Pelvis N/A Radiographic Lili ging Narrative 06/05/2017 3:47 PM CARDIAC CATH TECH AP pelvis shows mild degenerative changes bilateral hips no fracture subluxation or dislocation Jaret Abdalla MD IMG XR PROCEDURES Final Resu lt documented in this encounter Visit Diagnoses Diagnosis Aftercare following explantation of joint prosthesis- Primary documented in this encounter Discontinued Medications Medication Sig Discontinue Reason Start Date End Da te rOPINIRole (REQUIP) 0.25 mg tablet Take 0.25 mg by mouth. Duplicate order 06/05/2017 valACYclovir (VALTREX) 500 mg tablet Duplicate order 03/30/2017 06/05/2017 documented as of this encounter Historical Medications * This list may reflect changes made after this encounter. Medication Sig Dispense Quantity Refills Last Filled Start D ate End Date valACYclovir (VALTREX) 500 mg tablet 1 03/30/2017 06/05/2017 rOPINIRole (REQUIP) 0.5 mg tablet 2 05/18/2017 06/09/2018 added in this encounter Care Teams Antisqueak Applier Relationship Specialty Start Date End Date Richmond Carrion MD [address] [place] [address] [place] [address] PCP - General Family Practice 09/26/16 10/20/21 documented as of this encounter
--- OUTSIDE RECORDS SUMMARY | 2024-03-29 08:22 | XMS_ITS | Encounter Summary ---
Author Organization [facility] Address [address] [place] [address] Phone Care Team Providers Care Chief Administrative Officer Name Role Phone Richmond Carrion MD Primary Care Provider [phone] Encounter Details Date Type Department Care Team (Late st Contact Info) Description 10/17/2021 10:30 AM CDT Procedure visit [facility] Otolaryngology [address] [place] [phone] Lizy Hastings Mixed conductive and sensorineural hearing loss of both ears (Primary Dx) Social History Tobacco Use Types Packs/Day Years Used Date Smoking Tobacco: Never Smokeless Tobacco: Never Alcohol Use Standard Drinks/Week Comments No 0 (1 standard drink = 0.6 oz pur e alcohol) Comments Unknown Sex and Gender Information Value Date Recorded Sex Assigned at Not on file 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 Chandler Simpson History: Patient reported wanting updated hearing evaluation due to continued decline in hearing sensitivity. She denied any significant change in hearing sensitivity, tinnitus, aural pain, aural pressure, or dizziness at this time. Patient is current binaural amplification user and has moderate success. Otoscopy: Ear canals clear of cerumen bilaterally. Tympanometry: Right:Type Ad tymp and is consistent with abnormal middle ear function/increased compliance. Left: Type Ad tymp and is consistent with abnormal middle ear function/increased compliance. Audiometry: Pure tone testing revealed moderately-severe sloping to profound mixed hearing loss forthe left ear and severe sloping to profound mixed hearing loss for the right ear. Word Recognition Score (WRS) in the right ear is 36%, WRS in the left ear is 60%. Counseling: Patient was counseled on audiogram results. Recommendations: -Patient will follow-up with Dr. Chandler Simpson for test results and recommendations. -Repeat testing per Doctor request. -Continue use of binaural amplification. -Consider referral cochlear implant evaluation and candidacy. documented in this encounter Plan of Treatment Not on file documented as of this encounter Visit Diagnoses Diagnosis Mixed conductive and sensorineural hearing loss of both ears- Primary documented in this encounter Care Teams Chief Administrative Officer Relationship Specialty Start Date End Date Richmond Carrion MD [address] [place] [address] [place] [address] PCP - General Family Practice 09/26/16 10/20/21 documented as of this encounter
--- OUTSIDE RECORDS SUMMARY | 2024-03-29 08:22 | XMS_ITS | Encounter Summary ---
Author Organization [facility] Address [address] [facility] [address] [place] [address] Care Team Providers Care Coal Getter Name Role Phone Richmond Carrion MD Primary Care Provider [phone] Encounter Details Date Type Department Care Team (Latest Contact Info) Description 06/05/2017 3:25 PM WALLPAPERER - 06/05/2017 11:59 PM WALLPAPERER Hospital Encounter [facility] Orthopedics and Sports Medicine [address] [place] [phone] Discharge Disposition: Discharge to home or self care Social History Tobacco Use Types Packs/Day Years Used Date Smoking Tobacco: Never Smokeless Tobacco: Never Alcohol Use Standard Drinks/Week Comments No 0 (1 standard drink = 0.6 oz pur e alcohol) Comments Unknown Sex and Gender Information Value Date Recorded Sex Assigned at Not on file Legal Sex Female 9:34 AM WALLPAPERER Gender Identity Not on file Sexual Orientation [...] Read Routine (OP Routine) 06/05/2017 3:35 PM WALLPAPERER Aftercare following explantation of joint prosthesis documented in this encounter Results * XR Knee Left 1 or 2 Views (06/05/2017 3:35 PM WALLPAPERER) Anatomical Region Laterality Modality Lower Extremities, Knee Left Radiogra phic Imaging Narrative 06/05/2017 3:47 PM WALLPAPERER Two views left knee shows cemented diffuse Sigma total knee arthroplasty in appropriate position no signs of loosening appropriate cement mantle mantle no fractures us Jaret Abdalla MD IMG XR PROCEDURES Final Resu lt documented in this encounter Visit Diagnoses Not on filedocumented in this encounter Care Teams Coal Getter Relationship Specialty Start Date End Date Richmond Carrion MD [address] [place] [address] [place] [address] PCP - General Family Practice 09/26/16 10/20/21 documented as of this encounter
--- OUTSIDE RECORDS SUMMARY | 2024-03-29 08:22 | XMS_ITS | Encounter Summary ---
Author Organization [facility] Address [address] [place] [address] Care Team Providers Care Motor Transport Inspector Name Role Phone Richmond Carrion MD Primary Care Provider Reason for Referral * Diagnostic Imaging (Routine) - Closed Specialty Diagnoses / Procedures Referred By Armani da silva Referred To Contact Diagnoses Visit for screening mammogram Procedures Screening Mammogram Bilateral W Richmond Ronquillo MD Phone: tel: fax: [facility] Referral ID Status Reason Start Date Expiration Date Visits Re quested Visits Authorized [id number] Closed 09/11/2017 03/10/2018 1 1 Reason for Visit * Diagnostic Imaging (Routine) - Closed Specialty Diagnoses / Procedures Referred By Armani da silva Referred To Contact Diagnoses Visit for screening mammogram Procedures Screening Mammogram Bilateral W Richmond Ronquillo MD Phone: tel: fax: [facility] Referral ID Status Reason Start Date Expiration Date Visits Re quested Visits Authorized [id number] Closed 09/11/2017 03/10/2018 1 1 Encounter Details Date Type Department Care Team (Latest Contact Info) Description 10/06/2017 11:12 AM CDT - 10/06/2017 11:59 PM CDT Hospital Encounter 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 ??Views obtained: ??bilateral craniocaudal and bilateral mediolateral oblique. ??Computer Aided Detection was performed. Mammogram Findings: The present examination has been compared to prior imaging studies performed at [facility] on 09/29/2014, 10/02/2015 and 10/03/2016. The breasts are heterogeneously dense, which may obscure small masses. There is no suspicious abnormality in either breast. Annual screening mammography is recommended. OVERALL FINAL ASSESSMENT: BI-RADS CATEGORY 1: ??Negative. Procedure Note Arlette Akins MD - 10/12/2017 Mammogram Technique: Bilateral Digital Breast Tomosynthesis, Bilateral C-view 2D Screening mammogram. Views obtained: bilateral craniocaudal and bilateral mediolateral oblique. Computer Aided Detection was performed. Mammogram Findings: The present examination has been compared to prior imaging studies performed at [facility] on 09/29/2014, 10/02/2015 and 10/03/2016. The breasts are heterogeneously dense, which may obscure small masses. There is no suspicious abnormality in either breast. Annual screening mammography is recommended. OVERALL FINAL ASSESSMENT: BI-RADS CATEGORY 1: Negative. us Richmond Carrion MD IMG MAMMO PROCEDURES Final Res ult documented in this encounter Visit Diagnoses Diagnosis Visit for screening mammogram documented in this encounter Care Teams Motor Transport Inspector Relationship Specialty Start Date End Date Richmond Carrion MD [address] [place] [address] [place] [address] PCP - General Family Practice 09/26/16 10/20/21 documented as of this encounter
--- OUTSIDE RECORDS SUMMARY | 2024-03-29 08:22 | XMS_ITS | Encounter Summary ---
Author Organization [facility] Address [address] [place] [address] Care Team Providers Care Tile Layer Helper Name Role Phone Richmond Carrion MD Primary Care Provider [phone] Reason for Visit * Diagnostic Imaging (Routine) - Closed Specialty Diagnoses / Procedures Referred By Contac t Referred To Contact Diagnoses Encounter for screening mammogram for malignant neoplasm of breast Procedures Screening Mammogram Bilateral W Saurabh Screening Mammogram Bilateral W Saurabh Richmond Carrion MD Phone: tel: fax: [address] [phone] Referral ID Status Reason Start Date Expiration Date Visits Re quested Visits Authorized [id number] Closed 06/18/2018 12/28/2019 1 1 Encounter Details Date Type Department Care Team (Latest Contact Info) Description 10/07/2018 11:52 AM CDT - 10/07/2018 11:59 PM CDT Hospital Encounter [facility] ([facility] [address] [place] [address] Richmond Carrion MD [address] [place] [address] [place] [address] Encounter for screening mammogram for malignant neoplasm of breast Discharge Disposition: Discharge to home or self care Social History Tobacco Use Types Packs/Day Years Used Date Smoking Tobacco: Never Smokeless Tobacco: Never Alcohol Use Standard Drinks/Week Comments No 0 (1 standard drink = 0.6 oz pur e alcohol) Comments Unknown Sex and Gender Information Value Date Recorded Sex Assigned at Not on file 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 ??Views obtained: ??bilateral craniocaudal and bilateral mediolateral oblique. ??Computer Aided Detection was performed. Mammogram Findings: The present examination has been compared to prior imaging studies performed at [facility] on 10/02/2015, 10/03/2016 and 10/06/2017. There are scattered areas of fibroglandular density. There is no suspicious abnormality in either breast. Impression: Annual screening mammography is recommended. OVERALL FINAL ASSESSMENT: BI-RADS CATEGORY 1: ??Negative. Procedure Note Jessica Hu MD - 10/11/2018 Mammogram Technique: Bilateral Digital Breast Tomosynthesis, Bilateral C-view 2D Screening mammogram. Views obtained: bilateral craniocaudal and bilateral mediolateral oblique. Computer Aided Detection was performed. Mammogram Findings: The present examination has been compared to prior imaging studies performed at [facility] on 10/02/2015, 10/03/2016 and 10/06/2017. There are scattered areas of fibroglandular density. There is no suspicious abnormality in either breast. Impression: Annual screening mammography is recommended. OVERALL FINAL ASSESSMENT: BI-RADS CATEGORY 1: Negative. Richmond Carrion MD IMG MAMMO PROCEDURES Final Res ult documented in this encounter Visit Diagnoses Diagnosis Encounter for screening mammogram for malignant neoplasm of breast documented in this encounter Care Teams Tile Layer Helper Relationship Specialty Start Date End Date Richmond Carrion MD [address] [place] [address] [place] [address] PCP - General Family Practice 09/26/16 10/20/21 documented as of this encounter
--- OUTSIDE RECORDS SUMMARY | 2024-03-29 08:22 | XMS_ITS | Referral Summary ---
Author Organization [facility] Address [address] [place] [address] Care Team Providers Care Business Intelligence Director Name Role Phone Ta Puente Primary Care [...] 500 mg by mouth daily Active vit C,L-Hk-uivlh-jenna tein-zeaxan (PreserVision AREDS-2) 250-90-40-1 mg capsule Take [...] as needed. 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 Social History Tobacco Use Types Packs/Day Years [...] on file Legal Sex Female 9:34 AM COMMUNITY HEALTH WORKER Gender Identity Not on file Sexual Orientation Not on file Last Filed Vital Signs Vital Sign Reading Time Taken Comments Blood Pressure 152/90 06/09/2018 11:53 AM COMMUNITY HEALTH WORKER Pulse 77 06/09/2018 11:53 AM COMMUNITY HEALTH WORKER Temperature - - Respiratory Rate 18 10/17/2021 10:53 AM CDT Oxygen Saturation - - Inhaled Oxygen Concentration - - Weight 81.6 kg (180 lb) 10/17/2021 10:53 AM CDT Height 162.6 cm (5' 4 ) 10/17/2021 10:53 AM CDT Body Mass Index 30.9 10/17/2021 10:53 AM CDT Plan of Treatment Not on file Insurance MEDICARE [facility] MEDICARE [facility] Care Teams Business Intelligence Director Relationship Specialty Start Date End Date Ta Puente [place] [address] [facility] [address] [place], [place] [id number] PCP - General Physician Career Services Representative 10/30/21
--- OUTSIDE RECORDS SUMMARY | 2024-03-29 08:23 | XMS_ITS | Encounter Summary ---
Author Organization [facility] Address [address] [facility] [address] [place] [address] Care Team Providers Care Borderer Name Role Phone Richmond Carrion MD Primary Care Provider [phone] Encounter Details Date Type Department Care Team (Late st Contact Info) Description 11/12/2016 Orders Only [facility] Orthopedics and Sports Medicine [address] [place] [phone] Elizabeth Godoy MA Social History Tobacco Use Types Packs/Day Years Used Date Smoking Tobacco: Never Alcohol Use Standard Drinks/Week Comments No 0 (1 standard drink = 0.6 oz pur e alcohol) Comments Unknown Sex and Gender Information Value Date Recorded Sex Assigned at Not on file Legal Sex Female 9:34 AM NEW ACCOUNTS REPRESENTATIVE Gender Identity Not on file Sexual Orientation Not on file documented as of this encounter Ordered Prescriptions Prescription Sig Dispense Quantity Refills Last Filled Start Date End Date ciprofloxacin (CIPRO) 500 mg tablet Take 1 tablet (500 mg total) by mouth 2 (two) times a day for 5 days. 10 tablet 11/12/2016 11/17/2016 documented in this encounter Progress Notes * Elizabeth Godoy MA - 11/12/2016 1:32 PM CDT rx called into [facility] for uti, verbal given to pharmacist rufino documented in this encounter Plan of Treatment Not on file documented as of this encounter Visit Diagnoses Not on filedocumented in this encounter Care Teams Borderer Relationship Specialty Start Date End Date Richmond Carrion MD [address] [place] [address] [place] [address] PCP - General Family Practice 09/26/16 10/20/21 documented as of this encounter
--- OUTSIDE RECORDS SUMMARY | 2024-03-29 08:23 | XMS_ITS | Encounter Summary ---
Author Organization [facility] Address [address] [facility] [address] [place] [id number] Care Team Providers Care Scale Assembly Set Up Worker Name Role Phone Richmond Carrion MD Primary Care Provider Reason for Visit * Reason Comments Post-op Encounter Details Date Type Department Care Team (Late st Contact Info) Description 12/02/2016 1:00 PM CDT Office Visit [facility] Orthopedics and Sports Medicine [address] [place] [phone] Wilder Koch II, PA [address] [place] [address] [facility] [address] [place] [address] Unspecified orthopedic aftercare (Primary Dx); Aftercare following right knee joint replacement surgery Social History Tobacco Use Types Packs/Day Years Used Date Smoking Tobacco: Never Smokeless Tobacco: Never Alcohol Use Standard Drinks/Week Comments No 0 (1 standard drink = 0.6 oz pur e alcohol) Comments Unknown Sex and Gender Information Value Date Recorded Sex Assigned at Not on file 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 Gender Identity Not on file Sexual Orientation Not on file documented as of this encounter Last Filed Vital Signs Vital Sign Reading Time Taken Comments Blood Pressure 119/77 12/02/2016 1:25 PM CDT Pulse 94 12/02/2016 1:25 PM CDT Temperature - - Respiratory Rate - - Oxygen Saturation - - Inhaled Oxygen Concentration - - Weight 74.8 kg (165 lb) 12/02/2016 1:25 PM CDT Height 162.6 cm (5' 4 ) 12/02/2016 1:25 PM CDT Body Mass Index 28.32 12/02/2016 1:25 PM CDT documented in this encounter Ordered Prescriptions Prescription Sig Dispense Quantity Refills Last Filled Start Date End Date HYDROcodone-acetam inophen (NORCO) 5-325 mg per tabletIndications: Pain Take 1-2 tablets every 4 hours as needed for pain 43 tablet 12/02/2016 7 documented in this encounter Progress Notes * Wilder Koch PA - 12/02/2016 1:00 PM CDT Images from the original note were not included. FOLLOW UP VISIT Subjective CHIEF COMPLAINT She had concerns including Post-op of the Right Knee. HISTORY OF PRESENT ILLNESS Mrs. Houston returns to the office today for postoperative examination of her right knee. She is status post right total knee arthroplasty done on 11/18/[address] Abdalla. Mrs. Houston has receivedhome care including wound care and physical therapy and has been discharged to resume outpatient physical therapy. She currently a requires hydrocodone/acetaminophen for pain control. Beryl ambulates using a walker and protected weight-bearing on the right leg Pain Assessment Pain Assessment: 0-10 Pain Score: 3 Pain Location: Knee Pain Orientation: Right MEDICATIONS She has a current medication list which includes the following prescription(s): apixaban, ascorbic acid, atorvastatin, ciprofloxacin, duloxetine dr, ferrous sulfate, lisinopril, nitrofurantoin monohydrate, omeprazole, ondansetron, premarin, ropinirole, senna-docusate, valacyclovir, and hydrocodone-a cetaminophen. REVIEW OF SYSTEMS Review of Systems Constitutional: [...] is not hyperactive. Objective PHYSICAL EXAM BP 119/77 (BP Location: Right arm, Patient Position: Sitting) Pulse 94 Ht 162.6 cm (5' 4 ) Wt 74.8 kg (165 lb) BMI 28.32 kg/m?? Right knee Inspection Erythema: present (Joselyn-incisional) Cellulitis: absent Swelling: moderate Surgical scar/wound: present. The surgical scar/wound is healing, well approximated and no evidenceof infection. There is no drainage present. Alignment: neutral Palpation Tenderness: present. Right knee tenderness location: Global. Patellar tracking: normal Range of motion The patient has reduced range of motion of the right knee. The patient has pain with range of motion of the right knee. Active extension: 5 Active flexion: 96-100 Stability The patient has normal AP and ML stability of the right knee. Strength Knee extension: 3/5 Knee flexion: 3/5 Neurovascular Dorsalis pedis pulse: 2+ Popliteal pulse: monophasic The patient has normal sensation on the right side of their body. Comments: Negative bilateral Homans sign and calf squeeze. Exposed ends of the retained subcuticular suture were trimmed below skin level and a sterile dressing reapplied on the incision. REVIEW OF X-RAYS/STUDIES/LABS Assessment/Plan Beryl was seen today for post-op. Diagnoses and all orders for this visit: Unspecified orthopedic aftercare - XR Knee Right 3 View Aftercare following right knee joint replacement surgery - Ambulatory referral order to Physical Therapy -PT Evaluate and Treat; Future Other orders - HYDROcodone-acetaminophen (NORCO) 5-325 mg per tablet; Take 1-2 tablets every 4 hours as needed for pain PLAN Mrs. Houston will begin outpatient physical therapy program at [facility] physical therapy in [place] twice aweek for the next 6 weeks receiving instruction and range of motion and strengthening. She was given a prescription for hydrocodone/acetaminophen 5/325 mg quantity # 43 for pain control. Mrs. Houston presently takes Eliquis for DVT prophylaxis. Beryl is encouraged to use her cryotherapy device and compression stockings for swelling and edema control. She was advised to use her walker for mobility especially when outdoors and in public. Mrs. Houston will return to the office in 1 month for reexamination and is encouraged to call the office anytime she has any problems her concerns. MARIA G Ahn PA Cosigned by Jaret Abdalla MD at 12/05/2016 5:37 PM CDT documented in this encounter Plan of Treatment Not on file documented as of this encounter Procedures Procedure Name Priority Date/Time Associated Diagnosis Comments XR KNEE RIGHT 3 VIEWS Schedule Routine, Read Routine (OP Routine) 12/02/2016 1:20 PM CDT Unspecified orthopedic aftercare documented in this encounter Results * XR Knee Right 3 View (12/02/2016 1:20 PM CDT) Anatomical Region Laterality Modality Lower Extremities, Knee Right Radiogra [facility] Imaging Narrative 12/05/2016 10:28 AM CDT Interpretation of x-ray: ??Three views of the right knee taken today in the office demonstrate, in my opinion, cemented right total knee arthroplasty components in acceptable position and alignment with no radiographic evidence of loosening. ??The patella appears to be well centered within the trochlear groove. VERO Ware II IMG XR PROCEDURES Final Result documented in this encounter Visit Diagnoses Diagnosis Unspecified orthopedic aftercare- Primary Aftercare following right knee joint replacement surgery documented in this encounter Discontinued Medications Medication Sig Discontinue Reason Start Date End Da te HYDROcodone-acetaminophen (NORCO) 7.5-325 mg per tabletIndications:Pain TK 1 T PO BID PRN Surgery 10/06/2016 017 documented as of this encounter Care Teams Scale Assembly Set Up Worker Relationship Specialty Start Date End Date Richmond Carrion MD [address] [place] [address] [place] [address] PCP - General Family Practice 09/26/16 10/20/21 documented as of this encounter
--- OUTSIDE RECORDS SUMMARY | 2024-03-29 08:23 | XMS_ITS | Encounter Summary ---
Author Organization [facility] Address [address] [facility] [address] [place] [address] Care Team Providers Care Vice President Of Brand Management Name Role Phone Richmond Carrion MD Primary Care Provider [phone] Encounter Details Date Type Department Care Team (Latest Contact Info) Description 12/02/2016 1:12 PM CDT - 12/02/2016 11:59 PM CDT Hospital Encounter [facility] Orthopedics and Sports Medicine [address] [place] [phone] Discharge Disposition: Discharge to home or self care Social History Tobacco Use Types Packs/Day Years Used Date Smoking Tobacco: Never Smokeless Tobacco: Never Alcohol Use Standard Drinks/Week Comments No 0 (1 standard drink = 0.6 oz pur e alcohol) Comments Unknown Sex and Gender Information Value Date Recorded Sex Assigned at Not on file 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 56 tablet 11/18/2016 7 ascorbic acid (VITAMIN C) 500 mg tablet,chewable Take 1 tablet/chew tab (500 mg total) by mouth 2 (two) times a day. 60 tablet/chew tab 11/18/2016 7 ferrous sulfate 325 mg (65 mg of elemental iron) tabletIndications :Iron Deficiency Anemia Take 1 tablet (65 mg of elemental iron total) by mouth daily with breakfast. 30 tablet 11/18/2016 7 ciprofloxacin (CIPRO) 500 mg tablet 3 09/05/2016 2 HYDROcodone-aceta minophen (NORCO) 5-325 mg per tabletIndications :Pain Take 1-2 tablets every 4 hours as needed for pain 43 tablet 12/02/2016 7 nitrofurantoin monohydrate (MACROBID) 100 mg capsule 0 08/11/2016 2 omeprazole (PriLOSEC) 20 mg capsule Take 20 mg by mouth. 2 ondansetron (ZOFRAN) 4 mg tablet Every 4-6 hours as needed 30 tablet 1 11/18/2016 7 rOPINIRole (REQUIP) 0.25 mg tablet Take 0.25 mg by mouth. 8 senna-docusate (PERICOLACE) 8.6-50 mg 1-2 times daily as needed for constipation 60 tablet 1 11/18/2016 7 documented as of this encounter Discharge Disposition [...] Extremities, Knee Right Radiogra phic Imaging Narrative 12/05/2016 10:28 AM CDT Interpretation of x-ray: ??Three views of the right knee taken today in the office demonstrate, in my opinion, cemented right total knee arthroplasty components in acceptable position and alignment with no radiographic evidence of loosening. ??The patella appears to be well centered within the trochlear groove. us VERO Ware II IMG XR PROCEDURES Final Result documented in this encounter Visit Diagnoses Not on filedocumented in this encounter Care Teams Vice President Of Brand Management Relationship Specialty Start Date End Date Richmond Carrion MD [address] [place] [address] [place] [address] PCP - General Family Practice 09/26/16 10/20/21 documented as of this encounter
--- OUTSIDE RECORDS SUMMARY | 2024-03-29 08:23 | XMS_ITS | Encounter Summary ---
Author Organization [facility] Address [address] [facility] [address] [place] [address] Care Team Providers Care Stripper Preliminary Name Role Phone Richmond Carrion MD Primary Care Provider [phone] Encounter Details Date Type Department Care Team (Late st Contact Info) Description 11/14/2016 Telephone [facility] Orthopedics and Sports Medicine [address] [facility] [address] [place] [address] Jaret Abdalla MD [address] [place] [address] [address] [place] [address] Social History Tobacco Use Types Packs/Day Years Used Date Smoking Tobacco: Never Alcohol Use Standard Drinks/Week Comments No 0 (1 standard drink = 0.6 oz pur e alcohol) Comments Unknown Sex and Gender Information Value Date Recorded Sex Assigned at Not on file Legal Sex Female 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 Looks like this was already taken care of documented in this encounter Plan of Treatment Not on file documented as of this encounter Visit Diagnoses Not on filedocumented in this encounter Care Teams Stripper Preliminary Relationship Specialty Start Date End Date Richmond Carrion MD [address] [place] [address] [place] [address] PCP - General Family Practice 09/26/16 10/20/21 documented as of this encounter
--- OUTSIDE RECORDS SUMMARY | 2024-03-29 08:23 | XMS_ITS | Encounter Summary ---
Author Organization [facility] Address [address] [facility] [address] [place] [address] Care Team Providers Care Mechanical Assembler Name Role Phone Richmond Carrion MD Primary Care Provider [phone] Encounter Details Date Type Department Care Team (Late st Contact Info) Description 11/03/2016 Telephone [facility] Orthopedics and Sports Medicine [address] [facility] [address] [place] [address] Elizabeth Godoy MA Social History Tobacco Use Types Packs/Day Years Used Date Smoking Tobacco: Never Alcohol Use Standard Drinks/Week Comments No 0 (1 standard drink = 0.6 oz pur e alcohol) Comments Unknown Sex and Gender Information Value Date Recorded Sex Assigned at Not on file Legal Sex Female 9:34 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
--- OUTSIDE RECORDS SUMMARY | 2024-03-29 08:23 | XMS_ITS | Encounter Summary ---
Author Organization [facility] Healthcare Address [address] [place] [address] Care Team Providers Care It Quality Assurance Analyst Name Role Phone Richmond Carrion MD Primary Care Provider [phone] Encounter Details Date Type Department Care Team (Latest Contact Info) Description 11/18/2016 5:53 AM CDT - 11/20/2016 3:30 PM CDT Hospital Encounter [facility] [address] [place] [address] Marlene Peterson MD [address] [place] [address] DR [facility] [address] [place] [address] Discharge Disposition: Discharge to home, home health skilled care Social History Tobacco Use Types Packs/Day Years Used Date Smoking Tobacco: Never Alcohol Use Standard Drinks/Week Comments No 0 (1 standard drink = 0.6 oz pur e alcohol) Comments Unknown Sex and Gender Information Value Date Recorded Sex Assigned at Not on file 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 30 tablet 11/18/2016 7 morphine ER (MS CONTIN) 15 mg 12 hr tablet Take 1 tablet (15 mg total) by mouth 2 (two) times a day for 10 days. 20 tablet 11/18/2016 7 ciprofloxacin (CIPRO) 500 mg tablet 3 09/05/2016 2 HYDROcodone-aceta minophen (NORCO) 7.5-325 mg per tabletIndications :Pain TK 1 T PO BID PRN 0 10/06/2016 01 7 nitrofurantoin monohydrate (MACROBID) 100 mg capsule [...] Disposition Code Departure Means Destination Discharge to home, home health skilled care documented in this encounter Miscellaneous Notes * Op Note - ProviderAj MD - 11/18/2016 12:00 AM CDT OPERATIVE REPORT Patient: HELEN HOUSTON Service Date: 11/18/2016 Account: [id number] Room No: G608-01 : 1935 Patient Type: IP Attend.: Marlene Peterson M.D. Admit Date: 11/18/2016 Surg.: Marlene Peterson M.D. Disch. Date: 11/20/2016 SURGEON Marlene Peterson MD SECOND RESIN COATER Kristin Anderson PA-C PREOPERATIVE DIAGNOSIS Right knee osteoarthrosis. PROCEDURE Right total knee arthroplasty. ANESTHESIA General. FINDINGS arthrosis. RESIN COATER Gabrielle Gilman SPECIMENS Sent. ESTIMATED BLOOD LOSS 200 COMPLICATIONS None. CONDITION Stable. IMPLANTS USED 1. Size 4 Attune tibia fixed bearing. 2. Size 35 Attune patella. 3. Size 5 posterior stabilized femur. 4. Size 6 mm posterior stabilized fixed bearing poly. OPERATING IN DETAIL Patient to OR. Anesthetic was performed. He had an adductor block preoperatively. Right lower extremity was cleaned with alcohol and prepped and draped using ChloraPrep. A standard timeout was performed. Operative extremity was identified, it was also marked preoperatively. Marked out standard incisions, sealed with Ioban. Gloves were changed and changed every 30 minutes throughout the procedure. Skin incision was made. Further dissection with a Bovie. Bovie was used throughout the procedure for hemostasis. Multiple varicosities were noted in the skin, and these were coagulated. Standard arthrotomy was performed. Medial release was performed. Soft tissue of the distal femur was removed, and fat pad removed anteriorly. Patella sized to be 22. It was cut down to approximately 14.5. Patellar protector was placed. Marked Emilia's line. Drilled into intramedullary canal. Made 11 mm distal femoral cuts. She had about a 10- degree flexion contracture. Sized the femur to be a size 5. Made an anterior cut, posterior cut, chamfer cuts. Subluxed tibia anteriorly using extramedullary guide. Made a 10 mm cut off the lateral tibial plateau. Used a curved osteotome to remove the posterior osteophytes. Checked the flexion/extension gaps. These were well balanced. We checked the ACL, PCL, medial and lateral menisci. Prepared tibia for a size 14 tibia, box cut for a size 5 femur. Placed the 5 femur. Trialed a 5/6 poly. Good balance in flexion and extension with a 6 poly was noted. Prepared the patella for a 35 mm patella. Drilled distal femoral lug holes. Exsanguinated the lower extremity, inflated the tourniquet, removed the trial components. Used Pulsavac to remove any bloody and bony debris. Bone grafted distal femur. Using antibiotic impregnated cement, cemented the tibia component, femoral component, and a size 6 posterior stabilized poly was inserted. All additional cement was removed. We placed the knee in full extension and let the cement harden. proximally and distally with iced tea. Additionally, we warm saline irrigated out the knee and then placed tranexamic acid in the knee to aid with hemostasis. Once the cement was hardened, tourniquet was released, and the knee was taken through a range of motion. Patella tracked well. Good balance of flexion and extension was obtained. Full extension was obtainable. Placed 1 g of vancomycin in the knee. Closed the arthrotomy in standard fashion. Dressings were placed. Needle counts, sponge counts, and instrument counts were correct at the end of the case. POSTOPERATIVE PLAN Patient will follow total knee arthroplasty protocol. Thank you for allowing me to participate in this patient's care. Electronically Authenticated by: Marlene Peterson MD On 11/24/2016 10:06 PM CDT Marlene Peterson M.D. ZEE/jonathan TD: 11/18/2016 10:34 documented in this encounter Plan of Treatment Not on file documented as of this encounter Procedures Procedure Name Priority Date/Time Associated Diagnosis Comments DISCHARGE LABORATORY CUMULATIVE REPORT 11/20/2016 12:00 AM CDT XR KNEE 1 OR 2 VW Routine 11/18/2016 3:0 6 PM CDT EGFR STAT 11/18/2016 12:23 PM CDT CREATININE STAT 11/18/2016 12:23 PM CDT SURGICAL PATHOLOGY Routine 11/18/2016 10 :12 AM CDT URINE CULTURE STAT 11/18/2016 6:30 AM CDT URINALYSIS AND REFLEX TO MICROSCOPIC AND CULTURE STAT 11/18/2016 6:20 AM CDT URINALYSIS, MICROSCOPIC ONLY STAT 11/18/2016 6:20 AM CDT SURGICAL PATHOLOGY 11/18/2016 12 :00 AM CDT documented in this encounter Results * DISCHARGE LABORATORY CUMULATIVE REPORT (11/20/2016 12:00 AM CDT) Narrative 11/20/2016 12:00 AM CDT Ordered by an unspecified provider. Historical Provider LAB BLOOD ORDERABLES Latonya l Result * XR Knee 1 Or 2 VW (11/18/2016 3:06 PM CDT) Anatomical Region Laterality Modality N/A Radiographic Lili ging 11/18/2016 3:06 PM CDT Narrative 11/18/2016 3:06 PM CDT XR Knee 1-2 Views R ??[id number] ??Acc#: ??[id number] DATE OF EXAM: ??Nov ??2016 ?? XR Knee 1-2 Views R ??[id number] HISTORY: Osteoarthritis right knee. ??Total knee arthroplasty. COMPARISON: None available. VIEWS: AP and crosstable lateral views FINDINGS: A total knee prosthesis is in place. ??Femoral, tibial and patellar components articulate satisfactorily in these projections. A small amount of opaque cement is present at interface between each component and underlying bone. ??Some air is present in the knee joint space and in overlying interstitial tissues. IMPRESSION: 1. ??Status post right total knee arthroplasty. Electronically signed by: Terrell Mcdonnell Jr., M.D. Interpreting Physician: ??DR TERRELL MCDONNELL M.D. ??Read on: ??Nov ??2016 10:55A Transcribed by: ??PSC ??On: Nov ??2016 10:53A Approved Electronically by: ??KRUPA Saunders, DR PEREZ ??on: ??Nov ??2016 10:53A Ordering DR: GABRIELLE LAMB Attending DR: MARLENE PETERSON Attending: ??MARLENE PETERSON Requesting: ??GABRIELLE LAMB Requesting Fax: ??[phone] Attending Fax: ??[phone] Attending ID: ??[id number] Requesting ID: ??[id number] Report To 1 ID: ??[id number] Report To 1 Name: ??MARLENE PETERSON Report To 1 FAX: ??[phone] NextGen Order #: ?? Procedure Note Miscellaneous, Not In File / Provider, MD Aj - 11/18/2016 XR Knee 1-2 Views R [id number] Acc#: [id number] DATE OF EXAM: Nov 18 2016 XR Knee 1-2 Views R [id number] HISTORY: Osteoarthritis right knee. Total knee arthroplasty. COMPARISON: None available. VIEWS: AP and crosstable lateral views FINDINGS: A total knee prosthesis is in place. Femoral, tibial and patellar components articulate satisfactorily in these projections. A small amount of opaque cement is present at interface between each component and underlying bone. Some air is present in the knee joint space and in overlying interstitial tissues. IMPRESSION: 1. Status post right total knee arthroplasty. Electronically signed by: Terrell Mcdonnell Jr., M.D. Interpreting Physician: DR TERRELL MCDONNELL M.D. Read on: Nov 18 2016 10:55A Transcribed by: PSC On: Nov 18 2016 10:53A Approved Electronically by: KRUPA Saunders, DR PEREZ on: Nov 18 2017 10:53A Ordering DR: GABRIELLE LAMB Attending DR: MARLENE PETERSON Attending: MARLENE PETERSON Requesting: GABRIELLE LAMB Requesting Attending Attending ID: [id number] Requesting ID: [id number] Report To 1 ID: [id number] Report To 1 Name: MARLENE PETERSON Report To 1 FAX: [phone] NextGen Order #: us Gabrielle Lamb PA IMG XR PROCEDURES Final Res ult * eGFR (11/18/2016 12:23 PM CDT) eGFR >60 mL/min/1.7 3 m2 [facility] Comment: Interpretive Data Reference Interval Normal ?>/= 90 mL/min/1.73m2 Mildly decreased* ? 60 - 89 mL/min/1.73m2 Mildly to moderately decreased ?45 - 59 mL/min/1.73m2 Moderately to severely decreased ??30 - 44 mL/min/1.73m2 Severely decreased ?15 - 29 mL/min/1.73m2 Kidney Failure ?< 15 ??mL/min/1.73m2 *Relative to young adult level If -Nauruan multiply value by 1.16. Estimated glomerular filtration rate is determined by the CKD-EPI equation recommended by the National Kidney Foundation (KDIGO 2012 Clinical Practice Guideline for the Evaluation and Management of Chronic Kidney Disease. Kidney Intnl Suppl Apr 2012;3:1). The CKD-EPI equation should not be used for patients with unstable renal function and has not been validated in children and those over 70. Current interpretive data was last reviewed 2015. Blood specimen (specimen) 11/18/2016 12:23 PM CDT 11/18/2016 12:29 PM CDT Gabrielle Shultzt PA LAB BLOOD ORDERABLES Final Result [facility] [address] [facility] [place] [address] * Creatinine (11/18/2016 12:23 PM CDT) Creatinine 0.80 0.60 - 1.10 mg/dL [facility] Blood specimen (specimen) 11/18/2016 12:23 PM CDT 11/18/2016 12:29 PM CDT [facility] BLOOD ORDERABLES Final Result Performing Organization Address [facility] Co de Phone Number [facility] [address] [place] [address] [place] [address] * Surgical pathology (11/18/2016 10:12 AM CDT) 11/18/2016 10:1 2 AM CDT 11/18/2016 10:12 AM CDT Narrative 11/21/2016 11:35 AM CDT [facility] Department of Pathology [address] [place] [id number] Final Report ?Patient Name: HELEN HOUSTON Address: [address] [place] [address] Service: Surgery ??[place], [place] ??[address] Location: [facility] CARE Taken: 11/18/2016 Gender: F Received 11/18/2016 : 1935 (Age: 81) Hospital #: [id number] Accessioned: 11/18/2016 ?? Patient Type: [facility] IP Reported 11/21/2016 Physician(s): Dr. Marlene Peetrson M.D. ?? Diagnosis: <<<<< Bone and soft tissue, right knee, procedure not specified: ? - Degenerative joint disease, consistent with osteoarthritis >>>>> ?? Joie Trujillo M.D. ??Report Electronically Reviewed and Signed Out By ??Joie Trujillo M.D. ??11/21/2016 11:35:11 Specimen(s) Received: A: Use for joints OTHER THAN hip/femoral head Microscopic Description: <<<<< Microscopic examination reveals marked degenerative alterations involving the articular cartilage. In some areas it is totally eroded, accompanied by sclerosis of the subchondral bone. In areas where the cartilage remains it is variably eroded, also showing surface fibrillation, loss of basophilia and clustering of the chondrocytes. >>>>> Clinical History: Osteoarthritis right knee. ??Bone and tissue right knee. ?? Gross Description: The specimen is submitted in a single formalin filled container labeled with the patient's name and bone and tissue right knee . The specimen consists of multiple irregularly shaped fragments of bone and soft tissue measuring 12.5 x 8 x 1.7 cm in aggregate. ??The soft tissue primarily consists of adipose tissue but also appears to include portions of the menisci and some synovium. ??Recognizable pieces of bone include the tibial plateau and portions of the femoral condyles. ??Some of the bone fragments are covered by articular cartilage that show varying degrees of degenerative changes. ??These include eburnation and roughened granularity. ??Homemaking Rehabilitation Consultant bone and soft tissue submitted in two cassettes with the bone submitted after decalcification. ??VERO Salguero/Riki Hutchinson M.D. The performance characteristics of some immunohistochemical stains, fluorescence in-situ hybridization tests and immunophenotyping by flow cytometry cited in this report (if any) were determined by the Surgical Pathology Department at [facility] as part of an ongoing training and quality manager program and in compliance with federally mandated regulations drawn from the Clinical Laboratory Improvement Act of 1988 (CLIA '88). ??Some of these tests rely on the use of analyte specific reagents and are subject to specific labeling requirements by the US Food and Drug Administration. ??Such diagnostic tests may only be performed in a facility that is certified by the Department of Health and Human Services as a high complexity laboratory under CLIA '88. ??The FDA has determined that such clearance or approval is not necessary. ??This test is used for clinical purposes. ??It should not be regarded as investigational or for research. ??Nevertheless, federal rules concerning the medical use of analyte specific reagents require that the following disclaimer be attached to the report: This test was developed and its performance characteristics determined by [facility]. ??It has not been cleared or approved by the U. S. Food and Drug Administration. Marlene Peterson MD LAB PATHOLOGY ORDERABLES Fin al Result * Urine culture (11/18/2016 6:30 AM CDT) Report Final Report: Insignifican t growth based on current clinical standards. [facility]) Comment:Testing performed by : [facility], [address] [place] [address] Urine 11/18/2016 6:30 AM CDT 11/18/2016 10:45 AM CDT Narrative [facility]) - 11/19/2016 8:30 AM CDT Marlene Peterson MD LAB MICROBIOLOGY - GENERAL O RDERABLES Final Result [facility] 1 [facility] [place] [address] * (ABNORMAL) Urinalysis, microscopic only (11/18/2016 6:20 AM CDT) RBC, ur 2-5(A) 0 - 2 [facility] ([facility]) WBC, ur 0-2 0 - 2 [facility]) Bacteria, ur Negative Negative [facility] ([facility]) Hyaline casts, ur Not Seen 0 - 2 [facility]) Epithelial cells, ur 0-2 0 - 2 [facility]) Urine 11/18/2016 6:20 AM CDT 11/18/2016 6:33 AM CDT Marlene Peterson MD LAB URINE ORDERABLES Final R esult [facility] [address] [facility] Department [place] [address] * (ABNORMAL) Urinalysis reflex to microscopic and culture (11/18/2016 6:20 AM CDT) Color, ur Yellow Yellow [facility]) Clarity, ur Clear Clear [facility] ([facility]) Specific gravity, ur 1.011 1.003 - 1.030 [facility] ([facility] Comment:Normal Ranges: 1.003 -1.030 pH, ur 6.0 4.5 - 8.0 [facility]) Comment:Normal ranges: 4.5-8 .0 Protein, ur ql Negative Negative mg/dL [facility]) Glucose, ur ql Negative Negative mg/dL [facility]) Ketones, ur Negative Negative [facility] ([facility]) Bilirubin, ur Negative Negative [facility]) Blood, ur Negative Negative [facility]) Urobilinogen, ur 0.2 0.2 - 1.0 [facility] Comment:Normal Ranges: 0.2-1 .0 EU/dL Nitrites, ur Negative Negative [facility]) Leukocyte esterase, ur Trace(A) Negative [facility]) Urine 11/18/2016 6:20 AM CDT 11/18/2016 6:33 AM CDT Narrative [facility] - 11/18/2016 6:37 AM CDT CLEAN VOID Marlene Peterson MD LAB MICROBIOLOGY - GENERAL O RDERABLES Final Result [facility] [address] [facility] Department [place] [address] * SURGICAL PATHOLOGY (11/18/2016 12:00 AM CDT) Narrative 11/18/2016 12:00 AM CDT Ordered by an unspecified provider. Historical Provider LAB PATHOLOGY ORDERABLES Final Result documented in this encounter Visit Diagnoses Not on filedocumented in this encounter Care Teams It Quality Assurance Analyst Relationship Specialty Start Date End Date Richmond Carrion MD [address] [place] [address] [place] [id number] PCP - General Family Practice 09/26/16 10/20/21 documented as of this encounter
--- OUTSIDE RECORDS SUMMARY | 2024-03-29 08:23 | XMS_ITS | Encounter Summary ---
Author Organization [facility] Healthcare Address [address] [place] [address] Care Team Providers Care Dip Dyer Name Role Phone Richmond Carrion MD Primary Care Provider [phone] Encounter Details Date Type Department Care Team (Late st Contact Info) Description 11/10/2016 12:57 PM CDT - 11/10/2016 11:59 PM CDT Hospital Encounter [facility] Jaret Abdalla MD [address] [place] [address] DR COVARRUBI[address] B [address] [address] Discharge Disposition: Discharge to home or self care Social History Tobacco Use Types Packs/Day Years Used Date Smoking Tobacco: Never Alcohol Use Standard Drinks/Week Comments No 0 (1 standard drink = 0.6 oz pur e alcohol) Comments Unknown Sex and Gender Information Value Date Recorded Sex Assigned at Not on file 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 2 rOPINIRole (REQUIP) 0.25 mg tablet Take 0.25 mg by mouth. 8 documented as of this encounter Discharge Disposition Disposition Code Departure Means Destination Discharge to home or self care documented in this encounter Plan of Treatment Not on file documented as of this encounter Procedures Procedure Name Priority Date/Time Associated Diagnosis Comments INFECTION PREVENTION MRSA ONLY (STAPHYLOCOCCUS AUREUS) CULTURE Routine 11/10/2016 6:22 PM CDT URINE CULTURE Routine 11/10/2016 3:43 PM CDT PREALBUMIN Routine 11/10/2016 3:27 PM CDT DIFFERENTIAL AUTO Routine 11/10/2016 3:0 0 PM CDT CBC WITH AUTO DIFFERENTIAL Routine 11/10 3:00 PM CDT EGFR Routine 11/10/2016 1:20 PM CDT APTT Routine 11/10/2016 1:20 PM CDT PROTIME-INR Routine 11/10/2016 1:20 PM CDT COMPREHENSIVE METABOLIC PANEL Routine 11/10/2016 1:20 PM CDT URINALYSIS AND REFLEX TO MICROSCOPIC AND CULTURE Routine 11/10/2016 1:09 PM CDT URINALYSIS, MICROSCOPIC ONLY Routine 11/10/2016 1:09 PM CDT ELECTROCARDIOGRAPHY (ECG) 11/10/2016 documented in this encounter Results * MRSA culture (11/10/2016 6:22 PM CDT) Report Final Report: Negative [facility] ([facility]ARAI) Comment:Testing performed by : [facility], [address] [place]., [address] Nasal 11/10/2016 6:22 PM CDT 11/10/2016 7:06 PM CDT Narrative [facility] ([facility]) - 11/10/2016 7:06 PM CDT Specimen received on an ESwab. Jaret Abdalla MD LAB MICROBIOLOGY - GENERAL O RDERABLES Final Result [facility] ([facility]AR[facility]) [address] [facility] Department [place] [address] * (ABNORMAL) Urine culture (11/10/2016 3:43 PM CDT) Report Final Report: Greater than or equal to 100,000 colonies/ml of Klebsiella pneumoniae (.) [facility] (SARAI) Comment:Testing performed by : [facility], [address] [place]., [address] Organism KLEBSIELLA PNEUMONIAE [facility] ([facility]) Urine 11/10/2016 3:43 PM CDT 11/10/2016 7:06 PM CDT Narrative [facility] ([facility]) - 11/11/2016 12:16 PM CDT Organism Antibiotic Method Susceptibility Klebsiella pneumoniae Ampicillin INTERPRETATION Resistant Klebsiella pneumoniae Cefazolin INTERPRETATION Susceptible Klebsiella pneumoniae Nitrofurantoin INTERPRETATION Susceptible Klebsiella pneumoniae Gentamicin INTERPRETATION Susceptible Klebsiella pneumoniae Trimethoprim with Sulfamethoxazole INTERPRETATION Susceptible Klebsiella pneumoniae Meropenem INTERPRETATION Susceptible Klebsiella pneumoniae Cefepime INTERPRETATION Susceptible Klebsiella pneumoniae Ciprofloxacin INTERPRETATION Susceptible Klebsiella pneumoniae Ceftazidime INTERPRETATION Susceptible Klebsiella pneumoniae Ceftriaxone INTERPRETATION Susceptible Klebsiella pneumoniae Piperacillin/Tazobactam INTERPRE TATION Susceptible Klebsiella pneumoniae Cephalexin INTERPRETATION Susceptible Klebsiella pneumoniae Cefuroxime-axetil INTERPRETATION Susceptible Klebsiella pneumoniae Cefdinir INTERPRETATION Susceptible us Jaret Abdalla MD LAB MICROBIOLOGY - GENERAL O RDERABLES Final Result [facility] ([facility]) 1 [facility] Department [place] [address] * Prealbumin (11/10/2016 3:27 PM CDT) Prealbumin 26 18 - 40 mg/dL [facility] ([facility]) Blood specimen (specimen) 11/10/2016 3:27 PM CDT 11/10/2016 6:04 PM CDT us Jaret Abdalla MD LAB BLOOD ORDERABLES Final R esult Performing Organization Address City/[facility]/ZIP Co de Phone Number [facility] ([facility]AR[facility]) 1 [facility] Department [place] [address] * Differential, auto (11/10/2016 3:00 PM CDT) Pathologist [facility] Neutrophil pct 64.7 44.0 - 80.0 % [facility] ([facility]) Imm gran pct 0.2 0.0 - 1.0 % [facility] ([facility]) Lymphocyte pct 25.8 13.0 - 44.0 % [facility] ([facility]) Monocyte pct 6.9 2.0 - 11.0 % [facility] ([facility]) Eosinophil pct 1.4 0.0 - 6.0 % [facility] ([facility]) Basophil pct 1.0 0.0 - 3.0 % [facility] ([facility]) Neutrophil abs 6.09 1.60 - 7.00 K/cumm [facility] ([facility]) Imm gran abs 0.02 0.00 - 0.20 K/cumm [facility] ([facility]) Lymphocyte abs 2.43 0.50 - 4.30 K/cumm [facility] ([facility]) Monocyte abs 0.65 0.10 - 1.00 K/cumm [facility] ([facility]) Eosinophil abs 0.13 0.00 - 0.60 K/cumm [facility] ([facility]) Basophil abs 0.09 0.00 - 0.30 K/cumm [facility] ([facility]) Blood specimen (specimen) 11/10/2016 3:00 PM CDT 11/10/2016 6:46 PM CDT Jaret Abdalla MD LAB BLOOD ORDERABLES Final R esult [facility] ([facility]) 1 [facility] [place] [address] * (ABNORMAL) CBC with auto differential (11/10/2016 3:00 PM CDT) WBC 9.41 3.80 - 9.80 K/cumm [facility] ([facility]) RBC 4.96 3.90 - 5.00 M/cumm [facility] ([facility]) Hgb 15.4(H) 12.1 - 15.1 g/dL [facility] ([facility]) Hct 45.9(H) 36.1 - 44.3 % [facility] ([facility]) MCV 92.5 80.0 - 100.0 fL [facility] ([facility]) MCH 31.0 26.7 - 33.7 pg [facility] ([facility]) MCHC 33.6 32.7 - 36.0 g/dL [facility] ([facility]) RDW CV 12.3 11.5 - 14.6 % [facility] ([facility]) Plt 271 140 - 440 K/cumm [facility] ([facility]) MPV 9.9 8.0 - 12.0 fL [facility] ([facility]) NRBC 0.0 0.0 - 0.0 % [facility] ([facility]) NRBC abs 0.00 0.00 - 0.00 K/cumm [facility] ([facility]) Blood specimen (specimen) 11/10/2016 3:00 PM CDT 11/10/2016 6:46 PM CDT Jaret Abdalla MD LAB BLOOD ORDERABLES Final R esult Performing Organization Address City/[facility]/ZIP Co de Phone Number [facility] ([facility]) 1 [facility] [place] [address] * eGFR (11/10/2016 1:20 PM CDT) eGFR 59 mL/min/1.7 3 m2 [facility] ([facility]) Comment: Interpretive Data Reference Interval Normal ?>/= 90 mL/min/1.73m2 Mildly decreased* ? 60 - 89 mL/min/1.73m2 Mildly to moderately decreased ?45 - 59 mL/min/1.73m2 Moderately to severely decreased ??30 - 44 mL/min/1.73m2 Severely decreased ?15 - 29 mL/min/1.73m2 Kidney Failure ?< 15 ??mL/min/1.73m2 *Relative to young adult level If -[place] multiply value by 1.16. Estimated glomerular filtration [...] was last reviewed 2015. Blood specimen (specimen) 11/10/2016 1:20 PM CDT 11/10/2016 3:36 PM CDT us Jaret Abdalla MD LAB BLOOD ORDERABLES Final R esult [facility] ([facility]) 1 [facility] Department of Laboratories [place], [place] [id number] * (ABNORMAL) Comprehensive metabolic panel (11/10/2016 1:20 PM CDT) Sodium 140 135 - 145 mmol/L [facility] ([facility]) Potassium 3.8 3.5 - 5.1 mmol/L [facility] ([facility]) Chloride 98 97 - 110 mmol/L [facility] ([facility]) CO2 28 22 - 32 mmol/L [facility] ([facility]) Anion gap 14 8 - 16 mmol/L [facility] ([facility]) Glucose 87 70 - 199 mg/dL [facility] ([facility]) Comment: Interpretive Data Note:The glucose is assumed non fasting Fastin-99 mg/dL Random: ??70-199 mg/dL Either a fasting glucose > 126 mg/dL or a random glucose > 200 mg/dL plus symptoms is diagnostic of diabetes when confirmed on another day. Fasting values > 100 mg/dL but < 125 mg/dL are diagnostic of impaired fasting glucose. Current interpretive data was last revised on 2014. BUN 21.9 8.0 - 25.0 mg/dL [facility] ([facility]) Creatinine 0.92 0.60 - 1.10 mg/dL [facility] ([facility]) BUN/creat ratio 24(H) 10 - 20 [facility] ([facility]) Calcium 9.4 8.6 - 10.2 mg/dL [facility] ([facility]) Protein, sr 7.3 6.0 - 8.4 g/dL [facility] ([facility]) Albumin 4.4 3.6 - 5.0 g/dL [facility] ([facility]) Alk phos 85 40 - 130 Units/L [facility] ([facility]) ALT 18 5 - 45 Units/L [facility] ([facility]) AST 20 10 - 40 Units/L [facility] ([facility]) Bilirubin, total 0.5 <=1.2 mg/dL [facility] ([facility]) Blood specimen (specimen) 11/10/2016 1:20 PM CDT 11/10/2016 3:36 PM CDT us Jaret Abdalla MD LAB BLOOD ORDERABLES Final R esult [facility] ([facility]) 1 [facility] Department [place] [address] * Protime-INR (11/10/2016 1:20 PM CDT) PT 10.9 9.5 - 12.5 sec [facility] ([facility] INR 0.97 0.90 - 1.20 [facility] ([facility]AR[facility]) Comment: Interpretive Data Recommended ranges for Protime INR: 2.0 - 3.0 Most indications for Warfarin therapy (e.g. Treatment of DVT, PE, bioprosthetic valve replacement, prophylaxis venous thrombosis, atrial fibrillation). 2.5 - 3.5 Mechanical mitral valve or dual mechanical mitral and Aortic valve replacement. Current Interpretive Data was last revised on 2014. Blood specimen (specimen) 11/10/2016 1:20 PM CDT 11/10/2016 3:36 PM CDT Jaret Abdalla MD LAB BLOOD ORDERABLES Final R esult [facility]IL [facility]RICK (SARAI) 1 [facility] [employer] [place] [address] * aPTT (11/10/2016 1:20 PM CDT) aPTT 31.5 25.0 - 37.0 sec [facility] ([facility]) Blood specimen (specimen) 11/10/2016 1:20 PM CDT 11/10/2016 3:36 PM CDT Jaret Abdalla MD LAB BLOOD ORDERABLES Final R esult Performing Organization Address City/[facility]/ZIP Co de Phone Number [facility] ([facility]) 1 [facility] [place] [address] * (ABNORMAL) Urinalysis, microscopic only (11/10/2016 1:09 PM CDT) RBC, ur 0-2 0 - 2 [facility] ([facility]) WBC, ur 5-10(A) 0 - 2 [facility] ([facility]) Bacteria, ur 4+(A) Negative [facility] ([facility]) Hyaline casts, ur 2-5(A) 0 - 2 [facility] ([facility]) Epithelial cells, ur 2-5(A) 0 - 2 [facility] ([facility]) Urine 11/10/2016 1:09 PM CDT 11/10/2016 3:36 PM CDT us Jaret Abdalla MD LAB URINE ORDERABLES Final R esult [facility] ([facility]) 1 [facility] Department [place] [address] * (ABNORMAL) Urinalysis reflex to microscopic and culture (11/10/2016 1:09 PM CDT) Color, ur Yellow Yellow [facility] ([facility]) Clarity, ur Cloudy(A) Clear [facility] ([facility]) Specific gravity, ur 1.013 1.003 - 1.030 [facility] ([facility]) Comment:Normal Ranges: 1.003 -1.030 pH, ur 6.5 4.5 - 8.0 [facility] ([facility]) Comment:Normal ranges: 4.5-8 .0 Protein, ur ql Negative Negative mg/dL [facility] ([facility]) Glucose, ur ql Negative Negative mg/dL [facility] ([facility]) Ketones, ur Negative Negative [facility] ([facility]) Bilirubin, ur Negative Negative [facility] ([facility]) Blood, ur Negative Negative [facility] ([facility]) Urobilinogen, ur 0.2 0.2 - 1.0 [facility] ([facility]) Comment:Normal Ranges: 0.2-1 .0 EU/dL Nitrites, ur Positive(A) Negative [facility] ([facility]) Leukocyte esterase, ur Small(A) Negative [facility] ([facility]) Urine 11/10/2016 1:09 PM CDT 11/10/2016 3:36 PM CDT us Jaret Abdalla MD LAB MICROBIOLOGY - GENERAL O RDERABLES Final Result [facility] ([facility]) 1 [facility] Department [place] [address] * ELECTROCARDIOGRAPHY (ECG) (11/10/2016) us Provider Scanning ECG ORDERABLES Final Result documented in this encounter Visit Diagnoses Not on filedocumented in this encounter Care Teams Dip Dyer Relationship Specialty Start Date End Date Richmond Carrion MD [address] [place] [address] [place] [address] PCP - General Family Practice 09/26/16 10/20/21 documented as of this encounter
--- OUTSIDE RECORDS SUMMARY | 2024-03-29 08:23 | XMS_ITS | Encounter Summary ---
Author Organization [facility] Healthcare Address [address] [place] [address] Care Team Providers Care Therapy Aide Name Role Phone Richmond Carrion MD Primary Care Provider [phone] Encounter Details Date Type Department Care Team (Late st Contact Info) Description 12/25/2016 4:44 PM CDT - 12/25/2016 11:59 PM CDT Hospital Encounter [facility] OP INTERIM Jaret Abdalla MD [address] [place] [address] [address] [place] [address] Patricia Randolph PA [address] [place] [address] [address] [place] [address] Discharge Disposition: Discharge to home or self care Social History Tobacco Use Types Packs/Day Years Used Date Smoking Tobacco: Never Smokeless Tobacco: Never Alcohol Use Standard Drinks/Week Comments No 0 (1 standard drink = 0.6 oz pur e alcohol) Comments Unknown Sex and Gender Information Value Date Recorded Sex Assigned at Not on file 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 2 ondansetron (ZOFRAN) 4 mg tablet Every 4-6 hours as needed 30 tablet 1 11/18/2016 7 ondansetron (ZOFRAN) 4 mg tablet Take 1 tablet (4 mg total) by mouth every 8 (eight) hours as needed for nausea or vomiting. 20 tablet 1 12/25/2016 7 rOPINIRole (REQUIP) 0.25 mg tablet Take [...] Associated Diagnosis Comments DISCHARGE LABORATORY CUMULATIVE REPORT 12/26/2016 12:00 AM CDT DIFFERENTIAL AUTO Routine 12/25/2016 4:5 5 PM CDT CBC WITH AUTO DIFFERENTIAL Routine 12/25/2016 4:55 PM CDT ERYTHROCYTE SEDIMENTATION RATE Routine 12/25/2016 4:55 PM CDT CRP (ACUTE PHASE) Routine 12/25/2016 4:5 5 PM CDT documented in this encounter Results * DISCHARGE LABORATORY CUMULATIVE REPORT (12/26/2016 12:00 AM CDT) Narrative 12/26/2016 12:00 AM CDT Ordered by an unspecified provider. Historical Provider LAB BLOOD ORDERABLES Latonya l Result * Erythrocyte sedimentation rate (12/25/2016 4:55 PM CDT) Erythrocyte sedimentation rate 12 0 - 35 mm/hr [facility] ([facility]) Blood specimen (specimen) 12/25/2016 4:55 PM CDT 12/25/2016 8:24 PM CDT Patricia PHAM LAB BLOOD ORDERABLES Fi nal Result Performing Organization Address City/[facility]/ZIP Co de Phone Number [facility] ([facility]) 1 [facility] [place] [address] * CRP (acute phase) (12/25/2016 4:55 PM CDT) CRP 0.9 <=10.0 mg/L [facility]obar ([facility]AR[facility]) Blood specimen (specimen) 12/25/2016 4:55 PM CDT 12/25/2016 5:30 PM CDT Patricia PHAM LAB BLOOD ORDERABLES Fi nal Result [facility] ([facility]) 1 [facility] [employer] [place] [address] * Differential, auto (12/25/2016 4:55 PM CDT) Neutrophil pct 63.3 44.0 - 80.0 % [facility] ([facility]) Imm gran pct 0.2 0.0 - 1.0 % [facility] ([facility]) Lymphocyte pct 24.6 13.0 - 44.0 % [facility] ([facility]) Monocyte pct 9.9 2.0 - 11.0 % [facility] ([facility]) Eosinophil pct 1.1 0.0 - 6.0 % [facility] ([facility]) Basophil pct 0.9 0.0 - 3.0 % [facility] ([facility]) Neutrophil abs 5.08 1.60 - 7.00 K/cumm [facility] ([facility]) Imm gran abs 0.02 0.00 - 0.20 K/cumm [facility] ([facility]) Lymphocyte abs 1.97 0.50 - 4.30 K/cumm [facility] ([facility]) Monocyte abs 0.79 0.10 - 1.00 K/cumm [facility] ([facility]) Eosinophil abs 0.09 0.00 - 0.60 K/cumm [facility] ([facility]) Basophil abs 0.07 0.00 - 0.30 K/cumm [facility] ([facility]) Blood specimen (specimen) 12/25/2016 4:55 PM CDT 12/25/2016 5:30 PM CDT us Patricia PHAM LAB BLOOD ORDERABLES Fi nal Result [facility] ([facility]) 1 [facility] Department of Laboratories [place], [place] [id number] * (ABNORMAL) CBC with auto differential (12/25/2016 4:55 PM CDT) WBC 8.02 3.80 - 9.80 K/cumm [facility] ([facility]) RBC 4.51 3.90 - 5.00 M/cumm [facility] ([facility]) Hgb 13.8 12.1 - 15.1 g/dL [facility] ([facility]) Hct 42.7 36.1 - 44.3 % [facility] ([facility]) MCV 94.7 80.0 - 100.0 fL [facility] ([facility]) MCH 30.6 26.7 - 33.7 pg [facility] ([facility]) MCHC 32.3(L) 32.7 - 36.0 g/dL [facility] ([facility]) RDW CV 13.5 11.5 - 14.6 % [facility] ([facility]) Plt 247 140 - 440 K/cumm [facility] ([facility]) MPV 9.2 8.0 - 12.0 fL [facility] ([facility]) NRBC 0.0 0.0 - 0.0 % [facility] ([facility]) NRBC abs 0.00 0.00 - 0.00 K/cumm [facility] ([facility]) Blood specimen (specimen) 12/25/2016 4:55 PM CDT 12/25/2016 5:30 PM CDT Patricia PHAM LAB BLOOD ORDERABLES Fi nal Result [facility] ([facility]) 1 [facility] Department [place] [address] documented in this encounter Visit Diagnoses Not on filedocumented in this encounter Care Teams Therapy Aide Relationship Specialty Start Date End Date Richmond Carrion MD [address] [place] [address] [place] [address] PCP - General Family Practice 09/26/16 10/20/21 documented as of this encounter
--- OUTSIDE RECORDS SUMMARY | 2024-03-29 08:23 | XMS_ITS | Encounter Summary ---
Author Organization [facility] Address [address] [place] [address] Care Team Providers Care Roll Coverer Name Role Phone Richmond Carrion MD Primary Care Provider [phone] Encounter Details Date Type Department Care Team (Late st Contact Info) Description 12/29/2016 Telephone [facility] Orthopedics and Sports Medicine [address] [place] [address] Claudia Molina MA [address] [place] [address] 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 * Telephone Encounter - Claudia Rose MA - 12/29/2016 11:52 AM CDT ----- Message from VERO Vieyra sent at 12/26/2016 1:56 PM CDT ----- Please call patient and notify her that her labs were normal. documented in this encounter Plan of Treatment Not on file documented as of this encounter Visit Diagnoses Not on filedocumented in this encounter Care Teams Roll Coverer Relationship Specialty Start Date End Date Richmond Carrion MD [address] [place] [address] [place] [address] PCP - General Family Practice 09/26/16 10/20/21 documented as of this encounter
--- OUTSIDE RECORDS SUMMARY | 2024-03-29 08:23 | XMS_ITS | Encounter Summary ---
Author Organization [facility] Address [address] [place] [address] Care Team Providers Care Jig Boring Machine Set Up Operator Name Role Phone Richmond Carrion MD Primary Care Provider [phone] Reason for Visit * Reason Onset Date Comments Test Results 11/12/2016 Encounter Details Date Type Department Care Team (Late st Contact Info) Description 11/12/[address] 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 10 tablet 11/12/2016 11/17/2016 sulfamethoxazole-t rimethoprim (BACTRIM,SEPTRA) 800-160 mg per tablet Take 1 tablet by mouth 2 (two) times a day for 5 days. 10 tablet 11/12/2016 11/12/2016 documented in this encounter Progress Notes * Jose Lamb PA - 11/12/2016 1:27 PM CDT Patient pre op lab from 11/10/16 shows she has at UTI. Cipro sent in. Pt notified. * Jose Lamb PA - 11/12/2016 1:27 PM CDT [facility] Beryl R Business Services Representative Chief Complaint. Right knee pain Chief Complaint Patient presents with ??? Results Pre-op chart update. DOS is 11/18/16 HPI. Patient is a 81 y.o. female patient of Dr. Abdalla. She has failed conservative treatment and is now a candidate for right Total knee arthroplasty Past Medical History: Diagnosis Date ??? GERD (gastroesophageal reflux disease) ??? History of blood clots ??? Hypertension ??? Osteoarthritis ??? Poor circulation Past Surgical History: Procedure Laterality Date ??? APPENDECTOMY ??? BREAST BIOPSY ??? ENDOVENOUS ABLATION SAPHENOUS VEIN W/ LASER Left ??? JOINT REPLACEMENT Left 2007 ??? KNEE ARTHROSCOPY Right ??? NEUROMA SURGERY Left left foot ??? THYROID LOBECTOMY Left ??? VAGINAL PROLAPSE REPAIR HOME MEDICATIONS : atorvastatin (LIPITOR) 10 mg tablet ciprofloxacin (CIPRO) 500 mg tablet ciprofloxacin (CIPRO) [address] (CYMBALTA) 60 mg capsule HYDROcodone-acetaminophen (NORCO) 7.5-325 mg per tablet lisinopril (PRINIVIL,ZESTRIL) 10 mg tablet nitrofurantoin monohydrate (MACROBID) 100 mg capsule omeprazole (PriLOSEC) 20 mg capsule PREMARIN vaginal cream rOPINIRole (REQUIP) 0.25 mg tablet valACYclovir (VALTREX) 1 gram tablet sulfamethoxazole-trimethoprim (BACTRIM,SEPTRA) 800-160 mg per tablet Allergies Allergen Reactions ??? Penicillins Other (See comments) and Rash Reaction: UNKNOWN CHILDHOOD, ??? Sulfabenzamide Hives Reaction: HIVES ??? Sulfasalazine Urticaria ??? Adhesive Tape-Silicones ??? Etodolac Other (See comments) Reaction: UNKNOWN ??? Prochlorperazine Unknown Social History Substance Use Topics ??? Smoking status: Never Smoker ??? Smokeless tobacco: Not on file ??? Alcohol use No Family History Problem Relation Age of Onset ??? Stroke Mother ??? Heart disease Father ??? Hypertension Father ??? Cancer Father Review of Systems: Patient denies DOWD/blurred vision, SOB/CP, N/V, fever/chills. Upper/lower respiratory symptoms, upper/lower GI symptoms, no bowel or bladder issues. Physical Exam. Exam by Dr Abdalla on 10/17/16 Vital Signs: vitals were not taken for this visit. General: normal general appearance and in no apparent distress Orientation: alert and oriented to person, place, and time Mood: calm and conversant Estimated body mass index is 28.87 kg/m?? as calculated from the following: Height as of 10/17/16: 162.6 cm (5' 4 ). Weight as of 10/17/16: 76.3 kg (168 lb 3.2 oz). The skin overlying the incision area was clean/dry/intact with no signs of infection. No signs of DVT noted on exam. ROM causes pain. ROM normal. Radiology:Weightbearing views of the Knee are reviewed and demonstrate no acute fractures or osseous changes. Tricompartmental degenerative changes present with joint space narrowing, osteophyte formation, and subchondral sclerosis. Bone on bone medial comp. Laboratory. H&H 15.4/45.9, Creatine 0.92, UA Positive 4+, INR 0.97, MRSA Screen negative Impression and Recommendations. Patient will proceed with right Total knee arthroplasty on 11/18/16 at [facility]. It is estimated they will have a minimum 2 night stay following the procedure. The risk and the benefits were discussed in detail and they verbalized an understanding and signs an informed consent. Pre-op antibiotic will be Ancef per weight. DVT prophylaxis will be Eliquis, pt has h/o DVT. There will be no post op labs and no celebrex ordered. Her PCP has cleared her for this procedure. Cipro 500mg PO BID was called in for her UTI. Jose Lamb PA-C, ATC documented in this encounter Plan of Treatment Not on file documented as of this encounter Visit Diagnoses Not on filedocumented in this encounter Discontinued Medications Medication Sig Discontinue Reason Start Date End Da te sulfamethoxazole-trimeth oprim (BACTRIM,SEPTRA) 800-160 mg per tablet Take 1 tablet by mouth 2 (two) times a day for 5 days. Error 11/12/2016 11/12/2016 documented as of this encounter Care Teams Jig Boring Machine Set Up Operator Relationship Specialty Start Date End Date Richmond Carrion MD [address] [place] [address] [place] [address] PCP - General Family Practice 09/26/16 10/20/21 documented as of this encounter
--- OUTSIDE RECORDS SUMMARY | 2024-03-29 08:23 | XMS_ITS | Encounter Summary ---
Author Organization [facility] Address [address] [facility] [address] [place] [address] Care Team Providers Care Senior Copywriter Name Role Phone Richmond Carrion MD Primary Care Provider [phone] Reason for Visit * Reason Comments Pain Encounter Details Date Type Department Care Team (Late st Contact Info) Description 12/25/2016 3:00 PM CDT Office Visit [facility] Orthopedics and Sports Medicine [address] [facility] [address] [place] [address] Patricia Randolph PA [address] [place] [address] [address] [place], [place] [id number] Aftercare following right knee joint replacement surgery (Primary Dx) Social History Tobacco Use Types Packs/Day Years Used Date Smoking Tobacco: Never Smokeless Tobacco: Never Alcohol Use Standard Drinks/Week Comments No 0 (1 standard drink = 0.6 oz pur e alcohol) Comments Unknown Sex and Gender Information Value Date Recorded Sex Assigned at Not on file 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 Sex Female 9:34 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 Gender Identity Not on file Sexual Orientation Not on file documented as of this encounter Last Filed Vital Signs Vital Sign Reading Time Taken Comments Blood Pressure 144/90 12/25/2016 3:47 PM CDT Pulse 98 12/25/2016 3:47 PM CDT Temperature - - Respiratory Rate - - Oxygen Saturation - - Inhaled Oxygen Concentration - - Weight 73 kg (161 lb) 12/25/2016 3:47 PM CDT Height 162.6 cm (5' 4 ) 12/25/2016 3:47 PM CDT Body Mass Index 27.64 12/25/2016 3:47 PM CDT documented in this encounter Ordered Prescriptions Prescription Sig Dispense Quantity Refills Last Filled Start Date End Date ondansetron (ZOFRAN) 4 mg tablet Take 1 tablet (4 mg total) by mouth every 8 (eight) hours as needed for nausea or vomiting. 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 Pain is well controlled. Patient is currentlytaking [place] 5/325 TID for pain. Patient partaking in physical therapy at [facility] in [place]. She states that she has good days and bad days. Today is a particularly bad day. Overall she has improved some since surgery. She has been able to cut back on her pain med since early post operatively. Pt exhibits several signs and complaints of frustration today. She feels she is not progressing as quickly as she should. Vital signs: BP 144/90 Pulse 98 Ht 162.6 cm (5' 4 ) Wt 73 kg (161 lb) BMI 27.64 kg/m?? Exam: Well approximated healing post operative scar. No active erythema, draining, or signs of infection present. Neurovascular status is intact. Currently ambulating with a cane No calf tenderness noted bilaterally AAROM: -10-110 Patient able to perform active SLR without lag. Assessment: Diagnosis Plan 1. Aftercare following right knee joint replacement surgery CBC with auto differential CRP (acute phase) Erythrocyte sedimentation rate Plan: Xrays, procedure, medications and post operative expectations reviewed with patient. Reassurance provided. Explained that my impression was that patient was progressing well within the norms expectedafter TKA. She understands progress may be slower secondary to her age, disability/pain prior to surgery, and tolerance to pain medication. Labs ordered to further assess inflammatory status; will follow if elevated. Continue outpatient physical therapy and frequent ice/elevation at home. [place] refilled. Follow up in 2 weeks time; pt may benefit from close monitoring and continued reassurance/frequent reassessment. All questions were answered. Patient expressed full understanding and agreement of plan. Patricia Randolph PA-C Cosigned by Jaret Abdalla MD at 12/29/2016 12:34 PM CDT documented in this encounter Plan of Treatment Not on file documented as of this encounter Visit Diagnoses Diagnosis Aftercare following right knee joint replacement surgery- Primary documented in this encounter Care Teams Senior Copywriter Relationship Specialty Start Date End Date Richmond Carrion MD [address] [place] [address] [place] [address] PCP - General Family Practice 09/26/16 10/20/21 documented as of this encounter
--- OUTSIDE RECORDS SUMMARY | 2024-03-29 08:23 | XMS_ITS | Encounter Summary ---
Author Organization [facility] Address [address] [place] [address] Care Team Providers Care Oyster Washer Name Role Phone Richmond Carrion MD Primary Care Provider [phone] Encounter Details Date Type Department Care Team (Late st Contact Info) Description 11/18/2016 Orders Only [facility] Orthopedics and Sports Medicine [address] [facility] [address] [place] [address] Jose Lamb PA 4 [facility] [address] [place] [address] Social History Tobacco Use Types Packs/Day Years Used Date Smoking Tobacco: Never Alcohol Use Standard Drinks/Week Comments No 0 (1 standard drink = 0.6 oz pur e alcohol) Comments Unknown Sex and Gender Information Value Date Recorded Sex Assigned at Not on file Legal Sex Female 9:34 AM SSDS MK 2 ADVANCED OPERATOR Gender Identity Not on file Sexual Orientation Not on file documented as of this encounter Ordered Prescriptions Prescription Sig Dispense Quantity Refills Last Filled Start Date End Date morphine ER (MS CONTIN) 15 mg 12 hr tablet Take 1 tablet (15 mg total) by mouth 2 (two) times a day for 10 days. 20 tablet 11/18/2016 7 ondansetron (ZOFRAN) 4 mg tablet Every 4-6 hours as needed 30 tablet 1 11/18/2016 7 apixaban (ELIQUIS) 2.5 mg tablet Take 1 tablet (2.5 mg total) by mouth 2 (two) times a day for 28 days. 56 tablet 11/18/2016 7 senna-docusate (PERICOLACE) 8.6-50 mg 1-2 times daily as needed for constipation 60 tablet 1 11/18/2016 7 ferrous sulfate 325 mg (65 mg of elemental iron) tabletIndications :Iron Deficiency Anemia Take 1 tablet (65 mg of elemental iron total) by mouth daily with breakfast. 30 tablet 11/18/2016 7 ascorbic acid (VITAMIN C) 500 mg tablet,chewable Take 1 tablet/chew tab (500 mg total) by mouth 2 (two) times a day. 60 tablet/chew tab 11/18/2016 7 documented in this encounter Plan of Treatment Not on file documented as of this encounter Visit Diagnoses Not on filedocumented in this encounter Care Teams Oyster Washer Relationship Specialty Start Date End Date Richmond Carrion MD [address] [place] [address] [place] [id number] PCP - General Family Practice 09/26/16 10/20/21 documented as of this encounter
--- OUTSIDE RECORDS SUMMARY | 2024-03-29 08:23 | XMS_ITS | Encounter Summary ---
Author Organization [facility] Address [address] [facility] [address] [place] [address] Care Team Providers Care Cnc Mill And Lathe Operator Name Role Phone Richmond Carrion MD Primary Care Provider [phone] Encounter Details Date Type Department Care Team (Late st Contact Info) Description 11/21/2016 Telephone [facility] Orthopedics and Sports Medicine [address] [place] [phone] Pratibha Sigala RMA Social History Tobacco Use Types Packs/Day Years Used Date Smoking Tobacco: Never Alcohol Use Standard Drinks/Week Comments No 0 (1 standard drink = 0.6 oz pur e alcohol) Comments Unknown Sex and Gender Information Value Date Recorded Sex Assigned at Not on file Legal Sex Female 9:34 AM BIG DATA ANALYTICS LEAD Gender Identity Not on file Sexual Orientation Not on file documented as of this encounter Miscellaneous Notes * Telephone Encounter - Pratibha Sigala MA - 11/21/2016 8:05 AM CDT Called patient to follow up after surgery and she states no questions or concerns at this time. Post op appt scheduled. documented in this encounter Plan of Treatment Not on file documented as of this encounter Visit Diagnoses Not on filedocumented in this encounter Care Teams Cnc Mill And Lathe Operator Relationship Specialty Start Date End Date Richmond Carrion MD [address] [place] [address] [place] [address] PCP - General Family Practice 09/26/16 10/20/21 documented as of this encounter
--- OUTSIDE RECORDS SUMMARY | 2024-03-29 08:23 | XMS_ITS | Encounter Summary ---
Author Organization [facility] Address [address] [facility] [address] [place] [address] Care Team Providers Care Customs Brokerage Manager Name Role Phone Richmond Carrion MD Primary Care Provider [phone] Encounter Details Date Type Department Care Team (Late st Contact Info) Description 12/26/2016 Telephone [facility] Orthopedics and Sports Medicine [address] [facility] [address] [place] [address] Patricia Randolph PA 4 [facility] [address] [place], [place] [id number] Social History Tobacco Use Types Packs/Day Years Used Date Smoking Tobacco: Never Smokeless Tobacco: Never Alcohol Use Standard Drinks/Week Comments No 0 (1 standard drink = 0.6 oz pur e alcohol) Comments Unknown Sex and Gender Information Value Date Recorded Sex Assigned at Not on file Legal Sex Female 9:34 AM COLORIST FORMULATOR Gender Identity Not on file Sexual Orientation Not on file documented as of this encounter Miscellaneous Notes * Telephone Encounter - Pratibha Sigala MA - 12/27/2016 9:20 AM CDT Called and notified the patient. * Telephone Encounter - Patricia Randolph PA - 12/26/2016 4:19 PM CDT Please call patient let her know her labs were normal. documented in this encounter Plan of Treatment Not on file documented as of this encounter Visit Diagnoses Not on filedocumented in this encounter Care Teams Customs Brokerage Manager Relationship Specialty Start Date End Date Richmond Carrion MD [address] [place] [address] [place] [address] PCP - General Family Practice 09/26/16 10/20/21 documented as of this encounter
--- OUTSIDE RECORDS SUMMARY | 2024-03-29 08:23 | XMS_ITS | Encounter Summary ---
Author Organization [facility] Address [address] [place] [address] Care Team Providers Care Loom Overhauler Name Role Phone Richmond Carrion MD Primary Care Provider [phone] Encounter Details Date Type Department Care Team (Late st Contact Info) Description 11/12/2016 Telephone [facility] Orthopedics and Sports Medicine 4 [facility] [address] [place] [address] Jose Lamb PA 4 [facility] [address] [place], [place] [id number] Social History Tobacco Use Types Packs/Day Years Used Date Smoking Tobacco: Never Alcohol Use Standard Drinks/Week Comments No 0 (1 standard drink = 0.6 oz pur e alcohol) Comments Unknown Sex and Gender Information Value Date Recorded Sex Assigned at Not on file Legal Sex Female 9:34 AM KILN TRANSFER OPERATOR Gender Identity Not on file Sexual Orientation Not on file documented as of this encounter Miscellaneous Notes * Telephone Encounter - Jose Lamb PA - 11/12/2016 1:47 PM CDT error documented in this encounter Plan of Treatment Not on file documented as of this encounter Visit Diagnoses Not on filedocumented in this encounter Care Teams Loom Overhauler Relationship Specialty Start Date End Date Richmond Carrion MD [address] [place] [address] [place] [address] PCP - General Family Practice 09/26/16 10/20/21 documented as of this encounter
--- OUTSIDE RECORDS SUMMARY | 2024-03-29 08:24 | XMS_ITS | Encounter Summary ---
Author Organization [facility] Address [address] [facility] [address] [place] [address] Care Team Providers Care Assembly Instructions Writer Name Role Phone Richmond Carrion MD Primary Care Provider Encounter Details Date Type Department Care Team (Latest Contact Info) Description 10/17/2016 11:17 AM CDT - 10/17/2016 11:59 PM T Hospital Encounter [facility] Orthopedics and Sports Medicine [address] [place] [phone] Discharge Disposition: Discharge to home or self care Social History Tobacco Use Types Packs/Day Years Used Date Smoking Tobacco: Never Alcohol Use Standard Drinks/Week Comments No 0 (1 standard drink = 0.6 oz pur e alcohol) Comments Unknown Sex and Gender Information Value Date Recorded Sex Assigned at Not on file Legal Sex Female 9:34 AM GYM TEACHER Gender Identity Not on file Sexual [...] Date/Time Associated Diagnosis Comments XR KNEE RIGHT 4 OR MORE VIEWS Schedule Routine, Read Routine (OP Routine) 10/17/2016 11:27 AM CDT Right knee pain, unspecified chronicity documented in this encounter Results * XR Knee Right 4+ View (10/17/2016 11:27 AM CDT) Anatomical Region Laterality Modality Lower Extremities, Knee Right [facility] Narrative 10/17/2016 11:48 AM CDT Weightbearing views of the Knee are reviewed and demonstrate no acute fractures or osseous changes. ??Tricompartmental degenerative changes present with joint space narrowing, osteophyte formation, and subchondral sclerosis. ??Bone on bone medial comp. us Jaret Abdalla MD IMG XR PROCEDURES Edited Res ult - Final documented in this encounter Visit Diagnoses Not on filedocumented in this encounter Care Teams Assembly Instructions Writer Relationship Specialty Start Date End Date Richmond Carrion MD [address] [place] [address] [place] [address] PCP - General Family Practice 09/26/16 10/20/21 documented as of this encounter
--- OUTSIDE RECORDS SUMMARY | 2024-03-29 08:24 | XMS_ITS | Encounter Summary ---
Author Organization [facility] Address [address] [facility] [address] [place] [address] Care Team Providers Care Airport Clerk Name Role Phone Richmond Carrion MD Primary Care Provider [phone] Encounter Details Date Type Department Care Team (Late st Contact Info) Description 10/30/2016 Telephone [facility] Orthopedics and Sports Medicine [address] [place] [phone] Elizabeth Godoy MA Social History Tobacco Use Types Packs/Day Years Used Date Smoking Tobacco: Never Alcohol Use Standard Drinks/Week Comments No 0 (1 standard drink = 0.6 oz pur e alcohol) Comments Unknown Sex and Gender Information Value Date Recorded Sex Assigned at Not on file Legal Sex Female 9:34 AM ACCOUNTING MANAGER CPA Gender Identity Not on file Sexual Orientation Not on file documented as of this encounter Miscellaneous Notes * Telephone Encounter - Elizabeth Godoy MA - 10/30/2016 1:14 PM CDT Medical clearance faxed to hospital documented in this encounter Plan of Treatment Not on file documented as of this encounter Visit Diagnoses Not on filedocumented in this encounter Care Teams Airport Clerk Relationship Specialty Start Date End Date Richmond Carrion MD [address] [place] [address] [place] [address] PCP - General Family Practice 09/26/16 10/20/21 documented as of this encounter
--- OUTSIDE RECORDS SUMMARY | 2024-03-29 08:24 | XMS_ITS | Encounter Summary ---
Author Organization [facility] Address [address] [facility] [address] [place] [address] Care Team Providers Care Cheese Weigher Name Role Phone Richmond Carrion MD Primary Care Provider [phone] Encounter Details Date Type Department Care Team (Late st Contact Info) Description 10/28/2016 Orders Only [facility] Orthopedics and Sports Medicine [address] [facility] [address] [place] [address] Jaret Abdalla MD [address] [place] [address] [address] [place], [place] [id number] Primary osteoarthritis of right knee (Primary Dx) Social History Tobacco Use Types Packs/Day Years Used Date Smoking Tobacco: Never Alcohol Use Standard Drinks/Week Comments No 0 (1 standard drink = 0.6 oz pur e alcohol) Comments Unknown Sex and Gender Information Value Date Recorded Sex Assigned at Not on file Legal Sex Female 9:34 AM COOK FRUIT Gender Identity Not on file Sexual Orientation Not on file documented as of this encounter Plan of Treatment Not on file documented as of this encounter Visit Diagnoses Diagnosis Primary osteoarthritis of right knee- Primary documented in this encounter Orders General Supply Count Last Ordered Date First Or dered Date NEUROMUSCULAR ELECTRICAL STI MULATION (NMES) 1 10/28/2016 documented in this encounter Care Teams Cheese Weigher Relationship Specialty Start Date End Date Richmond Carrion MD [facility] [address] [place] [id number] PCP - General Family Practice 09/26/16 10/20/21 documented as of this encounter
--- OUTSIDE RECORDS SUMMARY | 2024-03-29 08:24 | XMS_ITS | Encounter Summary ---
Author Organization [facility] Address [address] [facility] [address] [place] [address] Care Team Providers Care Trash Truck Driver Name Role Phone Richmond Carrion MD Primary Care Provider [phone] Encounter Details Date Type Department Care Team (Latest Contact Info) Description 10/17/2016 11:13 AM CDT - 10/17/2016 11:16 [address] [facility] Orthopedics and Sports Medicine [address] [place] [phone] Discharge Disposition: Discharge to home or self care Social History Tobacco Use Types Packs/Day Years Used Date Smoking Tobacco: Never Alcohol Use Standard Drinks/Week Comments No 0 (1 standard drink = 0.6 oz pur e alcohol) Comments Unknown Sex and Gender Information Value Date Recorded Sex Assigned at Not on file Legal Sex Female 9:34 AM CHEF ASSISTANT Gender Identity Not on file Sexual Orientation [...] on filedocumented in this encounter Care Teams Trash Truck Driver Relationship Specialty Start Date End Date Richmond Carrion MD [address] [place] [address] [place] [address] PCP - General Family Practice 09/26/16 10/20/21 documented as of this encounter
--- OUTSIDE RECORDS SUMMARY | 2024-03-29 08:24 | XMS_ITS | Encounter Summary ---
Author Organization [facility] Address [address] [facility] [address] [place] [address] Care Team Providers Care Form Raiser Name Role Phone Richmond Carrion MD Primary Care Provider [phone] Reason for Visit * Reason Comments Pain Encounter Details Date Type Department Care Team (Latest Contact Info) Description 10/17/2016 9:45 AM CDT Office Visit [facility] Orthopedics and Sports Medicine [address] [place] [phone] Jaret Abdalla MD [address] [place] [address] [address] [address] Left knee pain, unspecified chronicity (Primary Dx); Primary osteoarthritis of right knee Social History Tobacco Use Types Packs/Day Years Used Date Smoking Tobacco: Never Alcohol Use Standard Drinks/Week Comments No 0 (1 standard drink = 0.6 oz pur e alcohol) Comments Unknown Sex and Gender Information Value Date Recorded Sex Assigned at Not on file 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 Gender Identity Not on file Sexual Orientation Not on file documented as of this encounter Last Filed Vital Signs Vital Sign Reading Time Taken Comments Blood Pressure 129/82 10/17/2016 11:02 AM CDT Pulse 91 10/17/2016 11:02 AM CDT Temperature - - Respiratory Rate - - Oxygen Saturation - - Inhaled Oxygen Concentration - - Weight 76.3 kg (168 lb 3.2 oz) 10/17/2016 11:02 AM CDT Height 162.6 cm (5' 4 ) 10/17/2016 11:02 AM CDT Body Mass Index 28.87 10/17/2016 11:02 AM CDT documented in this encounter Progress Notes * Jaret Abdalla MD - 10/17/2016 9:45 AM CDT NEW PATIENT VISIT Subjective CHIEF COMPLAINT She had concerns including Pain of the Right Knee. HISTORY OF PRESENT ILLNESS Knee Pain Patient complains of right knee pain. This is evaluated as a personal injury. The pain began several years ago. The pain is located popliteral. She describes the symptoms as aching, burning and sharp. Symptoms improve with rest lying down. The symptoms are worse with activity. The knee has given out or felt unstable. The patient cannot bend and straighten the knee fully. The patient is active in no sports. Treatment to date has been cortisone injection, with significant relief. Pain Assessment Pain Assessment: 0-10 Pain Score: 4 PAST MEDCIAL HISTORY She has a past medical history of GERD (gastroesophageal reflux disease); History of blood clots; Hypertension; Osteoarthritis; and Poor circulation. PAST SURGICAL HISTORY She has a past surgical history that includes Appendectomy; Breast biopsy; Thyroid lobectomy (Left); Neuroma surgery (Left); Knee arthroscopy (Right); Endovenous ablation saphenous vein w/ laser (Left); Joint replacement (Left, 2007); and Vaginal prolapse repair. MEDICATIONS She has a current medication list which includes the following prescription(s): atorvastatin, ciprofloxacin, duloxetine dr, hydrocodone-acetaminophen, lisinopril, nitrofurantoin monohydrate, omeprazole, premarin, ropinirole, and valacyclovir. ALLERGIES She is allergic to penicillins; sulfabenzamide; sulfasalazine; adhesive tape- silicones; etodolac; and prochlorperazine. SOCIAL HISTORY She reports that she has never smoked. She does not have any smokeless tobacco history on file. Shereports that she does not drink alcohol or use drugs. FAMILY HISTORY Her family history includes Cancer in her father; Heart disease in her father; Hypertension in her father; Stroke in her mother. REVIEW OF SYSTEMS Review of Systems Constitutional: Negative for activity change, appetite change, chills and fever. HENT: Negative for congestion, dental problem, ear pain, hearing loss and voice change. Eyes: Negative for pain and visual disturbance. Respiratory: Negative for apnea, cough, chest tightness and shortness of breath. Cardiovascular: Negative for chest pain, palpitations and leg swelling. Gastrointestinal: Positive for abdominal pain and diarrhea. Negative for blood in stool, constipation, nausea and vomiting. Weight loss Endocrine: Negative for cold intolerance and heat intolerance. Genitourinary: Negative for difficulty urinating and hematuria. Skin: Negative for color change, rash and wound. Allergic/Immunologic: Negative for environmental allergies. Neurological: Negative for dizziness, syncope, numbness and headaches. Hematological: Negative for adenopathy. Does not bruise/bleed easily. Psychiatric/Behavioral: Negative for confusion. The patient is not nervous/anxious and is not hyperactive. Objective PHYSICAL EXAM BP 129/82 (BP Location: Right arm, Patient Position: Sitting) Pulse 91 Ht 162.6 cm (5' 4 ) Wt76.3 kg (168 lb 3.2 oz) BMI 28.87 kg/m?? Right knee Inspection Alignment: varus Gait: antalgic Palpation Tenderness: present. The tenderness is located in the condyle, lateral joint line, medial hamstring, medial retinaculum and medial joint line. Crepitus: positive Patella grind: positive Range of motion The patient has pain with range of motion of the right knee. Strength The patient has 5/5 strength thoughout right knee. Neurovascular The patient has normal vascular on the right side of their body. Left knee Inspection Alignment: neutral Gait: normal Palpation The patient has normal palpation of the left knee. Crepitus: positive Patella grind: positive Range of motion The patient has pain with range of motion of the left knee. Strength The patient has 5/5 strength throughout. Neurovascular The patient has normal vascular on the left side of their body. REVIEW OF X-RAYS/STUDIES/LABS XR Knee Right 4+ View Weightbearing views of the Knee are reviewed and demonstrate no acute fractures or osseous changes.Tricompartmental degenerative changes present with joint space narrowing, osteophyte formation, andsubchondral sclerosis. Bone on bone medial comp. Assessment/Plan Beryl was seen today for pain. Diagnoses and all orders for this visit: Left knee pain, unspecified chronicity - Cancel: XR Knee Left 4+ View Procedures PLAN Risks and benefits of total knee arthroplasty were discussed with the patient. These include but are not limited to bleeding infection damage to surrounding structures including, fracture, Damage to nerves, arteries, veins, DVT, PE, stroke, heart attack, and . Patient understands these risks and agreed to proceed with the surgery as described above. All questions and concerns were addressed with the patient prior to surgical consent being established in the office today. The patient will follow up for surgery. Jaret Abdalla MD documented in this encounter Plan of Treatment Not on file documented as of this encounter Visit Diagnoses Diagnosis Left knee pain, unspecified chronicity- Primary Primary osteoarthritis of right knee documented in this encounter Discontinued Medications Medication Sig Discontinue Reason Start Date End Da te DULoxetine HCl, bulk, 100 % powder Take by mouth. Alternate therapy 10/17/2016 LIBRAX, WITH CLIDINIUM, 5-2.5 mg per capsule TK 1 C PO BID AC Alternate therapy 10/08/2016 10/18/19 17 documented as of this encounter Historical Medications * This list may reflect changes made after this encounter. valACYclovir (VALTREX) 1 gram tablet TK 2 TS PO BID FOR 1 DAY 5 10/02/2016 lisinopril (PRINIVIL,ZESTRIL ) 10 mg tablet TK 1 T PO QD 0 08/11/2016 PREMARIN vaginal cream APPLY 0.5 GRAMS VAGINALLY QOD 3 09/05/[address] (CYMBALTA) 60 mg capsule 0 09/26/2016 atorvastatin (LIPITOR) 10 mg tablet Take 10 mg by mouth. rOPINIRole (REQUIP) 0.25 mg tablet Take 0.25 mg by mouth. 8 omeprazole (PriLOSEC) 20 mg capsule Take 20 mg by mouth. 2 nitrofurantoin monohydrate (MACROBID) 100 mg capsule 0 08/11/2016 2 HYDROcodone-aceta minophen (NORCO) 7.5-325 mg per tabletIndications :Pain TK 1 T PO BID PRN 0 10/06/2016 7 DULoxetine HCl, bulk, 100 % powder Take by mouth. 7 ciprofloxacin (CIPRO) 500 mg tablet 3 09/05/2016 2 LIBRAX, WITH CLIDINIUM, 5-2.5 mg per capsule TK 1 C PO BID AC 2 10/08/2016 7 added in this encounter Care Teams Form Raiser Relationship Specialty Start Date End Date Richmond Carrion MD [address] [place] [address] [place] [address] PCP - General Family Practice 09/26/16 10/20/21 documented as of this encounter
--- OUTSIDE RECORDS SUMMARY | 2024-03-29 08:24 | XMS_ITS | Encounter Summary ---
Author Organization [facility] Address [address] [facility] [address] [place] [address] Care Team Providers Care Machine Maintenance Servicer Name Role Phone Richmond Carrion MD Primary Care Provider [phone] Encounter Details Date Type Department Care Team (Late st Contact Info) Description 10/21/2016 Documentation [facility] Orthopedics and Sports Medicine [address] 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
--- OUTSIDE RECORDS SUMMARY | 2024-03-29 08:25 | XMS_ITS | Encounter Summary ---
Author Organization [facility] Facility Care Team Providers Care Car Head Liner Installer Name Role Phone Unavailable Primary Care Provider Unavailabl e Encounter Details Date Type Department Care Team (Late st Contact Info) Description 10/02/2015 - 10/02/2015 4:00 PM CDT Hospital Encounter [facility] Richmond Fonseca MD [address] [place] [address] [place] [address] Social History Tobacco Use Types Packs/Day Years Used Date Smoking Tobacco: Never Assessed Comments Unknown Sex and Gender Information Value Date Recorded Sex Assigned at Not on file 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
--- OUTSIDE RECORDS SUMMARY | 2024-03-29 08:25 | XMS_ITS | Encounter Summary ---
Author Organization [facility] Facility Care Team Providers Care Granulator Operator Name Role Phone Unavailable Primary Care Provider Unavailabl e Encounter Details Date Type Department Care Team (Latest Contact Info) Description 08/15/2008 10:47 AM CDT - 08/16/2008 5:40 PM CDT Hospital Encounter [facility] [place] [address] [place] [address] Prolapse of vaginal vault after hysterectomy; Urge incontinence; Personal history of venous thrombosis and embolism; Essential hypertension; Pure hypercholesterolemia; Esophageal reflux; Arthropathy; 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; Postsurgical hypothyroidism Social History Tobacco Use Types Packs/Day Years Used Date Smoking Tobacco: Never Assessed Comments Unknown Sex and Gender Information Value Date Recorded Sex Assigned at Not on file 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
--- OUTSIDE RECORDS SUMMARY | 2024-03-29 08:25 | XMS_ITS | Encounter Summary ---
Author Organization [facility] Facility Care Team Providers Care Canine Deputy Name Role Phone Unavailable Primary Care Provider Unavailabl e Encounter Details Date Type Department Care Team (Latest Contact Info) Description 08/26/2013 10:56 AM CDT - 08/26/2013 2:35 PM CDT Hospital Encounter [facility] Russel Kidd MD [address] [facility] [address] [place] [address] Benign neoplasm of stomach; Other specified gastritis; Essential hypertension; Personal history of allergy to penicillin; Personal history of allergy to sulfonamides Social History Tobacco Use Types Packs/Day Years Used Date Smoking Tobacco: Never Assessed Comments Unknown Sex and Gender Information Value Date Recorded Sex Assigned at Not on file 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 Historical Provider LAB PATHOLOGY ORDERABLES Final Result * PENNY TEST REPORT (08/26/2013) Anatomical Region Laterality Modality Other Narrative 08/26/2013 Ordered by an unspecified provider. us Historical Provider MD GI PROCEDURE ORDERABLES F inal Result * UPPER ENDOSCOPIC ULTRASONOGRAPHY REPORT (08/26/2013) Anatomical Region Laterality Modality Other Narrative 08/26/2013 Ordered by an unspecified provider. us Historical Provider GI PROCEDURE ORDERABLES F inal Result documented in this encounter Visit Diagnoses Diagnosis Benign neoplasm of stomach Other specified gastritis Essential hypertension Unspecified essential hypertension Personal history of allergy to penicillin Personal history of allergy to sulfonamides documented in this encounter
--- OUTSIDE RECORDS SUMMARY | 2024-03-29 08:25 | XMS_ITS | Encounter Summary ---
Author Organization [facility] Facility Care Team Providers Care Unix Engineer Name Role Phone Unavailable Primary Care Provider Unavailabl e Encounter Details Date Type Department Care Team (Late st Contact Info) Description 09/20/2013 - 09/20/2013 11:59 PM CDT Hospital Encounter [facility] Richmond Fonseca MD [address] [place] [address] [place] [address] Other screening mammogram Social History Tobacco Use Types Packs/Day Years Used Date Smoking Tobacco: Never Assessed Comments Unknown Sex and Gender Information Value Date Recorded Sex Assigned at Not on file 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 FINAL REPORT ACC# ??Date Time ??Exam [id number] Sep 20, 2013 12:10:00 [facility] [id number] Screening Mamm Bilat ?? Technologist(s): Jessica Murguia; ; EXAMINATION: ??Mammogram Technique: Bilateral Full-Field Digital Screening Mammogram was performed. ??Views obtained: ??bilateral craniocaudal and bilateral mediolateral oblique. Computer Aided Detection was performed with Zuffle 1.3 version 9.3. Mammogram Findings: The present examination has been compared to prior imaging studies performed at [facility] on 09/16/2012, 09/17/2011, 09/13/2010, 09/12/2009 and 09/07/2008. The breasts are heterogeneously dense which could obscure a lesion on mammography. There is no suspicious abnormality in either breast. IMPRESSION: ??Annual screening mammography is recommended. OVERALL FINAL ASSESSMENT: BI-RADS CATEGORY 1: ??Negative. Requested By: Richmodn Carrion ??Sasha. Dictated By: ?? CHU HUITRON M.D. ??on Sep 20 2013 10:49P This document has been electronically signed by: CHU HUITRON M.D. on Sep 20 2013 10:49P Procedure Note Provider, MD Aj - 07/30/2016 CHU HUITRON M.D. FINAL REPORT ACC# Date Time Exam [id number] Sep 20, 2013 12:10:00 [facility] [id number] Screening Mamm Bilat Technologist(s): Jessica Murguia; ; EXAMINATION: Mammogram Technique: Bilateral Full-Field Digital Screening Mammogram was performed. Views obtained: bilateral craniocaudal and bilateral mediolateral oblique. Computer Aided Detection was performed with Zuffle 1.3 version 9.3. Mammogram Findings: The present examination has been compared to prior imaging studies performed at [facility] on 09/16/2012, 09/17/2011,09/13/2010, 09/12/2009 and 09/07/2008. The breasts are heterogeneously dense which could obscure a lesion on mammography. There is no suspicious abnormality in either breast. IMPRESSION: Annual screening mammography is recommended. OVERALL FINAL ASSESSMENT: BI-RADS CATEGORY 1: Negative. Requested By: Richmond Carrion M.D. Dictated By: CHU HUITRON M.D. on Sep 20 2013 10:49P This document has been electronically signed by: CHU HUITRON M.D. on Sep 20 2013 10:49P Historical Provider MD BOWERS MAMMO PROCEDURES Latonya l Result documented in this encounter Visit Diagnoses Diagnosis Other screening mammogram documented in this encounter
--- OUTSIDE RECORDS SUMMARY | 2024-03-29 08:25 | XMS_ITS | Encounter Summary ---
Author Organization [facility] Facility Care Team Providers Care Gymnastic Teacher Name Role Phone Unavailable Primary Care Provider Unavailabl e Encounter Details Date Type Department Care Team (Late st Contact Info) Description 09/13/2010 - 09/13/2010 11:59 PM CDT Hospital Encounter [facility] Richmond Fonseca MD [address] [place] [address] [place] [address] Other screening mammogram Social History Tobacco Use Types Packs/Day Years Used Date Smoking Tobacco: Never Assessed Comments Unknown Sex and Gender Information Value Date Recorded Sex Assigned at Not on file 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
--- OUTSIDE RECORDS SUMMARY | 2024-03-29 08:25 | XMS_ITS | Encounter Summary ---
Author Organization [facility] Facility Care Team Providers Care Electrical Mechanical Technician Name Role Phone Unavailable Primary Care Provider Unavailabl e Encounter Details Date Type Department Care Team (Late st Contact Info) Description 09/29/2014 - 09/29/2014 11:59 PM CDT Hospital Encounter [facility] Richmond Fonseca MD [address] [place] [address] [place] [address] Other screening mammogram Social History Tobacco Use Types Packs/Day Years Used Date Smoking Tobacco: Never Assessed Comments Unknown Sex and Gender Information Value Date Recorded Sex Assigned at Not on file 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 FINAL REPORT ACC# ??Date Time ??Exam [id number] Sep 29, 2014 10:11:00 [facility] [id number] Screening Mamm Bilat ?? Technologist(s): Anastacia Camp; ; EXAMINATION: ??Mammogram Technique: Bilateral Full-Field Digital Screening Mammogram was performed. ??Views obtained: ??bilateral craniocaudal and bilateral mediolateral oblique. Computer Aided Detection was performed with Wantworthy 1.3 version 9.3. Mammogram Findings: The present examination has been compared to prior imaging studies performed at [facility] on 09/20/2013, 09/16/2012 and 09/17/2011. There are scattered fibroglandular densities. There is no suspicious abnormality in either breast. IMPRESSION: ??Annual screening mammography is recommended. OVERALL FINAL ASSESSMENT: BI-RADS CATEGORY 1: ??Negative. Requested By: Dictated By: ?? FERNANDO GILBERT M.D. ??on Sep 29 2014 ??1:42P This document has been electronically signed by: FERNANDO GILBERT M.D. on Sep 29 2014 11:40A [id number] Procedure Note Provider, MD Aj - 07/30/2016 FERNANDO GILBERT M.D. FINAL REPORT ACC# Date Time Exam [id number] Sep 29, 2014 10:11:00 [facility] [id number] Screening Mamm Bilat Technologist(s): Anastacia Camp; ; EXAMINATION: Mammogram Technique: Bilateral Full-Field Digital Screening Mammogram was performed. Views obtained: bilateral craniocaudal and bilateral mediolateral oblique. Computer Aided Detection was performed with Wantworthy 1.3 version 9.3. Mammogram Findings: The present examination has been compared to prior imaging studies performed at [facility] on 09/20/2013, 09/16/2012 and 09/17/2011. There are scattered fibroglandular densities. There is no suspicious abnormality in either breast. IMPRESSION: Annual screening mammography is recommended. OVERALL FINAL ASSESSMENT: BI-RADS CATEGORY 1: Negative. Requested By: Dictated By: FERNANDO GILBERT M.D. on Sep 29 2014 1:42P This document has been electronically signed by: FERNANDO GILBERT M.D. on Sep 29 2014 11:40A [id number] Historical Provider MD BOWERS MAMMO PROCEDURES Latonya l Result documented in this encounter Visit Diagnoses Diagnosis Other screening mammogram documented in this encounter
--- OUTSIDE RECORDS SUMMARY | 2024-03-29 08:25 | XMS_ITS | Encounter Summary ---
Author Organization [facility] Facility Care Team Providers Care Slack Line Yarder Name Role Phone Unavailable Primary Care Provider Unavailabl e Encounter Details Date Type Department Care Team (Late st Contact Info) Description 09/07/2008 10:00 AM CDT - 09/07/2008 11:59 PM T Hospital [facility] [address] [place] [address] [place] [address] Other screening mammogram Social History Tobacco Use Types Packs/Day Years Used Date Smoking Tobacco: Never Assessed Comments Unknown Sex and Gender Information Value Date Recorded Sex Assigned at Not on file 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
--- OUTSIDE RECORDS SUMMARY | 2024-03-29 08:25 | XMS_ITS | Encounter Summary ---
Author Organization [facility] Facility Care Team Providers Care Pharm Tech Name Role Phone Unavailable Primary Care Provider Unavailabl e Encounter Details Date Type Department Care Team (Late st Contact Info) Description 08/21/2006 - 08/21/2006 11:59 PM CDT Hospital Encounter [facility] Richmond Fonseca MD [address] [place] [address] [place] [address] Social History Tobacco Use Types Packs/Day Years Used Date Smoking Tobacco: Never Assessed Comments Unknown Sex and Gender Information Value Date Recorded Sex Assigned at Not on file 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
--- OUTSIDE RECORDS SUMMARY | 2024-03-29 08:25 | XMS_ITS | Encounter Summary ---
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
--- OUTSIDE RECORDS SUMMARY | 2024-03-29 08:25 | XMS_ITS | Encounter Summary ---
Author Organization [facility] Facility Care Team Providers Care Tin Pourer Name Role Phone Unavailable Primary Care Provider Unavailabl e Encounter Details Date Type Department Care Team (Late st Contact Info) Description 09/12/2009 - 09/12/2009 11:59 PM CDT Hospital Encounter [facility] Richmond Fonseca MD [address] [place] [address] [place] [address] Other screening mammogram Social History Tobacco Use Types Packs/Day Years Used Date Smoking Tobacco: Never Assessed Comments Unknown Sex and Gender Information Value Date Recorded Sex Assigned at Not on file 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
--- OUTSIDE RECORDS SUMMARY | 2024-03-29 08:25 | XMS_ITS | Encounter Summary ---
Author Organization [facility] Facility Care Team Providers Care Dye House Supervisor Name Role Phone Unavailable Primary Care Provider Unavailabl e Encounter Details Date Type Department Care Team (Latest Contact Info) Description 08/08/2008 2:07 PM CDT - 08/08/2008 11:59 PM CDT Hospital Encounter [facility] [place] [address] [place] [address] Other specified pre-operative examination; Vaginal prolapse Social History Tobacco Use Types Packs/Day Years Used Date Smoking Tobacco: Never Assessed Comments Unknown Sex and Gender Information Value Date Recorded Sex Assigned at Not on file 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
--- OUTSIDE RECORDS SUMMARY | 2024-03-29 08:25 | XMS_ITS | Encounter Summary ---
Author Organization [facility] Facility Care Team Providers Care Construction Framer Name Role Phone Unavailable Primary Care Provider Unavailabl e Encounter Details Date Type Department Care Team (Late st Contact Info) Description 08/25/2007 - 08/25/2007 11:59 PM CDT Hospital Encounter [facility] Richmond Fonseca MD [address] [place] [address] [place] [address] Social History Tobacco Use Types Packs/Day Years Used Date Smoking Tobacco: Never Assessed Comments Unknown Sex and Gender Information Value Date Recorded Sex Assigned at Not on file 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
--- OUTSIDE RECORDS SUMMARY | 2024-03-29 08:25 | XMS_ITS | Encounter Summary ---
Author Organization [facility] Healthcare Address [address] [place] [address] Care Team Providers Care Boot Liner Maker Name Role Phone Richmond Webber MD Primary Care Provider Encounter Details Date Type Department Care Team (Latest Contact Info) Description 10/03/2016 9:08 AM CDT - 10/03/2016 11:59 PM T Hospital Encounter [facility] [phone] Richmond Webber MD [address] [place] [address] Discharge Disposition: Discharge to home or self care Social History Tobacco Use Types Packs/Day Years Used Date Smoking Tobacco: Never Assessed Comments Unknown Sex and Gender Information Value Date Recorded Sex Assigned at Not on file 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 Gender Identity Not on file Sexual Orientation Not on file documented as of this encounter Medications at Time of Discharge DULoxetine (CYMBALTA) 60 mg capsule 0 09/26/2016 lisinopril (PRINIVIL,ZESTRIL ) 10 mg tablet TK 1 T PO QD 0 08/11/2016 PREMARIN vaginal cream APPLY 0.5 GRAMS VAGINALLY QOD 3 09/05/2016 valACYclovir (VALTREX) 1 gram tablet TK 2 TS PO BID FOR 1 DAY 5 10/02/2016 ciprofloxacin (CIPRO) 500 mg tablet 3 09/05/2016 2 nitrofurantoin monohydrate (MACROBID) 100 mg capsule 0 08/11/2016 2 documented as of this encounter Discharge Disposition Disposition Code Departure Means Destination Discharge to home or self care documented in this encounter Plan of Treatment Not on file documented as of this encounter Procedures Procedure Name Priority Date/Time Associated Diagnosis Comments MAMMOGRAPHY, TOMOGRAPHY, BILATERAL Routine 10/03/2016 2:40 PM CDT documented in this encounter Results * MAMMOGRAPHY, TOMOGRAPHY, BILATERAL (10/03/2016 2:40 PM CDT) Anatomical Region Laterality Modality Bilateral Mammography 10/03/2016 2:40 PM CDT Narrative 10/03/2016 2:40 PM CDT SONAL LOCKHART M.D. FINAL REPORT ACC# ??Date Time ??Exam [id number] Oct 03, 2016 09:40:00 [facility] [id number] Scr Mamm estrellita 2v w/FAISAL ?? Technologist(s): Sharron Asencio; ; EXAMINATION: ??Mammogram Technique: Bilateral Digital Breast Tomosynthesis, Bilateral C-view 2D Screening mammogram. ??Views obtained: ??bilateral craniocaudal and bilateral mediolateral oblique. ??Computer Aided Detection was performed. Mammogram Findings: The present examination has been compared to prior imaging studies performed at [facility] on 09/20/2013, 09/29/2014 and 10/02/2015. There are scattered areas of fibroglandular density. There is no suspicious abnormality in either breast. IMPRESSION: ??As this patient is over 80 years of age, further mammographic screening can be obtained as clinically indicated. OVERALL FINAL ASSESSMENT: BI-RADS CATEGORY 1: ??Negative. Requested By: Richmond Webber ??Chip ? Dictated By: ?? SONAL LOCKHART M.D. ??on Oct 08 2016 ??9:56A This document has been electronically signed by: SONAL LOCKHART M.D. on Oct 08 2016 ??9:56A [id number] LOCKHART M.D. FINAL REPORT Attending: ??LAWANDA, ??RICHMOND Requesting: ??Lawanda, ??Richmond Requesting Fax: ?? Attending Fax: ?? Attending ID: ??[id number] Requesting ID: ??[id number] Report To 1 ID: ??[id number] ? Report To 1 Name: ??, ?? Report To 1 FAX: ?? NextGen Order #: ?? Procedure Note Miscellaneous, Not In File - 01/30/2017 SONAL LOCKHART M.D. FINAL REPORT ACC# Date Time Exam [id number] Oct 03, 2016 09:40:00 [facility] [id number] Scr Mamm estrellita 2v w/FAISAL Technologist(s): Sharron Asencio; ; EXAMINATION: Mammogram Technique: Bilateral Digital Breast Tomosynthesis, Bilateral C-view 2D Screening mammogram. Views obtained: bilateral craniocaudal and bilateral mediolateral oblique. Computer Aided Detection was performed. Mammogram Findings: The present examination has been compared to prior imaging studies performed at [facility] on 09/20/2013, 09/29/2014 and 10/02/2015. There are scattered areas of fibroglandular density. There is no suspicious abnormality in either breast. IMPRESSION: As this patient is over 80 years of age, further mammographic screening can be obtained as clinically indicated. OVERALL FINAL ASSESSMENT: BI-RADS CATEGORY 1: Negative. Requested By: Richmond Webber M.D. Dictated By: SONAL LOCKHART M.D. on Oct 08 2016 9:56A This document has been electronically signed by: SONAL LOCKHART M.D. on Oct 08 2016 9:56A [id number] LOCKHART M.D. FINAL REPORT Attending: RICHMOND WEBBER Requesting: Richmond Webber Requesting Fax: Attending Fax: Attending ID: [id number] Requesting ID: [id number] Report To 1 ID: [id number] Report To 1 Name: , Report To 1 FAX: NextGen Order #: Richmond Webber MD IMG MAMMO PROCEDURES Edited Re sult - Final documented in this encounter Visit Diagnoses Not on filedocumented in this encounter Care Teams Boot Liner Maker Relationship Specialty Start Date End Date Richmond Webber MD [address] [place] [address] [place] [address] PCP - General Family Practice 09/26/16 10/20/21 documented as of this encounter
--- OUTSIDE RECORDS SUMMARY | 2024-03-29 08:25 | XMS_ITS | Encounter Summary ---
Author Organization [facility] Facility Care Team Providers Care Disability Representative Name Role Phone Unavailable Primary Care Provider Unavailabl e Encounter Details Date Type Department Care Team (Late st Contact Info) Description 09/29/2014 - 09/29/2014 4:00 PM CDT Hospital Encounter 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
--- OUTSIDE RECORDS SUMMARY | 2024-03-29 08:25 | XMS_ITS | Encounter Summary ---
Author Organization [facility] Facility Care Team Providers Care Player Manager Name Role Phone Unavailable Primary Care Provider Unavailabl e Encounter Details Date Type Department Care Team (Late st Contact Info) Description 09/16/2012 - 09/16/2012 11:59 PM CDT Hospital Encounter 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 FINAL REPORT ACC# ??Date Time ??Exam [id number] Sep 16, 2012 10:17:00 [facility] [place] [address] Screening Mamm Bilat ?? Technologist(s): Patricia Suazo; ; EXAMINATION: ??Mammogram Findings: A Full-Field Digital Screening Mammogram was performed. ??Views obtained: bilateral craniocaudal; bilateral mediolateral oblique. Computer Aided Detection was performed with [employer] 1.3 version 9.3. The present examination has been compared to prior imaging studies performed at [facility] on 09/17/2011, 09/13/2010 and 09/12/2009. The breasts are heterogeneously dense which could obscure a lesion on mammography. There is no suspicious abnormality in either breast. IMPRESSION: ??Annual screening mammography is recommended. OVERALL FINAL ASSESSMENT: BI-RADS CATEGORY 1: ??Negative. Requested By: Richmond Carrion ??Sasha. Dictated By: ?? SONAL LOCKHART M.D. ??on Sep ??2012 ??1:26P This document has been electronically signed by: SONAL LOCKHART M.D. on Sep?2012 ??1:26P Procedure Note Provider, MD Aj - 07/30/2016 SONAL LOCKHART M.D. FINAL REPORT ACC# Date Time Exam [id number] Sep 16, 2012 10:17:00 [facility] [place] [address] Screening Mamm Bilat Technologist(s): Patricia Suazo; ; EXAMINATION: Mammogram Findings: A Full-Field Digital Screening Mammogram was performed. Views obtained: bilateral craniocaudal; bilateral mediolateral oblique. Computer Aided Detection was performed with [employer]s 1.3 version 9.3. The present examination has been compared to prior imaging studies performed at [facility] on 09/17/2011, 09/13/2010 and 09/12/2009. The breasts are heterogeneously dense which could obscure a lesion on mammography. There is no suspicious abnormality in either breast. IMPRESSION: Annual screening mammography is recommended. OVERALL FINAL ASSESSMENT: BI-RADS CATEGORY 1: Negative. Requested By: Richmond Carrion M.D. Dictated By: SONAL LOCKHART M.D. on Sep 17 2012 1:26P This document has been electronically signed by: SONAL LOCKHART M.D. on Sep 17 2012 1:26P us Historical Provider MD BOWERS MAMMO PROCEDURES Latonya l Result documented in this encounter Visit Diagnoses Diagnosis Other screening mammogram Inconclusive mammogram documented in this encounter
--- OUTSIDE RECORDS SUMMARY | 2024-03-29 08:25 | XMS_ITS | Encounter Summary ---
Author Organization [facility] Facility Care Team Providers Care Legal Analyst Name Role Phone Unavailable Primary Care Provider Unavailabl e Encounter Details Date Type Department Care Team (Late st Contact Info) Description 10/02/2015 11:13 AM CDT - 10/02/2015 11:59 PM CDT Hospital Encounter [facility] Jessica Atkinson MD [address] [facility] [address] [place] [address] Encounter for screening mammogram for malignant neoplasm of breast Social History Tobacco Use Types Packs/Day Years Used Date Smoking Tobacco: Never Assessed Comments Unknown Sex and Gender Information Value Date Recorded Sex Assigned at Not on file 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 FINAL REPORT ACC# ??Date Time ??Exam [id number] Oct 02, 2015 11:41:00 [facility] [id number] Bilateral screen w faisal ?? Technologist(s): Amelia Murray; ; EXAMINATION: ??Mammogram Technique: Bilateral Full-Field Digital Screening Mammogram and Digital Breast Tomosynthesis were performed. ??Views obtained: ??bilateral craniocaudal and bilateral mediolateral oblique. ??Computer Aided Detection of the 2D images was performed with Stand In 1.3 version 9.3. Mammogram Findings: The present examination has been compared to prior imaging studies performed at [facility] on 09/29/2014, 09/20/2013 and 09/16/2012. The breasts are heterogeneously dense, which may obscure small masses. There is no suspicious abnormality in either breast. IMPRESSION: ??Annual screening mammography is recommended. OVERALL FINAL ASSESSMENT: BI-RADS CATEGORY 1: ??Negative. Requested By: Dictated By: ?? JESSICA PALACIOS M.D. ??on Oct 04 2015 ??2:10P This document has been electronically signed by: JESSICA PALACIOS M.D. on Oct 04 2015 ??2:10P [id number] Procedure Note Provider, MD Aj - 07/30/2016 JESSICA PALACIOS M.D. FINAL REPORT ACC# Date Time Exam [id number] Oct 02, 2015 11:41:00 [facility] [id number] Bilateral screen w faisal Technologist(s): Amelia Murray; ; EXAMINATION: Mammogram Technique: Bilateral Full-Field Digital Screening Mammogram and Digital Breast Tomosynthesis were performed. Views obtained: bilateral craniocaudaland bilateral mediolateral oblique. Computer Aided Detection of the 2Dimages was performed with Stand In 1.3 version 9.3. Mammogram Findings: The present examination has been compared to prior imaging studies performed at [facility] on 09/29/2014, 09/20/2013 and 09/16/2012. The breasts are heterogeneously dense, which may obscure small masses. There is no suspicious abnormality in either breast. IMPRESSION: Annual screening mammography is recommended. OVERALL FINAL ASSESSMENT: BI-RADS CATEGORY 1: Negative. Requested By: Dictated By: JESSICA PALACIOS M.D. on Oct 04 2015 2:10P This document has been electronically signed by: JESSICA PALACIOS M.D. on Oct 04 2015 2:10P [id number] us Historical Provider MD BOWERS MAMMO PROCEDURES Latonya darling Result documented in this encounter Visit Diagnoses Diagnosis Encounter for screening mammogram for malignant neoplasm of breast documented in this encounter
--- OUTSIDE RECORDS SUMMARY | 2024-03-29 08:25 | XMS_ITS | Encounter Summary ---
Author Organization [facility] Facility Care Team Providers Care Molder Inflated Ball Name Role Phone Unavailable Primary Care Provider Unavailabl e Encounter Details Date Type Department Care Team (Late st Contact Info) Description 09/17/2011 - 09/17/2011 11:59 PM CDT Hospital Encounter [facility] Richmond Fonseca MD [address] [place] [address] [place] [address] Other screening mammogram Social History Tobacco Use Types Packs/Day Years Used Date Smoking Tobacco: Never Assessed Comments Unknown Sex and Gender Information Value Date Recorded Sex Assigned at Not on file 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
== END 2024-03-25 17:20 | disposition home or self-care (01) ==
PROVIDERS: Emergency Provider Nurse Practitioner Family; PCP Nurse Practitioner
DX: M79.675 Pain in left toe(s) (principal); G25.81 Restless legs syndrome; E78.5 Hyperlipidemia, unspecified; I10 Essential (primary) hypertension; M19.172 Post-traumatic osteoarthritis, left ankle and foot; E89.0 Postprocedural hypothyroidism; Z96.653 Presence of artificial knee joint, bilateral; Z79.82 Long term (current) use of aspirin
CPT/HCPCS: 99213; G0463

== ENCOUNTER 2024-06-16 18:18 | Emergency (ER) | payer MEDICARE, SELFPAY ==
--- NOTE | 2024-06-16 18:19 | ED_ITS ---
HPI - URI/Sore Throat General Chief Complaint: Upper Respiratory Infection Stated Complaint: sore throat / cold Like Time Seen by Provider: 06/16/24 18:19 Source: patient Mode of arrival: ambulatory Limitations: no limitations History of Present Illness HPI Narrative: Jessie is an 88-year-old female patient presenting to the clinic today with complaints of runny nose, sinus drainage in the back of her throat cough and cough x1 day. She reports has been tested positive for influenza a 3 days ago. Denies any chest pain, shortness of breath, fevers, chills, or body aches. MD elicited complaint: cough, sore throat and nasal congestion Related Data Home Medications ?Medication ?Instructions ?Recorded ?Confirmed ?Last Taken ?Type aspirin 81 mg tablet,delayed 81 mg PO DAILY 06/20/19 03/15/24 01/01/21 17:00 History release (Adult Low Dose Aspirin) fexofenadine 180 mg tablet 180 mg PO DAILY 06/20/19 03/15/24 01/01/21 12:00 History lysine 500 mg tablet (L-Lysine) 500 mg PO DAILY 06/20/19 03/15/24 01/01/21 12:00 History magnesium 250 mg tablet 250 mg PO DAILY 06/20/19 03/15/24 01/01/21 18:00 History acetaminophen 650 mg tablet 650 mg PO DAILY PRN Pain 12/01/20 03/15/24 01/01/21 12:00 History tizanidine 2 mg capsule 2 mg PO TID PRN 01/05/23 03/15/24 Unknown History Allergies Allergy/AdvReac Type Severity Reaction Status Date / Time Penicillins Allergy Severe RASH Verified 06/16/24 18:28 Sulfa (Sulfonamide Allergy Severe HIVES AND Verified 06/16/24 18:28 Antibiotics) SWELLING adhesive tape Allergy Intermediate skin tears Verified 06/16/24 18:28 Review of Systems Review of Systems: Pertinent positives per HPI. Patient denies any fever, chills, rash, headache, visual changes, dizziness, shortness of breath, chest pain, palpitations, nausea, vomiting, diarrhea, constipation, abdominal pain, or any urinary issues. 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 Gutierrez History of right knee joint replacement History of left knee replacement H/O thyroidectomy H/O right breast biopsy History of appendectomy H/O bilateral oophorectomy Family History Family History Father Acute myocardial infarction Heart disease Mother Sibling Cerebrovascular accident Other Unknown family medical history Social History Social History Smoking status: Never smoker Second hand tobacco smoke exposure: No Alcohol intake: never Substance use: never Substance use type: does not use Do You Feel Safe in your Home?: Yes Lack of Transportation: No Lack of Food: Never True Current Housing: I Have Housing Concerned About Future Housing: No Difficulty Paying Gas/Electric Bills: No Difficulty Paying for Meds: No Currently Unemployed: No Education: Bachelor's Degree Difficulty w/ Childcare or Family Care: No Living arrangements: with family 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 There is no relevant family history pertinent to the patient complaint. Exam Narrative: General: Well-developed, well nourished, in no apparent distress Head: Normocephalic, atraumatic Eyes: Pupils equally round and reactive to light bilaterally, EOM intact, sclera and conjunctive clear, no discharge, lids normal Ears: TMs intact and clear, ear canals clear, no drainage, grossly hearing normal. Nose: Nares patent, clear nasal discharge, mild inflammation, no sinus tenderness. Mouth: Oral pharynx without lesions or masses, good dentition, MMM. Postnasal drip Neck: Supple, trachea midline, no enlargement of anterior or posterior cervical nodes, no thyroid masses or goiter palpable. Cardio: Regular rate and rhythm, s1 and s2 normal, no murmur appreciated. Resp: Clear to auscultation bilaterally, no rhonchi, rales, wheezing or rubs Course Course Emergency Course: Portions of this record may have been created with voice recognition software. Level of Care: Express Care Visit Vital Signs Vital signs: Vital Signs Temperature 36.3 C L 06/16/24 18:28 Pulse Rate 85 06/16/24 18:28 Respiratory Rate 18 06/16/24 18:28 Blood Pressure 147/72 H 06/16/24 18:28 Pulse Oximetry 98 06/16/24 18:28 Oxygen Delivery Room Air 06/16/24 18:28 Temperature 36.3 C L 06/16/24 18:28 Pulse Rate 85 06/16/24 18:28 Respiratory Rate 18 06/16/24 18:28 Blood Pressure 147/72 H 06/16/24 18:28 Pulse Oximetry 98 06/16/24 18:28 Oxygen Delivery Room Air 06/16/24 18:28 Vital signs reviewed MDM - URI/Sore Throat MDM Narrative Medical decision making narrative: At the time of visit patient is resting comfortably on the exam table. Patient appears to be nontoxic. Labs: Influenza testing was performed and was negative. Plan: Patient has URI with influenza A exposure. Will place the patient on Ta miflu. Supportive measures were discussed with the patient and they voiced understanding discharge instructions and agrees to treatment plan. Return precautions reviewed Differential Diagnosis Differential diagnosis: Likely upper respiratory infection, otitis media, sinusitis, viral infection, bronchitis, influenza, pharyngitis and other (COVID) Lab Data Labs: Lab Results 06/16/24 Range/Units 18:47 POC Influenza A Ag Negative (Negative) POC Influenza B Ag Negative (Negative) Discharge Plan Discharge Clinical Impression: Exposure to influenza URI (upper respiratory infection) Qualifiers: URI type: unspecified URI Qualified Code(s): J06.9 - Acute upper respiratory infection, unspecified Patient Disposition: Home, Self-Care Condition: Stable Instructions: Antibiotic Form, Cold Symptoms (ED) Additional Instructions: Influenza testing was negative in the clinic today May take Coricidin HBP for cold/flu symptoms Take prescription medications only as prescribed-Tamiflu Increase fluids and stay well hydrated Tylenol/motrin for pain/fever Flonase and OTC antihistamines as directed Vicks vapor rub to open sinuses Sinus rinses for congestion Cepacol spray, cough drops, throat lozenges, warm tea with honey/lemon, gargle salt water to soothe throat BRAT diet for diarrhea Clear liquids x 24 hours then advance as tolerated for nausea/vomiting Go to the ED if you develop a worsening in your condition- high fever not controlled by Tylenol or Motrin, dehydration, weakness, lethargy, shortness of breath, or chest pain. Follow up with your PCP in 3-5 days if symptoms persist. Patient Language: Israeli Prescriptions: New oseltamivir [Tamiflu] 75 mg capsule 75 mg PO Q12H 5 Days Qty: 10 0RF No Action pseudoephedrine HCl [12 Hour Decongestant] 120 mg tablet extended release 120 mg PO Q12H PRN (Reason: nasal congestion) Qty: 12 0RF ipratropium bromide 21 mcg (0.03 %) spray,non-aerosol 2 spray NASAL TID PRN (Reason: nasal drainage) Qty: 30 0RF Rx Instructions: administer into each nostril acetaminophen 650 mg Tablet 650 mg PO DAILY PRN (Reason: Pain) aspirin [Adult Low Dose Aspirin] 81 mg tablet,delayed release (DR/EC) 81 mg PO DAILY fexofenadine 180 mg tablet 180 mg PO DAILY lysine [L-Lysine] 500 mg tablet 500 mg PO DAILY magnesium 250 mg tablet 250 mg PO DAILY tizanidine 2 mg capsule 2 mg PO TID PRN oxybutynin chloride 15 mg tablet extended release 24hr 15 mg PO DAILY Qty: 90 1RF omeprazole 20 mg capsule,delayed release(DR/EC) 20 mg PO DAILY Qty: 90 3RF hydrocodone-acetaminophen 5-325 mg tablet 1 tablet PO BID PRN (Reason: pain) Qty: 30 0RF Rx Instructions: MUST LAST 30 DAYS!!! NO EXCEPTIONS duloxetine 60 mg capsule,delayed release(DR/EC) 60 mg PO DAILY Qty: 90 1RF gabapentin 100 mg capsule 200 mg PO BID Qty: 360 1RF lisinopril 10 mg tablet 10 mg PO DAILY Qty: 90 1RF pramipexole 0.5 mg tablet 0.5 mg PO QHS Qty: 30 5RF atorvastatin 10 mg tablet See Rx Instructions .ROUTE .COMPLEX Qty: 45 1RF Dose Instruction: TAKE 1 TABLET BY MOUTH EVERY OTHER DAY DIRECTED Rx Instructions: TAKE 1 TABLET BY MOUTH EVERY OTHER DAY DIRECTED valacyclovir 1 gram tablet 2,000 mg PO Q12H Qty: 4 1RF Follow-up/Referrals: Zeus Harden APRN [Primary Care Provider] - Time of Disposition: 18:57 Quality NIHSS Nursing Documentation ED NIHSS nursing documentation: reviewed/agree
--- OUTSIDE RECORDS SUMMARY | 2024-06-16 18:21 | XMS_ITS | Clinical Summary ---
Author Organization [facility] Address [address] [place] [address] Care Team Providers Care Clinical Science Liaison Name Role Phone Ta Puente Primary Care [...] 500 mg by mouth daily Active vit C,C-Yo-gmoov-jenna tein-zeaxan (PreserVision AREDS-2) 250-90-40-1 mg capsule Take [...] on file Legal Sex Female 9:34 AM PROCESS SUPERVISOR Gender Identity Not on file Sexual Orientation Not on file Obstetrics History Last Filed Vital Signs Vital Sign Reading Time Taken Comments Blood Pressure 152/90 06/09/2018 11:53 AM PROCESS SUPERVISOR Pulse 77 06/09/2018 11:53 AM PROCESS SUPERVISOR Temperature - - Respiratory Rate 18 10/17/2021 [...] 2023 , 12/15/2019, 01/21/2019, Additional history exists Hepatitis B Screening Completed 02/07/1993 , 08/30/1992, 08/02/1992 Zoster Vaccine Completed 04/29/2019, 02/28/2019 Pneumococcal vaccine 65+ Completed 12/16/2019, 06/12 Insurance [facility]ICARE [facility] Care Teams Clinical Science Liaison Relationship Specialty Start Date End Date Ta Puente PA [address] [facility] [address] [place] [address] PCP - General Physician Electronics Instructor 10/30/21
--- OUTSIDE RECORDS SUMMARY | 2024-06-16 18:21 | XMS_ITS | Clinical Summary ---
Author Organization [facility] Address [address] [place] [address] Care Team Providers Care Fuel Pilot Engineer Name Role Phone Richmond Carrion MD Primary Care Provider Source Comments [facility],non-owned Affiliates and Associated Physician Practices is amultiple site organization consisting of ambulatory clinics and hospital sitesin [place], [place], [place] and [place]. This disclosure is being madepursuant to the Care Everywhere program and may not contain all information available regarding this patient. Last updated 18.[facility] Allergies Active Allergy Reactions Criticality Noted Date [...] 79 07/08/2016 4:57 PM CDT Temperature 36.8 C (98.2 F) 07/08/2016 4:57 PM CDT Respiratory Rate 16 07/08/2016 4:57 PM CDT Oxygen Saturation 98% 07/08/2016 4:57 PM CDT Inhaled Oxygen Concentration - - Weight 74.8 kg (165 lb) 07/08/2016 4:57 PM CDT Height 165.1 cm (5' 5 ) 07/08/2016 4:57 PM CDT Body Mass Index 27.46 07/08/2016 4:57 PM CDT Plan of Treatment Health Maintenance Due Date Last Done Comments BONE DENSITY TESTING 1935 MEDICARE AWV 12 MONTHS 1935 DTAP/TDAP/TD VACCINES (1 - Tdap) 07/19/1955 PNEUMOCOCCAL VACCINE 50+ (1 of 1 - PCV) 1986 ZOSTER VACCINE (1 of 2) 1986 Respiratory Syncytial Virus (RSV) Vaccine Pt: or over 60 yrs (1 - 1-dose 75+ series) 07/19/2011 COVID-19 VACCINE ( - 2023-2 5 season) 2023 INFLUENZA VACCINE (#1) 2023 DEPRESSION SCREENING 04/13/2024 HEPATITIS B VACCINE Aged Out No longe r eligible based on patient's age to complete this topic HIB VACCINE Aged Out No longer eligi ble based on patient's age to complete this topic HPV VACCINE Aged Out No longer eligi ble based on patient's age to complete this topic MENINGOCOCCAL (Group B) VACCINE Aged Out No longer eligible based on patient's age to complete this topic MENINGOCOCCAL VACCINE Aged Out No geremias tammie eligible based on patient's age to complete this topic Care Teams Fuel Pilot Engineer Relationship Specialty Start Date End Date Richmond Carrion MD [address] [place] [address] [address] [place] [id number] PCP - General Family Medicine 07/08/16
--- OUTSIDE RECORDS SUMMARY | 2024-06-16 18:21 | XMS_ITS | Encounter Summary ---
Author Organization [facility] Address [address] [place] [address] Care Team Providers Care Traffic Ii Manager Name Role Phone Mary Carrion MD Primary Care Provider [phone] Quang Fox MD Primary Care Provider [phone] Encounter Details Date Type Department Care Team (Late st Contact Info) Description 07/21/2018 JANITORIAL MANAGER ONLY [facility] Medical [facility] Priority [facility] - [address] [place] [address] Scanned, Documents Social History Tobacco Use Types Packs/Day Years Used Date Smoking Tobacco: Never Smokeless Tobacco: Never Alcohol Use Standard Drinks/Week Comments No 0 (1 standard drink = 0.6 oz pur e alcohol) AUDIT-C Answer Date Recorded Frequency of Alcohol Consumption Never 06/11/2018 Average Number of Drinks Not on file 019 Frequency of Binge Drinking Not on file 04/2018 Comments Unknown Sex and Gender Information Value Date Recorded Sex Assigned at Not on file Legal Sex Female 11:09 PM CDT Gender Identity Not on file Sexual Orientation Not on file documented as of this encounter OR Notes * Op Note - Zskenia, Documents - 07/21/2018 11:34 AM CDT HELEN ANTONIO ORDERING MD: ACCT: [id number] ADMIT/SERVICE DATE: 07/21/18 DISCHARGE DATE: 07/21/18 : 1935 PT TYPE: DEP SDC SEX: F ORD SITE: [facility] CHART DOCUMENT OPERATION RECORD DATE OF OPERATION: 07/21/2018 THIS IS AN 82-YEAR-OLD FEMALE WHO UNDERGOES A COLONOSCOPY BECAUSE OF PERSISTENT DIARRHEA. COLONOSCOPY: INFORMED CONSENT OBTAINED EARLIER. PATIENT WAS BROUGHT TO THE OR, PLACED IN THE SUPINE LATERAL DECUBITUS POSITION. SEDATION UNDER MAC ANESTHESIA. RECTAL EXAM IS NEGATIVE. PCF-190 COLONOSCOPE WAS LUBRICATED AND INSERTED INTO THE RECTUM AND ADVANCED ALL THE WAY TO THE CECUM. THE PREP WAS EXCELLENT. CECUM WAS IDENTIFIED BY THE ILEOCECAL VALVE AND THE APPENDICEAL ORIFICE. THE CECUM, ASCENDING COLON, TRANSVERSE COLON, DESCENDING COLON, SIGMOID COLON AND RECTUM WERE ALL CAREFULLY VISUALIZED AND FOUND TO BE ESSENTIALLY NORMAL. RANDOM LEFT COLON BIOPSIES WERE TAKEN TO EVALUATE THE CHRONIC DIARRHEA. RETROFLEXION REVEALED MILD HEMORRHOIDS. THE SCOPE WAS WITHDRAWN. FINDINGS: 1. RANDOM LEFT COLON BIOPSIES TAKEN TO EVALUATE DIARRHEA OTHERWISE NEGATIVE COLONOSCOPY TO THE CECUM WITH EXCELLENT PREP. 2. MILD HEMORRHOIDS. PLAN: 1. CHECK PATHOLOGY AND DEPENDING ON BIOPSY RESULTS WE WILL TREAT ACCORDINGLY. ELECTRONICALLY SIGNED BY SHARON KOO MD 07/22/2018 11:40 A PK/BIPINP 07/21/201811:34 A 07/21/2018 11:41 A JOB NO: [id number] DOC NO: [id number] CC: MD MARY MELENDEZ MD documented in this encounter Plan of Treatment Not on file documented as of this encounter Visit Diagnoses Not on filedocumented in this encounter Care Teams Traffic Ii Manager Relationship Specialty Start Date End Date Mary Carrion MD [address] [place] [address] [place] [address] PCP - General FAMILY PRACTICE 06/09/18 08/31/19 Quang Fox MD [address] [place] [address] [place] [address] [place] [address] PCP - General INTERNAL MEDICINE 12/05/19 documented as of this encounter
--- OUTSIDE RECORDS SUMMARY | 2024-06-16 18:21 | XMS_ITS | Patient Health Summary ---
Author Organization [facility] Address [address] [place] [address] Care Team Providers Care Sheep Clipper Name Role Phone Richmond Carrion MD Primary Care Provider [phone] [facility],non-owned Affiliates and Associated Physician Practices is amultiple site organization consisting of ambulatory clinics and hospital sitesin [place], [place], [place] and [place]. This disclosure is being madepursuant to the Care Everywhere program and may not contain all information available regarding this patient. Last updated 18.[facility] Allergies * Penicillins(Rash) -Medium Criticality * Sulfa [...] (ABNORMAL) CULTURE URINE (07/08/2016 5:52 PM CDT) Pathologist [facility] Urine Culture Routine Final report(A) [facility] INSURANCE BILL Result 1 Klebsiella pneumoniae(A) [facility] INSURANCE BILL Comment:Greater than 100,000 colony forming units per mL Antimicrobial Susceptibility [facility] INSURANCE BILL Comment: S = Susceptible; I = Intermediate; R = Resistant P = Positive; N = Negative MICS are expressed in micrograms per mL Antibiotic RSLT#1 RSLT#2 RSLT#3 RSLT#4 Amoxicillin/Clavulanic Acid S Ampicillin R Cefepime S Ceftriaxone S Cefuroxime S Cephalothin S Ciprofloxacin S Ertapenem S Gentamicin S Levofloxacin S Nitrofurantoin S Piperacillin S Tetracycline S Tobramycin S Trimethoprim/Sulfa S Urine URINE SPECIMEN OBTAINED BY CLEAN CATCH PROCEDURE / Unknown 07/08/2016 5:52 PM CDT 07/09/2016 Narrative Resulting Agency [facility] [address] [id number] Kristin JUÁRE[facility] - MICROBIO LOGY ORDERABLES [facility] INSURANCE BILL [address] [place] [address] * (ABNORMAL) URINALYSIS AUTO - POINT OF CARE (AMB) STL (07/08/2016) Clarity UA POCT clear Color UA POCT light yellow Leukocyte UA 70+ Negative Nitrite UA POCT Negative Negative Urobilinogen UA 0.2 0.1 - 1.0 Protein UA POCT 15+ Negative pH UA 7.0 5.0 - 8.0 pH units Blood UA Negative Negative Specific [place] UA POCT 1.005 1.002 - 1.030 Ketone UA Negative Negative Bilirubin UA POCT Negative Negative Glucose UA Negative Negative Expiration Date 11/09/2017 Lot # [id number] QC Verified Yes Yes URINE / Unknown 07/08/2016 Kristin Garcia APRN-RN [facility] - POINT OF CARE ORDERABLES Care Teams Sheep Clipper Relationship Specialty Start Date End Date Richmond Carrion MD [address] [place] [address] [place] [address] PCP - General Family Medicine 07/08/16
--- OUTSIDE RECORDS SUMMARY | 2024-06-16 18:21 | XMS_ITS | Clinical Summary ---
Author Organization [facility] Address [address] [place] [address] Care Team Providers Care History Teacher Name Role Phone Quang Fox MD Primary Care Provider [phone] Allergies Active Allergy Reactions Criticality Noted Date Comments Etodolac Unknown,Other (see comment) 08/18/2011 Reaction: UNKNOWN Hydrochlorothiazide Unknown 08/18/2011 Penicillins Unknown,Other (see comment),Rash Medium 08/18/2011 Reaction: UNKNOWN CHILDHOOD, , Prochlorperazine Unknown Rofecoxib Unknown 08/18/2011 Sulfa Antibiotics Hives Medium 07/08/2016 Reaction: HIVES Sulfasalazine Hives Medium 07/08/2016 Tape Unknown 08/18/2011 Medications VENTOLIN HFA 108 (90 Base) MCG/ACT inhaler INL 2 PFS PO TID prn 3 09/09/19 18 Active aspirin EC (ASPIRIN EC) 81 MG tablet Take 1 tablet (81 mg total) by mouth daily. Active Biotin 10 MG Cap Take 1 capsule by mouth daily. Active fexofenadine 180 MG tablet Take 180 mg by mouth daily. Active lysine 500 MG tabletIndications: three times a week Take 1 tablet (500 mg total) by mouth daily. Indications: three times a week Active OMEPRAZOLE 20 MG capsuleIndications :Gastro-esophageal reflux disease without esophagitis TAKE 1 CAPSULE BY MOUTH EVERY DAY BEFORE A MEAL 90 capsule 3 11/30/19 19 Active Additional Information Patient taking differently: Indications: daily prn, Reported on 12/13/2021 Multiple Vitamins-Minerals (PRESERVISION AREDS 2+MULTI VIT OR)Indications:qd Ac tive ROPINIROLE 2 MG tabletIndications: Restless leg syndrome TAKE 1 TABLET BY MOUTH EVERY NIGHT AT BEDTIME 90 tablet 1 05/24/19 20 Active nabumetone 750 MG tabletIndications: Chronic right shoulder pain Take 1 tablet (750 mg total) by mouth 2 (two) times daily. 60 tablet 2 06/06/19 20 Active valACYclovir 500 MG tabletIndications: Rosacea TAKE 4 TABLETS(2 GRAMS) BY MOUTH TWICE DAILY FOR 1 DAY 24 tablet 1 06/06/19 20 Active LISINOPRIL 10 MG tabletIndications: Essential hypertension TAKE ONE TABLET BY MOUTH EVERY DAY 30 tablet 3 06/13/19 20 Active oxybutynin XL 15 MG 24 hr tabletIndications: OAB (overactive bladder) Take 1 tablet (15 mg total) by mouth daily as needed. 90 tablet 1 06/22/19 20 Active atorvastatin 10 MG tabletIndications: Mixed hyperlipidemia TAKE ONE TABLET BY MOUTH EVERY OTHER DAY DIRECTED 45 tablet 1 07/05/19 20 Active DULOXETINE 60 MG capsuleIndications :Anxiety disorder TAKE 1 CAPSULE(60 MG) BY MOUTH EVERY DAY 90 capsule 09/07/19 20 Active cetirizine (ZYRTEC) 10 MG tablet Take 1 tablet (10 mg total) by mouth daily. Active Potassium Gluconate 2.5 MEQ Tab Active cholecalciferol (VITAMIN D3) 125 MCG (5000 UT) Tab Take 1 tablet (5,000 Units total) by mouth daily. Active vitamin B-12 (CYANOCOBALAMIN) (CYANOCOBALAMIN) 1000 mcg tablet Take 1 tablet (1,000 mcg total) by mouth daily. Active gabapentin (NEURONTIN) 100 MG capsule Take 2 capsules (200 mg total) by mouth 2 (two) times daily. Active Active Problems Problem Noted Date Diagnosed Date Collagenous colitis 11/17/2018 Depression 11/11/2017 Overview (07/08/2018): Date Onset: 11/11/2017 Essential hypertension 01/23/2016 Overview (07/08/2018): Date Onset: 01/23/2016 Restless leg syndrome 07/24/2015 Overview (05/04/2018): Date Onset: 07/24/2015 Osteoarthritis (arthritis due to wear and tear o f joints) 07/24/2015 Sciatica 07/24/2015 Overview (07/08/2018): Date Onset: 07/24/2015 Degenerative disc disease, lumbar 06/05/2015 Overview (07/08/2018): Date Onset: 06/05/2015 Gastro-esophageal reflux disease without esophag itis 06/05/2015 OAB (overactive bladder) 03/21/2015 Overview (07/08/2018): Date Onset: 03/21/2015 Low back pain 12/22/2013 Overview (07/08/2018): Date Onset: 12/22/2013 Irritable bowel syndrome 07/04/2013 Overview (07/08/2018): Date Onset: 07/04/2013 Rosacea 07/04/2013 Overview (07/08/2018): Date Onset: 07/04/2013 Allergic rhinitis 01/20/2013 Overview (07/08/2018): Date Onset: 01/20/2013 Anxiety disorder 08/17/2012 Overview (07/08/2018): Date Onset: 08/17/2012 Diarrhea 06/30/2012 Overview (07/08/2018): Date Onset: 06/30/2012 Hyperlipidemia 08/18/2011 Hypothyroidism 08/18/2011 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 Immunizations Name Administration Dates Next Due Fluzone High Dose - >Age 65 (Prefilled Syringe) 01/21/2019 Influenza (Generic) 12/28/2014,12/23/2012,2011 Shingrix 04/29/2019,02/28/2019 Social History Tobacco Use Types Packs/Day Years Used Date Smoking Tobacco: Never Smokeless Tobacco: Never Tobacco Cessation:Counseling Given: No Alcohol Use Standard Drinks/Week Comments No 0 (1 standard drink = 0.6 oz pur e alcohol) AUDIT-C Answer Date Recorded Frequency of Alcohol Consumption Never 06/11/2018 Average Number of Drinks Not on file 019 Frequency of Binge Drinking Not on file 04/2018 PHQ-2 Answer Date Recorded Patient Health Questionnaire-2 Score 0 10/10/2022 Comments No Sex and Gender Information Value Date Recorded Sex Assigned at Not on file Legal Sex Female 11:09 PM CDT Gender Identity Not on file Sexual Orientation Not on file Last Filed Vital Signs Vital Sign Reading Time Taken Comments Blood Pressure 130/70 10/10/2022 2:22 PM CDT Pulse 72 10/10/2022 2:22 PM CDT Temperature 36.8 C (98.3 F) 10/10/2022 2:22 PM CDT Respiratory Rate 18 10/10/2022 2:22 PM CDT Oxygen Saturation 94% 10/10/2022 2:22 PM CDT Inhaled Oxygen Concentration - - Weight 74.8 kg (165 lb) 10/10/2022 2:22 PM CDT Height 160 cm (5' 3 ) 10/10/2022 2:22 PM CDT Body Mass Index 29.23 10/10/2022 2:22 PM CDT Plan of Treatment Health Maintenance Due Date Last Done Comments Annual Medicare Wellness Visit 2001 DTaP, Tdap and Td Vaccines (1 - Tdap) 06/09/2008 06/08/2008, 02/11/1994 RSV Immunization or 60+ Years (1 - 1-dose 75+ series) 07/19/2011 PHQ-2 (Physician [place]) 10/11/2023 10/10/2022 COVID-19 Vaccine ( season) 2023 08/12/2021, 03/13/2021, 06/22/2020, Additional history exists Influenza Adult (#1) 2024 01/21/2019, 01/03/2018, 01/07/2017, Additional history exists PHQ-2 (Physician [place]) 04/13/2024 10/10/2022 Zoster Vaccines Completed 04/29/2019, 02/28/2019 Pneumococcal Vaccine: 65+ Years Completed 12/16/2019, 07/04/2014 Meningococcal B Vaccine Aged Out No l onger eligible based on patient's age to complete this topic Meningococcal Vaccine Aged Out No geremias tammie eligible based on patient's age to complete this topic RSV Immunizations Under 20 Months Aged Out No longer eligible based on patient's age to complete this topic Insurance [facility] Advance Directives Documents on File Type Date Recorded Patient Allergy Nurse Expl anation Advance Directives and Living Will 07/21/2018 12:00 AM LIVING WILL Advance Directives and Living Will 07/21/2018 12:00 AM POWER OF [employer]LING [employer] R HE[employer] C[employer] Advance Directives and Living Will 07/21/2018 Advance Directives and Living Will 07/10/2015 12:00 AM ADVANCED DIRECTIVES Advance Directives and Living Will 12/04/2014 12:00 AM LIVING WILL Advance Directives and Living Will 12/04/2014 12:00 AM P[employer] Advance Directives and Living Will 12/04/2014 12:00 AM LIVING WILL Advance Directives and Living Will 12/04/2014 12:00 AM P[employer] Advance Directives and Living Will 11/06/2014 12:00 AM LIVING WILL Advance Directives and Living Will 11/06/2014 12:00 AM P[employer] Advance Directives and Living Will 11/06/2014 12:00 AM LIVING WILL Advance Directives and Living Will 11/06/2014 12:00 AM P[employer] Care Teams History Teacher Relationship Specialty Start Date End Date Quang Fox MD [address] [place] [address] PCP - General INTERNAL MEDICINE 12/05/19
--- OUTSIDE RECORDS SUMMARY | 2024-06-16 18:21 | XMS_ITS | Referral Summary ---
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 Gender Identity Not on file Sexual Orientation Not on file Last Filed Vital Signs Vital Sign Reading Time Taken Comments Blood Pressure 152/90 06/09/2018 11:53 AM REFRACTORY REPAIRER Pulse 77 06/09/2018 11:53 AM REFRACTORY REPAIRER Temperature - - Respiratory Rate 18 10/17/2021 10:53 AM CDT Oxygen Saturation - - Inhaled Oxygen Concentration - - Weight 81.6 kg (180 lb) 10/17/2021 10:53 AM CDT Height 162.6 cm (5' 4 ) 10/17/2021 10:53 AM CDT Body Mass Index 30.9 10/17/2021 10:53 AM CDT Plan of Treatment Not on file Insurance [facility]ARE [facility] [employer] Care Teams Emblem Fuser Tender Relationship Specialty Start Date End Date Ta Puente PA [address] [facility] [address] [place], [place] [id number] PCP - General Physician Associate Technician 10/30/21
--- OUTSIDE RECORDS SUMMARY | 2024-06-16 18:21 | XMS_ITS | Referral Summary ---
Author Organization [facility] Address [address] [place] [address] Care Team Providers Care Plate Worker Name Role Phone Richmond Carrion MD Primary Care Provider Source Comments [facility],non-owned Affiliates and Associated Physician Practices is amultiple site organization consisting of ambulatory clinics and hospital sitesin [place], [place], [place] and [place]. This disclosure is being madepursuant to the Care Everywhere program and may not contain all information available regarding this patient. Last updated 18.[facility] Allergies Active Allergy Reactions Criticality Noted Date [...] of Treatment Not on file Care Teams Plate Worker Relationship Specialty Start Date End Date Richmond Carrion MD [address] [place] [address] [place] [address] PCP - General Family Medicine 07/08/16
[2024-06-16 18:28] VITALS: BP 147/72; PULSE 85; RESP 18; TEMP 36.3; O2SAT 98
[2024-06-16 18:50] LABS: EDINFLUASCREEN Negative (Negative); EDINFLUBSCREEN Negative (Negative)
== END 2024-06-16 18:56 | disposition home or self-care (01) ==
PROVIDERS: Emergency Provider Nurse Practitioner Family; PCP Nurse Practitioner
DX: J06.9 Acute upper respiratory infection, unspecified (principal); Z20.828 Contact with and (suspected) exposure to other viral communicable diseases; G25.81 Restless legs syndrome; E78.5 Hyperlipidemia, unspecified; I10 Essential (primary) hypertension; Z96.653 Presence of artificial knee joint, bilateral; Z79.82 Long term (current) use of aspirin
CPT/HCPCS: 87804; 99213; G0463

== ENCOUNTER 2024-07-08 10:39 | Emergency (ER) | payer MEDICARE, SELFPAY ==
--- NOTE | 2024-07-08 10:47 | ED.EXTPRO ---
HPI - Extremity Problem General Chief complaint: Extremity Problem,Nontraumatic Stated complaint: right arm pain Time Seen by Provider: 07/08/24 10:55 Source: patient Mode of arrival: ambulatory Limitations: no limitations History of Present Illness HPI Narrative: Jessie is a an 88-year-old female patient presenting to the clinic today with complaints of right upper arm pain times 5 days. She denies any known injury to the right upper arm. Has pain to the upper biceps area and is having pain with movement. States it hurt a lot after moving a metal chair a few days ago. States the pain is sharp/burning. Has taken hydrocodone and applied Aspercreme to the area without relief Related Data Home Medications ?Medication ?Instructions ?Recorded ?Confirmed ?Last Taken ?Type aspirin 81 mg tablet,delayed 81 mg PO DAILY 06/20/19 03/15/24 01/01/21 17:00 History release (Adult Low Dose Aspirin) fexofenadine 180 mg tablet 180 mg PO DAILY 06/20/19 03/15/24 01/01/21 12:00 History lysine 500 mg tablet (L-Lysine) 500 mg PO DAILY 06/20/19 03/15/24 01/01/21 12:00 History magnesium 250 mg tablet 250 mg PO DAILY 06/20/19 03/15/24 01/01/21 18:00 History acetaminophen 650 mg tablet 650 mg PO DAILY PRN Pain 12/01/20 03/15/24 01/01/21 12:00 History tizanidine 2 mg capsule 2 mg PO TID PRN 01/05/23 03/15/24 Unknown History Allergies Allergy/AdvReac Type Severity Reaction Status Date / Time Penicillins Allergy Severe RASH Verified 07/08/24 10:48 Sulfa (Sulfonamide Allergy Severe HIVES AND Verified 07/08/24 10:48 Antibiotics) SWELLING adhesive tape Allergy Intermediate skin tears Verified 07/08/24 10:48 Review of Systems Review of Systems: Pertinent positives per HPI. Patient denies any fever, chills, rash, headache, visual changes, dizziness, cough, runny nose, sore throat, shortness of breath, chest pain, palpitations, nausea, vomiting, diarrhea, constipation, abdominal pain, or any urinary issues. 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 Gutierrez History of right knee joint replacement History of left knee replacement H/O thyroidectomy H/O right breast biopsy History of appendectomy H/O bilateral oophorectomy Family History Family History Father Acute myocardial infarction Heart disease Mother Sibling Cerebrovascular accident Other Unknown family medical history Social History Social History Smoking status: Never smoker Second hand tobacco smoke exposure: No Alcohol intake: never Substance use: never Substance use type: does not use Do You Feel Safe in your Home?: Yes Lack of Transportation: No Lack of Food: Never True Current Housing: I Have Housing Concerned About Future Housing: No Difficulty Paying Gas/Electric Bills: No Difficulty Paying for Meds: No Currently Unemployed: No Education: Bachelor's Degree Difficulty w/ Childcare or Family Care: No Living arrangements: with family 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 There is no relevant family history pertinent to the patient complaint. Exam Narrative: General: Well-developed, well nourished, in no apparent distress Head: Normocephalic, atraumatic. Cardio: Regular rate and rhythm, s1 and s2 normal, no murmur appreciated. Resp: Clear to auscultation bilaterally, no rhonchi, rales, wheezing or rubs. Musculoskeletal: No deformity, slight pain with palpation over the anterior shoulder, tender to palpation over the biceps tendon, pain and weakness with completing a biceps curl against resistance, grossly normal range of motion, muscle strength strong and equal, peripheral pulse strong, no edema, no cyanosis, normal gait and station Course Course Emergency Course: Portions of this record may have been created with voice recognition software. Level of Care: Express Care Visit Vital Signs Vital signs: Vital signs reviewed MDM - Extremity (Nontraumatic) MDM Narrative Medical decision making narrative: At the time of visit patient is resting comfortably on the exam table. Patient appears to be nontoxic. Plan: I suspect patient has biceps tendinitis of the right upper arm. Prescription for Medrol Dosepak was sent to the pharmacy Supportive measures were discussed with the patient and they voiced understanding discharge instructions and agrees to treatment plan. Return precautions reviewed Differential Diagnosis Differential diagnosis: Likely herpes zoster, gout, cellulitis, deep venous thrombosis of upper extremity and other (Biceps tendinitis, muscle strain, arthritis) Discharge Plan Discharge Clinical Impression: Biceps tendinitis of right upper extremity Patient Disposition: Home, Self-Care Condition: Stable Instructions: Antibiotic Form, Tendinitis (ED) Additional Instructions: Rest, ice, elevate, and may wear arm sling x3 days Tylenol/motrin for pain as discussed. Take Medrol Dosepak as prescribed Follow up with your PCP if symptoms persist more than 1 week. Patient Language: German Prescriptions: New methylprednisolone [Medrol (Reddy)] 4 mg tablets,dose pack See Rx Instructions PO .COMPLEX Qty: 21 0RF Rx Instructions: orally per package directions No Action pseudoephedrine HCl [12 Hour Decongestant] 120 mg tablet extended release 120 mg PO Q12H PRN (Reason: nasal congestion) Qty: 12 0RF ipratropium bromide 21 mcg (0.03 %) spray,non-aerosol 2 spray NASAL TID PRN (Reason: nasal drainage) Qty: 30 0RF Rx Instructions: administer into each nostril acetaminophen 650 mg Tablet 650 mg PO DAILY PRN (Reason: Pain) oseltamivir [Tamiflu] 75 mg capsule 75 mg PO Q12H 5 Days Qty: 10 0RF aspirin [Adult Low Dose Aspirin] 81 mg tablet,delayed release (DR/EC) 81 mg PO DAILY fexofenadine 180 mg tablet 180 mg PO DAILY lysine [L-Lysine] 500 mg tablet 500 mg PO DAILY magnesium 250 mg tablet 250 mg PO DAILY tizanidine 2 mg capsule 2 mg PO TID PRN oxybutynin chloride 15 mg tablet extended release 24hr 15 mg PO DAILY Qty: 90 1RF omeprazole 20 mg capsule,delayed release(DR/EC) 20 mg PO DAILY Qty: 90 3RF hydrocodone-acetaminophen 5-325 mg tablet 1 tablet PO BID PRN (Reason: pain) Qty: 30 0RF Rx Instructions: MUST LAST 30 DAYS!!! NO EXCEPTIONS lisinopril 10 mg tablet 10 mg PO DAILY Qty: 90 1RF pramipexole 0.5 mg tablet 0.5 mg PO QHS Qty: 30 5RF valacyclovir 1 gram tablet 2,000 mg PO Q12H Qty: 4 1RF gabapentin 100 mg capsule 200 mg PO BID Qty: 360 1RF duloxetine 60 mg capsule,delayed release(DR/EC) 60 mg PO DAILY Qty: 90 1RF atorvastatin 10 mg tablet See Rx Instructions .ROUTE .COMPLEX Qty: 45 1RF Dose Instruction: TAKE 1 TABLET BY MOUTH EVERY OTHER DAY DIRECTED Rx Instructions: TAKE 1 TABLET BY MOUTH EVERY OTHER DAY DIRECTED Follow-up/Referrals: Zeus Harden APRN [Primary Care Provider] - Time of Disposition: 10:58 Quality NIHSS Nursing Documentation ED NIHSS nursing documentation: reviewed/agree
[2024-07-08 10:50] VITALS: BP 146/87; PULSE 73; RESP 20; TEMP 36.3; O2SAT 99
--- OUTSIDE RECORDS SUMMARY | 2024-07-08 11:37 | XMS_ITS | Clinical Summary ---
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 Gender Identity Not on file Sexual Orientation Not on file Obstetrics History Last Filed Vital Signs Vital Sign Reading Time Taken Comments Blood Pressure 152/90 06/09/2018 11:53 AM CTC OPERATOR Pulse 77 06/09/2018 11:53 AM CTC OPERATOR Temperature - - Respiratory Rate 18 10/17/2021 [...] vaccine 65+ Completed 12/16/2019, 06/12 Insurance MEDICARE [facility]–1983 MEDICARE [facility]–1983 Care Teams Home Health Clinician Relationship Specialty Start Date End Date Ta Puente PA [address] [facility] [address] [place] [address] PCP - General Physician Receiver 10/30/21
--- OUTSIDE RECORDS SUMMARY | 2024-07-08 11:37 | XMS_ITS | Clinical Summary ---
Author Organization [facility] Address [address] [place] [address] Care Team Providers Care Center Rep Name Role Phone Quang Fox MD Primary Care Provider [phone] Allergies Active Allergy Reactions Criticality Noted Date [...] Years (1 - 1-dose 75+ series) 07/19/2011 COVID-19 Vaccine ( season) 2023 08/12/2021, 03/13/2021, 06/22/2020, Additional history exists Influenza Adult (#1) 2024 01/21/2019, 01/03/2018, 01/07/2017, Additional history exists PHQ-2 (Physician [place]) 04/13/2024 10/10/2022 Zoster Vaccines Completed 04/29/2019, 02/28/2019 [...] patient's age to complete this topic Insurance [facility] Advance Directives Documents on File Type Date Recorded Patient Press Operator Instant Print Shop Expl anation Advance Directives and Living Will 07/21/2018 12:00 AM LIVING WILL Advance Directives and Living Will 07/21/2018 12:00 AM POWER OF GAS PLUMBING INSPECTOR FO R HEALTH CARE Advance Directives and Living Will 07/21/2018 Advance Directives and Living Will 07/10/2015 12:00 AM ADVANCED DIRECTIVES Advance Directives and Living Will 12/04/2014 12:00 AM LIVING WILL Advance Directives and Living Will 12/04/2014 12:00 AM POWER OF GAS PLUMBING INSPECTOR FO R HEALTH CARE Advance Directives and Living Will 12/04/2014 12:00 AM LIVING WILL Advance Directives and Living Will 12/04/2014 12:00 AM POWER OF GAS PLUMBING INSPECTOR FO R HEALTH CARE Advance Directives and Living Will 11/06/2014 12:00 AM LIVING WILL Advance Directives and Living Will 11/06/2014 12:00 AM POWER OF GAS PLUMBING INSPECTOR FO R HEALTH CARE Advance Directives and Living Will 11/06/2014 12:00 AM LIVING WILL Advance Directives and Living Will 11/06/2014 12:00 AM POWER OF GAS PLUMBING INSPECTOR FO R HEALTH CARE Care Teams Center Rep Relationship Specialty Start Date End Date Quang Fox MD [address] [place] [address] PCP - General INTERNAL MEDICINE 12/05/19
--- OUTSIDE RECORDS SUMMARY | 2024-07-08 11:37 | XMS_ITS | Clinical Summary ---
Author Organization [facility] Address [address] [place] [address] Care Team Providers Care Water Pipe Installer Name Role Phone Richmond Carrion MD Primary Care Provider [phone] Source Comments [facility],non-owned Affiliates and Associated Physician Practices is amultiple site organization consisting of ambulatory clinics and hospital sitesin [place], [place], [place] and [place]. This disclosure is being madepursuant to the Care Everywhere program and may not contain all information available regarding this patient. Last updated 18.[facility] Allergies Active Allergy Reactions Criticality Noted Date [...] to complete this topic MENINGOCOCCAL (Group B) VACC INE SHARED DECISION-MAKING Aged Out No longer eligibl e based on patient's age to complete this topic MENINGOCOCCAL GROUPS A/C/Y/W VACCINE Aged Out No longer eligible b ased on patient's age to complete this topic Care Teams Water Pipe Installer Relationship Specialty Start Date End Date Richmond Carrion MD [address] [place] [address] [place] [address] PCP - General Family Medicine 07/08/16
--- OUTSIDE RECORDS SUMMARY | 2024-07-08 11:37 | XMS_ITS | Encounter Summary ---
Author Organization [facility] Address [address] [place] [address] Care Team Providers Care Manager Of Environmental Services Name Role Phone Mary Carrion MD Primary Care Provider [phone] Quang Fox MD Primary Care Provider [phone] Encounter Details Date Type Department Care Team (Late st Contact Info) Description 07/21/2018 ELECTRICIAN TECHNICIAN ONLY [facility] [address] [place] [address] Scanned, Documents Social History Tobacco [...] AM CDT HELEN ANTONIO ORDERING MD: ACCT: [id number] ADMIT/SERVICE DATE: 07/21/18 DISCHARGE DATE: 07/21/18 : 1935 PT TYPE: DEP SDC SEX: F ORD SITE: [facility] CHART DOCUMENT OPERATION RECORD DATE OF OPERATION: [...] 07/21/201811:34 A 07/21/2018 11:41 A JOB NO: [id number] DOC NO: [id number] CC: MD MARY MELENDEZ MD documented in this encounter Plan of Treatment Not on file documented as of this encounter Visit Diagnoses Not on filedocumented in this encounter Care Teams Manager Of Environmental Services Relationship Specialty Start Date End Date Mary Carrion MD [address] [place] [address] [place] [address] PCP - General FAMILY PRACTICE 06/09/18 08/31/19 Quang Fox MD [address] [place] [address] PCP - General INTERNAL MEDICINE 12/05/19 documented as of this encounter
--- OUTSIDE RECORDS SUMMARY | 2024-07-08 11:38 | XMS_ITS | Referral Summary ---
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 Gender Identity Not on file Sexual Orientation Not on file Last Filed Vital Signs Vital Sign Reading Time Taken Comments Blood Pressure 152/90 06/09/2018 11:53 AM ASSEMBLY MACHINE FEEDER Pulse 77 06/09/2018 11:53 AM ASSEMBLY MACHINE FEEDER Temperature - - Respiratory Rate 18 10/17/2021 10:53 AM CDT Oxygen Saturation - - Inhaled Oxygen Concentration - - Weight 81.6 kg (180 lb) 10/17/2021 10:53 AM CDT Height 162.6 cm (5' 4 ) 10/17/2021 10:53 AM CDT Body Mass Index 30.9 10/17/2021 10:53 AM CDT Plan of Treatment Not on file Insurance MEDICARE [facility] MEDICARE FORMERLY [facility] Care Teams Medical Operations Supervisor Relationship Specialty Start Date End Date Ta Puente PA [address] [facility] [address] [place], [place] [id number] PCP - General Physician Reading Recovery Teacher 10/30/21
== END 2024-07-08 11:03 | disposition home or self-care (01) ==
PROVIDERS: Emergency Provider Nurse Practitioner Family; PCP Nurse Practitioner
DX: M75.21 Bicipital tendinitis, right shoulder (principal); G25.81 Restless legs syndrome; I10 Essential (primary) hypertension; E78.5 Hyperlipidemia, unspecified; Z96.653 Presence of artificial knee joint, bilateral; Z79.82 Long term (current) use of aspirin
CPT/HCPCS: 99213; G0463

== ENCOUNTER 2024-07-21 12:16 | Emergency (ER) | payer MEDICARE, SELFPAY ==
--- NOTE | 2024-07-21 12:24 | ED_ITS ---
HPI - Wound/Laceration General Chief Complaint: Wound/Laceration Stated Complaint: Fall Time Seen by Provider: 07/21/24 12:17 Source: patient Mode of arrival: ambulatory Limitations: no limitations History of Present Illness HPI narrative: Patient is an 89 year old female who presents with fall and skin tear to her right forearm. Incident happened approximately 10 minutes prior to arrival. Patient denies hitting head. Patient is not on blood thinners. Tetanus shot is not up-to-date. Denies any numbness, tingling or weakness to hand. Related Data Home Medications ?Medication ?Instructions ?Recorded ?Confirmed ?Last Taken ?Type aspirin 81 mg tablet,delayed 81 mg PO DAILY 06/20/19 03/15/24 01/01/21 17:00 History release (Adult Low Dose Aspirin) fexofenadine 180 mg tablet 180 mg PO DAILY 06/20/19 03/15/24 01/01/21 12:00 History lysine 500 mg tablet (L-Lysine) 500 mg PO DAILY 06/20/19 03/15/24 01/01/21 12:00 History magnesium 250 mg tablet 250 mg PO DAILY 06/20/19 03/15/24 01/01/21 18:00 History acetaminophen 650 mg tablet 650 mg PO DAILY PRN Pain 12/01/20 03/15/24 01/01/21 12:00 History tizanidine 2 mg capsule 2 mg PO TID PRN 01/05/23 03/15/24 Unknown History Allergies Allergy/AdvReac Type Severity Reaction Status Date / Time Penicillins Allergy Severe RASH Verified 07/21/24 12:25 Sulfa (Sulfonamide Allergy Severe HIVES AND Verified 07/21/24 12:25 Antibiotics) SWELLING adhesive tape Allergy Intermediate skin tears Verified 07/21/24 12:25 Review of Systems 2 Review of Systems: All systems reviewed & are unremarkable except as noted in HPI and below Constitutional: Constitutional: Denies body ache(s), Denies chills, Denies fatigue, Denies fever(s), Denies headache(s), Denies malaise and Denies weakness Eyes: Eyes: Denies blurry vision, Denies irritation and Denies loss of vision ENT: Denies otalgia, Denies headache(s), Denies nasal discharge, Denies sinus pain and Denies sore throat Cardiovascular: Cardiovascular: Denies chest pain, Denies irregular heart rhythm and Denies dyspnea Respiratory: Respiratory: Denies dyspnea Gastrointestinal: Gastrointestinal: Denies abdominal pain, Denies melena, Denies hematochezia, Denies diarrhea, Denies nausea and Denies vomiting Musculoskeletal: Musculoskeletal: Denies back pain, Denies myalgias and Denies arthralgias Integumentary/Breasts: Skin/Breast: Denies pruritus, Denies rash and Reports wounds Neurologic: Denies headache(s), Denies loss of vision and Denies weakness Psychiatric: Psychiatric: Reports no additional psychiatric complaints Endocrine: Endocrine: Denies fatigue COUNT INCLUDES THE [facility] Past Medical History Medical History Contusion of left knee BMI 28.0-28.9,adult Abnormal gait due to muscle weakness Ankle pain, left 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 Gutierrez History of right knee joint replacement History of left knee replacement H/O thyroidectomy H/O right breast biopsy History of appendectomy H/O bilateral oophorectomy Family History Family History Father Acute myocardial infarction Heart disease Mother Sibling Cerebrovascular accident Other Unknown family medical history Social History Social History Smoking status: Never smoker Second hand tobacco smoke exposure: No Alcohol intake: never Substance use: never Substance use type: does not use Do You Feel Safe in your Home?: Yes Lack of Transportation: No Lack of Food: Never True Current Housing: I Have Housing Concerned About Future Housing: No Difficulty Paying Gas/Electric Bills: No Difficulty Paying for Meds: No Currently Unemployed: No Education: Bachelor's Degree Difficulty w/ Childcare or Family Care: No Living arrangements: with family 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 There is no relevant family history pertinent to the presenting complaint. Exam 2 Const: General: cooperative, healthy appearing, comfortable, no acute distress and well nourished Nutritional Appearance: well nourished O rientation/consciousness: patient oriented x3 Limitations: no limitations HENMT: Head: normal to inspection, normocephalic and atraumatic Ears: h earing grossly normal bilaterally and external ears normal Face/Nose/Sinus: N ormal external nose present, normal facial exam and face symmetric Face and sinus: normal facial exam and face symmetric Mouth: Yes lip normal Eyes: General: appearance normal, both eyes and all related structures A lignment and Position: alignment normal and position normal Periorbital: p eriorbital findings normal Eyelids: eyelids normal Pupils: Equal, round and reactive pupils present EOM: EOMs intact bilaterally Neck: Neck: normal visual inspection, full ROM and supple Chest: Chest palpation & inspection: normal inspection of the chest Resp: Effort & Inspection: normal respiratory effort and able to speak in complete sentences Auscultation: clear to auscultation bilaterally Cardio: Rate: regular rate Rhythm: regular rhythm Heart sounds: S1 normal heart sound present and S2 normal heart sound present GI: Inspection: normal to inspection Skin: General skin exam: normal color and no rashes or lesions noted W ounds: wounds noted tear right forearm size (4x7 cm and 1x3 cm) and without odor; no drainage and without any surrounding erythema Neuro: General: patient oriented x3 and moves all extremities Cranial nerves: Yes Equal, round and reactive pupils present Speech: normal speech Gait exam (Neuro): Normal gait present Extrem: General: normal to inspection, full ROM and no edema Right upper extremity: elbow/forearm tenderness (on wound), normal ROM, abrasion and distal pulses intact; no swelling and no ecchymosis Elbow/forearm/wrist images: 1. 4x7 cm skin tear 2. 3x1 cm skin tear Psych: Appearance: grossly normal and well kempt Mental Status: mental status grossly normal Speech and movement: Normal speech and movement present Affect: normal affect Attitude: cooperative Thought process: Normal thought process present Course Course Emergency Course: Patient is aware of diagnosis, understands and agrees to treatment plan. Anticipatory guidance given. Patient agrees to follow-up as directed and is aware of reasons to seek care at the emergency department. Portions of this record may have been created with voice recognition software Level of Care: Express Care Visit Vital Signs Vital signs: Reviewed MDM - Wound/Laceration MDM Narrative Medical decision making narrative: Patient has large skin tear. Area was irrigated and cleansed. skin was able to be laid back on area. held down with steri strips. Antibiotic ointment applied with non adherent bandage. Wrapped with Kerlix. Td updated. Will treat with antibiotics due to high risk for infection. Pt well hydrated appearing, in no respiratory distress, hemodynamically stable. Recommend supportive care. The patient is stable at time of discharge the clinical impression was discussed and the patient was given the opportunity to ask questions, which were addressed as completely as possible given the information available at present. Anticipatory guidance and return to care precautions were discussed and the importance of primary care follow-up was stressed and encouraged. The patient voiced understanding of the plan, indications to return, and the need for follow-up. Exam findings show no acute concerns or changes Patient is appropriate for outpatient treatment and follow-up. Differential Diagnosis Differential diagnosis: Likely laceration, abscess, abrasion and other (skin tear, fall) Medical Records Attestation: I reviewed the patient's medical records. Discharge Plan Discharge Clinical Impression: Fall, Skin tear Patient Disposition: Home Condition: Stable Instructions: Skin Tear (ED) Additional Instructions: Take antibiotics as prescribed. The steri strips will come off on their own. Do not pick at them. Do not soak arm in water or scrub aggressively. Wound dressed with topical Bacitracin and sterile gauze. Apply Bactroban BID. Take antibiotics as prescribed. Keep wound covered. Go to the emergency department if you have worsening redness, swelling or pus. Patient Language: Turkmen Prescriptions: New cephalexin 500 mg capsule 500 mg PO QID 7 Days Qty: 28 0RF mupirocin 2 % ointment 1 applic topical BID Qty: 22 2RF No Action pseudoephedrine HCl [12 Hour Decongestant] 120 mg tablet extended release 120 mg PO Q12H PRN (Reason: nasal congestion) Qty: 12 0RF ipratropium bromide 21 mcg (0.03 %) spray,non-aerosol 2 spray NASAL TID PRN (Reason: nasal drainage) Qty: 30 0RF Rx Instructions: administer into each nostril acetaminophen 650 mg Tablet 650 mg PO DAILY PRN (Reason: Pain) oseltamivir [Tamiflu] 75 mg capsule 75 mg PO Q12H 5 Days Qty: 10 0RF methylprednisolone [Medrol (Reddy)] 4 mg tablets,dose pack See Rx Instructions PO .COMPLEX Qty: 21 0RF Rx Instructions: orally per package directions aspirin [Adult Low Dose Aspirin] 81 mg tablet,delayed release (DR/EC) 81 mg PO DAILY fexofenadine 180 mg tablet 180 mg PO DAILY lysine [L-Lysine] 500 mg tablet 500 mg PO DAILY magnesium 250 mg tablet 250 mg PO DAILY tizanidine 2 mg capsule 2 mg PO TID PRN oxybutynin chloride 15 mg tablet extended release 24hr 15 mg PO DAILY Qty: 90 1RF omeprazole 20 mg capsule,delayed release(DR/EC) 20 mg PO DAILY Qty: 90 3RF hydrocodone-acetaminophen 5-325 mg tablet 1 tablet PO BID PRN (Reason: pain) Qty: 30 0RF Rx Instructions: MUST LAST 30 DAYS!!! NO EXCEPTIONS lisinopril 10 mg tablet 10 mg PO DAILY Qty: 90 1RF pramipexole 0.5 mg tablet 0.5 mg PO QHS Qty: 30 5RF valacyclovir 1 gram tablet 2,000 mg PO Q12H Qty: 4 1RF gabapentin 100 mg capsule 200 mg PO BID Qty: 360 1RF duloxetine 60 mg capsule,delayed release(DR/EC) 60 mg PO DAILY Qty: 90 1RF atorvastatin 10 mg tablet See Rx Instructions .ROUTE .COMPLEX Qty: 45 1RF Dose Instruction: TAKE 1 TABLET BY MOUTH EVERY OTHER DAY DIRECTED Rx Instructions: TAKE 1 TABLET BY MOUTH EVERY OTHER DAY DIRECTED Follow-up/Referrals: Zeus Harden APRN [Primary Care Provider] - 3 Days Time of Disposition: 13:00
[2024-07-21 12:25] VITALS: BP 135/74; PULSE 81; RESP 18; TEMP 36.3; O2SAT 97
--- OUTSIDE RECORDS SUMMARY | 2024-07-21 12:42 | XMS_ITS | Referral Summary ---
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 Gender Identity Not on file Sexual Orientation Not on file Last Filed Vital Signs Vital Sign Reading Time Taken Comments Blood Pressure 152/90 06/09/2018 11:53 AM BIBLE TEACHER Pulse 77 06/09/2018 11:53 AM BIBLE TEACHER Temperature - - Respiratory Rate 18 10/17/2021 10:53 AM CDT Oxygen Saturation - - Inhaled Oxygen Concentration - - Weight 81.6 kg (180 lb) 10/17/2021 10:53 AM CDT Height 162.6 cm (5' 4 ) 10/17/2021 10:53 AM CDT Body Mass Index 30.9 10/17/2021 10:53 AM CDT Plan of Treatment Not on file Insurance MEDICARE [facility]–1983 MEDICARE FORMERLY [facility], [facility]–1983 Care Teams Child Welfare Worker Relationship Specialty Start Date End Date Ta Puente PA [address] [facility] [address] [place], [place] [id number] PCP - General Physician Associate Account Executive 10/30/21
--- OUTSIDE RECORDS SUMMARY | 2024-07-21 12:42 | XMS_ITS | Clinical Summary ---
Author Organization [facility] Address [address] [place] [address] Care Team Providers Care Pharmacy Buyer Name Role Phone Ta Puente Primary Care [...] 500 mg by mouth daily Active vit C,Z-Lp-ilrxi-jenna tein-zeaxan (PreserVision AREDS-2) 250-90-40-1 mg capsule Take [...] on file Legal Sex Female 9:34 AM REPRESENTATIVE Gender Identity Not on file Sexual Orientation Not on file Obstetrics History Last Filed Vital Signs Vital Sign Reading Time Taken Comments Blood Pressure 152/90 06/09/2018 11:53 AM REPRESENTATIVE Pulse 77 06/09/2018 11:53 AM REPRESENTATIVE Temperature - - Respiratory Rate 18 10/17/2021 [...] 03/13/2021, 06/22/2020, Additional history exists Influenza Vaccine (Season Ended) 2024 02/20/2021, 12/15/2019, 01/21/2019, Additional history exists Hepatitis B Screening Completed 02/07/1993 , 08/30/1992, 08/02/1992 Zoster Vaccine Completed 04/29/2019, 02/28/2019 Pneumococcal vaccine 65+ Completed 12/16/2019, 06/12 Insurance MEDICARE [facility] MEDICARE [facility] Care Teams Pharmacy Buyer Relationship Specialty Start Date End Date Ta Puente PA [address] [facility] [address] [place] [address] PCP - General Physician Senior Construction Manager 10/30/21
--- OUTSIDE RECORDS SUMMARY | 2024-07-21 12:42 | XMS_ITS | Clinical Summary ---
Author Organization [facility] Address [address] [place] [address] Care Team Providers Care Fire Medic Name Role Phone Richmond Carrion MD Primary Care Provider [phone] Source Comments [facility],non-owned Affiliates and Associated Physician Practices is amultiple site organization consisting of ambulatory clinics and hospital sitesin [place], [place], [place] and [place]. This disclosure is being madepursuant to the Care Everywhere program and may not contain all information available regarding this patient. Last updated 18.[facility] Allergies Active Allergy Reactions Criticality Noted Date [...] - 1-dose 75+ series) 07/19/2011 COVID-19 VACCINE (1 - 2023-2 5 season) 2023 DEPRESSION SCREENING 04/13/2024 INFLUENZA VACCINE (Season Ended) 2024 HEPATITIS B VACCINE Aged Out No longe [...] patient's age to complete this topic Insurance Payer Benefit Plan / Group Subscriber ID Effective Dates Phone Address Type MEDICARE MEDICARE PART A AND B [id number] 2003-Presen t [address] [place] [address] Medicare [employer] BLUE CROSS OUT OF STATE PPO [id number] 2003-Presen t [address] [place] [address] PPO MEDICARE [place] MED[place]ARE [id number] 2003-Jewel da silva [address] [place] [address] Medicare Care Teams Fire Medic Relationship Specialty Start Date End Date Richmond Carrion MD [address] [place] [address] [place] [address] PCP - General Family Medicine 07/08/16
--- OUTSIDE RECORDS SUMMARY | 2024-07-21 12:42 | XMS_ITS | Clinical Summary ---
Author Organization [facility] Address [address] [place] [address] Care Team Providers Care Knot Bumper Name Role Phone Quang Fox MD Primary Care Provider [phone] Allergies Active Allergy Reactions Criticality Noted Date [...] 2023 08/12/2021, 03/13/2021, 06/22/2020, Additional history exists PHQ-2 (Physician [place]) 04/13/2024 10/10/2022 Zoster Vaccines Completed 04/29/2019, 02/28/2019 [...] patient's age to complete this topic Insurance MEDICARE [facility] [id number] [place] [address] Advance Directives Documents on File Type Date Recorded Patient Dependency Program Director Expl anation Advance Directives and Living Will 07/21/2018 12:00 AM LIVING WILL Advance Directives and Living Will 07/21/2018 12:00 AM POWER OF REGULATORY SERVICES CONSULTANT FO R HEALTH CARE Advance Directives and Living Will 07/21/2018 Advance Directives and Living Will 07/10/2015 12:00 AM ADVANCED DIRECTIVES Advance Directives and Living Will 12/04/2014 12:00 AM LIVING WILL Advance Directives and Living Will 12/04/2014 12:00 AM POWER OF REGULATORY SERVICES CONSULTANT FO R HEALTH CARE Advance Directives and Living Will 12/04/2014 12:00 AM LIVING WILL Advance Directives and Living Will 12/04/2014 12:00 AM POWER OF REGULATORY SERVICES CONSULTANT FO R HEALTH CARE Advance Directives and Living Will 11/06/2014 12:00 AM LIVING WILL Advance Directives and Living Will 11/06/2014 12:00 AM POWER OF REGULATORY SERVICES CONSULTANT FO R HEALTH CARE Advance Directives and Living Will 11/06/2014 12:00 AM LIVING WILL Advance Directives and Living Will 11/06/2014 12:00 AM POWER OF REGULATORY SERVICES CONSULTANT FO R HEALTH CARE Care Teams Knot Bumper Relationship Specialty Start Date End Date Quang Fox MD [address] [place] [address] PCP - General INTERNAL MEDICINE 12/05/19
--- OUTSIDE RECORDS SUMMARY | 2024-07-21 12:42 | XMS_ITS | Encounter Summary ---
Author Organization [facility] Address [address] [place] [address] Care Team Providers Care Entry Clerk Name Role Phone Mary Carrion MD Primary Care Provider [phone] Quang Fox MD Primary Care Provider Encounter Details Date Type Department Care Team (Late st Contact Info) Description 07/21/2018 SOLID WASTE MANAGER ONLY [facility] Medical Group Priority Care - [address] [place] [address] Scanned, Documents Social History Tobacco [...] AM CDT HELEN ANTONIO ORDERING MD: ACCT: [id number] ADMIT/SERVICE DATE: 07/21/18 DISCHARGE DATE: 07/21/18 : 1935 PT TYPE: DEP SDC SEX: F ORD SITE: [facility] CHART DOCUMENT OPERATION RECORD DATE OF [...] 07/21/201811:34 A 07/21/2018 11:41 A JOB NO: [id number] DOC NO: [id number] CC: MD MARY MELENDEZ MD documented in this encounter Plan of Treatment Not on file documented as of this encounter Visit Diagnoses Not on filedocumented in this encounter Care Teams Entry Clerk Relationship Specialty Start Date End Date Mary Carrion MD [address] [place] [address] [place] [address] PCP - General FAMILY PRACTICE 06/09/18 08/31/19 Quang Fox MD [address] [place] [address] PCP - General INTERNAL MEDICINE 12/05/19 documented as of this encounter
[2024-07-21] MEDS: TETANUS/DIPHTHERIA TOXOIDS ADSORB 0.5 ML SYRINGE (*BKC) IM (12:53)
== END 2024-07-21 13:05 | disposition home or self-care (01) ==
PROVIDERS: Emergency Provider Nurse Practitioner Family; PCP Nurse Practitioner
DX: S51.812A Laceration without foreign body of left forearm, initial encounter (principal); W19.XXXA Unspecified fall, initial encounter; Z23 Encounter for immunization; I10 Essential (primary) hypertension; E78.5 Hyperlipidemia, unspecified; E89.0 Postprocedural hypothyroidism; G25.81 Restless legs syndrome; Z96.653 Presence of artificial knee joint, bilateral; Z79.82 Long term (current) use of aspirin
CPT/HCPCS: 90471; 90714; 99213; G0463

== ENCOUNTER 2024-07-27 14:33 | Emergency (ER) | payer MEDICARE, SELFPAY ==
[2024-07-27 14:46] VITALS: BP 126/74; PULSE 91; RESP 16; TEMP 36.8; O2SAT 97
--- NOTE | 2024-07-27 15:02 | ED_ITS ---
HPI - Wound/Laceration General Chief Complaint: Extremity Injury, Upper Stated Complaint: arm injury Time Seen by Provider: 07/27/24 14:35 Source: patient Mode of arrival: ambulatory Limitations: no limitations History of Present Illness HPI narrative: Patient is a 89-year-old female who presents for wound check of right arm skin tear. Patient was seen here 07/21 and had skin tear repaired with Steri-Strips and dressed. Patient was given Keflex and Bactroban. Patient states she has changed the bandage twice since the because she is afraid she is going to mess that up. States it has been oozing slightly. Related Data Home Medications ?Medication ?Instructions ?Recorded ?Confirmed ?Last Taken ?Type aspirin 81 mg tablet,delayed 81 mg PO DAILY 06/20/19 03/15/24 01/01/21 17:00 History release (Adult Low Dose Aspirin) fexofenadine 180 mg tablet 180 mg PO DAILY 06/20/19 03/15/24 01/01/21 12:00 History lysine 500 mg tablet (L-Lysine) 500 mg PO DAILY 06/20/19 03/15/24 01/01/21 12:00 History magnesium 250 mg tablet 250 mg PO DAILY 06/20/19 03/15/24 01/01/21 18:00 History acetaminophen 650 mg tablet 650 mg PO DAILY PRN Pain 12/01/20 03/15/24 01/01/21 12:00 History tizanidine 2 mg capsule 2 mg PO TID PRN 01/05/23 03/15/24 Unknown History Allergies Allergy/AdvReac Type Severity Reaction Status Date / Time Penicillins Allergy Severe RASH Verified 07/27/24 14:53 Sulfa (Sulfonamide Allergy Severe HIVES AND Verified 07/27/24 14:53 Antibiotics) SWELLING adhesive tape Allergy Intermediate skin tears Verified 07/27/24 14:53 Review of Systems 2 Review of Systems: All systems reviewed & are unremarkable except as noted in HPI and below Constitutional: Constitutional: Denies body ache(s), Denies chills, Denies fatigue, Denies fever(s), Denies headache(s), Denies malaise and Denies weakness Eyes: Eyes: Denies blurry vision, Denies irritation and Denies loss of vision ENT: Denies otalgia, Denies headache(s), Denies nasal discharge, Denies sinus pain and Denies sore throat Cardiovascular: Cardiovascular: Denies chest pain, Denies irregular heart rhythm and Denies dyspnea Respiratory: Respiratory: Denies dyspnea Gastrointestinal: Gastrointestinal: Denies abdominal pain, Denies melena, Denies hematochezia, Denies diarrhea, Denies nausea and Denies vomiting Musculoskeletal: Musculoskeletal: Denies back pain, Denies myalgias and Denies arthralgias Integumentary/Breasts: Skin/Breast: Denies pruritus, Denies rash and Reports wounds Neurologic: Denies headache(s), Denies loss of vision and Denies weakness Psychiatric: Psychiatric: Reports no additional psychiatric complaints Endocrine: Endocrine: Denies fatigue PMFSH Past Medical History Medical History Contusion of left knee BMI 28.0-28.9,adult Abnormal gait due to muscle weakness Ankle pain, left 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 Gutierrez History of right knee joint replacement History of left knee replacement H/O thyroidectomy H/O right breast biopsy History of appendectomy H/O bilateral oophorectomy Family History Family History Father Acute myocardial infarction Heart disease Mother Sibling Cerebrovascular accident Other Unknown family medical history Social History Social History Smoking status: Never smoker Second hand tobacco smoke exposure: No Alcohol intake: never Substance use: never Substance use type: does not use Do You Feel Safe in your Home?: Yes Lack of Transportation: No Lack of Food: Never True Current Housing: I Have Housing Concerned About Future Housing: No Difficulty Paying Gas/Electric Bills: No Difficulty Paying for Meds: No Currently Unemployed: No Education: Bachelor's Degree Difficulty w/ Childcare or Family Care: No Living arrangements: with family 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 There is no relevant family history pertinent to the presenting complaint. Exam 2 Const: General: cooperative, healthy appearing, comfortable, no acute distress and well nourished Nutritional Appearance: well nourished O rientation/consciousness: patient oriented x3 Limitations: no limitations HENMT: Head: normal to inspection, normocephalic and atraumatic Ears: h earing grossly normal bilaterally and external ears normal Face/Nose/Sinus: N ormal external nose present, normal facial exam and face symmetric Face and sinus: normal facial exam and face symmetric Mouth: Yes lip normal Eyes: General: appearance normal, both eyes and all related structures A lignment and Position: alignment normal and position normal Periorbital: p eriorbital findings normal Eyelids: eyelids normal Pupils: Equal, round and reactive pupils present EOM: EOMs intact bilaterally Neck: Neck: normal visual inspection, full ROM and supple Chest: Chest palpation & inspection: normal inspection of the chest Resp: Effort & Inspection: normal respiratory effort and able to speak in complete sentences Auscultation: clear to auscultation bilaterally Cardio: Rate: regular rate Rhythm: regular rhythm Heart sounds: S1 normal heart sound present and S2 normal heart sound present GI: Inspection: normal to inspection Skin: General skin exam: normal color and no rashes or lesions noted Neuro: General: patient oriented x3 and moves all extremities Cranial nerves: Yes Equal, round and reactive pupils present Speech: normal speech Gait exam (Neuro): Normal gait present Extrem: General: normal to inspection, full ROM and no edema Elbow/forearm/wrist images: 1. Two Steri-Strips still intact. Skin did re-adhere and appears healthy. Open tissue granulating well with no drainage. No surrounding erythema 2. steri strip gone and healing well. On ly a 0.5 cm area still open with healthy granulating tissue Psych: Appearance: grossly normal and well kempt Mental Status: mental status grossly normal Speech and movement: Normal speech and movement present Affect: normal affect Attitude: cooperative Thought process: Normal thought process present Course Course Emergency Course: Patient is aware of diagnosis, understands and agrees to treatment plan. Anticipatory guidance given. Patient agrees to follow-up as directed and is aware of reasons to seek care at the emergency department. Portions of this record may have been created with voice recognition software Level of Care: Express Care Visit Vital Signs Vital signs: Vital Signs Temperature 36.8 C 07/27/24 14:46 Pulse Rate 91 07/27/24 14:46 Respiratory Rate 16 07/27/24 14:46 Blood Pressure 126/74 07/27/24 14:46 Pulse Oximetry 97 07/27/24 14:46 Oxygen Delivery Room Air 07/27/24 14:46 Temperature 36.8 C 07/27/24 14:46 Pulse Rate 91 07/27/24 14:46 Respiratory Rate 16 07/27/24 14:46 Blood Pressure 126/74 07/27/24 14:46 Pulse Oximetry 97 07/27/24 14:46 Oxygen Delivery Room Air 07/27/24 14:46 Reviewed MDM - Wound/Laceration MDM Narrative Medical decision making narrative: Skin tears are healing well with no signs of infection. Discussed the importance of changing bandage daily to prevent infection. Demonstrated proper wound care again for patient. Advised patient to finish course of antibiotics. Pt well hydrated appearing, in no respiratory distress, hemodynamically stable. Recommend supportive care. The patient is stable at time of discharge the clinical impression was discussed and the patient was given the opportunity to ask questions, which were addressed as completely as possible given the information available at present. Anticipatory guidance and return to care precautions were discussed and the importance of primary care follow-up was stressed and encouraged. The patient voiced understanding of the plan, indications to return, and the need for follow-up. Exam findings show no acute concerns or changes Patient is appropriate for outpatient treatment and follow-up. Differential Diagnosis Differential diagnosis: Likely other (Skin tear, wound check) Medical Records Attestation: I reviewed the patient's medical records. Discharge Plan Discharge Clinical Impression: Visit for wound check Patient Disposition: Home Condition: Stable Instructions: Skin Tear (ED) Additional Instructions: Wound dressed with topical Bacitracin and sterile gauze. Apply Bactroban after warm wash at least once a day. Continue to Take antibiotics as prescribed. Keep wound covered. Go to the emergency department if you have worsening redness, swelling or pus. Follow up with PCP for further wound checks Patient Language: Mosotho Prescriptions: No Action pseudoephedrine HCl [12 Hour Decongestant] 120 mg tablet extended release 120 mg PO Q12H PRN (Reason: nasal congestion) Qty: 12 0RF ipratropium bromide 21 mcg (0.03 %) spray,non-aerosol 2 spray NASAL TID PRN (Reason: nasal drainage) Qty: 30 0RF Rx Instructions: administer into each nostril cephalexin 500 mg capsule 500 mg PO QID 7 Days Qty: 28 0RF mupirocin 2 % ointment 1 applic topical BID Qty: 22 2RF acetaminophen 650 mg Tablet 650 mg PO DAILY PRN (Reason: Pain) oseltamivir [Tamiflu] 75 mg capsule 75 mg PO Q12H 5 Days Qty: 10 0RF methylprednisolone [Medrol (Reddy)] 4 mg tablets,dose pack See Rx Instructions PO .COMPLEX Qty: 21 0RF Rx Instructions: orally per package directions aspirin [Adult Low Dose Aspirin] 81 mg tablet,delayed release (DR/EC) 81 mg PO DAILY fexofenadine 180 mg tablet 180 mg PO DAILY lysine [L-Lysine] 500 mg tablet 500 mg PO DAILY magnesium 250 mg tablet 250 mg PO DAILY tizanidine 2 mg capsule 2 mg PO TID PRN oxybutynin chloride 15 mg tablet extended release 24hr 15 mg PO DAILY Qty: 90 1RF omeprazole 20 mg capsule,delayed release(DR/EC) 20 mg PO DAILY Qty: 90 3RF hydrocodone-acetaminophen 5-325 mg tablet 1 tablet PO BID PRN (Reason: pain) Qty: 30 0RF Rx Instructions: MUST LAST 30 DAYS!!! NO EXCEPTIONS lisinopril 10 mg tablet 10 mg PO DAILY Qty: 90 1RF pramipexole 0.5 mg tablet 0.5 mg PO QHS Qty: 30 5RF valacyclovir 1 gram tablet 2,000 mg PO Q12H Qty: 4 1RF gabapentin 100 mg capsule 200 mg PO BID Qty: 360 1RF duloxetine 60 mg capsule,delayed release(DR/EC) 60 mg PO DAILY Qty: 90 1RF atorvastatin 10 mg tablet See Rx Instructions .ROUTE .COMPLEX Qty: 45 1RF Dose Instruction: TAKE 1 TABLET BY MOUTH EVERY OTHER DAY DIRECTED Rx Instructions: TAKE 1 TABLET BY MOUTH EVERY OTHER DAY DIRECTED Follow-up/Referrals: UNKNOWN,DOCTOR [Primary Care Provider] - Time of Disposition: 15:03
--- OUTSIDE RECORDS SUMMARY | 2024-07-27 15:50 | XMS_ITS | Clinical Summary ---
Author Organization [facility] Address [address] [place] [address] Care Team Providers Care Financial Sales Advisor Name Role Phone Richmond Carrion MD Primary Care Provider [phone] Source Comments [facility],non-owned Affiliates and Associated Physician Practices is amultiple site organization consisting of ambulatory clinics and hospital sitesin [place], [place], [place] and [place]. This disclosure is being madepursuant to the Care Everywhere program and may not contain all information available regarding this patient. Last updated 18.[facility] Allergies Active Allergy Reactions Criticality Noted Date Comments Penicillins Rash Medium 07/08/2016 Sulfa Drugs Urticaria Medium 07/08/2016 Medications * Be aware that medications may not be up to date on this document. Alwaysverify current medications with the patient. atorvastatin (LIPITOR) 10 MG tablet Take 10 mg by mouth at bedtime Active DULOXETINE HCL PO Active HYDROcodone-radha taminophen (NORCO) 7.5-325 MG tablet Take 1 Tab [...] = 0.6 oz pur e alcohol) Comments No Sex and Gender Information Value Date Recorded Sex Assigned at Not on file Legal Sex Female 1:34 PM CDT Gender Identity Not on file [...] VACCINE ( - 2023-2 5 season) 2023 DEPRESSION SCREENING [...] age to complete this topic Insurance MEDICARE [facility] Address: [address] [place] [address] MEDICARE Care Teams Financial Sales Advisor Relationship Specialty Start Date End Date Richmond Carrion MD [address] [place] [address] [place] [address] PCP - General Family Medicine 07/08/16
--- OUTSIDE RECORDS SUMMARY | 2024-07-27 15:50 | XMS_ITS | Encounter Summary ---
Author Organization [facility] Address [address] [place] [address] Care Team Providers Care Skein Bleacher Name Role Phone Mary Carrion MD Primary Care Provider [phone] Quang Fox MD Primary Care Provider [phone] Encounter Details Date Type Department Care Team (Late st Contact Info) Description 07/21/2018 TANK PUMPER PANELBOARD ONLY [facility] [address] [place] [address] Scanned, Documents Social History Tobacco [...] AM CDT HELEN ANTONIO ORDERING MD: ACCT: [id number] ADMIT/SERVICE DATE: 07/21/18 DISCHARGE DATE: 07/21/18 : 1935 PT TYPE: DEP SDC SEX: F ORD SITE: [facility] CHART DOCUMENT OPERATION RECORD DATE OF [...] 07/21/201811:34 A 07/21/2018 11:41 A JOB NO: [id number] DOC NO: [id number] CC: MD MARY MELENDEZ MD documented in this encounter Plan of Treatment Not on file documented as of this encounter Visit Diagnoses Not on filedocumented in this encounter Care Teams Skein Bleacher Relationship Specialty Start Date End Date Mary Carrion MD [address] [place] [address] [place] [address] PCP - General FAMILY PRACTICE 06/09/18 08/31/19 Quang Fox MD [address] [place] [id number] PCP - General INTERNAL MEDICINE 12/05/19 documented as of this encounter
--- OUTSIDE RECORDS SUMMARY | 2024-07-27 15:50 | XMS_ITS | Clinical Summary ---
Author Organization [facility] Address [address] [place] [address] Care Team Providers Care Non Acoustic Operator Name Role Phone Quang Fox MD Primary Care Provider [phone] Allergies Active Allergy Reactions Criticality Noted Date [...] 08/18/2011 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 Immunizations Immunization Administration Dates Next Due Fluzone High Dose [...] 03/13/2021, 06/22/2020, Additional history exists PHQ-2 (Physician [place]) 04/13/2024 10/10/2022 Zoster Vaccines Completed 04/29/2019, 02/28/2019 Pneumococcal Vaccine: 50+ Years Completed 12/16/2019, 07/04/2014 Meningococcal B Vaccine Aged Out No l onger eligible based on patient's age to complete this topic Meningococcal Vaccine Aged Out No geremias tammie eligible based on patient's age to complete this topic RSV Immunizations Under 20 Months Aged Out No longer eligible based on patient's age to complete this topic Insurance MEDICARE [facility] [id number] [place] [address] Advance Directives Documents on File Type Date Recorded Patient Stitch Separator Expl anation Advance Directives and Living Will 07/21/2018 12:00 AM LIVING WILL Advance Directives and Living Will 07/21/2018 12:00 AM POWER OF FOXING PAINTER FO R HEALTH CARE Advance Directives and Living Will 07/21/2018 Advance Directives and Living Will 07/10/2015 12:00 AM ADVANCED DIRECTIVES Advance Directives and Living Will 12/04/2014 12:00 AM LIVING WILL Advance Directives and Living Will 12/04/2014 12:00 AM POWER OF [employer]ING PAINTER FO R HEALTH CARE Advance Directives and Living Will 12/04/2014 12:00 AM LIVING WILL Advance Directives and Living Will 12/04/2014 12:00 AM POWER OF FOXING PAINTER FO R HEALTH CARE Advance Directives and Living Will 11/06/2014 12:00 AM LIVING WILL Advance Directives and Living Will 11/06/2014 12:00 AM POWER OF FOXING PAINTER FO R HEALTH CARE Advance Directives and Living Will 11/06/2014 12:00 AM LIVING WILL Advance Directives and Living Will 11/06/2014 12:00 AM POWER OF FOXING PAINTER FO R HEALTH CARE Care Teams Non Acoustic Operator Relationship Specialty Start Date End Date Quang Fox MD [address] [place] [address] PCP - General INTERNAL MEDICINE 12/05/19
--- OUTSIDE RECORDS SUMMARY | 2024-07-27 15:50 | XMS_ITS | Clinical Summary ---
Author Organization [facility] Address [address] [place] [address] Care Team Providers Care Drafter Civil Name Role Phone Ta Puente Primary Care [...] 500 mg by mouth daily Active vit C,Y-Ut-cnsns-jenna tein-zeaxan (PreserVision AREDS-2) 250-90-40-1 mg capsule Take [...] on file Legal Sex Female 9:34 AM SALES CONSULTING DIRECTOR Gender Identity Not on file Sexual Orientation Not on file Obstetrics History Last Filed Vital Signs Vital Sign Reading Time Taken Comments Blood Pressure 152/90 06/09/2018 11:53 AM SALES CONSULTING DIRECTOR Pulse 77 06/09/2018 11:53 AM SALES CONSULTING DIRECTOR Temperature - - Respiratory Rate 18 10/17/2021 [...] vaccine 65+ Completed 12/16/2019, 06/12 [place] [address] [facility] MEDICARE [facility] Care Teams Drafter Civil Relationship Specialty Start Date End Date Ta Puente PA [address] [facility] [address] [place] [address] PCP - General Physician Occupational Therapy Specialist 10/30/21
--- OUTSIDE RECORDS SUMMARY | 2024-07-27 15:50 | XMS_ITS | Referral Summary ---
Author Organization [facility] Address [address] [place] [address] Care Team Providers Care Manufacturing Clerk Name Role Phone Ta Puente Primary Care [...] 500 mg by mouth daily Active vit C,P-Lb-qidhp-jenna tein-zeaxan (PreserVision AREDS-2) 250-90-40-1 mg capsule Take [...] on file Legal Sex Female 9:34 AM FUNCTIONAL SKILLS TUTOR Gender Identity Not on file Sexual Orientation Not on file Last Filed Vital Signs Vital Sign Reading Time Taken Comments Blood Pressure 152/90 06/09/2018 11:53 AM FUNCTIONAL SKILLS TUTOR Pulse 77 06/09/2018 11:53 AM FUNCTIONAL SKILLS TUTOR Temperature - - Respiratory Rate 18 10/17/2021 10:53 AM CDT Oxygen Saturation - - Inhaled Oxygen Concentration - - Weight 81.6 kg (180 lb) 10/17/2021 10:53 AM CDT Height 162.6 cm (5' 4 ) 10/17/2021 10:53 AM CDT Body Mass Index 30.9 10/17/2021 10:53 AM CDT Plan of Treatment Not on file Insurance MEDICARE [facility] MEDICARE [facility] Care Teams Manufacturing Clerk Relationship Specialty Start Date End Date Ta Puente PA [address] [facility] [address] [place], [place] [id number] PCP - General Physician Cash Posting Representative 10/30/21
== END 2024-07-27 15:08 | disposition home or self-care (01) ==
PROVIDERS: Emergency Provider Nurse Practitioner Family
DX: Z48.00 Encounter for change or removal of nonsurgical wound dressing (principal); I10 Essential (primary) hypertension; E78.5 Hyperlipidemia, unspecified; G25.81 Restless legs syndrome; Z96.653 Presence of artificial knee joint, bilateral; Z79.82 Long term (current) use of aspirin
CPT/HCPCS: 99211; G0463

== ENCOUNTER 2025-01-10 12:58 | Emergency (ER) | payer MEDICARE, SELFPAY ==
--- NOTE | 2025-01-10 13:00 | ED.LOWEXIN ---
HPI - Extremity Injury (Lower) General Chief Complaint: Fall Stated Complaint: Fall / LT Hip Pain Time Seen by Provider: 01/10/25 12:59 Source: patient Mode of arrival: ambulatory Limitations: no limitations History of Present Illness HPI Narrative: Jessie is a 89-year-old female patient presenting to the clinic today with complaints of left abdominal wall bruising/pain after falling 2-3 days ago. She reports she was helping her has been out of the chair and she lost balance and fell on her left side. Has a subcutaneous mass in the left lateral abdomen just above the left hip with old bruising extending to the left lateral abdomen. She denies any pain with movement to the hip in she is able to walk with a walker without pain. Denies hitting her head or any loss of consciousness. Denies any other concerns at this time. States that the area of tenderness has improved over the last day. Takes a baby aspirin daily but does not take any other blood thinners. Related Data Home Medications ?Medication ?Instructions ?Recorded ?Confirmed ?Last Taken ?Type aspirin 81 mg tablet,delayed 81 mg PO DAILY 06/20/19 08/25/24 01/01/21 17:00 History release (Adult Low Dose Aspirin) fexofenadine 180 mg tablet 180 mg PO DAILY 06/20/19 08/25/24 01/01/21 12:00 History lysine 500 mg tablet (L-Lysine) 500 mg PO DAILY 06/20/19 08/25/24 01/01/21 12:00 History magnesium 250 mg tablet 250 mg PO DAILY 06/20/19 08/25/24 01/01/21 18:00 History acetaminophen 650 mg tablet 650 mg PO DAILY PRN Pain 12/01/20 08/25/24 01/01/21 12:00 History tizanidine 2 mg capsule 2 mg PO TID PRN 01/05/23 08/25/24 Unknown History vit C 250 mg-vit E 90 mg-zinc 40 1 tablet PO BID 08/25/24 08/25/24 Unknown History mg-copper 1 fx-wjxihj-zawnlj capsule (PreserVision AREDS-2) Allergies Allergy/AdvReac Type Severity Reaction Status Date / Time Penicillins Allergy Severe RASH Verified 01/10/25 13:14 Sulfa (Sulfonamide Allergy Severe HIVES AND Verified 01/10/25 13:14 Antibiotics) SWELLING adhesive tape Allergy Intermediate skin tears Verified 01/10/25 13:14 Review of Systems Review of Systems: Pertinent positives per HPI. Patient denies any fever, chills, rash, headache, visual changes, dizziness, cough, runny nose, sore throat, shortness of breath, chest pain, palpitations, nausea, vomiting, diarrhea, constipation, abdominal pain, or any urinary issues. 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 Gutierrez History of right knee joint replacement History of left knee replacement H/O thyroidectomy H/O right breast biopsy History of appendectomy H/O bilateral oophorectomy Family History Family History Father Acute myocardial infarction Heart disease Mother Sibling Cerebrovascular accident Other Unknown family medical history Social History Social History Smoking status: Never smoker Second hand tobacco smoke exposure: No Alcohol intake: never Substance use: never Substance use type: does not use Do You Feel Safe in your Home?: Yes Lack of Transportation: No Lack of Food: Never True Current Housing: I Have Housing Concerned About Future Housing: No Difficulty Paying Gas/Electric Bills: No Difficulty Paying for Meds: No Currently Unemployed: No Education: Bachelor's Degree Difficulty w/ Childcare or Family Care: No Living arrangements: with family 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 There is no relevant family history pertinent to the patient complaint. Exam Narrative: General: Well-developed, well nourished, in no apparent distress Head: Normocephalic, atraumatic. Cardio: Regular rate and rhythm, s1 and s2 normal, no murmur appreciated. Resp: Clear to auscultation bilaterally, no rhonchi, rales, wheezing or rubs. Musculoskeletal: No deformity, non-tender to palpation over the left hip, grossly normal range of motion, muscle strength strong and equal, peripheral pulse strong, no edema, no cyanosis, normal gait and statio Integumentary: [place], warm, and dry, 3x2cm subcutaneous hematoma to the left lateral abdominal wall. Old bruising noted over the lower lateral abdomen. Course Course Emergency Course: Portions of this record may have been created with voice recognition software. Level of Care: Express Care Visit Vital Signs Vital signs: Vital Signs Temperature 36.6 C 01/10/25 13:09 Pulse Rate 92 01/10/25 13:09 Respiratory Rate 18 01/10/25 13:09 Blood Pressure 145/70 H 01/10/25 13:09 Pulse Oximetry 97 01/10/25 13:09 Oxygen Delivery Room Air 01/10/25 13:09 Temperature 36.6 C 01/10/25 13:09 Pulse Rate 92 01/10/25 13:09 Respiratory Rate 18 01/10/25 13:09 Blood Pressure 145/70 H 01/10/25 13:09 Pulse Oximetry 97 01/10/25 13:09 Oxygen Delivery Room Air 01/10/25 13:09 Vital signs reviewed MDM - Extremity Injury (Lower) MDM Narrative Medical decision making narrative: At the time of visit patient is resting comfortably on the exam table. Patient appears to be nontoxic. Complaints of left abdominal wall bruising/pain after falling 2-3 days ago. She reports she was helping her has been out of the chair and she lost balance and fell on her left side. Has a subcutaneous mass in the left lateral abdomen just above the left hip with old bruising extending to the left lateral abdomen. She denies any pain with movement to the hip in she is able to walk with a walker without pain. Denies hitting her head or any loss of consciousness. States that the area of tenderness has improved over the last day. Denies any other concerns at this time. Takes a baby aspirin daily but does not take any other blood thinners. On exam patient has 3x2cm subcutaneous hematoma to the left lateral abdominal wall. Old bruising noted over the lower lateral abdomen. Plan: I suspect patient has a subcutaneous hematoma. Recommend ice pack to the area to help resolve hematoma. May continue Tylenol/Motrin as needed for pain. Follow-up with PCP in 5-7 days if symptoms persist or sooner if they worsened.. Supportive measures were discussed with the patient and they voiced understanding discharge instructions and agrees to treatment plan. Return precautions reviewed Differential Diagnosis Differential diagnosis: Likely fracture of hip and other (Hip contusion, soft tissue injury, left hip strain) Discharge Plan Discharge Clinical Impression: Subcutaneous hematoma Patient Disposition: Home Condition: Stable Instructions: Antibiotic Form, Hematoma (ED) Additional Instructions: Apply ice pack to the affected area to help resolve the hematoma-apply 20 minutes at a time 20 minutes on/20 minutes off May take Tylenol/Motrin as needed for pain Follow-up with PCP in 5-7 days or sooner if worsening symptoms. Patient Language: Zimbabwean Prescriptions: No Action ipratropium bromide 21 mcg (0.03 %) spray,non-aerosol 2 spray NASAL TID PRN (Reason: nasal drainage) Qty: 30 0RF Rx Instructions: administer into each nostril acetaminophen 650 mg Tablet 650 mg PO DAILY PRN (Reason: Pain) aspirin [Adult Low Dose Aspirin] 81 mg tablet,delayed release (DR/EC) 81 mg PO DAILY fexofenadine 180 mg tablet 180 mg PO DAILY lysine [L-Lysine] 500 mg tablet 500 mg PO DAILY magnesium 250 mg tablet 250 mg PO DAILY tizanidine 2 mg capsule 2 mg PO TID PRN PreserVision AREDS-2 250-90-40-1 mg capsule 1 tablet PO BID omeprazole 20 mg capsule,delayed release(DR/EC) 20 mg PO DAILY Qty: 90 3RF hydrocodone-acetaminophen 5-325 mg tablet 1 tablet PO BID PRN (Reason: pain) Qty: 30 0RF Rx Instructions: MUST LAST 30 DAYS!!! NO EXCEPTIONS pramipexole 0.5 mg tablet 0.5 mg PO QHS Qty: 30 5RF atorvastatin 10 mg tablet See Rx Instructions .ROUTE .COMPLEX Qty: 45 1RF Dose Instruction: TAKE 1 TABLET BY MOUTH EVERY OTHER DAY DIRECTED Rx Instructions: TAKE 1 TABLET BY MOUTH EVERY OTHER DAY DIRECTED lisinopril 10 mg tablet 10 mg PO DAILY Qty: 90 3RF gabapentin 100 mg capsule 200 mg PO BID Qty: 360 1RF duloxetine 60 mg capsule,delayed release(DR/EC) 60 mg PO DAILY Qty: 90 1RF valacyclovir 1 gram tablet 2,000 mg PO Q12H PRN (Reason: cold sores) Qty: 4 1RF Follow-up/Referrals: Zeus Harden APRN [Primary Care Provider, Internal Medicine] Time of Disposition: 13:15 Quality NIHSS Nursing Documentation ED NIHSS nursing documentation: reviewed/agree
[2025-01-10 13:09] VITALS: BP 145/70; PULSE 92; RESP 18; TEMP 36.6; O2SAT 97
--- OUTSIDE RECORDS SUMMARY | 2025-01-10 13:09 | XMS_ITS | Clinical Summary ---
Author Organization [facility] Address [address] [place] [address] Care Team Providers Care Chaplain Name Role Phone Richmond Carrion MD Primary Care Provider Source Comments [facility],non-owned Affiliates and Associated Physician Practices is amultiple site organization consisting of ambulatory clinics and hospital sitesin [place], [place], [place] and [place]. This disclosure is being madepursuant to the Care Everywhere program and may not contain all information available regarding this patient. Last updated 18.[facility] Allergies Active Allergy Reactions Criticality Noted Date [...] 4:57 PM CDT Height 165.1 cm (5' 5) 07/08/2016 4:57 PM CDT Body Mass Index 27.46 07/08/2016 4:57 PM CDT Plan of Treatment Health Maintenance Due Date Last Done Comments BONE DENSITY TESTING 1936 DTAP/TDAP/TD VACCINES (1 - Tdap) 07/19/1955 PNEUMOCOCCAL VACCINE 50+ (1 of 1 - PCV) 1986 ZOSTER VACCINE (1 of 2) 1986 Respiratory Syncytial Virus (RSV) Vaccine Pt: or over 60 yrs (1 - 1-dose 75+ series) 07/19/2011 DEPRESSION SCREENING 04/13/2024 COVID-19 VACCINE ( - 2023-2 5 season) 2024 INFLUENZA VACCINE (#1) 2024 HEPATITIS B VACCINE Aged Out No [...] age to complete this topic Insurance MEDICARE [facility] MEDICARE Care Teams Chaplain Relationship Specialty Start Date End Date Richmond Carrion MD [address] [place] [address] [place] [address] PCP - General Family Medicine 07/08/16
--- OUTSIDE RECORDS SUMMARY | 2025-01-10 13:09 | XMS_ITS | Patient Health Record ---
Author Organization [facility] Address [address] [place], [place] [id number] Care Team Providers Care Shop Fitter Name Role Phone LORE uMñoz Unavailable [phone] Ta Puente Unavailable Unavailable Reason For Referral No Information Medications Medication SIG (Take, Route, Frequency, Duration) Notes Start Date End Date Status Lisinopril 10 MG Oral Tablet ORAL lisinopril 10 MG Oral TabletOriginal Medicationlisinopril 10 MG Oral Tablet *Reorder from [facility] for eRx and Interaction Alerts* 01/11/2020 Active Magnesium Oxide -Mg Supplement 500 MG Oral Tablet ORAL magnesium oxide 500 MG Oral TabletOriginal Medicationmagnesium oxide 500 MG Oral Tablet *Reorder from [facility] for eRx and Interaction Alerts* 01/11/2020 Active ropinirole 2 MG Oral Tablet ORAL ropinirole 2 MG Oral TabletOriginal Medicationropinirole 2 MG Oral Tablet *Reorder from [facility] for eRx and Interaction Alerts* 01/11/2020 Active Nabumetone 750 MG Oral Tablet ORAL nabumetone 750 MG Oral TabletOriginal Medicationnabumetone 750 MG Oral Tablet *Reorder from [facility] for eRx and Interaction Alerts* 01/11/2020 Active duloxetine 60 MG Delayed Release Oral Capsule ORAL duloxetine 60 MG Delayed Release Oral CapsuleOriginal Medicationduloxetine 60 MG Delayed Release Oral Capsule *Reorder from [facility] for eRx and Interaction Alerts* 01/11/2020 Active biotin 1 MG Chewable Tablet ORAL biotin 1 MG Chewable TabletOriginal Medicationbiotin 1 MG Chewable Tablet *Reorder from [facility] for eRx and Interaction Alerts* 01/11/2020 Active Lysine 500 MG Oral Tablet ORAL lysine 500 MG Oral TabletOriginal Medicationlysine 500 MG Oral Tablet *Reorder from [facility] for eRx and Interaction Alerts* 01/11/2020 Active omeprazole 20 MG Delayed Release Oral Capsule ORAL omeprazole 20 MG Delayed Release Oral CapsuleOriginal Medicationomeprazole 20 MG Delayed Release Oral Capsule *Reorder from [facility] for eRx and Interaction Alerts* 01/11/2020 Active fexofenadine hydrochloride 180 MG Oral Tablet ORAL fexofenadine hydrochloride 180 MG Oral TabletOriginal Medicationfexofenadine hydrochloride 180 MG Oral Tablet *Reorder from [facility] for eRx and Interaction Alerts* 01/11/2020 Active phzij-K-auruegspck ase enzyme 150 UNT Oral Tablet ORAL kpsil-T-gymqlrcsvkzij enzyme 150 UNT Oral TabletOriginal Nysqjfmajcefuyt-K-ufciljuin dase enzyme 150 UNT Oral Tablet *Reorder from [facility] for eRx and Interaction Alerts* 01/11/2020 Active 24 HR oxybutynin chloride 15 MG Extended Release Oral Tablet ORAL 24 HR oxybutynin chloride 15 MG Extended Release Oral TabletOriginal Asjmezwbhg25 HR oxybutynin chloride 15 MG Extended Release Oral Tablet *Reorder from [facility] for eRx and Interaction Alerts* 01/11/2020 Active atorvastatin 10 MG Oral Tablet ORAL atorvastatin 10 MG Oral TabletOriginal Medicationatorvastatin 10 MG Oral Tablet *Reorder from [facility] for eRx and Interaction Alerts* 01/11/2020 Active aspirin 81 MG Delayed Release Oral Tablet [Mat Aspirin] ORAL aspirin 81 MG Delayed Release Oral Tablet [Mat Aspirin]Original Medicationaspirin 81 MG Delayed Release Oral Tablet [Mat Aspirin] *Reorder from [facility] for eRx and Interaction Alerts* 01/11/2020 Active Plan Of Treatment No Information Insurance Providers Payer Name Payer Address Payer Phone Subscriber Number Group Number Insured Name Patient Relationship to Insured Coverage Start Date Coverage End Date Medicare Part B [place] [address] [place] [phone] [id number] HELEN ANTONIO Self - patient is the insured [facility] ([facility]) ATTN CLAIMS [address] [place] [address] [id number] HELEN ANTONIO Self - patient is the insured
--- OUTSIDE RECORDS SUMMARY | 2025-01-10 13:09 | XMS_ITS | Clinical Summary ---
Author Organization [facility] Address [address] [place] [address] Care Team Providers Care Floor Framer Name Role Phone Ta Puente Primary Care [...] 500 mg by mouth daily Active vit C,W-Ex-kzevo-jenna tein-zeaxan (PreserVision AREDS-2) 250-90-40-1 mg capsule Take [...] on file Legal Sex Female 9:34 AM CHROMOSOMAL DISORDERS COUNSELOR Gender Identity Not on file Sexual Orientation Not on file Obstetrics History Last Filed Vital Signs Vital Sign Reading Time Taken Comments Blood Pressure 152/90 06/09/2018 11:53 AM CHROMOSOMAL DISORDERS COUNSELOR Pulse 77 06/09/2018 11:53 AM CHROMOSOMAL DISORDERS COUNSELOR Temperature - - Respiratory Rate 18 10/17/2021 10:53 AM CDT Oxygen Saturation - - Inhaled Oxygen Concentration - - Weight 81.6 kg (180 lb) 10/17/2021 10:53 AM CDT Height 162.6 cm (5' 4) 10/17/2021 10:53 AM CDT Body Mass Index 30.9 10/17/2021 10:53 AM CDT Plan of Treatment Health Maintenance Due Date Last Done Comments Depression Screening 1936 Fall Risk Assessment 1936 Osteoporosis Screening-Bone Density Scan 1935 Well Visit 65+ 2001 DTaP/Tdap/Td Vaccine (1 - Tdap) 06/09/2008 9, 02/11/1994 Covid-19 Vaccine (2024-2 6 season) 2024 08/12/2021, 03/13/2021, 06/22/2020, Additional history exists Influenza Vaccine (#1) 2024 , 12/15/2019, 01/21/2019, Additional history exists Hepatitis B Screening Completed 02/07/1993 , 08/30/1992, 08/02/1992 Zoster Vaccine Completed 04/29/2019, 02/28/2019 Pneumococcal vaccine 65+ Completed 12/16/2019, 06/12 Insurance MEDICARE [facility] MEDICARE [facility] Care Teams Floor Framer Relationship Specialty Start Date End Date Ta Puente PA [address] [facility] [address] [place] [address] PCP - General Physician First Aid Trainer 10/30/21
== END 2025-01-10 13:23 | disposition home or self-care (01) ==
PROVIDERS: Emergency Provider Nurse Practitioner Family; PCP Nurse Practitioner
DX: S30.1XXA Contusion of abdominal wall, initial encounter (principal); W19.XXXA Unspecified fall, initial encounter; I10 Essential (primary) hypertension; E78.5 Hyperlipidemia, unspecified; G25.81 Restless legs syndrome; Z96.653 Presence of artificial knee joint, bilateral; Z79.82 Long term (current) use of aspirin
CPT/HCPCS: 99212; G0463